=== PATIENT | female | born 1970 | race Caucasian/White ===

== ENCOUNTER 2017-03-19 15:22 | Emergency (ER) | payer MEDICARE, MEDICAID ==
[~2017-03-19] VITALS: Ht 167.6 cm; Wt 229.1 kg
[~2017-03-19 15:22] MED LIST: AMOXICILLIN AND1 TA2 PO; BACTRIM DS TAB1 EACH PO; COZAAR50 MG PO; CYMBALTA30 MG PO; ELAVIL GENERIC25 MG PO; ELIQUIS5 MG PO; INSULIN AS100 UNITS/ SC; KEFLEX 500MG.500 MG PO; LASIX 80MG. TAB80 MG PO; LEVOTHYROXINE0.3 M1 PO; LORTAB 10/5001 TAB PO; LYRICA50 MG PO; METOPROLOL100 MG PO; MIRAPEX1 MG PO; NAPROXEN SODIU500 MG PO; NEURONTIN800 MG PO; NORCO 325 MG-101 TAB PO; PAXIL40 MG PO; PROVENTIL0.09 MG/A1 IH; PROZAC 20MG CAP20 MG PO; REQUIP 1 MG TABL1 MG FT; SYNTHROID0.125 M1 PO; TOUJEO300 U/ML SC; TRICOR48 MG PO; TUDORZA PR400 MCG/Ac IH; VOLTAREN50 MG PO; ZOCOR40 MG PO
--- NOTE | 2017-03-19 15:56 | Emergency Room Report ---
History of Present Illness Time Seen by [id number] Presenting Problem in Triage Pt arrived:Walked Presenting Problem:PT STATES SHE BECAME SOB TODAY. BACK PAIN IN HER UPPER AND LOWER FOR A COUPLE DAYS. 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 N Clinical Suspician of Infection? N Mental Status: 1 - Regular (Normal Baseline) Sepsis Risk:Possible Sepsis Risk Have you (or family members/close friends) recently traveled outside the [place]? N If Yes, where/when: Have you had exposure to infectious disease within the past month? TB? Other? Specify: Patient with chronic pain in back, but reports that over the past few days she has had diffuse edema, some congestion, and today, a little bit of SOB. No cough or fever. No chest pain or palpitations. No n/v/d. Patient already on Eliquis for PE. Has been seen in the ED in January of this year for bronchitis and cellulitis of leg, and admitted. No redness today, and no cough. States is on Lortab per Dr. Chase in [place], who is trying to get her into a pain clinic. She is requesting pain medicaiton today. ALLERGIES Coded Allergies: ceftriaxone (From ROCEPHIN) (12/18/16) droperidol (From INAPSINE) (12/18/16) ibuprofen (12/18/16) moxifloxacin (From AVELOX) (12/18/16) Home Medications Reported Medications Pregabalin (Lyrica 50MG) 150 MG PO QID ROPINIROLE HCL (Requip 1 Mg) 1 MG FT QHS DULOXETINE HCL (Cymbalta 30MG) 30 MG PO DAILY Apixaban (Eliquis) 5 MG PO BID Gabapentin (Neurontin) 1 TAB PO TID Simvastatin (Zocor) 40 MG PO DAILY HYDROCODONE/ACETAMINOPHEN ([place] 10-325 Tablet) 1 TAB PO QID INSULIN GLARGINE,HUM.REC.ANLOG (Juan David Foster) 200 UNITS SC DAILY Levothyroxine Sodium (Levothyroxine 0.3MG TAB) 225 MCG PO DAILY #30 Metoprolol Tartrate (Metoprolol) 50 MG PO BID ALBUTEROL (Proventil Hfa Inhaler) 1-2 PUFF IH Q6H PRN FENOFIBRATE NANOCRYSTALLIZED (Tricor) 54 MG PO QPM Furosemide (Lasix 80MG) 80 MG PO BIDL Losartan Potassium (Cozaar) 100 MG PO DAILY History Medical History General CAD? No Angina: No [place]: No Hypertension? Yes Hyperlipidemia? Yes CHF? No DVT? Yes PE? Yes COPD? Yes Asthma? No Anemia? Yes GERD? Yes Gastric ulcers? No GI Bleed? No Hernia? No Thyroid Problems? Yes Hypothyroidism? Yes CVA? No Seizures? No Diabetes? Yes Insulin Dependent: Yes Insulin Pump: No Home FSBS? Yes Renal Insuffiency? No End Stage Renal Disease? No UTI? Yes Stones? No BPH? No GB Disease: No Nephritic Syndrome? No Asplenia? No Hepatitis? No Sickle Cell Disease? No Arthritis? Yes Migraines? Yes Cataracts? No Glaucoma? No MRSA? Yes HIV? No TB? No Anxiety? Yes Depression? Yes Cancer? No More? 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 Respiratory see HPI Musculoskeletal see HPI Physical Exam Vital Signs Vital Signs Date Time Temp Pulse Resp B/P Pulse O2 O2 Flow FiO2 Ox Delivery Rate 03/19 1633 81 22 134/87 97 03/19 1525 98.5 90 22 154/93 97 General Appearance normal appearance, WD/WN, no apparent distress, obese Eye Exam - bilateral eye normal exam, bilateral eye PERRL, bilateral eye EOMI Neck normal inspection, non-tender, supple, full range of motion Respiratory Status Yes: trachea midline, chest symmetrical, non tender chest. No: respiratory distress, tender on palpation, use of accessory muscles, pain on inspiration, pain on expiration, productive cough, non productive cough. Lung Sounds bilateral: normal breath sounds, lungs clear. Cardiovascular normal exam, regular rate/rhythm, no gallop, no JVD, no murmur, no rub, normal peripheral pulses Gastrointestinal normal bowel sounds, normal exam, non tender, soft, no organomegaly, no pulsatile mass, no guarding Extremities non-tender, normal range of motion, normal inspection, pedal edema, large scar, left knee, old; neg Taylor's; neg ropiness; neg asymmetry or discoloration Neurologic alert, normal exam, no motor/sensory deficits, oriented x 3 Skin intact, normal color Medical Decision Making LABS/Meds/Orders Pt receiving controlled substance in ED? No Results/Orders Laboratory Tests 03/19/17 1610: B-Natriuretic Peptide 72 03/19/17 161: Creatine Kinase 113, CK-MB (CK-2) Rel Index 0.4, CK and CKMB Interp 0.5, Troponin I < 0.02, B-Natriuretic Peptide Pending, WBC 8.6, RBC 4.65, Hgb 13.8, Hct 43.1, MCV 92.6, RDW 13.5, Plt Count 229, MPV 7.2 L, Gran % 73.7, Gran # 6.4 , Lymphocytes % 17.0, Monocytes % 6.2, Eosinophils % 2.7, Basophils % 0.5, Lymphocytes # 1.5, Monocytes # 0.5, Eosinophils # 0.2, Basophils # 0.0, PUBS MCHC 32.3, MCH 30.0 Current Medication Orders Sig/Deanne Start time Last Medication Dose Route Stop Time Status Admin Ketorolac 30 MG ONCE ONE 03/19 1715 r Tromethamine IV 03/19 1716 Sodium Chloride 10 ML PRN PRN 03/19 1545 AC IV 03/20 1537 Orders Procedure Date/time Status BRAIN NATRIURETIC PEPTIDE 03/19 1551 Complete ELECTROCARDIOGRAM REQUEST 03/19 1538 Active IV SALINE LOCK 03/19 1538 Active CBC WITH AUTO DIFF 03/19 1538 Complete CARDIAC ENZYMES 03/19 1538 Active BRAIN NATRIURETIC PEPTIDE 03/19 1538 Active 12 LEAD EKG-NICCI (INITIAL) 03/19 UNK Active CM/EKG CM/EKG EKG rate, NSR, rhythm, no evid. of ischemic chgs, no ectopy, normal QRS, normal AK, normal EKG (NSR 79;) XRAY/CT/US XRAY/CT/US XRAY chest XR interpretation by reviewed by me (report reviewed) Xray Results normal/NAD, no infiltrates, normal lung inflation chastity Departure Departure Time of Disposition 1709 Disposition DC Home or Self Care(routine) Clinical Impression Primary Impression: Chronic pain syndrome Secondary Impressions: Edema Qualifiers: Edema type: generalized Qualified Code: R60.1 - Generalized edema SOB (shortness of breath) Condition STABLE Referrals SHANA CHASE (Family) Patient Instructions DI for Peripheral Edema -- Bilateral Additional Instructions See Dr. Chase in [place] for pain management and follow up on swelling and shortness of breath; continue Lortab Discharge Counseling Counseled pt/family regarding diagnosis, test results, medications/RX, home care, follow up needs ED Critical Care Critical Care No at 1716
--- NOTE | 2017-03-19 15:56 | Emergency Room Report ---
History of Present Illness Time Seen by [id number] Presenting Problem in Triage Pt arrived:Walked Presenting Problem:PT STATES SHE BECAME SOB TODAY. BACK PAIN IN HER UPPER AND LOWER FOR A COUPLE DAYS. 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 N Clinical Suspician of Infection? N Mental Status: 1 - Regular (Normal Baseline) Sepsis Risk:Possible Sepsis Risk Have you (or family members/close friends) recently traveled outside the [place]? N If Yes, where/when: Have you had exposure to infectious disease within the past month? TB? Other? Specify: Patient with chronic pain in back, but reports that over the past few days she has had diffuse edema, some congestion, and today, a little bit of SOB. No cough or fever. No chest pain or palpitations. No n/v/d. Patient already on Eliquis for PE. Has been seen in the ED in January of this year for bronchitis and cellulitis of leg, and admitted. No redness today, and no cough. States is on Lortab per Dr. Chase in [place], who is trying to get her into a pain clinic. She is requesting pain medicaiton today. ALLERGIES Coded Allergies: ceftriaxone (From ROCEPHIN) (12/18/16) droperidol (From INAPSINE) (12/18/16) ibuprofen (12/18/16) moxifloxacin (From AVELOX) (12/18/16) Home Medications Reported Medications Pregabalin (Lyrica 50MG) 150 MG PO QID ROPINIROLE HCL (Requip 1 Mg) 1 MG FT QHS DULOXETINE HCL (Cymbalta 30MG) 30 MG PO DAILY Apixaban (Eliquis) 5 MG PO BID Gabapentin (Neurontin) 1 TAB PO TID Simvastatin (Zocor) 40 MG PO DAILY HYDROCODONE/ACETAMINOPHEN ([place] 10-325 Tablet) 1 TAB PO QID INSULIN GLARGINE,HUM.REC.ANLOG (Juan David Foster) 200 UNITS SC DAILY Levothyroxine Sodium (Levothyroxine 0.3MG TAB) 225 MCG PO DAILY #30 Metoprolol Tartrate (Metoprolol) 50 MG PO BID ALBUTEROL (Proventil Hfa Inhaler) 1-2 PUFF IH Q6H PRN FENOFIBRATE NANOCRYSTALLIZED (Tricor) 54 MG PO QPM Furosemide (Lasix 80MG) 80 MG PO BIDL Losartan Potassium (Cozaar) 100 MG PO DAILY History Medical History General CAD? No Angina: No [place]: No Hypertension? Yes Hyperlipidemia? Yes CHF? No DVT? Yes PE? Yes COPD? Yes Asthma? No Anemia? Yes GERD? Yes Gastric ulcers? No GI Bleed? No Hernia? No Thyroid Problems? Yes Hypothyroidism? Yes CVA? No Seizures? No Diabetes? Yes Insulin Dependent: Yes Insulin Pump: No Home FSBS? Yes Renal Insuffiency? No End Stage Renal Disease? No UTI? Yes Stones? No BPH? No GB Disease: No Nephritic Syndrome? No Asplenia? No Hepatitis? No Sickle Cell Disease? No Arthritis? Yes Migraines? Yes Cataracts? No Glaucoma? No MRSA? Yes HIV? No TB? No Anxiety? Yes Depression? Yes Cancer? No More? Yes Additional hx: OSTEOARTHRITIS SLEEP APNEA Immunization Hx DT/Tetanus 07/2007 Flu 2015-17FSN Pneumonia Received In Past Surgical Hx Previous Surgery?Y RIGHT TKA 2006 LEFT TKA LEFT KNEE REPAIR [employer] Hx LMP 2 Months Ago Family History Family Hx Diabetes Yes CAD No Hypertension Yes Hyperlipidemia Yes Cancer Yes TB No Social History Smoking Hx Smoker: Never Smoker Tobacco: No Packs/day < 1 Pack Alcohol Alcohol: No Review of Systems All Other Systems Reviewed and Negative ENT see HPI. Respiratory see HPI Musculoskeletal see HPI Physical Exam Vital Signs Vital Signs Date Time Temp Pulse Resp B/P Pulse O2 O2 Flow FiO2 Ox Delivery Rate 03/19 1633 81 22 134/87 97 03/19 1525 98.5 90 22 154/93 97 General Appearance normal appearance, WD/WN, no apparent distress, obese Eye Exam - bilateral eye normal exam, bilateral eye PERRL, bilateral eye EOMI Neck normal inspection, non-tender, supple, full range of motion Respiratory Status Yes: trachea midline, chest symmetrical, non tender chest. No: respiratory distress, tender on palpation, use of accessory muscles, pain on inspiration, pain on expiration, productive cough, non productive cough. Lung Sounds bilateral: normal breath sounds, lungs clear. Cardiovascular normal exam, regular rate/rhythm, no gallop, no JVD, no murmur, no rub, normal peripheral pulses Gastrointestinal normal bowel sounds, normal exam, non tender, soft, no organomegaly, no pulsatile mass, no guarding Extremities non-tender, normal range of motion, normal inspection, pedal edema, large scar, left knee, old; neg Taylor's; neg ropiness; neg asymmetry or discoloration Neurologic alert, normal exam, no motor/sensory deficits, oriented x 3 Skin intact, normal color Medical Decision Making LABS/Meds/Orders Pt receiving controlled substance in ED? No Results/Orders Laboratory Tests 03/19/17 1610: B-Natriuretic Peptide 72 03/19/17 161: Creatine Kinase 113, CK-MB (CK-2) Rel Index 0.4, CK and CKMB Interp 0.5, Troponin I < 0.02, B-Natriuretic Peptide Pending, WBC 8.6, RBC 4.65, Hgb 13.8, Hct 43.1, MCV 92.6, RDW 13.5, Plt Count 229, MPV 7.2 L, Gran % 73.7, Gran # 6.4 , Lymphocytes % 17.0, Monocytes % 6.2, Eosinophils % 2.7, Basophils % 0.5, Lymphocytes # 1.5, Monocytes # 0.5, Eosinophils # 0.2, Basophils # 0.0, PUBS MCHC 32.3, MCH 30.0 Current Medication Orders Sig/Deanne Start time Last Medication Dose Route Stop Time Status Admin Ketorolac 30 MG ONCE ONE 03/19 1715 r Tromethamine IV 03/19 1716 Sodium Chloride 10 ML PRN PRN 03/19 1545 AC IV 03/20 1537 Orders Procedure Date/time Status BRAIN NATRIURETIC PEPTIDE 03/19 1551 Complete ELECTROCARDIOGRAM REQUEST 03/19 1538 Active IV SALINE LOCK 03/19 1538 Active CBC WITH AUTO DIFF 03/19 1538 Complete CARDIAC ENZYMES 03/19 1538 Active BRAIN NATRIURETIC PEPTIDE 03/19 1538 Active 12 LEAD EKG-NICCI (INITIAL) 03/19 UNK Active CM/EKG CM/EKG EKG rate, NSR, rhythm, no evid. of ischemic chgs, no ectopy, normal QRS, normal OR, normal EKG (NSR 79;) XRAY/CT/US XRAY/CT/US XRAY chest XR interpretation by reviewed by me (report reviewed) Xray Results normal/NAD, no infiltrates, normal lung inflation chastity Departure Departure Time of Disposition 1709 Disposition DC Home or Self Care(routine) Clinical Impression Primary Impression: Chronic pain syndrome Secondary Impressions: Edema Qualifiers: Edema type: generalized Qualified Code: R60.1 - Generalized edema SOB (shortness of breath) Condition STABLE Referrals SHANA CHASE (Family) Patient Instructions DI for Peripheral Edema -- Bilateral Additional Instructions See Dr. Chase in [place] for pain management and follow up on swelling and shortness of breath; continue Lortab Discharge Counseling Counseled pt/family regarding diagnosis, test results, medications/RX, home care, follow up needs ED Critical Care Critical Care No at 1715
--- NOTE | 2017-03-19 16:22 | RADIOLOGY REPORT PS360 ---
CHEST(2 VIEWS-NOT PORTABLE) HISTORY: Shortness of air SOA ORDERING PHYSICIAN: Jacqueline Fowler MD PATIENT AGE: 46 years COMPARISON: 02/01/2017 FINDINGS: The cardiomediastinal silhouette and pulmonary vascularity are within normal limits. The lungs are clear without infiltrates, suspicious nodules, or pleural effusions. Mild degenerative changes thoracic spine. IMPRESSION: No acute finding
[2017-03-19 16:24] LABS: LYMPH # 1.5 K/mm3 (0.7-4.5)
[2017-03-19 16:36] LABS: HEMOGLOBIN 13.8 g/dL (12.2-16.2)
[2017-03-19 17:14] VITALS: BP 134/87
--- OUTSIDE RECORDS SUMMARY | 2017-03-26 03:09 | External Medical Summary Rpt ---
Author Author , Organization [employer] Address Unknown Phone Unavailable Care Team Providers Care Dinking Machine Operator Name Role Phone [facility] Unavailable Unavailable [facility], [facility] AHMED ADN, AHMED ADN Unavailable Unavailable AHMED ADN, AHMED ADN Unavailable Unavailable [facility] Unavailable Unavailable RESPONSE, [facility] Unavailable Unavailable [facility] MARIAA ESCOBEDO MD, PSC, Unavailable Unavailable MARIAA ESCOBEDO MD, PSC DENIA DORANTES, DENIA Unavailable Unavailable JAYNA Mckeon MD, Unavailable Unavailable Khoa Mckeon MD [facility] Unavailable Unavailable MEDICAL GROUP, [facility] Unavailable Unavailable [place], [facility] LUCIE FRA, LUCIE Unavailable Unavailable FRA JOEL JAYNA, JOEL JAYNA Unavailable Unavailable ANNA JOHN, ANNA Unavailable Unavailable JOHN BERNNELLY DOMONIQUE, BERNERT Unavailable Unavailable DOMONIQUE BESSON, BESSON Unavailable Unavailable GUTIERREZ RENÉ, Unavailable Unavailable GUTIERREZ RENÉ BLOYD LUX, BLOYD LUX Unavailable Unavailable [facility] Unavailable Unavailable ASSOCIAT, [facility] FRYE, FRYE Unavailable Unavailable BOONSTRA TOD, Unavailable Unavailable BOONSTRA TOD [facility] Unavailable Unavailable HOSPITAL, [facility] PHYSICIAN [facility]available Unavailable PRACTICE L, [facility] RENATA IVELISSE, RENATA Unavailable Unavailable IVELISSE JONEL MOR, JONEL MOR Unavailable Unavailable MOCTEZUMA JAM, MOCTEZUMA Unavailable Unavailable JAM MOCTEZUMA JAM, MOCTEZUMA Unavailable Unavailable JAM AGUILA REBECCA, AGUILA Unavailable Unavailable REBECCA AGUILA REBECCA IGN, Unavailable Unavailable AGUILA REBECCA IGN [facility] Unavailable Unavailable REHABILITATION, [facility] [place] Unavailable Unavailable [facility] Unavailable Unavailable [facility], [facility] Unavailable Unavailable [facility] [place], [facility] Unavailable Unavailable PHYSICIAN PRA, [facility] PRA JORJE NOEL Unavailable Unavailable JOHN LOPEZ, RECINOS Unavailable Unavailable JOHN [facility], Unavailable Unavailable [facility] AMIN QIANA, AMIN QIANA Unavailable Unavailable AMIN, COCO A, Unavailable Unavailable AMIN, COCO A [facility] Unavailable Unavailable ANESTHESIA PSC, [facility] ANEST[facility]IA [facility]SC SALVATORE, SALVATORE Unavailable Unavailable TONIA CHASE, Unavailable Unavailable TONIA CHASE HARSHAD, HARSHAD Unavailable Unavailable PANG ZEINA, PANG ZEINA Unavailable Unavailable DUFF, DUFF Unavailable Unavailable [facility] [place] [facility] Unavailable Unavailable MANAGE, [facility] [place] [facility] RALPH KIMANI, RALPH Unavailable Unavailable KIMANI RALPH KIMANI, RALPH Unavailable Unavailable KIMANI [facility] Unavailable Unavailable GROUP P, [facility] [place] ANNIA, OAKLEY Unavailable Unavailable ANNIA VEE COLETTE, VEE Unavailable Unavailable COLETTE JIMBO THO, JIMBO THO Unavailable Unavailable GREGONIS BEVERLY, Unavailable Unavailable GREGONIS BEVERLY TRINIDAD MARIETTA, TRINIDAD Unavailable Unavailable MARIETTA INDIRA, INDIRA Unavailable Unavailable INDIRA RHO, INDIRA Unavailable Unavailable RHO INDIRA, LUIS F G, Unavailable Unavailable INDIRA, LUIS F G HAGENSCHNEIDER BILL, Unavailable Unavailable HAGENSCHNEIDER BILL HAGENSCHNEIDER BILL, Unavailable Unavailable HAGENSCHNEIDER BILL [facility] Unavailable Unavailable INC, [facility] Unavailable Unavailable HOSPITAL P, [facility] MOSER URBANO, MOSER Unavailable Unavailable URBANO MOSER URBANO, MOSER Unavailable Unavailable URBANO MOSER, NEHEMIAS S, Unavailable Unavailable MOSER, NEHEMIAS S ANA TWA, ANA Unavailable Unavailable TWA HEILIG, HEILIG Unavailable Unavailable HEILIG IVELISSE, HEILIG Unavailable Unavailable IVELISSE HERANJITG, CELIA R, Unavailable Unavailable HEILIG, CELIA R [facility] Un[facility] MACK SCHUMACHER, Unavailable Unavailable MACK SCHUMACHER HOOS R Unavailable Unavailable BRANDEE CELESTE, BRANDEE ALONSO Unavailable [facility]available [facility]available Unavailable SERVICES O, [facility] KATIE WILSON Unavailable Unavailable SIMPSON BEAU, SIMPSON Unavailable Unavailable BE[facility] Unavailable Unavailable [place] Unavailable Unavailable [place], [facility] Unavailable Unavailable [place], [facility] [place] II, CARMENZA C, Unavailable Unavailable II, CARMENZA C [facility], [facility] Unavailable Unavailable INC [facility], [facility] Unavailable Unavailable INC BHUMI ANTONELLA, BHUMI Unavailable Unavailable ANTONELLA EARNEST III ANTONELLA, Unavailable Unavailable EARNEST III ANTONELLA [facility] Unavailable Unavailable [facility], [facility] Unavailable Unavailable ASSOCIAT, [facility] KERSCHNER MAG, Unavailable Unavailable KERSCHNER MAG KERSCH[facility] MAG, Unavailable Unavailable [facility] MAG KOSTELIC AFSHAN, Unavailable Unavailable KOSTELIC AFSHAN KOSTELNIK BRU, Unavailable Unavailable KOSTELNIK BRU KOUNS AJ, KOUNS AJ Unavailable Unavailable KUVLIEV MARYELLEN, KUVLIEV Unavailable Unavailable MARYELLEN KUVLIEV, AASHISH E, Unavailable Unavailable KUVLIEV, AASHISH E [facility] Un[facility] DIAL FREDDY, DIAL Unavailable Unavailable FREDDY DIAL FREDDY, DIAL Unavailable Unavailable FREDDY NICCI JR, NICCI JR Unavailable Unavailable [facility] Unavailable Unavailable DISEASE, [facility] Unavailable Unavailable INTERNAL MED, [facility] Unavailable [facility] [place] [place] STAN KONG Unavailable Unavailable ADRIANA GOMEZ, Unavailable Unavailable ADRIANA PIERCE ROBYN GRE, Unavailable Unavailable ROBYN GRE ROBYN GRE, Unavailable Unavailable ROBYN GRE [facility] Unavailable Unavailable SERVICES, [facility] Unavailable Unavailable [facility] WILSON JAM, Unavailable Unavailable WILSON JAM WILSON JAM, Unavailable Unavailable WILSON JAM MADRIGAL ELOISE, Unavailable Unavailable MADRIGAL ELOISE BLOOM, BLOOM Unavailable Unavailable MCQUAIDE JERRY, Unavailable Unavailable MCQUAIDE JERRY [facility] Unavailable Unavailable [facility] Unavailable Unavailable MEDICAL, [facility] Unavailable Unavailable SERV ULTRA SOUND TECHNICIAN R, [facility] ULTRA SOUND TECHNICIAN R [facility] Unavailable Unavailable SERV ULTRA SOUND TECHNICIAN R, [facility] ULTRA SOUND TECHNICIAN R [facility], [facility]CHNIC[facility] Unavailable Unavailable [facility], [facility] ULTRA SOUND TECHNICIAN [facility] CELIA SCOTT MD Unavailable Unavailable PLLCCELIA MD [facility] CELIA SCOTT MD Unavailable Unavailable [facility], CELIA SCOTT MD [facility] LUGO KYL, LUGO Unavailable Unavailable KYL [facility] PRIMARY Unavailable Unavailable CARE, [facility] GILLILAND, GILLILAND Unavailable Unavailable GILLILAND DYLAN, GILLILAND Unavailable Unavailable DYLAN ABDI BEN, ABDI Unavailable Unavailable BEN [facility], Unavailable Unavailable [facility] Unavailable Unavailable [facility], [facility] Unavailable Unavailable HEALTH, [facility] LINARES JOHN, Unavailable Unavailable LINARES JOHN LINARES JOHN, Unavailable Unavailable LINARES JOHN [facility], Unavailable Unavailable [facility] QIANA AMIN MD Unavailable Unavailable CONSULTING SRV, QIANA AMIN MD CONSULTING [facility], Unavailable Unavailable PLL, [facility], [facility] PAUL HARRIS Unavailable Unavailable YAMINI, PAUL HARRIS YAMINI RADMANESH SHA, Unavailable Unavailable RADMANESH SHA [facility] Unavailable Unavailable [facility], [facility] Unavailable Unavailable [facility], [facility] RENUSCH, RENUSC Unavailable Unavailable RICE SHA, RICE SHA Unavailable Unavailable SHERIN CHR, SHERIN CHR Unavailable Unavailable ROGOZINSKI ZBI, Unavailable Unavailable ROGOZINSKI ZBI SYMONE KIMBER, SYMONE Unavailable Unavailable KIMBER SCALF URBANO, SCALF URBANO Unavailable Unavailable SCHLENTHER, Unavailable Unavailable SCHLENTHER SHASHY MICHAEL, SHASHY Unavailable Unavailable MICHAEL CHAVEZ SEGUN, CHAVEZ Unavailable Unavailable SEGUN SHORT, BRITTANY, SHORT, Unavailable Unavailable BRITTANY CARRANZA SARAH, CARRANZA SARAH Unavailable Unavailable SOKAN BAB, SOKAN BAB Unavailable Unavailable [facility], Unavailable Unavailable [facility] Unavailable [facility], [facility] Unavailable Un[facility], [facility] Unavailable Unavailable [facility], [facility] Unavailable Unavailable [facility], [facility] SOTINGEANU, Unavailable Unavailable [facility] Un[facility], [facility] Unavailable Unavailable EMERGENCY SERV, [facility] MARIANGEL SILVINA, MARIANGEL Unavailable Unavailable SILVINA [facility] Unavailable Unavailable [facility], [facility] Unavailable Unavailable [facility], [facility] МАРИЯ ALICIA, HSIEH Unavailable Unavailable RAY STILES NAN, STILES Unavailable Unavailable NAN SWINEY PAT, SWINEY Unavailable Unavailable PAT JR ZACHARY EDW, Unavailable Unavailable JR ZACHARY EDW [facility], [facility] OSI, Unavailable Unavailable [facility] OSI, Unavailable Unavailable VILL[facility]FLOR OSI VILLAFLOR, GRETEL M, Unavailable Unavailable VILLAFLOR, GRETEL M [facility], Unavailable Unavailable [facility] HUBER CHR, HUBER Unavailable Unavailable CHR BELGICA IV, Unavailable Unavailable BELGICA IV BELGICA IV ALL, Unavailable Unavailable BELGICA IV ALL ANGELICA CELESTE, ANGELICA Unavailable Unavailable [facility] Un[facility], Un[facility] ZAGUROVSKAYA MAR, Unavailable Unavailable ZAGUROVSKAYA MAR RINA, RINA Unavailable Unavailable RINA MAT, RINA MAT Unavailable Unavailable Purpose Continuity of Care Document - 11-19-2007 through 2016 Problems Code Diagnosis DOS Provider Status E78.00 PURE 03-19-2017 HYPERCHOLES TEROLEMIA, UNSPECIFIED I50.9 HEART 03-19-2017 FAILURE, UNSPECIFIED M54.12 RADICULOPAT 03-19-2017 HY, CERVICAL REGION M62.838 OTHER 03-19-2017 MUSCLE SPASM R51 HEADACHE 03-19-2017 Z79.01 ANODIC TREATER 03-19-2017 (CURRENT) USE OF ANTICOAGULA NTS Z79.899 OTHER LONG 03-19-2017 TERM (CURRENT) DRUG THERAPY Z87.01 PERSONAL 03-19-2017 HISTORY OF PNEUMONIA (RECURRENT) M54.2 CERVICALGIA 02-28-2017 S16.1XXA STRAIN OF 02-28-2017 MUSCLE, FASCIA AND TENDON AT NECK LEVEL, INITIAL ENCOUNTER S46.811A STRAIN OF 02-28-2017 OTHER MUSCLES, FASCIA AND TENDONS AT SHOULDER AND UPPER ARM LEVEL, RIGHT ARM, INITIAL ENCOUNTER Z79.891 PENITENTIARY 02-28-2017 (CURRENT) USE OF OPIATE ANALGESIC Z88.1 ALLERGY 02-28-2017 STATUS TO OTHER ANTIBIOTIC AGENTS STATUS Z88.8 ALLERGY 02-28-2017 STATUS TO OTHER DRUGS, MEDICAMENTS AND BIOLOGICAL SUBSTANCES STATUS [id number] CELLULITIS 02-01-2017 ABEL OF RIGHT PHYSICIANS, LOWER LIMB PLLC Y89946 CELLULITIS 02-01-2017 ABEL OF LEFT PHYSICIANS, LOWER LIMB [facility] R05 COUGH 02-01-2017 ABEL PHYSICIANS, [facility] R0602 SHORTNESS 02-01-2017 ABEL OF BREATH PHYSICIANS, [facility] M79.604 PAIN IN 01-31-2017 RIGHT LEG Z79.4 ANODIC TREATER 01-31-2017 (CURRENT) USE OF INSULIN Z87.891 PERSONAL 01-31-2017 HISTORY OF NICOTINE DEPENDENCE M79.605 PAIN IN 01-31-2017 LEFT LEG R07.9 CHEST PAIN, 01-31-2017 UNSPECIFIED E7800 PURE 01-29-2017 [place] HYPERCHOLES [facility] UNSPECIFIED I509 HEART 01-29-2017 [facility] FAILURE [facility] UNSPECIFIED HOSPITAL Q65663 PAIN IN 01-29-2017 [facility] RIGHT LEG N EMERGENCY PHYS F78729 PAIN IN 01-29-2017 [facility] LEFT LEG N EMERGENCY PHYS R0789 OTHER CHEST 01-29-2017 [facility] PAIN N EMERGENCY PHYS Z794 PENITENTIARY 01-29-2017 [place] CURRENT USE [facility] INSULIN HOSPITAL I98935 ANODIC TREATER 01-29-2017 [place] CURRENT USE [facility] OPIATE HOSPITAL ANALGESIC F10898 OTHER LONG 01-29-2017 [facility] CURRENT HOSPITAL DRUG THERAPY Z8701 PERSONAL 01-29-2017 [facility] HISTORY OF COMMUNITY PNEUMONIA HOSPITAL RECURRENT E6601 MORBID 12-24-2016 [facility] SEVERE PHYSICIAN OBESITY DUE PRACTICE L TO EXCESS CALORIES G894 CHRONIC 12-24-2016 [facility] PAIN PHYSICIAN SYNDROME PRACTICE L I2699 OTH 12-24-2016 [facility] PULMONARY PHYSICIAN EMBOLISM PRACTICE L W/O ACUTE COR PULMONALE J00 ACUTE 12-24-2016 [facility] NAS[facility]ARYNG PHYSICIAN ITIS COMMON PRACTICE L COLD E1165 TYPE 2 12-20-2016 [facility] MELLITUS INC WITH HYPERGLYCEM IA I10 ESSENTIAL 12-20-[address] [facility] P N J449 CHRONIC 12-20-2016 [facility] PULMONARY [facility] P DISEASE UNS K219 GASTRO-ESOP 12-20-2016 [facility] REFLUX [facility] WITHOUT ESOPHAGITIS Z7901 ANODIC TREATER 12-20-2016 [facility] CURRENT USE MEM [facility]OS[facility] OF INC ANTICOAGULA NTS E109 TYPE 1 12-18-2016 [facility] MELLITUS MEDICAL WITHOUT EQUIPME COMPLICATIO NS E119 TYPE 2 12-18-2016 [facility] MELLITUS INC WITHOUT COMPLICATIO NS G4733 OBSTRUCTIVE 12-18-2016 [facility] SLEEP HOME APNEA ADULT MEDICAL PEDIATRIC EQUIPME J9610 CHRONIC 12-18-2016 [facility] RESPIRATORY HOME FAIL UNS MEDICAL HYPOXIA/HYP EQUIPME ERCAPNIA R079 CHEST PAIN 12-18-2016 [facility] UNSPECIFIED [facility]ICAL IMAGING ASS R1011 RIGHT UPPER 12-18-2016 [facility] PAIN IMAGING ASS R7989 OTHER SPEC 12-18-2016 [facility] ABNORMAL MEDICAL FINDINGS IMAGING ASS BLOOD CHEMISTRY Z6845 BODY MASS 12-18-2016 [facility] INDEX BMI [facility] 70 OR HOSPITAL P GREATER ADULT P08357 ACQUIRED 12-18-2016 [facility] ABSENCE OF [facility] RIGHT LEG HOSPITAL P ABOVE KNEE A73951 ACQUIRED 12-18-2016 [place] ABSENCE OF [facility] LEFT LEG HOSPITAL P ABOVE KNEE G4731 PRIMARY 12-16-2016 [facility] CENTRAL HOME SLEEP APNEA MEDICAL EQUIPME J9621 ACUTE & 11-30-2016 [facility] CHRONIC N EMERGENCY RESPIRATORY PHYS FAILURE WITH HYPOXIA R030 ELEVATED 11-30-2016 [facility] BLOOD-PRESS N EMERGENCY URE READING PHYS WITHOUT DX HTN R0600 DYSPNEA 11-30-2016 [facility] UNSPECIFIED N EMERGENCY PHYS R0989 OTH SPEC SX 11-30-2016 [facility] & SIGNS N EMERGENCY INVLV THE PHYS CIRC & RESP SYS E039 HYPOTHYROID 11-27-2016 [facility] E669 OBESITY 11-27-2016 [facility] UNSPECIFIED N EMERGENCY PHYS G4730 SLEEP APNEA 11-27-2016 [facility] J441 CHRONIC 11-27-2016 [facility] OBSTRUCTIVE N EMERGENCY PULMONARY PHYS DZ W/EXACERBAT ION R609 EDEMA 11-27-2016 [facility] UNSPECIFIED N EMERGENCY PHYS R635 ABNORMAL 11-27-2016 [facility] WEIGHT GAIN N EMERGENCY PHYS Y76581 CHRONIC 11-21-2016 [facility] MIGRAINE PHYSICIAN W/O AURA PRACTICE L NOT INTRACT W/O SM J0190 ACUTE 11-21-2016 [facility] SINUSITIS PHYSICIAN UNSPECIFIED PRACTICE L M5416 RADICULOPAT 11-19-2016 [facility] HY LUMBAR [facility] REGION INC M545 LOW BACK 11-19-2016 CARMEN PEOPLES MD, PSC J042 ACUTE 11-05-2016 [facility] LARYNGOTRAC N EMERGENCY HEITIS PHYS J189 PNEUMONIA 11-05-2016 [facility] UNSPECIFIED N EMERGENCY ORGANISM PHYS R918 OTHER 11-05-2016 [facility] [place] [facility] ABNORMAL FINDING OF LUNG FIELD G8929 OTHER 10-30-2016 [place] CHRONIC PHYSICIAN PAIN PRACTICE L C56264L STRAIN OT 10-30-2016 [facility] SHLDR PHYSICIAN UP ARM LVL PRACTICE L UNS ARM INIT ENC E1140 TYPE 2 DM 10-15-2016 [facility] WITH PHYSICIAN DIABETIC PRACTICE L NEUROPATHY UNSPECIFIED J810 ACUTE 09-25-2016 HOSPITAL PULMONARY MEDICINE EDEMA SERVICES O E6609 OTHER 09-24-2016 [facility] OBESITY DUE N EMERGENCY TO EXCESS PHYS CALORIES J811 CHRONIC 09-24-2016 [facility]ITY [facility]OSPITAL M7989 OTHER 09-24-2016 [facility] SPECIFIED [facility] DISORDERS Z49411 PERSONAL 09-10-2016 [facility] HISTORY OTH [facility] VENOUS ROBERTO THROMBOSIS& EMBOLISM I77968 PERSONAL 09-10-2016 [facility] HISTORY OF [facility] NICOTINE [facility] DEPENDENCE Z886 ALLERGY 09-10-2016 [facility] STATUS TO [facility] ANALGESIC [facility]O AGENT STATUS J84046 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 E1142 TYPE 2 08-21-2016 [facility] DIABETES [facility]Y MELLITUS INTERNAL W/DIAB MED POLYNEUROPA THY M170 BILATERAL 08-21-2016 [facility] PRIMARY GRADY OSTEOARTHRI INTERNAL TIS OF KNEE MED Z23 ENCOUNTER 08-21-2016 [facility] FOR GRADY IMMUNIZATIO INTERNAL N MED A30555 PAIN IN 08-11-2016 [facility] RIGHT KNEE N EMERGENCY PHYSI P83153 PAIN IN 08-11-2016 [facility] [place] RIGHT LOWER RADIOLOGY LEG Z881 ALLERGY 08-11-2016 [place] STATUS TO COMMUNITY OTHER HOSPITAL ANTIBIOTIC AGENTS STATUS Z888 ALLERGY 08-11-2016 [place] STATUS OTH [facility]ITY [facility] HOSPITAL BIOLOG SUBSTANC STS R0609 OTHER FORMS 07-04-2016 [facility] MEDICINE SERVICES O E785 HYPERLIPIDE 07-03-2016 [facility] U[facility]PEC[facility]PITAL J40 BRONCHITIS 07-03-2016 [facility] NOT N EMERGENCY SPECIFIED PHYSI ACUTE OR CHRONIC J180 BRONCHOPNEU 06-30-2016 [facility] MONIA N EMERGENCY UNSPECIFIED SERV ORGANISM R600 LOCALIZED 06-30-2016 [facility] EDEMA N EMERGENCY SERV R739 HYPERGLYCEM 06-30-2016 [facility] IA N EMERGENCY UNSPECIFIED SERV P85750 PAIN IN 06-28-2016 [place] LEFT REGIONAL SHOULDER MEDICAL C72560 PAIN IN 06-21-2016 [facility] FOOT [facility] IM[facility] ASS E8770 FLUID 06-10-2016 [facility] OVERLOAD N EMERGENCY UNSPECIFIED PHYS I5020 UNSPECIFIED 06-05-2016 [facility] SYSTOLIC N EMERGENCY CONGESTIVE PHYS HEART FAILURE I5033 ACUTE ON 06-02-2016 [facility] DIASTOLIC SERVICES O CONGESTIV HEART FAILURE I5030 UNSPECIFIED 06-01-2016 [place] DIASTOLIC [facility] CONGESTIVE HOSPITAL HEART FAILURE I5031 ACUTE 06-01-2016 [facility] DIASTOLIC N EMERGENCY CONGESTIVE PHYS HEART FAILURE G4710 HYPERSOMNIA 05-31-2016 [facility] UNSPECIFIED ROBERTO R0683 SNORING 05-31-2016 [facility] ROBERTO R51 HEADACHE 05-31-2016 [facility] ROBERTO R5383 OTHER 05-31-2016 [facility] ROBERTO J56350 PAIN IN 05-30-2016 [place] LEFT KNEE ORTHOPEDIC ASSOCIAT D58730T MECH 05-30-2016 [facility] LOOSENING ORTHOPEDIC INTRL LT ASSOCIAT KNEE PROSTH JNT SUB ENC E8342 HYPOMAGNESE 05-26-2016 [facility] ROBERTO E038 OTHER 05-08-2016 [place] SPECIFIED [facility] HYPOTHYROID HOSPITAL ISM M549 DORSALGIA 05-08-2016 [facility] E871 HYPO-OSMOLA 03-21-2016 [facility] LITY AND REGIONAL HYPONATREMI PHYSICIAN A PRA E01999 UNSPECIFIED 03-21-2016 [facility] REGIONAL UNCOMPLICAT PHYSICIAN ED PRA E662 MORBID 03-20-2016 [facility] SEVERE REGIONAL OBESITY MEDICAL W/ALVEOLAR CENTE HYPOVENTILA TION E876 HYPOKALEMIA 03-20-2016 [facility] MEDICAL CENT[facility] I959 HYPOTENSION 03-20-2016 [facility] UNSPECIFIED MEDICAL CENTE J168 PNEUMONIA 03-20-2016 [facility] DUE TO N EMERGENCY OTHER SPEC PHYSI INFECTIOUS ORGANISMS J9601 ACUTE 03-20-2016 [facility] RESPIRATORY REGIONAL FAILURE MEDICAL WITH CENTE HYPOXIA M791 MYALGIA 03-20-2016 [facility] K09989 PRESENCE OF 03-17-2016 [place] [facility] LEFT SERV ARTIFICIAL FOUNDATION KNEE JOINT Z9889 OTHER 03-17-2016 [place] [facility] SPECIFIED SERV POSTPROCEDU FOUNDATION [facility] STATES I5043 ACUTE ON 01-31-2016 [facility] AMIN CHRONIC COMB CONSULTING SYSTOLIC & SRV DIASTOLIC CHF R2242 LOCALIZED 01-31-2016 [facility] AMIN SWELLING MASS AND CONSULTING LUMP LEFT SRV LOWER LIMB D649 ANEMIA 01-29-2016 [place] UNSPECIFIED [facility] HOSPITAL E873 ALKALOSIS 01-29-2016 [facility] I501 LEFT 01-29-2016 [facility] VENTRICULAR N EMERGENCY FAILURE PHYS I872 VENOUS 01-29-2016 [facility] PERIPHERAL R0902 HYPOXEMIA 01-29-2016 [facility] D509 IRON 01-25-2016 [facility] DEFICIENCY PRIMARY ANEMIA CARE UNSPECIFIED R52 PAIN 01-25-2016 [facility] UNSPECIFIED PRIMARY CARE B9689 OTH SPEC 01-16-2016 [facility] BACTERIAL PRIMARY AGNT CAUSE CARE DZ CLASSIFIED ELSW D500 IRON 01-16-2016 [facility] DEFICIENCY PRIMARY ANEMIA SEC CARE TO BLOOD LOSS CHRONIC G8918 OTHER ACUTE 01-16-2016 [facility] PRIMARY POSTPROCEDU CARE RAL PAIN M6281 MUSCLE 01-14-2016 [facility] GENERALIZED [facility] R262 DIFFICULTY 01-14-2016 [facility] NOT [facility] ELSEWHERE CLASSIFIED [id number] INF & 01-14-2016 [facility] REACT UNS [facility] INTRL JNT PROSTH INIT ENC D62 ACUTE 01-11-2016 [facility] POSTHEMORRH REGIONAL AGIC ANEMIA PHYSICIAN PRA Z4733 AFTERCARE 01-11-2016 [facility] FOLLOW REGIONAL EXPLANTATIO PHYSICIAN N KNEE PRA JOINT PROSTH I9581 POSTPROCEDU 01-10-2016 [facility]AL [facility] HYPOTENSION MEDICAL CENTE R000 TACHYCARDIA 01-10-2016 [facility]AL UNSPECIFIED MEDICAL CENTE R279 UNSPECIFIED 01-10-2016 [facility] LACK OF AMBULANCE COORDINATIO SERV ULTRA SOUND TECHNICIAN R N [id number] [facility] 01-10-2016 [facility] LOOSENING ORTHOPEDIC INTRL LT ASSOCIAT KNEE PROSTH JNT INIT ENC [id number] INF INFLAM 01-10-2016 [facility] RXN OTH H INTRL PROS ANESTHESIA DEVC GFT PSC SBSQT ENC G8928 OTHER 01-08-2016 [place] [facility] POSTPROCEDU FOUND[facility] RAL PAIN R5381 OTHER 01-08-2016 [facility] SERV [facility] [id number] INF & 01-08-2016 [place] [facility] INFLAM SERV REACT INTRL FOUNDATION LT KNEE PROSTH SEQUELA N70834 ENCOUNTER 01-06-2016 [facility] FOR OTHER REGIONAL PREPROCEDUR MEDICAL AL CENTE EXAMINATION I5021 ACUTE 12-28-2015 [facility] SYSTOLIC CONGESTIVE HEART FAILURE Z792 PENITENTIARY 12-25-2015 [facility] CURRENT USE SERV OF FOUNDATION ANTIBIOTICS R093 ABNORMAL 12-21-2015 [facility] SPUTUM SERV [facility] [id number] ELEVATED 12-15-2015 [facility] WHITE BLOOD INFECTIOUS CELL COUNT DISEASE UNSPECIFIED L539 ERYTHEMATOU 12-15-2015 [facility] S CONDITION INFECTIOUS DISEASE UNSPECIFIED [id number] INF & 12-15-2015 [facility] INFLAM INFECTIOUS REACT INTRL DISEASE LT KNEE PROSTH INIT ENC [id number] ACQUIRED 12-15-2015 [facility] ABSENCE OF INFECTIOUS LEFT KNEE DISEASE Z9981 DEPENDENCE 12-13-2015 [facility] SERV SUPPLEMENTA FOUNDATION L OXYGEN B379 CANDIDIASIS 12-09-2015 [facility] SERV UNSPECIFIED FOUNDATION R1310 DYSPHAGIA 12-07-2015 [facility] UNSPECIFIED SERV FOUNDATION Z452 ENCOUNTER 12-02-2015 [facility] ADJUSTMENT& RADIOLOGY MGMT VASCULAR ACCESS DEVICE A419 SEPSIS 12-01-2015 [facility] UNSPECIFIED [facility] ORGANISM REHABILITAT ION [id number] OTHER SPEC 12-01-2015 [facility] ACQUIRED [facility] DEFORMITIES REHABILITAT LT LOWER ION LEG R2689 OTHER 12-01-2015 [facility] ABNORMALITI [facility]ILL ES OF GAIT REHABILITAT AND ION MOBILITY [id number] INF & 12-01-2015 [facility] INFLAM [facility] REACT INTRL REHABILITAT LT KNEE ION PROSTH SUB ENC A4902 METHICILLIN 11-18-2015 [facility] RSIST SERV STAPH FOUNDATION INFECTION UNS SITE W78218 PAIN IN 11-18-2015 [facility] UNSPECIFIED SERV KNEE FOUNDATION J9600 ACUTE 11-08-2015 [facility] FAIL UNS MEDICAL HYPOXIA/HYP GROUP ERCAPNIA J9690 RESP FAIL 11-03-2015 [facility] UNS MEDICAL WHETHER RESPONSE W/HYPOXIA/H YPERCAPNIA R140 ABDOMINAL 11-03-2015 [facility] DISTENSION SERV GASEOUS FOUNDATION Z4682 ENCOUNTER 11-03-2015 [facility] FITTING & SERV ADJUST FOUNDATION NON-VASCULA R CATHETER M01X9 DIRECT INF 11-02-2015 [facility] MULTI JNT REGIONAL INF & PHYSICIAN PARASIT DZ PRA CLASS ELSW N179 ACUTE 10-28-2015 [facility] REGIONAL FAILURE PHYSICIAN UNSPECIFIED PRA L089 LOCAL INF 10-27-2015 [facility] THE SKIN & PATHOLOGY SUBCUTANEOU ASSOCIAT S TISSUE UNS [id number] BREAKDOWN 10-27-2015 [facility] INTRL FIX PATHOLOGY DEVC UNS ASSOCIAT BONE LIMB INIT ENC [id number] PAIN INTRL 10-27-2015 [facility] PROSTH DEVC ANESTHESIA IMPL GFT PSC INIT ENC Y02331 MIGRAINE 09-21-2015 [facility] W/AURA [facility]ALTH INTRACT W/O SOLUTIONS STATUS IN MIGRAINOSUS E36420 PAIN IN 09-21-2015 [facility] RIGHT HEALTH SHOULDER SOLUTIONS IN Z75341 PAIN IN 08-20-2015 [facility] UNSPECIFIED HEALTH SHOULDER SOLUTIONS IN 7840 HEADACHE 07-21-2015 [facility] [place] RAD[place] 51136 SHORTNESS 07-19-2015 [facility] [place] OF BREATH RADIOLOGY 09592 OTHER 07-18-2015 [facility] [place] DISEASES OF RADIOLOGY NASAL CAVITY AND SINUSES 15083 DIAB W/O 07-09-2015 [facility] [place] COMP TYPE MOUNT II/UNS NOT [facility] STATED UNCNTRL 58981 DIAB W/O 07-09-2015 [facility] MENTION HEALTH COMP TYPE SOLUTIONS II/UNS TYPE IN UNCNTRL 47708 MORBID 07-09-2015 [place] [address] PAIN IN 07-09-2015 [facility] JOINT, HEALTH LOWER LEG SOLUTIONS IN V4364 HIP JOINT 07-09-2015 [facility] REPLACEMENT MOUNT BY OTHER [facility] MEANS 3670 HYPERMETROP 06-30-2015 [facility] [place] GRE 496 CHRONIC 05-10-2015 [facility] AIRWAY M[place] OBSTRUCTION [facility] NEC 25956 DIAB W/O 04-30-2015 [facility] COMP TYPE I HOME [JUV] NOT MEDICAL STATED EQUIPME UNCNTRL 47491 OBSTRUCTIVE 04-30-2015 [facility] SLEEP HOME APNEA MEDICAL EQUIPME 8798 OPEN WOUND 11-25-2014 [facility] INC UNSPEC SITE WITHOUT MENTION COMP 8911 OPEN WOUND 11-25-2014 [facility] INC OF KNEE LEG AND ANKLE COMPLICATED 7295 PAIN IN 11-17-2014 [facility] SOFT RADIOLOGY TISSUES OF ASSOCIAT LIMB 6826 CELLULITIS 10-14-2014 [facility] [place] [place] EXCEPT FOOT 7202 SACROILIITI 09-21-2014 [facility] S NOT PAIN & ELSEWHERE SPINE CLASSIFIED INSTIT 7244 THORACIC/JASMYN 09-21-2014 [facility] MBOSACRAL PAIN & NEURITIS/RA SPINE DICULITIS INSTIT UNSPEC 7197 DIFFICULTY 08-20-2014 HOME IN WALKING CONVALESCEN T AIDS INC V5481 AFTERCARE 08-17-2014 [facility] FOLLOWING REGIONAL JOINT MEDICAL REPLACEMENT CENTE V5789 OTHER 08-17-2014 [facility] SPECIFIED REGIONAL REHABILITAT MEDICAL ION CENTE PROCEDURE OTHER V8545 BODY MASS 08-17-2014 [facility] INDEX 70 REGIONAL AND OVER MEDICAL ADULT CENTE 37953 AC BRANDI 08-10-2014 [facility] EMBO & REGIONAL THROMB MEDICAL UNSPEC DEEP CENTE VES LOWER EXT 77593 OTHER 08-06-2014 [facility] CHRONIC REGIONAL PAIN MEDICAL CENTE V1251 PERSONAL 08-06-2014 [facility] HISTORY, REGIONAL VENOUS MEDICAL THROMBOSIS CENTE AND EMBOLISM V4365 KNEE JOINT 08-06-2014 [facility] REPLACEMENT REGIONAL BY OTHER MEDICAL MEANS CENTE 25954 OTHER ACUTE 08-03-2014 [facility] H POSTOPERATI ANESTHESIA VE PAIN PSC 71701 OSTEOARTHRO 08-03-2014 [facility] SIS UNSPEC H WHETHER ANESTHESIA GEN/LOC PSC LOWER LEG 2449 UNSPECIFIED 07-29-2014 [facility] REGIONAL HYPOTHYROID MEDICAL ISM CENTE 2724 OTHER AND 07-29-2014 [facility] UNSPECIFIED REGIONAL MEDICAL HYPERLIPIDE CENTE FARZANA 4011 ESSENTIAL 07-29-2014 [facility] HYPERTENSIO REGIONAL N, BENIGN MEDICAL CENTE 02788 UNSPECIFIED 07-29-2014 [facility] SLEEP REGIONAL APNEA MEDICAL CENTE V7281 PRE-OPERATI 07-29-2014 [facility] VE REGIONAL CARDIOVASCU MEDICAL LAR CENTE EXAMINATION V7283 OTHER 07-29-2014 FOUND[facility] SPECIFIED RADIOLOGY PRE-OPERATI GROUP P VE EXAMINATION 7213 LUMBOSACRAL 07-14-2014 [facility] PAIN & SPONDYLOSIS SPINE WITHOUT INSTIT MYELOPATHY 9597 INJURY 06-17-2014 [facility] OTHER&UNSPE REGIONAL CIFIED KNEE MEDICAL LEG ANKLE&FOOT 78880 SOLITARY 06-07-2014 [facility] PULMONARY REGIONAL NODULE MEDICAL V1582 PERS HX 06-07-2014 [facility] TOBACCO USE RADIOLOGY PRESENTING ASSOCIAT [facility] 3489 UNSPECIFIED 03-01-2014 [facility] OF BRAIN INC 20567 HEAD 02-08-2014 [facility], INJURY, ULTRA SOUND TECHNICIAN UNSPECIFIED [facility] 462 ACUTE 01-27-2014 [facility], PHARYNGITIS ULTRA SOUND TECHNICIAN [facility] 96090 OTHER 01-27-2014 [facility], DYSPNEA AND ULTRA SOUND TECHNICIAN [facility] RESPIRATORY HOS ABNORMALITI ES 7862 COUGH 01-27-2014 [facility], ULTRA SOUND TECHNICIAN [facility] 490 BRONCHITIS 01-20-2014 [facility] INC, NOT ULTRA SOUND TECHNICIAN SPECIFIED [facility] ACUTE OR HOS CHRONIC 42104 FEVER 01-20-2014 [facility], UNSPECIFIED ULTRA SOUND TECHNICIAN [facility] 7822 LOCALIZED 12-29-2013 [facility] INC, SUPERFICIAL ULTRA SOUND TECHNICIAN SWELLING [facility] [facility] MASS OR HOS LUMP 4019 UNSPECIFIED 11-16-2013 [facility] 7242 LUMBAGO 11-02-2013 JOSE ELIAS JAM 7823 EDEMA 09-15-2013 [facility], ULTRA SOUND TECHNICIAN [facility] 03434 SWELLING OF 05-11-2013 JORJE LOPEZ LIMB E8889 UNSPECIFIED 05-11-2013 JORJE LOPEZ FALL 56442 NAUSEA WITH 04-13-2013 [facility], VOMITING ULTRA SOUND TECHNICIAN [facility] 16259 ABDOMINAL 04-13-2013 [facility] PAIN, SARAH BILL UNSPECIFIED SITE 99151 ABDOMINAL 04-13-2013 [facility], PAIN RIGHT ULTRA SOUND TECHNICIAN UPPER [facility] [facility] 31274 ABDOMINAL 04-13-2013 [facility], PAIN, ULTRA SOUND TECHNICIAN EPIGASTRIC [facility] 07236 UNSPECIFIED 02-13-2013 [facility] ADN RESPIRATORY ABNORMALITY 918.1 918.1 01-23-2013 [facility] 515 POSTINFLAMM 01-20-2013 SHANTI CLEMENT SRINIVASAKristan PULMONARY FIBROSIS 59061 PAIN IN 01-05-2013 [facility], JOINT, ULTRA SOUND TECHNICIAN ANKLE AND [facility] FOOT [facility] E9179 OTHER 01-05-2013 JORJE LOPEZ STRIKING AGAINST W/WO SUBSEQUENT FALL 4778 ALLERGIC 12-10-2012 [facility] DUE TO INC OTHER ALLERGEN 4779 ALLERGIC 12-10-2012 [facility] RHINITIS JAM CAUSE UNSPECIFIED 86720 ESOPHAGEAL 12-10-2012 [facility]UX [facility] 05237 STREPTOCOCC 12-02-2012 [facility], US ULTRA SOUND TECHNICIAN INFECTION [facility] CCE & UNS HOS SITE GROUP B 41474 CHEST PAIN 11-26-2012 JORJE LOPEZ UNSPECIFIED 77181 OBST 11-09-2012 ANGELICA ALONSO CHRONIC BRONCHITIS W/ACUTE BRONCHITIS 4280 CONGESTIVE 09-15-2012 [facility] FAILURE MEDICAL UNSPECIFIED EQUIPME 43352 OBSTRUCTIVE 09-15-2012 [facility] ADN CHRONIC BRONCHITIS WITH EXACERBATIO N 7245 UNSPECIFIED 09-15-2012 [facility] BACKACHE 90322 HYPERSOMNIA 09-15-2012 [facility] WITH SLEEP HOME APNEA MEDICAL UNSPECIFIED EQUIPME 09326 PAINFUL 09-11-2012 [facility]N RESPIRATION 4760 CHRONIC 07-22-2012 D[facility] LARYNGITIS 76521 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 [facility] [place] CORONARY ARTERY 58022 OTHER 06-05-2012 [facility] IS OF HAND AND WRIST V5867 LONG-TERM 06-05-[address] [facility] INSULIN V7285 OTHER 06-05-2012 [facility] SPECIFIED SERV EXAMINATION FOUNDATION 98162 OSTEOARTHRO 05-16-2012 [facility] UNSPEC [facility] GEN/LOC UNSPEC SITE E8490 PLACE OF 05-16-2012 [facility] BERMAN, [facility]PITAL E9270 OVEREXERTIO 05-16-2012 [facility] Escalante FROM [facility] STRENUOUS MOVEMENT 5180 PULMONARY 02-21-2012 [facility] 58434 OTHER 02-21-2012 [facility] DISEASES OF MEDICAL LUNG NOT IMAGING ASS ELSEWHERE CLASSIFIED 09288 GEN 11-01-2011 [facility] OSTEOARTHRO HOME SIS MEDICAL INVOLVING EQUIPME MULTIPLE SITES 2720 PURE 10-06-2011 [facility] HYPERCHOLES EMERGENCY TEROLEMIA SERVICES 94031 METHICILLIN 10-06-2011 [facility] RESISTANT EMERGENCY PNEUMONIA SERVICES D/T STAPH AUREUS 4829 UNSPECIFIED 10-05-2011 [facility] BACTERIAL EMERGENCY PNEUMONIA SERVICES 5199 UNSPECIFIED 10-02-2011 [facility] DISEASE OF RADIOLOGY ASSOCIAT RESPIRATORY SYSTEM 42319 PRECORDIAL 09-17-2011 [facility] [place] 18152 METHICILLIN 09-10-2011 [facility] [place] STAP[facility] 4660 ACUTE 08-24-2011 [facility] BRONCHITIS OSI V1581 PERS HX 08-24-2011 [facility] NONCOMPLIAN OSI CE W/MED TX PRS [facility] 09659 OBESITY, 08-07-2011 [facility] UNSPECIFIED HOSPITAL 463 ACUTE 08-07-2011 [facility] 2865 HEMORRHAGIC 06-27-2011 [facility] D/[facility] INTRINSIC CIRC ANTICOAG AB/INHIB 5589 OTH&UNSPEC 06-27-2011 [facility] NONINFECTIO OSI US GASTROENTER ITIS&COLITI S 7336 TIETZES 06-27-2011 [facility] 32505 OTHER CHEST 06-27-2011 [facility] PAIN OSI V5861 LONG-TERM 06-27-2011 [facility] (CURRENT) [facility]PITAL USE OF ANTICOAGULA NTS V5869 LONG-TERM 06-27-2011 [facility] (CURRENT[facility] USE OF OTHER MEDICATIONS 06382 PRIMARY 06-22-2011 [facility] LOCALIZED SERV OSTEOARTHRO FOUNDATIO SIS LOWER LEG 47045 UNSPECIFIED 06-16-2011 [facility] ARTHROPATHY , LOWER LEG 3569 UNSPEC 05-22-2011 [facility] HEREDIT&IDI JOHN OPATHIC PERIPHERAL NEUROPATHY 2819 UNSPECIFIED 03-04-2011 [facility] ANEMIA 4010 ESSENTIAL 03-04-2011 [facility] HYPERTENSIO OSI N, MALIGNANT 18063 OTHER 03-04-2011 [facility] FATIGUE 51107 NAUSEA 03-04-2011 [facility] 7820 DISTURBANCE 02-14-2011 [facility] OF SKIN JOHN SENSATION 3384 CHRONIC 02-09-2011 [facility] PAIN OSI SYNDROME 77510 SPINAL STEN 02-09-2011 [facility] LUMB REG OSI W/O NEUROGENIC CLAUDICATIO N 3560 HEREDITARY 12-08-2010 [facility] PERIPHERAL OSI NEUROPATHY 4919 UNSPECIFIED 11-29-2010 [facility] OF BRONCHITIS [place] 39364 DISPLCMT 11-23-2010 [facility] [place] INTERVERT PAIN MANAGE DISC W/O MYELOPATHY 7931 NONSPEC 11-15-2010 [facility] FIND RAD RADIOLOGY OTH EXAM ASSOCIAT BODY STRUCT LUNG FIELD 7291 UNSPECIFIED 09-28-2010 [facility] AND PAIN MANAGE MYOSITIS 64325 MIGRAINE 08-09-2010 [facility] UNSP W/O RADIOLOGY INTRACT W/O ASSOCIAT STATUS MIGRAINOSUS 7273 OTHER 06-30-2010 [facility] [place] DISORDERS PAIN MANAGE 8470 NECK SPRAIN 06-30-2010 [facility] AND STRAIN [facility] PAIN [facility]NA[facility] 4659 ACUTE URIS 05-11-2010 [facility], OF GRETEL M UNSPECIFIED SITE 6822 CELLULITIS 05-02-2010 [facility], AND ABSCESS GRETEL M OF TRUNK 89390 SECONDARY 04-19-2010 CELIA SCOTT MD OSTEOARTHRO PLLC SIS LOWER LEG 40443 REFLUX 04-06-2010 [facility], ESOPHAGITIS GRETEL M 4910 SIMPLE 02-10-2010 [facility] BRONCHITIS 2777 DYSMETABOLI 01-19-2010 REGIONAL C SYNDROME PHYSICIAN X CORPORATION II V854 BODY MASS 01-19-2010 REG[facility] INDEX 40 PHYSIC[place] [address] GENERALIZED 01-18-2010 [facility] 78730 REFLEX 06-22-2009 II, 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 37961 MIGRAINE 06-09-2009 [facility], W/AURA W/O GRETEL M INTRACT W/O STATUS MIGRNOSUS 46988 OTHER WRIST 06-09-2009 [facility], SPRAIN AND GRETEL M STRAIN 15754 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, 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 514 PULMONARY 02-09-2009 [facility] HYPOSTASIS PSC 91592 UNS 01-18-2009 [facility], GASTRITIS&G GRETEL M ASTRODUODIT IS W/O MENTION HEMORR 43383 PAIN IN 12-20-2008 [facility], JOINT GRETEL M PELVIC REGION AND THIGH 486 PNEUMONIA, 11-22-2008 [facility], ORGANISM GRETEL M UNSPECIFIED 40644 CONTUSION 09-21-2008 TIAFKATHRYN, OF BUTTOCK GRETEL M 21063 MIGRAINE 07-11-2008 [facility] W/O [facility] W/O INTRACT W/O STAT MIGRNOSUS 683 ACUTE 06-25-2008 [facility] INC V4589 OTHER 06-11-2008 JT, POSTSURGICA GRETEL M L STATUS OTHER 7812 ABNORMALITY 06-09-2008 [facility] 12450 UNSPECIFIED 04-08-2008 [facility] HOSPITAL CONJUNCTIVI TIS 7806 FEVER & OTH 12-22-2007 [facility] PSC DISTURBANCE S TEMP REG 0340 STREPTOCOCC 12-21-2007 [facility] 64529 UNSPECIFIED 12-21-2007 JT, VIRAL GRETEL M INFECTION IN CCE & UNS SITE 92931 OTH 11-19-2007 CELIA Vázquez EXTRAPBEVERLEY SCOTT [facility]&ABNORM MOVMNT DISORDER G89.4 CHRONIC PAIN SYNDROME I26.99 OTHER PULMONARY EMBOLISM WITHOUT ACUTE COR PULMONALE J20.9 ACUTE BRONCHITIS, UNSPECIFIED J44.1 CHRONIC OBSTRUCTIVE PULMONARY DISEASE W (ACUTE) EXACERBATIO N L03.90 CELLULITIS, UNSPECIFIED R06.00 DYSPNEA, UNSPECIFIED R06.02 SHORTNESS OF BREATH R07.89 OTHER CHEST PAIN R60.9 EDEMA, UNSPECIFIED Allergies, Adverse Reactions, Alerts Type Allergy to substance Drug Allergy Adverse Reaction to Substance Substance Reaction Severity INAPSINE Unknown Unknown Ibuprofen Unknown Unknown Ceftriaxone Unknown Unknown Moxifloxacin Unknown Unknown Clinical Alert Notifications Alert Diabetes: no A1C in the last 6 months Diabetes: no eye exam in the last 365 days Diabetes: no lipid panel in the last 365 days Member has >/= 10 ED visits within the past 365 days Member has >/= 3 hosp admit & >/= 1 ED visit in 365 days Medications Na ND Rx Da Fi Fi Am Da Di Ph RX Ph St me C No te ll ll ou ys ag ar # ys at rm s nt no ma ic us Or Da si cy ia de te s n re d IR 57 02 03 12 30 00 SO Ac ON 89 -0 -1 0. 00 PE ti 60 9- 7- 00 00 RS ve 65 70 20 20 0 55 31 17 17 57 FA MG 0 26 AR LY TA BL DR ET UG 00 12 01 11 24 00 SO Ac AI 12 -0 -1 8. 00 PE ti FE 10 8- 3- 00 00 RS ve N- 77 20 20 0 55 CO 50 16 17 06 FA DE 4 08 AR IN LY E 10 DR 0- UG 10 MG /5 ML Er 00 03 0 No yt 16 -2 hr 80 9- Lo om 07 20 ng yc 01 13 er in 1 Ac Op ti ht ve h Oi nt 1G M Ud Te 58 03 0 No tr 76 -2 ac 80 9- Lo ai 78 20 ng ne 71 13 er 2 0. Ac 5% ti ve Op ht h So ln 2M L DE 50 05 05 0 24 12 SO 37 Ac OM 38 -0 -0 0. PE 24 LL ti ET 30 2- 2- 00 RS 17 AF ve YIP 80 20 20 0 LO ZI 41 11 11 FA R NE 6 AR OS -C LY IA OD S EI DR Ananda ESCALERA SY RU P DE 50 02 02 0 24 12 SO 36 Ac OM 38 -2 -2 0. PE 60 LL ti ET 30 2- 2- 00 RS 52 AF ve YIP 80 20 20 0 LO ZI 41 11 11 FA R NE 6 AR OS -C LY IA OD S EI DR Malave NE UG SY RU P DE 50 01 01 0 24 12 SO 36 Ac OM 38 -0 -0 0. PE 17 LL ti ET 30 4- 4- 00 RS 24 AF ve YIP 80 20 20 0 LO ZI 41 11 11 FA R NE 6 AR OS -C LY IA OD S EI DR Malave NE UG SY RU P DE 50 12 12 0 24 12 SO 35 Ac OM 38 -0 -0 0. PE 98 LL ti ET 30 9- 9- 00 RS 69 AF ve YIP 80 20 20 0 LO ZI 41 10 10 FA R NE 6 AR OS -C LY IA OD S EI [facility] SY RU P 53 06 06 0 24 24 SO 34 Ac 01 -1 -1 0. PE 50 LL ti 40 4- 5- 00 RS 62 AF ve 54 20 20 0 LO 86 10 10 FA R 7 AR OS LY IA S [facility] 53 05 05 0 24 24 SO 34 Ac 01 -1 -1 0. PE 27 LL ti 40 3- 9- 00 RS 71 AF ve 54 20 20 0 LO 86 10 10 FA R 7 AR OS LY IA S [facility] 53 04 04 0 24 24 SO 34 Ac 01 -2 -2 0. PE 12 LL ti 40 6- 6- 00 RS 14 AF ve 54 20 20 0 LO 86 10 10 FA R 7 AR OS LY IA S [facility] 53 02 02 00 24 24 SO 33 Ac 01 -0 -2 0. PE 50 LL ti 40 8- 6- 00 RS 49 AF ve 54 20 20 0 LO 86 10 10 FA R 7 AR OS LY IA S [facility] DE 00 11 11 00 24 13 SO 32 Ac OM 60 -0 -1 0. PE 73 LL ti ET 31 5- 9- 00 RS 89 AF ve YIP 58 20 20 0 LO ZI 55 09 09 FA R NE 8 AR OS -C LY IA OD S EI [facility] SY RU P 53 10 10 00 24 12 SO 32 Ac 01 -0 -0 0. PE 43 LL ti 40 2- 8- 00 RS 01 AF ve 54 20 20 0 LO 86 09 09 FA R 7 AR OS LY IA S [facility] DE 50 07 07 00 24 12 SO 31 Ac OM 38 -0 -1 0. PE 73 LL ti ET 30 7- 6- 00 RS 64 AF ve YIP 80 20 20 0 LO ZI 41 09 09 FA R NE 6 AR OS -C LY IA OD S EI [facility] SY RU P 53 05 05 00 24 24 SO 31 Ac 01 -1 -2 0. PE 37 LL ti 40 5- 1- 00 RS 05 AF ve 54 20 20 0 LO 86 09 09 FA R 7 AR OS LY IA S [facility] DE 50 04 05 00 24 1 SO 31 Ac OM 38 -2 -0 0. PE 19 LL ti ET 30 3- 7- 00 RS 01 AF ve YIP 80 20 20 0 LO ZI 41 09 09 FA R NE 6 AR OS -C LY IA OD S EI [facility] SY RU P 60 03 03 00 24 6 SO 30 Ac 25 -1 -2 0. PE 79 LL ti 80 0- 6- 00 RS 82 AF ve 23 20 20 0 LO 91 09 09 FA R 6 AR OS LY IA S DR Malave 60 01 02 00 24 12 SO 30 Ac 25 -2 -1 0. PE 42 LL ti 80 6- 2- 00 RS 33 AF ve 23 20 20 0 LO 91 09 09 FA R 6 AR OS LY IA S [facility] 53 01 01 00 24 24 SO 30 Ac 01 -0 -1 0. PE 27 LL ti 40 6- 5- 00 RS 12 AF ve 54 20 20 0 LO 86 09 09 FA R 7 AR OS LY IA S [facility] 59 11 11 00 24 24 SO 29 Ac 70 -1 -2 0. PE 78 LL ti 20 0- 0- 00 RS 96 AF ve 80 20 20 0 LO 01 08 08 FA R 6 AR OS LY IA S [facility] 53 10 11 00 24 24 SO 29 Ac 01 -2 -2 0. PE 63 LL ti 40 3- 0- 00 RS 94 AF ve 54 20 20 0 LO 86 08 08 FA R 7 AR OS LY IA S [facility] 53 10 10 00 24 24 SO 29 Ac 01 -0 -2 0. PE 53 LL ti 40 9- 3- 00 RS 39 AF ve 54 20 20 0 LO 86 08 08 FA R 7 AR OS LY IA S [facility] DE 37 08 10 01 56 28 SO 28 Ac IL 00 -0 -0 .0 PE 99 LL ti OS 00 4- 9- 00 RS 63 AF ve EC 45 20 20 LO 50 08 08 FA R OT 4 AR OS C LY IA 20 S .6 [facility] MG TA BL ET 53 09 09 00 24 24 SO 29 No Ac 01 -1 -2 0. PE 32 t ti 40 2- 6- 00 RS 06 Av ve 54 20 20 0 ai 86 08 08 FA la 7 AR bl LY e DR DE 37 08 08 00 56 28 SO 28 No Ac IL 00 -0 -1 .0 PE 99 t ti OS 00 4- 4- 00 RS 63 Av ve EC 45 20 20 ai 50 08 08 FA la OT 4 AR bl C LY e 20 .6 MG TA BL ET DE 37 07 07 01 56 28 SO 25 No Ac IL 00 -3 -0 .0 PE 76 t ti OS 00 0- 3- 00 RS 94 Av ve EC 45 20 20 ai 50 07 08 FA la OT 4 AR bl C LY e [address] UG MG TA BL ET 53 04 05 00 24 24 SO 28 No Ac 01 -2 -0 0. PE 22 t ti 40 2- 8- 00 RS 91 Av ve 54 20 20 0 ai 86 08 08 FA la 7 AR bl LY e DR UG 53 03 04 00 12 12 SO 27 No Ac 01 -1 -1 0. PE 87 t ti 40 2- 7- 00 RS 51 Av ve 54 20 20 0 ai 86 08 08 FA la 7 AR bl LY e DR UG DE 37 07 04 00 56 30 SO 25 No Ac IL 00 -3 -1 .0 PE 76 t ti OS 00 0- 7- 00 RS 94 Av ve EC 45 20 20 ai 50 07 08 FA la OT 3 AR bl C LY e [address] UG MG TA BL ET AL 59 03 04 00 90 30 SO 27 No Ac DE 76 -1 -1 .0 PE 87 t ti AZ 23 2- 7- 00 RS 49 Av ve OL 71 20 20 ai AM 90 08 08 FA la 4 AR bl 0. LY e 25 DR MG UG TA BL ET LO 24 03 04 00 30 30 SO 27 No Ac RA 38 -1 -1 .0 PE 87 t ti TA 50 2- 7- 00 RS 47 Av ve DI 47 20 20 ai NE 17 08 08 FA la 8 AR bl [address] UG TA BL ET 53 02 04 00 18 18 WA 45 No Ac 01 -2 -0 0. L- 04 t ti 40 6- 7- 00 MA 04 Av ve 54 20 20 0 RT 1 ai 86 08 08 la 7 PH bl M e 10 -0 70 2 53 02 04 00 60 6 WA 45 No Ac 01 -2 -0 .0 L- 03 t ti 40 2- 7- 00 MA 91 Av ve 54 20 20 RT 6 ai 86 08 08 la 7 PH bl M e 10 -0 70 2 Immunization Name Date Route CVX Reacti Commen Provid Is Given on t er Refuse d PPSV23 [place] No 2015 N VACCIN COMMUN E 2 ITY YRS OR HOSPIT OLDER AL FOR SUBQ/I M USE Vital Signs 01-23-2013 11:25 Name Value Interpretat Reference Comment ion Range BP 75 mm[Hg] Diastolic BP Systolic 152 mm[Hg] Heart 87 /min Rate/Pulse O2% 93 % Respiratory 20 /min Rate 01-23-2013 11:24 Name Value Interpretat Reference Comment ion Range BP 75 mm[Hg] Diastolic BP Systolic 152 mm[Hg] Heart 87 /min Rate/Pulse O2% 93 % Respiratory 20 /min Rate Results Labs Lab Lab Date Result Refere Interp Status Commen Order Detail nces retati t Range on Glucose BldC Glucomtr-mCnc (01-23-2013 11:23) Glucose 102 70-110 complet BldC 013 mg/dl ed Glucomt 11:23 r-mCnc Procedures Procedure DOS Code Location Performer Comment NONCOVERE [id number] [facility] 7 [facility] COMPREHEN [id number] [facility] SIVE [address] [place] [address] PANEL THER 44687 YANET HOLT PROPH/DX 7 [facility] NJX IV HOSPITAL HOSPITAL PUSH SINGLE/1S T SBST/DRUG PRESSURIZ 45429 YANET HOLT ED/NONPRE [address] [place] [address] SSURIZED [facility] INHALATIO N TREATMENT THERAPEUT 59670 [facility] IC [address] [place] [address] INJECTION [facility] HOSP[facility] IV PUSH EACH NEW DRUG RADIOLOGI 49453 [facility] C [address] [place] [address] ON CHEST SINGLE VIEW FRONTAL INJECTION J2550 COLL[address] INE HCL UP TO 50 MG INJECTION J1170 [facility] [address] [place] [address] ROSI UP TO 4 MG ECG 25592 YANET HOLT ROUTINE [address] [place] [address] HOSPITAL W/LEAST 12 LDS TRCG ONLY W/O I&R DUP-SCAN 12304 YANET HOLT XTR VEINS [address] [place] [address] [place] [address] YANET HOLT TROPONIN [address] [place] [address] RANDY BLOOD 74954 COOKIESUNNY HOLT COUNT [address] [place] [address] AUTO&AUTO DIFRNTL WBC BLOOD 37533 DENNYS NOYOLA COUNT 7 [facility] COMPLETE INC INC AUTO&[place] [address] DENNYS NOYOLA TROPONIN 7 [facility] QUANTITAT INC INC RANDY ECG 19407 DENNYS NOYOLA ROUTINE 7 [facility] ECG INC INC W/LEAST 12 LDS TRCG ONLY W/O I&R ECG 38049 DENNYS CACERES ROUTINE 7 [facility] W/LEAST P 12 LDS I&R ONLY COMPREHEN 72760 DENNYS NOYOLA SIVE 7 [facility] METABOLIC INC INC PANEL RADIOLOGI 40982 [facility] C EXAM 7 MEDICAL CHEST 2 IMAGING VIEWS ASS FRONTAL&L ATERAL RADIOLOGI 81577 [facility] C EXAM 7 MEDICAL CHEST 2 IMAGING VIEWS ASS FRONTAL&L ATERAL ECG 07688 DENNYS NICCI KEITH ROUTINE 7 [facility] W/LEAST P 12 LDS I&[place] [address] [facility] ABDOMEN & 7 MEDICAL PELVIS IMAGING W/CONTRAS ASS T MATERIAL CT THORAX 43952 [facility] 7 MEDICAL W/CONTRAS IMAGING T ASS MATERIAL O2 CONC 1 E1390 [facility] [place] 7 HOME HOME 85%/>02 MEDICAL MEDICAL CONC AT EQUIPME EQUIPME PRSC FLW RATE PRTBLE E0431 [facility] GASEOUS 7 HOME HOME O2 SYS MEDICAL MEDICAL RENT; EQUIPME EQUIPME FLWMTR HUMIDFR&M ASK CRITICAL 37221 [facility] EXPRESS 7 PHYSICIAN ILL/INJUR S, PLLC ED PATIENT INIT 30-74 MIN RESP ASST E0471 [facility] DEVC 7 HOME HOME BI-LEVL MEDICAL MEDICAL PRSS EQUIPME EQUIPME CAPABILIT Y W/BACK-UP BASIC 18496 [facility] METABOLIC [address] [place] [address] CALCIUM TOTAL RADIOLOGI [address] ON CHEST SINGLE VIEW FRONTAL INJECTION J2060 [address] 2 MG NONCOVERE A9270 YANET HOLT D ITEM OR 7 [facility] HOSPITAL THERAPEUT 91311 YANET HOLT IC 7 [facility]DX INJECTION SUBQ/IM PRESSURIZ 75952 YANET HOLT ED/NONPRE 7 [facility] INHALATIO N TREATMENT NATRIURET 77684 YANET HOLT IC 7 [facility] BLOOD 39134 YANET HOLT COUNT 7 [facility] AUTO&AUTO DIFRNTL WBC THERAPEUT 09312 YANET HOLT IC 7 [facility] PROPHYLAC PRACTICE PRACTICE TIC/DX L L INJECTION SUBQ/IM HEADGEAR A7035 [facility] USED 7 HOME HOME W/POSITIV MEDICAL MEDICAL E AIRWAY EQUIPME EQUIPME PRESSURE DEVICE FULL FACE A7030 [facility] MASK 7 HOME HOME USED MEDICAL MEDICAL W/POS EQUIPME EQUIPME ARWAY PRESS DEVICE [facility] G0463 DENNYS NOYOLA OUTPATIEN 7 [facility] T CLIN INC INC VISIT ASSESS & MGMT PT PRTBLE E0431 NEETA SANTACRUZ GASEOUS 7 HOME HOME O2 SYS MEDICAL MEDICAL RENT; EQUIPME EQUIPME FLWMTR HUMIDFR&M ASK O2 CONC 1 E1390 NEETA [place] PORT 7 HOME HOME 85%/>02 MEDICAL MEDICAL CONC AT EQUIPME EQUIPME PRSC FLW RATE RESP ASST E0471 NEETA SANTACRUZ DEVC 7 HOME HOME BI-LEVL MEDICAL MEDICAL PRSS EQUIPME EQUIPME CAPABILIT Y W/BACK-UP BASIC 13993 YANET HOLT METABOLIC 7 [facility] CALCIUM TOTAL RADIOLOGI 88380 YANET HOLT C EXAM [address] VIEWS FRONTAL&L ATERAL BLOOD 12278 YANET HOLT COUNT 7 [facility] AUTO&AUTO DIFRNTL WBC O2 CONC 1 E1390 NEETA SANTACRUZ DEL PORT 6 HOME HOME 85%/>02 MEDICAL MEDICAL CONC AT EQUIPME EQUIPME PRSC FLW RATE PRTBLE E0431 NEETA S[place]Z GASEOUS 6 HOME HOME O2 SYS MEDICAL MEDICAL RENT; EQUIPME EQUIPME FLWMTR HUMIDFR&M ASK RESP ASST E0471 NEETA SANTACRUZ DEVC 6 HOME HOME BI-LEVL MEDICAL MEDICAL PRSS EQUIPME EQUIPME CAPABILIT Y W/BACK-UP HOSPITAL [address] DAY SERVICES MANAGEMEN O T > 30 MIN SBSQ [address] CARE/DAY SERVICES 25 O MINUTES SBSQ [address] CARE/DAY SERVICES 35 O MINUTES INITIAL [address] CARE/DAY SERVICES 70 O MINUTES RADIOLOGI 76471 [facility] [place] INDIR[place] C EXAM 6 RADIOLOGY CHEST 2 VIEWS FRONTAL&L ATERAL DRAINAGE [id number] [facility] 6 [facility] DEVICE IRENA/ART OPENING FILTER A7038 NEETA SANTACRUZ DISPBL 6 HOME HOME USED MEDICAL MEDICAL W/POS EQUIPME EQUIPME ARWAY PRESSURE DEVICE FACE MASK A7031 NEETA SANTACRUZ 6 HOME HOME INTERFACE MEDICAL MEDICAL REPLCMT EQUIPME EQUIPME FULL FACE MASK EA ECG 29672 [facility] ROUTINE 6 [place] ECG ROBERTO ROBERTO W/LEAST 12 LDS TRCG ONLY W/O I&R DUP-SCAN 14420 [facility] [place] WESTER[place] XTR VEINS 6 RADIOLOGY LD IV UNILATERA L/LIMITED STUDY RADIOLOGI 19876 [facility] C 6 [place] EXAMINATI ROBERTO ROBERTO ON CHEST SINGLE VIEW FRONTAL INJECTION J2405 [facility] 6 [place] ONDANSETR ROBERTO ROBERTO ON HCL PER 1 MG FIBRIN 73475 [facility] DGRADJ 6 [place] PRODUCTS ROBERTO ROBERTO D-DIMER QUANTITAT RANDY INJECTION J2270 [facility] MORPHINE 6 [facility] SULFATE ROEBRTO ROBERTO UP TO 10 MG NONCOVERE A9270 [facility] D ITEM OR 6 [facility] SERVICE ROBERTO ROBERTO COLLECTIO 76484 [facility] N VENOUS 6 [facility] [place] [address] [facility] [place] ANGIOGRAP 6 RADIOLOGY HY CHEST W/CONTRAS T/NONCONT RAST THERAPEUT 27857 [facility] IC 6 [facility] INJECTION ROBERTO ROBERTO IV PUSH EACH NEW DRUG GLUC BLD 35832 [facility] GLUC MNTR 6 [facility] DEV ROBERTO ROBERTO CLEARED FDA SPEC HOME USE COMPREHEN 80208 [facility] SIVE 6 [facility] METABOLIC ROBERTO ROBERTO PANEL THER 17396 [facility] PROPH/DX 6 [facility] NJX IV ROBERTO ROBERTO PUSH SINGLE/1S T SBST/DRUG NATRIURET 40678 [facility] IC 6 [facility] PEPTIDE ROBERTO ROBERTO BLOOD 90962 [facility] COUNT 6 [facility] COMPLETE ROBERTO ROBERTO AUTO&AUTO DIFRNTL WBC INJECTION J[address] KETOROLAC ROBERTO ROBERTO TROMETHAM INE PER 15 MG INJECTION J1940 [address] FUROSEMID ROBERTO ROBERTO E UP TO 20 MG LOCM Q9967 [facility] [phone] [facility] MG/ML ROBERTO ROBERTO IODINE [place] [address] [facility] TROPONIN [address] [place] [address] QUANTITAT ROBERTO ROBERTO RANDY INFLUENZA Q2038 [facility] VACC 6 [facility] SPLIT INTERNAL VIRUS 3 MED YRS & > IM FLUZONE IM ADM 59368 [facility] PRQ ID 6 [facility] SUBQ/IM INTERNAL NJXS 1 MED VACCINE O2 CONC 1 E1390 NEETA SANTACRUZ DEL PORT 6 HOME HOME 85%/>02 MEDICAL MEDICAL CONC AT EQUIPME EQUIPME PRSC FLW RATE PRTBLE E0431 NEETA SANTACRUZ GASEOUS 6 HOME HOME O2 SYS MEDICAL MEDICAL RENT; EQUIPME EQUIPME FLWMTR HUMIDFR&M ASK RADIOLOGI 05350 [facility] [place] C 6 RADIOLOGY EXAMINATI ON KNEE 1/2 VIEWS RADIOLOGI 43149 YANET H[facility] C 6 [facility] ON KNEE 3 VIEWS NONCOVERE A9270 YANET HOLT D ITEM OR 6 [facility] HOSPITAL RADIOLOGI 24941 [facility] [place] C 6 RADIOLOGY EXAMINATI ON TIBIA & FIBULA 2 VIEWS PRTBLE E0431 NEETA SANTACRUZ GASEOUS 6 HOME HOME O2 SYS MEDICAL MEDICAL RENT; EQUIPME EQUIPME FLWMTR HUMIDFR&M ASK O2 CONC 1 E1390 NEETA SANTACRUZ DEL PORT 6 HOME HOME 85%/>02 MEDICAL MEDICAL CONC AT EQUIPME EQUIPME PRSC FLW RATE FEDERALLY G0467 ROBERTO ROBERTO 6 [employer] [facility]IFIED [facility] VISIT ESTAB PT INJECTION J1650 [facility] [address] [facility] N SODIUM 10 MG INJECTION J2270 [facility] MORPHINE [address] [place] [address] HOSPITAL UP TO 10 MG PPSV23 72240 [facility] VACCINE 2 6 [facility] OR HOSPITAL HOSPITAL OLDER FOR SUBQ/IM USE INJECTION J1815 [facility] POLANCOWESTERN [facility] INSULIN 6 [facility] PER 5 HOSPITAL HOSPITAL UNITS NONCOVERE A9270 YANET HOLT D ITEM OR 6 [facility] GLUC BLD 72365 [facility] GLUC MNTR 6 [facility] CLEARED FDA SPEC HOME USE HEMOGLOBI 03165 [facility] N 6 [facility] KAMILAH A1C COLLECTIO 21784 [facility] N VENOUS 6 [facility] VENIPUNCT URE COMPREHEN 17257 [facility] SIVE 6 [facility] [place] [address] [facility] COLLINROSALIO MAGNESIUM 6 [facility] HOSPITAL INITIAL 42600 HOSPITAL AGUILA OBSERVATI 6 MEDICINE REBECCA IGN ON SERVICES CARE/DAY O 70 MINUTES PRESSURIZ 04520 YANET HOLT ED/NONPRE 6 [facility] HOSPITAL INHALATIO N TREATMENT INJECTION J1940 YANET HOLT [address] [place] [address] HOSPITAL E UP TO 20 MG BLOOD 74649 YANET HOLT COUNT [address] [place] [address] HOSPITAL AUTO&AUTO DIFRNTL WBC BLOOD 38789 YANET HOLT COUNT [address] [place] [address] HOSPITAL AUTO&AUTO DIFRNTL WBC IAADIADOO 94926 YANET HOLT [address] [place] [address] [facility] A CULTURE 73825 [facility] COOKIESUNNY BACTERIAL [address] [place] [address] AEROBIC W/ID ISOLATES INJECTION J1940 YANET HOLT [address] [place] [address] HOSPITAL E UP TO 20 MG PRESSURIZ 39522 YANET COOKIESUNNY ED/NONPRE [address] [place] [address] HOSPITAL INHALATIO N TREATMENT HOSPITAL G0378 YANET POLANCOWENDYSUNNY OBSERVATI [address] [place] [address] HOSPITAL HOSPITAL SERVICE PER HOUR THERAPEUT 68779 COLLINROSALIO COOKIESUNNY [address] HOSPITAL IV PUSH EACH NEW DRUG COMPREHEN 54230 YANET HOLT SIVE [address] [place] [address] HOSPITAL PANEL GLUC BLD 03334 COLLINROSALIO POLANCOWENDYSUNNY GLUC MNTR 6 [facility] CLEARED FDA SPEC HOME USE NATRIURET 35923 COLLINROSALIO COOKIESUNNY IC [address] [place] [address] HOSPITAL NONCOVERE A9270 COLLINROSALIO COOKIESUNNY D ITEM OR 6 [facility] HOSPITAL ARTERIAL 48404 COOKIESUNNY COOKIESUNNY PUNCTURE 6 [facility] HOSPITAL L BLOOD DX BLOOD 76175 COOKIESUNNY YANET GASES ANY 6 [facility] COMBINATI ON PH PCO2 PO2 CO2 HCO3 RADIOLOGI 17053 YANET HOLT C EXAM 6 [facility] CHEST 2 [facility] HOSPITAL VIEWS FRONTAL&L ATERAL INJECTION J1815 [place] YANET INSULIN [address] [place] [address] PER 5 HOSPITAL HOSPITAL UNITS INJ J2930 [facility] METHYLPRD 6 [facility] SODIUM SUCCNAT TO 125 MG INJECTION J2270 [facility] MORPHINE [address] [facility] UP TO 10 MG ADMINISTR G0009 [facility] ATION OF 6 [facility] VACCINE INJ J2930 CHRISTOPHER WHITE METHYLPRD 6 [facility] SODIUM CENTE CENTE SUCCNAT TO 125 MG INJECTION J1815 CHRISTOPHER WHITE INSULIN 6 [facility] PER 5 MEDICAL MEDICAL UNITS [facility]ENT[facility] ECG 06516 CHRISTOPHER WHITE ROUTINE 6 [facility] ECG MEDICAL MEDICAL W/LEAST CENTE CENTE 12 LDS TRCG ONLY W/O I&R THER 71692 CHRISTOPHER WHITE PROPH/DX 6 [facility] NJX EA MEDICAL MEDICAL SEQL IV [facility] PUSH SBST/DRUG FAC RADIOLOGI 12325 CHRISTOPHER WHITE C EXAM 6 [facility] CHEST 2 MEDICAL MEDICAL VIEWS [facility] FRONTAL&L ATERAL GLUC BLD 26144 CHRISTOPHER WHITE GLUC MNTR 6 [facility] DEV MEDICAL MEDICAL CLEARED [facility] FDA SPEC HOME USE NONCOVERE A9270 CHRISTOPHER WHITE D ITEM OR 6 [facility] SERVICE MEDICAL MEDICAL CENTE CENTE THER 10801 CHRISTOPHER WHITE PROPH/DX 6 [facility] NJX IV MEDICAL MEDICAL PUSH [facility] SINGLE/1S T SBST/DRUG COMPREHEN 32579 CHRISTOPHER WHITE SIVE 6 [facility] METABOLIC MEDICAL MEDICAL PANEL [facility] COLLECTIO 62727 CHRISTOPHER WHITE N VENOUS 6 [facility] BLOOD MEDICAL MEDICAL VENIPUNCT [facility] URE THERAPEUT 24110 CHRISTOPHER WHITE IC 6 [facility] INJECTION MEDICAL MEDICAL IV PUSH CENTE CENTE EACH NEW DRUG NATRIURET 56969 CHRISTOPHER WHITE IC 6 [facility] PEPTIDE MEDICAL MEDICAL [facility] PRESSURIZ 40599 CHRISTOPHER WHITE ED/NONPRE 6 [facility] SSURIZED MEDICAL MEDICAL INHALATIO [facility] [place] [address] CHRISTOPHER WHITE INFUSION 6 [facility] HYDRATION MEDICAL MEDICAL EACH [facility] ADDITIONA L HOUR INJECTION J1940 CHRISTOPHER WHITE 6 [facility] FUROSEMID MEDICAL MEDICAL E UP TO MANUEL JACKSON [address] [place] [address] CHRISTOPHER WHITE TROPONIN 6 [facility] QUANTITAT MEDICAL MEDICAL RANDY MANUEL JACKSON BLOOD 97593 CHRISTOPHER WHITE COUNT 6 [facility] COMPLETE MEDICAL MEDICAL AUTO&AUTO MANUEL JACKSON DIFRNTL WBC RADEX 90050 [facility] SH[facility] 6 URBANO COMPLETE RADIOLOGY MINIMUM 2 ASSOCIAT VIEWS RADEX 34889 DENNYS NOYLOA FOOT 6 MEM HOSP MEM HOSP COMPLETE INC INC MINIMUM 3 VIEWS O2 CONC 1 E1390 NEETA SANTACRUZ DEL PORT 6 HOME HOME 85%/>02 MEDICAL MEDICAL CONC AT EQUIPME EQUIPME PRSC FLW RATE PRTBLE E0431 NEETA SANTACRUZ GASEOUS 6 HOME HOME O2 SYS MEDICAL MEDICAL RENT; EQUIPME EQUIPME FLWMTR HUMIDFR&M ASK INJECTION J1940 YANET HOLT [address] [place] [address] HOSPITAL E UP TO 20 MG INJ J2920 COOKIESUNNY YANET METHYLPRD [address] [place] [address] SODIUM SUCCNAT TO 40 MG UNCLASSIF J3490 YANET HOLT IED DRUGS [address] [place] [address] BLOOD 62179 COOKIESUNNY YANET COUNT [address] [place] [address] HOSPITAL AUTO&AUTO DIFRNTL WBC THROMBOPL 96231 YANET HOLT ASTIN [address] [place] [address] PARTIAL PLASMA/WH OLE BLOOD NONCOVERE A9270 COOKIESUNNY YANET D ITEM OR 6 [facility] GLUC BLD 16317 COOKIESUNNY YANET GLUC MNTR 6 [facility] CLEARED FDA SPEC HOME USE COLLECTIO 93075 COOKIESUNNY YANET N VENOUS [address] [place] [address] VENIPUNCT URE COMPREHEN 24779 COOKIESUNNY COOKIESUNNY SIVE [address] [place] [address] PANEL ONDANSETR Q0162 YANET HOLT ON [address] [place] [address] [facility]OSPITAL EXCEED 48 HR DOSE REG INJECTION J1815 [facility] INSULIN [address] [place] [address] PER 5 HOSPITAL HOSPITAL UNITS INJECTION J2550 [address] HOSPITAL INE HCL UP TO 50 MG PROTHROMB 28183 [facility] IN TIME 6 [facility] HOSPITAL G0378 [facility] 6 [facility] ON HOSPITAL HOSPITAL SERVICE PER HOUR RADIOLOGI 25078 [facility] [place] SCALF URBANO C 6 RADIOLOGY EXAMINATI ON CHEST SINGLE VIEW FRONTAL ECG 04765 [facility] ROUTINE 6 [facility] W/LEAST 12 LDS TRCG ONLY W/O I&R COMPREHEN 40058 [facility] SIVE [address] [place] [address] HOSPITAL PANEL CREATINE 80466 [facility] KINASE MB 6 [facility] H[facility]PITAL HOSPITAL ONLY THER 80507 [facility] PROPH[facility]DX 6 [facility] HOSPITAL PUSH SINGLE/1S T SBST/DRUG NATRIURET 60890 [facility] IC [address] [place] [address] HOSPITAL MYOGLOBIN [address] HOSPITAL COLLECTIO 61204 [facility] N VENOUS [address] [place] [address] HOSPITAL VENIPUNCT URE CREATINE 56976 [facility] KINASE [address] [place] [address] [facility] HOSPITAL NONINVASI 33574 [facility] VE [address] [place] [address] EAR/PULSE HOSPITAL HOSPITAL OXIMETRY SINGLE DETER GLUC BLD 13563 [facility] GLUC MNTR [address] [place] [address] HOSPITAL CLEARED FDA SPEC HOME USE NONCOVERE A9270 [facility] D ITEM OR 6 [facility] HOSPITAL BLOOD 80232 [facility] COUNT [address] [place] [address] HOSPITAL AUTO&AUTO DIFRNTL WBC INJECTION J1940 [address] [facility] H[facility]PITAL E UP TO 20 [place] [address] [facility] THYROID [address] [place] [address] [facility] [place] [address] [facility] TROPONIN 6 [facility] RANDY INJECTION J1940 [address] [facility] E UP TO 20 MG BLOOD 91709 [facility] COUNT 6 [facility] HOSPITAL AUTO&AUTO DIFRNTL WBC NONCOVERE A9270 [facility] D ITEM OR 6 [facility] GLUC BLD 01797 [facility] GLUC MNTR 6 [facility] CLEARED FDA SPEC HOME USE PRESSURIZ 85381 [facility] ED/NONPRE [address] [place] [address] HOS[place] [address] [facility] MAGNESIUM [address] [place] [address] HOSPITAL COLLECTIO 42680 [facility] N VENOUS [address] [place] [address] HOSPITAL VENIPUNCT URE BASIC 29343 [facility] METABOLIC [address] [place] [address] HOSPITAL CALCIUM TOTAL INJECTION J1815 [facility] INSULIN 6 [facility] PER 5 HOSPITAL HOSPITAL UNITS INJECTION J3475 [address] HOSPITAL HOSPITAL SULPHATE PER 500 MG INJECTION J1650 [address] [facility] HOSPITAL N SODIUM 10 MG INJECTION J2270 [facility] MORPHINE [address] [place] [address] [facility] UP TO 10 MG INJECTION J2270 [facility] MORPHINE [address] [place] [address] [facility] UP TO 10 MG INJECTION J[address] [facility] N SODIUM 10 MG INJECTION J3475 [address] HOSPITAL HOSPITAL SULPHATE PER 500 MG INJECTION J1815 [facility] INSULIN 6 [facility] PER 5 HOSPITAL HOSPITAL UNITS BASIC 02159 [facility] METABOLIC [address] [place] [address] HOSPITAL CALCIUM TOTAL COLLECTIO 81507 [facility] N VENOUS [address] [place] [address] [place] [address] YANET HOLT MAGNESIUM [address] [place] [address] HOSPITAL HEMOGLOBI 18851 YANET HOLT N [address] [place] [address] HOSPITAL KAMILAH A1C PRESSURIZ 65832 YANET HOLT ED/NONPRE [address] [place] [address] HOSPITAL INHALATIO N TREATMENT GLUC BLD 80072 YANET HOLT GLUC MNTR [address] [place] [address] HOSPITAL CLEARED FDA SPEC HOME USE NONCOVERE A9270 YANET HOLT D ITEM OR 6 [facility] HOSPITAL BLOOD 98127 YANET HOLT COUNT [address] [place] [address] HOSPITAL AUTO&AUTO DIFRNTL WBC INJECTION J1940 YANET HOLT [address] [place] [address] HOSPITAL E UP TO 20 MG INJECTION J1940 YANET HOLT [address] [place] [address] HOSPITAL E UP TO 20 MG BLOOD 10107 YANET HOLT COUNT [address] [place] [address] HOSPITAL AUTO&AUTO DIFRNTL WBC NONCOVERE A9270 YANET HOLT D ITEM OR 6 [facility] HOSPITAL GLUC BLD 40053 YANET HOLT GLUC MNTR [address] [place] [address] HOSPITAL CLEARED FDA SPEC HOME USE RADIOLOGI 79449 [facility] [place] INDIR[place] C EXAM 6 RADIOLOGY RHO CHEST 2 VIEWS FRONTAL&L ATERAL PRESSURIZ 24278 YANET HOLT ED/NONPRE [address] [place] [address] HOSPITAL INHALATIO N TREATMENT NONINVASI 86287 YANET HOLT VE [address] [place] [address]/[facility] HOSPITAL OXIMETRY SINGLE DETER THER 55596 YANET HOLT PROPH/DX [address] [place] [address] HOSPITAL PUSH SINGLE/1S T SBST/DRUG NATRIURET 20513 YANET HOLT IC [address] [place] [address] HOSPITAL COLLECTIO 07912 YANET HOLT N VENOUS [address] [place] [address] HOSPITAL VENIPUNCT URE BASIC 27562 [facility] METABOLIC 6 [facility] HOSPITAL CALCIUM TOTAL ECG 27285 [facility] ROUTINE [address] [place] [address] ECG HOSPITAL HOSPITAL W/LEAST 12 LDS TRCG ONLY W/O I&R INJECTION J1815 [facility] INSULIN [address] [place] [address] PER 5 HOSPITAL HOSPITAL UNITS HOSPITAL G0378 [facility] [address] [place] [address] ON HOSPITAL HOSPITAL SERVICE PER HOUR INJECTION J2270 [facility] MORPHINE 6 [facility] UP TO 10 MG INJECTION J2270 [facility] MORPHINE 6 [facility] UP TO 10 MG INJECTION J16[address] [facility] N SODIUM 10 MG HOSPITAL G0378 [facility] O[address] ON HOSPITAL HOSPITAL SERVICE PER HOUR INJECTION J1815 [facility] INSULIN [address] [place] [address] PER 5 HOSPITAL HOSPITAL UNITS INJECTION J2405 [address] HOSPITAL ON HCL PER 1 MG BASIC 88866 [facility] METABOLIC [address] [place] [address] HOSPITAL CALCIUM TOTAL PRESSURIZ 61540 [facility] ED/NONPRE [address] [place] [address] [facility] INHALATIO N TREATMENT NONINVASI 25535 [facility] VE [address] [place] [address] EAR/PULSE HOSPITAL HOSPITAL OXIMETRY SINGLE DETER INITIAL 76600 [facility] [place] [address] MEDICINE ON SERVICES CARE/DAY O 70 MINUTES GLUC BLD 25763 [facility] GLUC MNTR 6 [facility] CLEARED FDA SPEC HOME USE NONCOVERE A9270 [facility] D ITEM OR 6 [facility] HOSPITAL BLOOD 28987 [facility] COUNT [address] [place] [address] HOSPITAL AUTO&AUTO DIFRNTL WBC INJECTION J1940 [address] [facility] E UP TO 20 MG INJECTION J1940 [facility] E UP TO [address] [place] [address] Y[facility] TROPONIN 6 [facility] RANDY BLOOD 83946 YANET HOL[facility] COUNT [address] [place] [address] HOSPITAL AUTO&AUTO DIFRNTL WBC GLUC BLD 98311 YANET H[facility]T GLUC MNTR 6 [facility] CLEARED FDA SPEC HOME USE THERAPEUT 56818 YANET HOLT IC [address] [place] [address] INJECTION [facility] HOSPITAL IV PUSH EACH NEW DRUG CREATINE 00468 YANET HOLT KINASE [address] [place] [address] TOTAL [facility] HOSPITAL COLLECTIO 35238 YANET HOLT N VENOUS [address] [place] [address] HOSPITAL VENIPUNCT URE THER 40822 YANET HOLT PROPH/DX [address] [place] [address] IV [facility] HOSPITAL PUSH SINGLE/1S T SBST/DRUG CREATINE 85858 YANET HOLT KINASE MB [address] [facility] ONLY COMPREHEN 28378 YANET HOLT SIVE [address] [place] [address] METABOLIC [facility] HOSPITAL PANEL NATRIURET 87131 YANET HOLT IC [address] [place] [address] HOSPITAL HOSPITAL THER 11065 YANET HOLT PROPH/DX [address] [place] [address] HOSPITAL HOSPITAL SEQL IV PUSH SBST/DRUG FAC ECG 30621 YANET HOLT ROUTINE [address] [place] [address] HOSPITAL W/LEAST 12 LDS TRCG ONLY W/O I&R INJECTION [id number] YANET HOLT INSULIN [address] [place] [address] 5 HOSPITAL HOSPITAL UNITS RADIOLOGI 96399 YANET HOLT C [address] [place] [address] EXAMINATI [facility] HOSPITAL ON CHEST [place] FRONTAL INJECTION J2270 YANET HOLT MORPHINE [address] [place] [address] SULFATE [facility] HOSPITAL UP TO 10 MG INSJ TEMP 98588 YANET HOLT NDWELLG [address] [place] [address] BLADDER [facility] HOSPITAL CATHETER SIMPLE POLYSOM 70100 [facility] 6/>YRS 6 [facility] W/CPAP 4/> ADDL DREW ATTND RADIOLOGI 07517 TIM HEILIG C 6 ORTHOPEDI IVELISSE EXAMINATI C ON KNEE ASSOCIAT 1/2 VIEWS RADIOLOGI 88341 [facility] [place] МАРИЯ C 6 RADIOLOGY RAY EXAMINATI ON CHEST [place] FRONTAL INJECTION [id number] MAGNESIUM [facility] ROBERTO SULPHATE PER 500 MG ECG 93725 [facility] ROUTINE 6 [facility] ECG ROBERTO ROBERT[facility] W/LEAST 12 LDS TRCG ONLY W/O I&R INJECTION J2270 [facility] MORPHINE 6 [facility] SULFATE ROBERTO ROBERTO UP TO 10 MG FEDERALLY [id number] [facility] 6 [facility] VISIT ESTAB PT FIBRIN 76615 [facility] DGRADJ 6 [facility] PRODUCTS ROBERTO ROBERTO D-DIMER QUANTITAT RANDY NATRIURET 02834 [facility] IC 6 [facility] PEPTIDE ROBERTO ROBERTO URNLS DIP [address] STICK/TAB [facility]ERT[facility] ROBERT[facility] LET RGNT AUTO W/[place] [address] [facility] MAGNESIUM 6 [facility] ROBERTO ROBERTO COLLECTIO 03747 [facility] N VENOUS 6 [facility] BLOOD ROBERTO RBOERTO VENIPUNCT URE COMPREHEN 16667 [facility] SIVE 6 [facility] METABOLIC ROBERTO ROBERTO PANEL THERAPEUT 62935 [facility] IC 6 [facility] INJECTION [place] [address] [facility] INFUSION 6 [facility] THERAPY/P ROBERTO ROBERTO ROPHYLAXI S /DX 1ST TO 1 HR GASES 57327 [facility] BLOOD PH 6 [facility] DIRECT ROBERTO ROBERT[facility] JENNIFER XCPT PULSE OXIMITRY ARTERIAL 01242 [facility] PUNCTURE 6 [facility] [place] [address] [facility] ANGIOGRAP 6 RADIOLOGY RAY HY CHEST W/CONTRAS T/NONCONT RAST BLOOD 08866 [facility] COUNT 6 [facility] COMPLETE ROBERTO ROBERTO AUTO&[place] [address] [facility] TROPONIN 6 [facility] QUANTITAT ROBERTO ROBERTO RANDY LOCM Q9967 [facility] [phone] [facility] MG/ML [facility] IODINE CONCENTRA TION PER ML O2 CONC 1 E1390 NEETA SANTACRUZ DEL PORT 6 HOME HOME 85%/>02 MEDICAL MEDICAL CONC AT EQUIPME EQUIPME PRSC FLW RATE INFUSION J7050 [facility] NORMAL [address] [place] [address] HOSPITAL SOLUTION 250 CC INJECTION J1940 [facility] [address] HOSPITAL E UP TO 20 MG BLOOD 70702 [facility] COUNT [address] [place] [address] AUTO&AUTO DIFRNTL WBC NONCOVERE A9270 [facility] D ITEM OR 6 [facility] HOSPITAL PRESSURIZ 88458 [facility] ED/NONPRE [address] [place] [address] HOSPITAL INHALATIO N TREATMENT COLLECTIO 92879 [facility] N VENOUS [address] [place] [address] HOSPITAL VENIPUNCT URE COMPREHEN 80314 [facility] SIVE [address] [place] [address] HOSPITAL PANEL GLUC BLD 10262 [facility] GLUC MNTR 6 [facility] CLEARED FDA SPEC HOME USE INJECTION J1650 [facility] [address] [place] [address] ENOXAPARI [facility] HOSPITAL N SODIUM 10 MG INJECTION J2270 [facility] MORPHINE [address] [place] [address] HOSPITAL UP TO 10 MG INJECTION J1815 [facility] INSULIN [address] [place] [address] PER 5 HOSPITAL HOSPITAL UNITS INJECTION J1815 [facility] INSULIN [address] [place] [address] PER 5 HOSPITAL HOSPITAL UNITS HOSPITAL [id number] [facility] OBSERVATI [address] [place] [address] ON HOSPITAL HOSPITAL SERVICE PER HOUR INJECTION J2270 [facility] MORPHINE [address] [place] [address] HOSPITAL UP TO 10 MG INSJ TEMP 80326 [facility] NDWELLG [address] [place] [address] BLADDER [facility] HOSPITAL CATHETER SIMPLE SEDIMENTA 34488 [facility] RATE [address] [place] [address] [facility] HOSPITAL NON-AUTOM ATED NATRIURET 67895 [facility] IC [address] [place] [address] PEPTIDE [facility] HOSPITAL GLUC BLD 71664 [facility] GLUC MNTR [address] [place] [address] DEV [facility] HOSPITAL CLEARED FDA SPEC HOME USE COMPREHEN 55680 [facility] SIVE [address] [place] [address] METABOLIC [facility] HOSPITAL PANEL PRESSURIZ 53047 [facility] ED/NONPRE [address] [place] [address] HOSPITAL INHALATIO N TREATMENT NONINVASI 30188 [facility] VE [address] [place] [address] EAR/PULSE [facility] HOSPITAL OXIMETRY SINGLE DETER NONCOVERE A9270 [facility] D ITEM OR [address] [place] [address] HOSPITAL RADIOLOGI 23979 [facility] C EXAM [address] [place] [address] CHEST 2 [facility] HOSPITAL VIEWS FRONTAL&L ATERAL BLOOD 67373 [facility] COUNT [address] [place] [address] HOSPITAL AUTO&AUTO DIFRNTL WBC INJECTION J1940 [address] FUROSEMID [facility] HOSPITAL E UP TO 20 MG INFUSION J7050 [facility] NORMAL [address] [place] [address] SALINE [facility] HOSPITAL SOLUTION 250 CC PRTBLE E0431 NEETA SHASHY GASEOUS 6 HOME MICHAEL O2 SYS MEDICAL RENT; [facility]ME [facility] HUMIDFR&M ASK ARTHROCEN 13015 [place] DEANDRE NICOLASA 6 ORTHOPEDI ASPIR&/IN C J MAJOR ASSOCIAT JT/BURSA W/O US RADIOLOGI 93885 [facility] 6 ORTHOPEDI ORTHOPEDI EXAMINATI C C ON KNEE ASSOCIAT ASSOCIAT 1/2 VIEWS INITIAL [address] [place]EVER[place] CARE/DAY PHYSICIAN 70 PRA MINUTES ASSISTANC [id number] CHRISTOPHER Fontenot [address] [place] [address] RESPIRATO MEDICAL MEDICAL RY VENT < CENTE CENTE 24 CONSEC HR CPAP CRITICAL 37308 [facility] 6 S[place] ILL/INJUR EMERGENCY ED PHYSI PATIENT INIT 30-74 MIN RADIOLOGI 55569 SAM FARIASIRA C 6 MEDICAL STEVEN EXAMINATI SERV YAMINI ON TIBIA FOUNDATIO & FIBULA N 2 VIEWS RADIOLOGI 65405 SAM FARIASIRA C 6 MEDICAL STEVEN EXAMINATI SERV YAMINI ON KNEE 3 FOUNDATIO VIEWS N BLD GLU A4253 NEETA SANTACRUZ TEST/REAG 6 HOME HOME T STRIPS MEDICAL MEDICAL HOME BLD EQUIPME EQUIPME GLU MON-50 PRTBLE E0431 NEETA NEETA GASEOUS 6 HOME HOME O2 SYS MEDICAL MEDICAL RENT; EQUIPME EQUIPME FLWMTR HUMIDFR&M ASK O2 CONC 1 E1390 NEETA SANTACRUZ DEL PORT 6 HOME HOME 85%/>02 MEDICAL MEDICAL CONC AT EQUIPME EQUIPME PRSC FLW RATE RADIOLOGI 08329 TIM EITNA C 6 ORTHOPEDI R EXAMINATI C ON KNEE ASSOCIAT 1/2 VIEWS DUP-SCAN 18840 Q[facility]NA AMIN AMIN QIANA XTR VEINS 6 MD CONSULTIN UNILATERA G SRV L/LIMITED STUDY ECHO 29043 Q[place]NA AMIN AMIN Q[place] TTHRC R-T 6 2D CONSULTIN W/WOM-MOD G SRV E COMPL SPEC&COLR D PRTBLE E0431 NEETA BOBRELL GASEOUS 6 HOME HOME O2 SYS MEDICAL MEDICAL RENT; EQUIPME EQUIPME FLWMTR HUMIDFR&M ASK DRAINAGE [id number] [place] [facility] BLADDER 6 [facility] DEVICE IRENA/ART OPENING RADIOLOGI 37569 [facility] [place] SCALF [facility] C EXAM 6 RADIOLOGY CHEST 2 VIEWS FRONTAL&L ATERAL RADIOLOGI 67931 [facility] [place] C 6 RADIOLOGY EXAMINATI ON CHEST SINGLE VIEW FRONTAL NURSING 75505 [facility] 6 [facility] DISCHARGE CARE MANAGEMEN T 30 MINUTES INITIAL [address]2312 [place] [address] [facility] FACILITY CARE CARE/DAY 35 MINUTES SBSQ 64933 [facility] 6 REGIONAL CARE/DAY PHYSICIAN 35 PRA MINUTES SBSQ [address] CARE/DAY PHYSICIAN 35 PRA MINUTES TRANSFUSI [id number] CHRISTOPHER WHITE ON 6 [facility] NONAUTO MEDICAL MEDICAL RED BLD CENTE CENTE CELLS PERIPH VN PERQ ASSISTANC [id number] CHRISTOPHER WHITE E 6 [facility] RESPIRATO MEDICAL MEDICAL RY VENT < CENTE CENTE 24 CONSEC HR CPAP SBSQ [address] CARE/DAY PHYSICIAN 35 PRA MINUTES INJECTION 69742 [facility] CARRANZA SARAH 6 LTH ANESTHETI ANESTHESI C AGENT A PSC F[facility]AL [facility] [address] [facility] 6 MEDICAL NAN DAY SERV MANAGEMEN FOUNDATIO T 30 N MIN/< AMBULANCE A0428 MERCURY MERCURY SERVICE 6 AMBULANCE AMBULANCE BLS SERV ULTRA SOUND TECHNICIAN SERV ULTRA SOUND TECHNICIAN NONEMERGE R R NCY TRANSPORT REVJ TOT 85445 I[facility]A HEILI KNEE 6 ORTHOPEDI IVELISSE ARTHRP C FEM&ENTIR ASSOCIAT E TIBIAL COMPONE INITIAL [address] [place] CARE/DAY PHYSICIAN 50 PRA MINUTES GROUND A0425 MERCURY MERCURY MILEAGE 6 AMBULANCE AMBULANCE PER SERV ULTRA SOUND TECHNICIAN SERV ULTRA SOUND TECHNICIAN STATUTE R R MILE REMOVAL [id number] CHRISTOPHER WHITE SPACER 6 REGIONAL [facility] FROM LT MEDICAL MEDICAL KNEE CENTE CENTE JOINT OPEN APPROACH REPLACE [id number] CHRISTOPHER WHITE LT KNEE 6 [facility] JOINT MEDICAL MEDICAL SYNTH [facility] SUB[facility] CEMENTED OPEN SBSQ 52046 [place] [address] MEDICAL NAN CARE/DAY SERV 25 FOUNDATIO MINUTES N SBSQ 15114 [place] [address] MEDICAL NAN CARE/DAY SERV 25 FOUNDATIO MINUTES N SBSQ 29317 [place] [address] MEDICAL NAN CARE/DAY SERV 25 FOUNDATIO MINUTES N PROTHROMB 59832 CHRISTOPHER WHITE IN TIME 6 [facility] MEDICAL MEDICAL CENTE CENTE SEDIMENTA 79679 CHRISTOPHER WHITE TION RATE 6 REGIONAL REGIONAL RBC MEDICAL MEDICAL NON-AUTOM CENTE CENTE ATED SBSQ 05216 [facility] 6 MEDICAL NAN CARE/DAY SERV 25 FOUNDATIO MINUTES N BASIC 74500 CHRISTOPHER WHITE METABOLIC 6 REGIONAL REGIONAL PANEL MEDICAL MEDICAL CALCIUM CENTE CENTE TOTAL COLLECTIO 29976 CHRISTOPHER WHITE N VENOUS 6 REGIONAL REGIONAL BLOOD MEDICAL MEDICAL VENIPUNCT CENTE CENTE URE BLOOD 14890 CHRISTOPHER WHITE TYPING 6 REGIONAL REGIONAL SEROLOGIC MEDICAL MEDICAL RH (D) CENTE CENTE THROMBOPL 23694 CHRISTOPHER WHITE ASTIN 6 REGIONAL REGIONAL TIME MEDICAL MEDICAL PARTIAL CENTE CENTE PLASMA/WH OLE BLOOD BLOOD 47251 CHRISTOPHER WHITE COUNT 6 REGIONAL REGIONAL COMPLETE MEDICAL MEDICAL AUTOMATED CENTE CENTE C-REACTIV 23448 CHRISTOPHER WHITE E PROTEIN 6 REGIONAL REGIONAL MEDICAL MEDICAL CENTE CENTE ANTIBODY 03463 CHRISTOPHER WHITE SCREEN 6 REGIONAL REGIONAL RBC EACH MEDICAL MEDICAL SERUM CENTE CENTE TECHNIQUE BLOOD 63491 CHRISTOPHER WHITE TYPING 6 REGIONAL REGIONAL SEROLOGIC MEDICAL MEDICAL ABO CENTE CENTE GONADOTRO 89744 CHRISTOPHER WHITE PIN 6 REGIONAL REGIONAL CHORIONIC MEDICAL MEDICAL CENTE CENTE QUALITATI VE SBSQ 68458 [facility] 6 MEDICAL NAN CARE/DAY SERV 25 FOUNDATIO MINUTES N SBSQ 09577 [facility] 6 MEDICAL NAN CARE/DAY SERV 25 FOUNDATIO MINUTES N SBSQ 31634 [place] [address] MEDICAL NAN CARE/DAY SERV 25 FOUNDATIO MINUTES N SBSQ 85869 [place] [address] MEDICAL NAN CARE/DAY SERV 25 FOUNDATIO MINUTES N SBSQ 78709 [place] [address] MEDICAL ELOISE CARE/DAY SERV 25 FOUNDATIO MINUTES N SBSQ 55433 [place] [address] MEDICAL ELOISE CARE/DAY SERV 25 FOUNDATIO MINUTES N SBSQ 32553 [place] [address] MEDICAL NAN CARE/DAY SERV 25 FOUNDATIO MINUTES N O2 CONC 1 E1390 NETEA SANTACRUZ DEL PORT 6 HOME HOME 85%/>02 MEDICAL MEDICAL CONC AT EQUIPME EQUIPME PRSC FLW RATE PRTBLE E0431 NEETA SANTACRUZ GASEOUS 6 HOME HOME O2 SYS MEDICAL MEDICAL RENT; EQUIPME EQUIPME FLWMTR HUMIDFR&M ASK SBSQ 14788 [place] [address] MEDICAL NAN CARE/DAY SERV 25 FOUNDATIO MINUTES N SBSQ 38390 [place] [address] MEDICAL NAN CARE/DAY SERV 25 FOUNDATIO MINUTES N ECHO 65590 RALPH RALPH TTHRC R-T 6 KIMANI KIMANI 2D W/WOM-MOD E COMPL SPEC&COLR D SBSQ 73006 [place] [address] MEDICAL NAN CARE/DAY SERV 25 FOUNDATIO MINUTES N SBSQ 09631 [place] [address] MEDICAL NAN CARE/DAY SERV 25 FOUNDATIO MINUTES N SBSQ 39919 [place] [address] MEDICAL DOMONIQUE CARE/DAY SERV 25 FOUNDATIO MINUTES N SBSQ 93314 [place] [address] MEDICAL DOMONIQUE CARE/DAY SERV 25 FOUNDATIO MINUTES N SBSQ 61806 [place] [address] MEDICAL NAN CARE/DAY SERV 25 FOUNDATIO MINUTES N SBSQ 23940 [place] [address] MEDICAL NAN CARE/DAY SERV 25 FOUNDATIO MINUTES N SBSQ 50233 [place] [address] MEDICAL NAN CARE/DAY SERV 25 FOUNDATIO MINUTES N SBSQ 73559 [place] [address] MEDICAL NAN CARE/DAY SERV 25 FOUNDATIO MINUTES N SBSQ 86820 [place] [address] ANTONELLA CARE/DAY INFECTIOU 25 S DISEASE MINUTES SBSQ 41996 [place] [address] MEDICAL ELOISE CARE/DAY SERV 25 FOUNDATIO MINUTES N SBSQ 90380 [place] [address] MEDICAL ELOISE CARE/DAY SERV 25 FOUNDATIO MINUTES N SBSQ 16546 [place] [address] MEDICAL NAN CARE/DAY SERV 25 FOUNDATIO MINUTES N SBSQ 91197 [place] [address] ANTONELLA CARE/DAY INFECTIOU 15 S DISEASE MINUTES RADIOLOGI 18195 [facility] [place] [address] RADIOLOGY AFSAHN EXAMINATI ON CHEST SINGLE VIEW FRONTAL SBSQ 12111 [place] [address] MEDICAL NAN CARE/DAY SERV 25 FOUNDATIO MINUTES N SBSQ 15876 [facility] 6 ANTONELLA CARE/DAY INFECTIOU 15 S DISEASE MINUTES SBSQ 20359 [place] [address] MEDICAL NAN CARE/DAY SERV 25 FOUNDATIO MINUTES N SBSQ 70971 [place] [address] MEDICAL NAN CARE/DAY SERV 25 FOUNDATIO MINUTES N SBSQ 57291 [place] [address] MEDICAL NAN CARE/DAY SERV 25 FOUNDATIO MINUTES N SBSQ 12661 [place] [address] MEDICAL KIMBER CARE/DAY SERV 25 FOUNDATIO MINUTES N SBSQ 28325 [place] [address] MEDICAL KIMBER CARE/DAY SERV 25 FOUNDATIO MINUTES N SBSQ 24149 [place] [address] MEDICAL NAN CARE/DAY SERV 25 FOUNDATIO MINUTES N SBSQ 94209 [place] [address] MEDICAL NAN CARE/DAY SERV 25 FOUNDATIO MINUTES N SBSQ 59012 [place] [address] MEDICAL DOMONIQUE CARE/DAY SERV 25 FOUNDATIO MINUTES N SBSQ 83549 [place] [address] MEDICAL NAN CARE/DAY SERV 25 FOUNDATIO MINUTES N SBSQ 81321 [place] [address] MEDICAL NAN CARE/DAY SERV 25 FOUNDATIO MINUTES N SBSQ 27794 [place] [address] MEDICAL DOMONIQUE CARE/DAY SERV 25 FOUNDATIO MINUTES N SBSQ 44351 [place] [address] MEDICAL DOMONIQUE CARE/DAY SERV 25 FOUNDATIO MINUTES N SBSQ 21465 [place] [address] MEDICAL NAN CARE/DAY SERV 25 FOUNDATIO MINUTES N RADIOLOGI 45269 [facility] [place] [facility] 6 RADIOLOGY AFSHAN EXAMINATI ON CHEST SINGLE VIEW FRONTAL AMBULANCE A0428 [facility] SERVICE 6 MEDICAL MEDICAL BLS RESPONSE RESPONSE NONEMERGE NCY TRANSPORT GROUND A0425 [facility] MILEA 6 MEDICAL MEDICAL PER RESPONSE RESPONSE STATUTE MILE INITIAL 92136 [place] [address] MEDICAL NAN CARE/DAY SERV [address] LOWER 11587 [place] [facility] EXTREMITY 6 MEDICAL FRA SERV W/CONTRAS FOUNDATIO T N MATERIAL SBSQ 60649 [place] [address] HEALTH DYLAN CARE/DAY MEDICAL 35 GROUP MINUTES SBSQ 47976 [place] [address] HEALTH DYLAN CARE/DAY MEDICAL 35 GROUP MINUTES SBSQ 28088 [place] [address] HEALTH DYLAN CARE/DAY MEDICAL 35 GROUP MINUTES CRITICAL 86278 [facility] 6 HEALTH ILL/INJUR MEDICAL ED GROUP PATIENT INIT 30-74 MIN SBSQ 13296 [place] [address] HEALTH RENÉ CARE/DAY MEDICAL 25 GROUP MINUTES SBSQ 07468 [place] [address] HEALTH RENÉ CARE/DAY MEDICAL 25 GROUP MINUTES SBSQ 62500 [place] [address] HEALTH RENÉ CARE/DAY MEDICAL 25 GROUP MINUTES GROUND A0425 [facility] MILEA 6 MEDICAL MEDICAL PER RESPONSE RESPONSE STATUTE MILE RADIOLOGI 43741 [place] [facility] C 6 MEDICAL AYA MAR EXAMINATI SERV ON CHEST FOUNDATIO SINGLE N VIEW FRONTAL RADEX 59846 [place] VEE ABDOMEN 1 6 MEDICAL COLETTE SERV ANTEROPOS FOUNDATIO TERIOR N VIEW CRITICAL 66806 [facility] 6 HEALTH ILL/INJUR MEDICAL ED GROUP PATIENT INIT 30-74 MIN CRITICAL 80133 CHRISTOPHER KAUR [facility] 6 REGIONAL BEVERLY ILL/INJUR PHYSICIAN ED PRA PATIENT INIT 30-74 MIN CRITICAL 60951 [facility] 6 REGIONAL BEVERLY ILL/INJUR PHYSICIAN ED PRA PATIENT INIT 30-74 MIN PRTBLE E0431 NEETA SANTACRUZ GASEOUS 6 HOME HOME O2 SYS MEDICAL MEDICAL RENT; EQUIPME EQUIPME FLWMTR HUMIDFR&M ASK O2 CONC 1 E1390 NEETA SANTACRUZ DEL PORT 6 HOME HOME 85%/>02 MEDICAL MEDICAL CONC AT EQUIPME EQUIPME PRSC FLW RATE SBSQ 56939 [facility] 6 REGIONAL CARE/DAY PHYSICIAN 35 PRA MINUTES CRITICAL 95760 CHRISTOPHER MYRICK [facility] 6 REGIONAL MARYELLEN ILL/INJUR PHYSICIAN ED PRA PATIENT INIT 30-74 MIN CRITICAL 61444 [facility] 6 REGIONAL MARYELLEN ILL/INJUR PHYSICIAN ED PRA PATIENT INIT 30-74 MIN CRITICAL 03285 [facility] 6 REGIONAL MARYELLEN ILL/INJUR PHYSICIAN ED PRA PATIENT ADDL 30 MIN SBSQ 53834 [facility] 6 REGIONAL MARYELLEN CARE/DAY PHYSICIAN 25 PRA MINUTES INITIAL 86267 [place] [address] REGIONAL MARYELLEN CARE/DAY PHYSICIAN 50 PRA MINUTES ANESTH 78433 [facility] SIMPSON OPEN/SURG 5 LTH BEAU ARTHRS ANESTHESI TOTAL A PSC KNEE ARTHROPLA STY RMVL 86422 [facility] 5 ORTHOPEDI TOT KNEE C PROSTH ASSOCIAT MMA W/[place] [address] KRISTEN SHARMA, SURG 5 JR EDW PATHOLOGY PATHOLOGY GROSS [place] [address] KRISTEN SHARMA, SURG 5 JR EDW PATHOLOGY PATHOLOGY ASSOCIAT GROSS&IVELISSE ROSCOPIC EXAM DECALCIFI 78984 KRISTEN SHARMA, CATION 5 JR EDW PROCEDURE PATHOLOGY ASSOCIAT PRTBLE E0431 NEETA SANTACRUZ GASEOUS 5 HOME HOME O2 SYS MEDICAL MEDICAL RENT; EQUIPME EQUIPME FLWMTR HUMIDFR&M ASK O2 CONC 1 E1390 NEETA BOBRELL DEL PORT 5 HOME HOME 85%/>02 MEDICAL MEDICAL CONC AT EQUIPME EQUIPME [facility] FLW RATE FEDERALLY G0467 ROBERTO ROBERTO [employer] QU[employer]IFIED [employer] SOLUTIONS [facility] VISIT ESTAB PT ECG 07841 [facility] THO ROUTINE 5 NE HEALTH ECG MEDICAL W/LEAST G 12 LDS I&R ONLY O2 CONC 1 E1390 NEETA NEETA DEL PORT 5 HOME HOME 85%/>02 MEDICAL MEDICAL CONC AT EQUIPME EQUIPME PRSC FLW RATE PRTBLE E0431 NEETA SANTACRUZ GASEOUS 5 HOME HOME O2 SYS MEDICAL MEDICAL RENT; EQUIPME EQUIPME FLWMTR HUMIDFR&M ASK RADEX 61396 [facility] [place] SHER[facility] SHOULDER 5 RADIOLOGY COMPLETE MINIMUM 2 VIEWS FEDERALLY G0467 ROBERTO ROBERTO 5 HEALTH [employer] HE[facility] CENTER V[place] BONE 86867 CHRISTOPHER CHRISTOPHER &/JOINT [address] [place] [address] [facility] [place] SHER[place] CH[facility] MAXILLOFA 5 RADIOLOGY CIAL W/[place] [address] [facility] [place] [facility] [place] HEAD/BRAI 5 RADIOLOGY RADIOLOGY N W/O CONTRAST MATERIAL RADEX 86917 [facility] [place] WESTERFIE SINUSES 5 RADIOLOGY LD IV ALL PARANASAL COMPL MINIMUM 3 VIEWS RADIOLOGI 93662 [facility] [place] HSIEH C EXAM 5 RADIOLOGY RAY CHEST 2 VIEWS FRONTAL&L ATERAL RADIOLOGI 19808 [facility] [place] RINA MAT C EXAM 5 RADIOLOGY KNEE COMPLETE 4/MORE VIEWS FEDERALLY G0467 ROBERTO ROBERTO 5 [employer] [facility] VISIT ESTAB PT OPHTH 83396 [facility] 5 GRE GRE XM&EVAL COMPRE NEW PT 1/> VST RADIOLOGI 87941 [facility] [place] SHERIN CHR C EXAM 5 RADIOLOGY CHEST 2 VIEWS FRONTAL&L ATERAL O2 CONC 1 E1390 NEETA BOBRELL DEL PORT 5 HOME HOME 85%/>02 MEDICAL MEDICAL CONC AT EQUIPME EQUIPME PRSC FLW RATE BLD GLU A4253 NEETA SANTACRUZ TEST/REAG 5 HOME HOME T STRIPS MEDICAL MEDICAL HOME BLD EQUIPME EQUIPME GLU MON-50 O2 CONC 1 E1390 NEETA SANTACRUZ DEL PORT 5 HOME HOME 85%/>02 MEDICAL MEDICAL CONC AT EQUIPME EQUIPME PRSC FLW RATE O2 CONC 1 E1390 NEETA SANTACRUZ DEL PORT 5 HOME HOME 85%/>02 MEDICAL MEDICAL CONC AT EQUIPME EQUIPME PRSC FLW RATE NEBULIZER E0570 NEETA SANTACRUZ WITH 5 HOME HOME COMPRESSO MEDICAL MEDICAL R EQUIPME EQUIPME NEBULIZER E0570 NEETA SANTACRUZ WITH 5 HOME HOME COMPRESSO MEDICAL MEDICAL R EQUIPME EQUIPME PRTBLE E0431 NEETA SANTACRUZ GASEOUS 5 HOME HOME O2 SYS MEDICAL MEDICAL RENT; EQUIPME EQUIPME FLWMTR HUMIDFR&M ASK O2 CONC 1 E1390 NEETA SANTACRUZ DEL PORT 5 HOME HOME 85%/>02 MEDICAL MEDICAL CONC AT EQUIPME EQUIPME PRSC FLW RATE O2 CONC 1 E1390 NEETA LUNA PORT 5 HOME HOME 85%/>02 MEDICAL MEDICAL CONC AT EQUIPME EQUIPME PRSC FLW RATE PRTBLE E0431 NEETA SANTACRUZ GASEOUS 5 HOME HOME O2 SYS MEDICAL MEDICAL RENT; EQUIPME EQUIPME FLWMTR HUMIDFR&M ASK NEBULIZER E0570 NEETA SANTACRUZ WITH 5 HOME HOME COMPRESSO MEDICAL MEDICAL R EQUIPME EQUIPME NEG PRESS E2402 [employer] WOUND 5 INC INC THERAPY ELEC PUMP STATION/P RTBLE DUP-SCAN 40916 [facility] XTR VEINS 5 EIDER BILL RADIOLOGY UNILATERA ASSOCIAT L/LIMITED STUDY NEBULIZER E0570 NEETA SANTACRUZ WITH 5 HOME HOME COMPRESSO MEDICAL MEDICAL R EQUIPME EQUIPME PRTBLE E0431 NEETA SANTACRUZ GASEOUS 5 HOME HOME O2 SYS MEDICAL MEDICAL RENT; EQUIPME EQUIPME FLWMTR HUMIDFR&M ASK O2 CONC 1 E1390 NEETA LUNA PORT 5 HOME HOME 85%/>02 MEDICAL MEDICAL CONC AT EQUIPME EQUIPME PRSC FLW RATE NEG PRESS E2402 [employer] WOUND 4 INC INC THERAPY ELEC PUMP STATION/P RTBLE CANISTER A7000 [employer] DISPOSABL 4 INC INC E USED WITH SUCTION PUMP EACH RADIOLOGI 33781 [facility] C EXAM [facility] CHEST 2 [facility] VIEWS FRONTAL&L ATERAL ECG 11507 [facility] ROUTINE [facility] ECG [facility] W/LEAST 12 LDS TRCG ONLY W/O I&R I&D DEEP 23893 [facility] ABSC [facility] BURSA/HEM [facility] ATOMA THIGH/KNE E REGION O2 CONC 1 E1390 NEETA SANTACRUZ DEL PORT 4 HOME HOME 85%/>02 MEDICAL MEDICAL CONC AT EQUIPME EQUIPME PRSC FLW RATE PRTBLE E0431 NEETA SANTACRUZ GASEOUS 4 HOME HOME O2 SYS MEDICAL MEDICAL RENT; EQUIPME EQUIPME FLWMTR HUMIDFR&M ASK NEBULIZER E0570 NEETA SANTACRUZ WITH 4 HOME HOME COMPRESSO MEDICAL [place]ICAL [place] [address] [facility]VANCED KERSCHNER JOINT 4 PAIN & MAG ARTHRGRPH SPINE Y&/ANES/S INSTIT TEROID W/FLOR PRTBLE E0431 NEETA SANTACRUZ GASEOUS 4 HOME HOME O2 SYS MEDICAL MEDICAL RENT; EQUIPME EQUIPME FLWMTR HUMIDFR&M ASK O2 CONC 1 E1390 NEETA [place] DEL PORT 4 HOME HOME 85%/>02 MEDICAL MEDICAL CONC AT EQUIPME EQUIPME PRSC FLW RATE NEBULIZER E0570 NEETA [place] WITH 4 HOME HOME COMPRESSO MEDICAL MEDICAL R EQUIPME EQUIPME WALK E0148 HOME HOME HEAVY 4 CONVALESC CONVALESC DUTY W/O ENT AIDS ENT AIDS LS INC INC RIGID/FOL D ANY TYPE EA NURSING 26819 CHRISTOPHER LEARY AJ FACILITY 4 [facility]IONAL DISCHARGE [facility]ICAL CENTE MANAGEMEN T 30 MINUTES DUP-SCAN 80089 FOUNDATIO MCQUAIDE XTR VEINS 4 N JERRY RADIOLOGY UNILATERA GROUP P L/LIMITED STUDY INJECTION 22162 FRED MALDONADO JAYNA 4 [facility] ANESTHETI ANESTHESI C AGENT A PSC FEMORAL NERVE SINGLE NEBULIZER E0570 NEETA [place] WITH 4 HOME HOME COMPRESSO MEDICAL MEDICAL R EQUIPME EQUIPME PRTBLE E0431 NEETA [place] GASEOUS 4 HOME HOME O2 SYS MEDICAL MEDICAL RENT; EQUIPME EQUIPME FLWMTR HUMIDFR&M ASK O2 CONC 1 E1390 NEETA [place] DEL PORT 4 HOME HOME 85%/>02 MEDICAL MEDICAL CONC AT EQUIPME EQUIPME PRSC FLW RATE ANTIBODY 18586 CHRISTOPHER WHITE SCREEN 4 REGIONAL REGIONAL RBC EACH MEDICAL MEDICAL SERUM CENTE CENTE TECHNIQUE ECG [id number] CHRISTOPHER MYRICK ROUTINE 4 REGIONAL MARYELLEN ECG MEDICAL W/LEAST CENTE 12 LDS I&R ONLY ECG 91885 CHRISTOPHER WHITE ROUTINE 4 REGIONAL REGIONAL ECG MEDICAL MEDICAL W/LEAST CENTE CENTE 12 LDS TRCG ONLY W/O I&R RADIOLOGI 15012 CHRISTOPHER WHITE C EXAM 4 REGIONAL REGIONAL CHEST 2 MEDICAL MEDICAL VIEWS CENTE CENT[place] FRONTAL&[place] [address] ADVANCED KERSCHNER JOINT 4 PAIN & MAG ARTHRGRPH SPINE Y&/ANES/S INSTIT TEROID W/FLOR PRTBLE E0431 NEETA [facility] GASEOUS 4 HOME HOME O2 SYS MEDICAL MEDICAL RENT; EQUIPME EQUIPME FLWMTR HUMIDFR&M ASK O2 CONC 1 E1390 NEETA [place] DEL PORT 4 HOME HOME 85%/>02 MEDICAL MEDICAL CONC AT EQUIPME EQUIPME PRSC FLW RATE NEBULIZER E0570 NEETA [place] WITH 4 HOME HOME COMPRESSO MEDICAL MEDICAL R EQUIPME EQUIPME RADIOLOGI 90840 MEADOWVIE MEADOWVIE C EXAM 4 W W KNEE REGIONAL REGIONAL COMPLETE MEDICAL MEDICAL 4/[place] [address] ADVANCED KERSCHNER ANES&/STR 4 PAIN & MAG D W/IMG SPINE TFRML INSTIT EDRL LMBR/SAC EA LV CT THORAX 25371 CAM[place]A RECINOS 4 JOHN W/CONTRAS RADIOLOGY T ASSOCIAT MATERIAL NEBULIZER E0570 NEETA [place] WITH 4 HOME HOME COMPRESSO MEDICAL MEDICAL R EQUIPME EQUIPME O2 CONC 1 E1390 NEETA [place] DEL PORT 4 HOME HOME 85%/>02 MEDICAL MEDICAL CONC AT EQUIPME EQUIPME PRSC FLW RATE PRTBLE E0431 NEETA [place] GASEOUS 4 HOME HOME O2 SYS MEDICAL MEDICAL RENT; EQUIPME EQUIPME FLWMTR HUMIDFR&M ASK RADIOLOGI 65457 MEADOWVIE MEADOWVIE C EXAM 4 W W CHEST 2 REGIONAL REGIONAL VIEWS MEDICAL MEDICAL [place]ONTAL&[place] [address] ADVANCED KERSCHNER ANES&/STR 4 PAIN & MAG D W/IMG SPINE TFRML INSTIT EDRL LMBR/SAC EA LV ARTHROCEN MAYITO EDMOND TESIS 4 MAG MAG ASPIR&/IN J MAJOR JT/BURSA W/O US O2 CONC 1 E1390 NEETA [place] DEL PORT 4 HOME HOME 85%/>02 MEDICAL MEDICAL CONC AT EQUIPME EQUIPME PRSC FLW RATE PRTBLE E0431 NEETA [place] GASEOUS 4 HOME HOME O2 SYS MEDICAL MEDICAL RENT; EQUIPME EQUIPME FLWMTR HUMIDFR&M ASK NEBULIZER E0570 NEETA [place] WITH 4 HOME HOME COMPRESSO MEDICAL MEDICAL R EQUIPME EQUIPME NEBULIZER E0570 NEETA [place] WITH 4 HOME HOME COMPRESSO MEDICAL MEDICAL R EQUIPME EQUIPME PRTBLE E0431 NEETA [place] GASEOUS 4 HOME HOME O2 SYS MEDICAL MEDICAL RENT; EQUIPME EQUIPME FLWMTR HUMIDFR&M ASK O2 CONC 1 E1390 NEETA [place] DEL PORT 4 HOME HOME 85%/>02 MEDICAL MEDICAL CONC AT EQUIPME EQUIPME PRSC FLW RATE BLD GLU [id number] NEETA S[facility]ACRU[facility] TEST/REAG 4 HOME HOME T STRIPS MEDICAL MEDICAL HOME BLD EQUIPME EQUIPME GLU MON-50 MRI BRAIN 35269 DENN[place] NOYOLA BRAIN 4 [facility] STEM W/O INC INC W/CONTRAS T MATERIAL NEBULIZER E0570 NEETA [place] WITH 4 HOME HOME COMPRESSO MEDICAL MEDICAL R EQUIPME EQUIPME O2 CONC 1 E1390 NEETA [place] 4 HOME HOME 85%/>02 MEDICAL MEDICAL CONC AT EQUIPME EQUIPME PRSC FLW RATE PRTBLE E0431 NEETA [place] GASEOUS 4 HOME HOME O2 SYS MEDICAL MEDICAL RENT; EQUIPME EQUIPME FLWMTR HUMIDFR&M ASK CT [address] [facility], [employer], HEAD/BRAI 4 ULTRA SOUND TECHNICIAN ULTRA SOUND TECHNICIAN N W/O [facility]RIS PISANO CONTRAST CO HOS CO HOS MATERIAL ALBUTEROL J7620 YOUR YOUR TO 2.5 4 PHARMACY PHARMACY [employer] IPRATROPI UM BROM TO 0.5 MG NEBULIZER E0570 NEETA SANTACRUZ WITH 4 HOME HOME COMPRESSO MEDICAL MEDICAL R EQUIPME EQUIPME PRTBLE E0431 NEETA SANTACRUZ GASEOUS 4 HOME HOME O2 SYS MEDICAL MEDICAL RENT; EQUIPME EQUIPME FLWMTR HUMIDFR&M ASK O2 CONC 1 E1390 NEETA SANTACRUZ DEL PORT 4 HOME HOME 85%/>02 MEDICAL MEDICAL CONC AT EQUIPME EQUIPME PRSC FLW RATE PHRM Q0513 YOUR YOUR DISPENSIN 4 PHARMACY PHARMACY G FEE [employer] INHALATIO N RX; PER 30 DAYS RADIOLOGI 45306 [employer], [employer], C EXAM 4 ULTRA SOUND TECHNICIAN ULTRA SOUND TECHNICIAN CHEST 2 NORRIS NORRIS VIEWS CO HOS CO HOS FRONTAL&L ATERAL ARTERIAL 18779 [employer], [employer], PUNCTURE 4 ULTRA SOUND TECHNICIAN ULTRA SOUND TECHNICIAN WITHDRAWA [facility]IS PIS[facility]O L BLOOD CO HOS CO HOS DX RADIOLOGI 01651 [employer], [employer], C EXAM 4 ULTRA SOUND TECHNICIAN ULTRA SOUND TECHNICIAN CHEST 2 NORRIS NORRIS VIEWS CO HOS CO HOS FRONTAL&L ATERAL RADEX 24443 [employer], [employer], FOOT 4 ULTRA SOUND TECHNICIAN ULTRA SOUND TECHNICIAN COMPLETE NORRIS NORRIS MINIMUM 3 CO HOS CO HOS VIEWS PWR WC K0825 REHAB REHAB GRP 2 4 MEDICAL MEDICAL HEVY DUT[facility] PT E E 301-450 LBS PWR WC K0825 REHAB REHAB GRP 2 3 MEDICAL MEDICAL HEVY [facility]UT[facility] E E 301-450 LBS PWR WC K0825 REHAB REHAB GRP 2 3 MEDICAL MEDICAL HEVY DUTY [facility] PT E E 301-450 LBS ECHO 83380 [employer], [employer], TTHRC R-T 3 ULTRA SOUND TECHNICIAN ULTRA SOUND TECHNICIAN 2D NORRIS PISANO W/WOM-MOD CO HOS CO HOS E COMPL SPEC&COLR D BLD GLU A4253 NEETA SANTACRUZ TEST/REAG 3 HOME HOME T STRIPS MEDICAL MEDICAL HOME BLD EQUIPME EQUIPME GLU MON-50 RADIOLOGI 44626 MOSER MOSER C EXAM 3 URBANO URBANO CHEST 2 VIEWS FRONTAL&L ATERAL PWR WC K0825 REHAB REHAB GRP 2 3 MEDICAL MEDICAL HEVY DUTY OF OF CAPT ALIYA PISANO CHAIR PT E E 301-450 LBS RADEX 40173 JORJE RECINOS WRIST 3 [facility] COMPLETE MINIMUM 3 VIEWS RADEX ABD 75980 [facility], [facility], COMPL 3 ULTRA SOUND TECHNICIAN ULTRA SOUND TECHNICIAN AQT ABD NORRIS PISANO W/S/E/D CO HOS CO HOS VIEWS 1 VIEW CH RADIOLOGI 61306 MOSER MOSER C EXAM 3 URBANO URBANO CHEST 2 VIEWS FRONTAL&L ATERAL ECG 99181 AHMED ADN AHMED ADN ROUTINE 3 ECG W/LEAST 12 LDS I&R ONLY ECG 01935 AHMED ADN AHMED ADN ROUTINE 3 ECG W/LEAST 12 LDS I&R ONLY ECG 31091 AHMED ADN AHMED ADN ROUTINE 3 ECG W/LEAST 12 LDS I&R ONLY RADIOLOGI 92677 NAZ CHILDS C 3 EIDER BILL KHAN EXAMINATI ON CHEST SINGLE VIEW FRONTAL RADIOLOGI 76946 MOSER MOSER C EXAM 3 URBANO URBANO CHEST 2 VIEWS FRONTAL&L ATERAL RADIOLOGI 00530 MOSER MOSER C EXAM 3 URBANO URBANO CHEST 2 VIEWS FRONTAL&L ATERAL RADEX 16133 [facility], [facility], FOOT 3 ULTRA SOUND TECHNICIAN ULTRA SOUND TECHNICIAN COMPLETE NORRIS PISANO MINIMUM 3 CO HOS CO HOS VIEWS CONTINUOU E0601 NEETA SANTACRUZ S 3 HOME HOME POSITIVE MEDICAL MEDICAL AIRWAY EQUIPME EQUIPME PRESSURE DEVICE SPMTRY 16934 WILSON WILSON W/VC 3 JAM JAM EXPIRATOR Y MATILDE W/WO MXML VOL VNTJ RADIOLOGI 44420 JORJE RECINOS C EXAM 3 [facility] CHEST 2 VIEWS FRONTAL&L ATERAL RADIOLOGI 16841 NAZ CHILDS C EXAM 3 EIDER BILL NGADER BILL CHEST 2 VIEWS FRONTAL&L ATERAL CONTINUOU E0601 NEETA BOBRELL S 3 HOME HOME POSITIVE MEDICAL MEDICAL AIRWAY EQUIPME EQUIPME PRESSURE DEVICE ECG 07546 BLOYD LUX BLOYD LUX ROUTINE 3 ECG W/LEAST 12 LDS I&R ONLY RADIOLOGI 67890 CHARLIE GUERRA C EXAM 3 SHA SHA CHEST 2 VIEWS FRONTAL&L ATERAL RADIOLOGI 26541 NAZ CHILDS C EXAM 3 EIDER BILL EISARAH BILL CHEST 2 VIEWS FRONTAL&L ATERAL RADIOLOGI 70036 CAMILLA RECINOS C EXAM 2 JOHN CHEST 2 RADIOLOGY VIEWS ASSOCIAT FRONTAL&L ATERAL CONTINUOU E0601 NEETA SANTACRUZ S 2 HOME HOME POSITIVE MEDICAL MEDICAL AIRWAY EQUIPME EQUIPME PRESSURE DEVICE RADIOLOGI 41228 [facility] C EXAM 2 JOHN CHEST 2 RADIOLOGY VIEWS ASSOCIAT FRONTAL&L ATERAL FULL FACE A7030 NEETA SANTACRUZ MASK 2 HOME HOME USED MEDICAL MEDICAL W/POS EQUIPME EQUIPME ARWAY PRESS DEVICE EA FILTER A7038 NEETA SANTACRUZ DISPBL 2 HOME HOME USED MEDICAL MEDICAL W/POS EQUIPME EQUIPME ARWAY PRESSURE DEVICE TUBING A7037 NEETA SANTACRUZ USED WITH 2 HOME HOME POSITIVE MEDICAL MEDICAL AIRWAY EQUIPME EQUIPME PRESSURE DEVICE ADMN SET A7003 YOUR YOUR SM VOL 2 PHARMACY PHARMACY NONFILTR PNEUMAT NEBULIZR DISPBL HEADGEAR A7035 NEETA SANTACRUZ USED 2 HOME HOME W/POSITIV MEDICAL MEDICAL E AIRWAY EQUIPME EQUIPME PRESSURE DEVICE CONTINUOU E0601 NEETA SANTACRUZ S 2 HOME HOME POSITIVE MEDICAL MEDICAL AIRWAY EQUIPME EQUIPME PRESSURE DEVICE BLD GLU A4253 NEETA SANTACRUZ TEST/REAG 2 HOME HOME T STRIPS MEDICAL MEDICAL HOME BLD EQUIPME EQUIPME GLU MON-50 LANCETS A4259 NEETA SANTACRUZ PER BOX 2 HOME HOME OF 100 MEDICAL MEDICAL EQUIPME EQUIPME ALBUTEROL J7620 YOUR YOUR TO 2.5 2 PHARMACY PHARMACY MG & IPRATROPI UM BROM TO 0.5 [facility] 24742 AHMED ADN AHMED ADN DISCHARGE 2 DAY MANAGEMEN T 30 MIN/< HUMDIFIR E0562 NEETA SANTACRUZ HEATED 2 HOME HOME USED MEDICAL MEDICAL W/POS EQUIPME EQUIPME ARWAY PRESSURE DEVICE ECG 60507 AHMED ADN AHMED ADN ROUTINE 2 ECG W/LEAST 12 LDS TRCG ONLY W/O I&R RADIOLOGI 19391 [facility] 2 EISARAH BILL CHEST 2 RADIOLOGY VIEWS ASSOCIAT FRONTAL&L ATERAL RADIOLOGI 26532 CAMILLA JORJE C EXAM 2 JOHN CHEST 2 RADIOLOGY VIEWS ASSOCIAT FRONTAL&L ATERAL LANCETS A4259 NEETA SANTACRUZ PER BOX 2 HOME HOME OF 100 MEDICAL MEDICAL EQUIPME EQUIPME BLD GLU A4253 NEETA SANTACRUZ TEST/REAG 2 HOME HOME T STRIPS MEDICAL MEDICAL HOME BLD EQUIPME EQUIPME GLU SAT- RADIOLOGI 52318 [facility], [facility], C 2 ULTRA SOUND TECHNICIAN ULTRA SOUND TECHNICIAN EXAMINATI NORRIS PISANO ON KNEE CO HOS CO HOS 1/2 VIEWS LIPID 55995 [facility], [employer], PANEL 2 ULTRA SOUND TECHNICIAN ULTRA SOUND TECHNICIAN NORRIS NORRIS CO HOS CO HOS COMPREHEN 80026 [facility], [employer], SIVE 2 ULTRA SOUND TECHNICIAN ULTRA SOUND TECHNICIAN METABOLIC [facility] PIS[facility]O PANEL CO HOS CO HOS HEMOGLOBI 93003 [facility], [employer], N 2 ULTRA SOUND TECHNICIAN ULTRA SOUND TECHNICIAN GLYCOSYLA [facility] PISANO KAMILAH [place] [address] [facility] NeuString, [facility], THYROID 2 ULTRA SOUND TECHNICIAN ULTRA SOUND TECHNICIAN STIMULATI [facility] PISANO NG [place] [address] [facility], [employer], FREE 2 ULTRA SOUND TECHNICIAN ULTRA SOUND TECHNICIAN THYROXINE NORRIS OLGUINS CO HOS CO HOS BLOOD 06758 [facility], [employer], COUNT 2 ULTRA SOUND TECHNICIAN ULTRA SOUND TECHNICIAN COMPLETE NORRIS NORRIS AUTO&AUTO CO HOS CO HOS DIFRNTL [facility] 23963 STAN STAN DISCHARGE 2 DYLAN DYLAN DAY MANAGEMEN T 30 MIN/< RADIOLOGI 60062 [facility] [place] EARNEST C EXAM 2 RADIOLOGY III ANTONELLA CHEST 2 VIEWS FRONTAL&L ATERAL ECG 90784 ROBYN CARLSON ROUTINE 2 EMERGENCY EMERGENCY ECG SERVICES SERVICES W/LEAST 12 LDS I&R ONLY BLD GLU A4253 NEETA NEETA TEST/REAG 2 HOME HOME T STRIPS MEDICAL MEDICAL HOME BLD EQUIPME EQUIPME GLU LANCETS A4259 NEETA NEETA PER BOX 2 HOME HOME OF 100 MEDICAL MEDICAL EQUIPME EQUIPME RADEX 53532 [place] MARIANGEL HAND 2 MEDICAL SILVINA MINIMUM 3 SERV VIEWS FOUNDATIO N POLYSOM 70359 THE HOOS R 6/>YRS 2 NEUROLOGY SLEEP GROUP PC W/CPAP 4/> ADDL DREW ATTND THERAPEUT 88368 [employer], [employer], IC 2 ULTRA SOUND TECHNICIAN ULTRA SOUND TECHNICIAN PROPHYLAC NORRIS NORRIS TIC/DX CO HOS CO HOS INJECTION SUBQ/IM INJECTION J1885 [employer], [employer], 2 ULTRA SOUND TECHNICIAN ULTRA SOUND TECHNICIAN KETOROLAC NORRIS NORRIS CO HOS CO HOS TROMETHAM INE PER 15 MG RADIOLOGI 47939 [facility] C EXAM 2 EIDER BILL CHEST 2 RADIOLOGY VIEWS ASSOCIAT FRONTAL&L ATERAL BLD GLU A4253 NEETA NEETA TEST/REAG 2 HOME HOME T STRIPS MEDICAL MEDICAL HOME BLD EQUIPME EQUIPME GLU POLYSOM 41062 THE THE 6/>YRS 2 NEUROLOGY NEUROLOGY SLEEP 4/> GROUP PC GROUP PC ADDL DREW ATTND RADIOLOGI 11954 [employer], [employer], C 2 ULTRA SOUND TECHNICIAN ULTRA SOUND TECHNICIAN EXAMINATI NORRIS PISANO ON KNEE 3 CO HOS CO HOS VIEWS CT THORAX 61769 DENNYS NOYOLA 2 [facility] W/CONTRAS INC INC T MATERIAL 3D 39407 DENNYS NOYOLA RENDERING 2 [facility] INC INC W/INTERP& POSTPROC DIFF WORK STATION LOCM Q9967 DENNYS NOYOLA 300-399 2 MEM HOS[facility]OS[facility] MG/ML INC INC IODINE CONCENTRA TION PER ML RADIOLOGI 73170 [facility] C EXAM 2 CHEST 2 RADIOLOGY RADIOLOGY VIEWS ASSOCIAT ASSOCIAT FRONTAL&L ATERAL BLD GLU A4253 NEETA NEETA TEST/REAG 2 HOME HOME T STRIPS MEDICAL MEDICAL HOME BLD EQUIPME EQUIPME GLU BLD GLU A4253 NEETA SANTACRUZ TEST/REAG 2 HOME HOME T STRIPS MEDICAL MEDICAL HOME BLD EQUIPME EQUIPME GLU RADIOLOGI 39101 [facility] C EXAM 2 CHEST 2 RADIOLOGY RADIOLOGY VIEWS ASSOCIAT ASSOCIAT FRONTAL&L ATERAL HOS BED E0303 NEETA NEETA HEVY DUTY 2 HOME HOME W/WT CAP MEDICAL MEDICAL >350 EQUIPME EQUIPME PDS</=TO 600 PDS OBSERVATI 54139 ROBYN PATTON ON/INPATI 1 EMERGENCY [facility] C[facility] 55 MINUTES RADIOLOGI 12577 [facility] [place] [facility] [place] C EXAM 1 RADIOLOGY RADIOLOGY CHEST 2 VIEWS FRONTAL&L ATERAL RADIOLOGI 59178 ROBYN GRAHAMBoris BAB C 1 EMERGENCY EXAMINATI SERVICES ON CHEST SINGLE VIEW FRONTAL RADIOLOGI 46569 [facility] C EXAM 1 JOHN CHEST 2 RADIOLOGY VIEWS ASSOCIAT FRONTAL&L ATERAL HOS BED E0303 NEETA NEETA HEVY DUTY 1 HOME HOME W/WT CAP MEDICAL MEDICAL >350 EQUIPME EQUIPME PDS</=TO 600 PDS ECG 32526 QIANA AMIN AMIN QIANA ROUTINE 1 MD ECG CONSULTIN W/LEAST G SRV 12 LDS I&R ONLY OBSERVATI 77652 NORRIS WATERS ON CARE 1 COUNTY OSI DISCHARGE [facility] MANAGEMEN T RADIOLOGI 92740 [facility] C 1 EIDER BILL EXAMINATI RADIOLOGY ON CHEST ASSOCIAT SINGLE VIEW FRONTAL INITIAL 58892 NORRIS WATERS OBSERVATI 1 COUNTY OSI ON RURAL CARE/DAY HEALTH 50 MINUTES HOS BED E0303 NEETA NEETA HEVY DUTY 1 HOME HOME W/WT CAP MEDICAL MEDICAL >350 EQUIPME EQUIPME PDS</=TO 600 PDS DUP-SCAN 11046 CAMILLA RECINOS XTR VEINS 1 JOHN COMPLETE RADIOLOGY ASSOCIAT BILATERAL STUDY RADIOLOGI 21152 [facility] C EXAM 1 URBANO CHEST 2 RADIOLOGY VIEWS ASSOCIAT FRONTAL&[place] [address] NORRIS PISANO STREPTOCO 1 CO CO [facility] A CUL BACT 59609 NORRIS PISANO ANAEROBIC 1 CO [facility] METHS DEFINITIV E EA ISOL CUL BACT 42584 NORRIS PISANO XCPT 1 CO [facility] BLOOD/STO OL AEROBIC ISOL RADIOLOGI 75090 CAMILLA JORJE C EXAM 1 JOHN CHEST 2 RADIOLOGY VIEWS ASSOCIAT FRONTAL&L ATERAL INITIAL 30296 [facility] 1 OSI OSI CARE/DAY 70 MINUTES HOS BED E0303 NEETA NEETA HEVY DUTY 1 HOME HOME W/WT CAP MEDICAL MEDICAL >350 EQUIPME EQUIPME PDS</=TO 600 PDS RADIOLOGI 31402 [facility] C EXAM 1 URBANO CHEST 2 RADIOLOGY VIEWS [place]OCI[place] FRONT[place] [address] [facility] 1 [facility] PLACEMENT IMG S&I ARTHROCEN 33190 [facility] 1 Y Y ASPIR&/IN HOSPITAL HOSPITAL J MAJOR JT/BURSA W/O US HOS BED E0303 [facility] NEETA HEVY DUTY 1 HOME HOME W/WT CAP MEDICAL MEDICAL >350 EQUIPME EQUIPME PDS</=TO 600 PDS ECG 01611 QIANA AMIN AMIN QIANA ROUTINE 1 ECG CONSULTIN W/LEAST G SRV 12 LDS I&R ONLY INJECTION J1030 [facility] 1 OSI OSI METHYLPRE DNISOLONE ACETATE 40 MG PROTHROMB 57625 NORRIS PISANO IN TIME 1 [facility] RADIOLOGI 69792 NORRIS PISANO C 1 [facility] ON KNEE 3 VIEWS COLLECTIO 35241 NORRIS PISANO N VENOUS 1 [facility] VENIPUNCT URE HOS BED E0303 NEETA NEETA HEVY DUTY 1 HOME HOME W/WT CAP MEDICAL MEDICAL >350 EQUIPME EQUIPME PDS</=TO 600 PDS RADIOLOGI 60297 CAMILLA KRISTYNBoris C EXAM 1 EIDER BILL CHEST 2 RADIOLOGY VIEWS ASSOCIAT FRONTAL&L ATERAL HOS BED E0303 NEETA SANTACRUZ HEVY DUTY 1 HOME HOME W/WT CAP MEDICAL MEDICAL >350 EQUIPME EQUIPME PDS</=TO 600 PDS HOS BED E0303 NEETA SANTACRUZ HEVY DUTY 1 HOME MED HOME MED W/WT CAP EQUIP. L EQUIP. L >350 PDS</=TO 600 PDS ECG 25273 QIANA AMIN AMIN QIANA ROUTINE 1 MD ECG CONSULTIN W/LEAST G SRV 12 [facility] I&R ONLY HOSPITAL 69262 [facility] DISCHARGE 1 OSI OSI DAY MANAGEMEN T > 30 MIN SBSQ 29935 [facility] 1 OSI OSI CARE/DAY 35 MINUTES PRESSURIZ 43615 NORRIS PISANO ED/NONPRE 1 CO RI SSURIZED [facility] INHALATIO N TREATMENT INITIAL 07520 [facility] 1 OSI OSI CARE/DAY 70 [place] [address] NORRIS PISANO INFUSION 1 CO CO THERAPY/P [facility] ROPHYLAXI S /DX 1ST TO 1 HR COMPREHEN 79240 NORRIS PISANO SIVE 1 CO CO METABOLIC [facility] PANEL RADIOLOGI 70561 [facility] EXAM 1 EISARAH BILL CHEST 2 RADIOLOGY VIEWS ASSOCIAT FRONTAL&L ATERAL PROTHROMB 71433 NORRIS PISANO IN TIME 1 CO CO [facility] ECG 33260 NORRIS PISANO ROUTINE 1 CO CO ECG [facility] W/LEAST 12 LDS TRCG ONLY W/O I&[place] [address] NORRIS PISANO TROPONIN 1 CO [facility] B[facility] 44864 NORRIS PISANO COUNT 1 CO RI COMPLETE [facility] AUTO&[place] [address] DENNYS NOYOLA THYROID 1 MEM HOS[facility] MEM HOSP STIMULATI [place] [address] DENNYS NOYOLA THYROXINE 1 MEM HOSP MEM HOSP TOTAL INC INC PROTEIN 65992 DENNYS NOYOLA ELECTROPH 1 MEM H[facility] ORETIC INC INC FRACTJ&[place] [address] DENNYS NOYOL[facility] THIAMINE- 1 [facility] VITAMIN INC INC B-1 COLLECTIO 69103 DENNYS NOYOLA N VENOUS 1 [facility] BLOOD INC INC VENIPUNCT URE LIPID 78767 DENNYS NOYOLA PANEL 1 [facility] INC INC CYANOCOBA 01929 DENNYS NOYOLA NATALEE 1 [facility] VITAMIN INC INC B-12 [place] [address] DEN[facility]YS NOYOLA FOLIC 1 [facility] ACID INC INC SERUM HEMOGLOBI 21406 DENNYS NOYOLA N 1 [facility] GLYCOSYLA INC INC KAMILAH A1C HOS BED E0303 NEETA BOBZing DUTY 1 HOME MED HOME MED W/WT CAP EQUIP. L EQUIP. L >350 PDS</=TO 600 PDS THERAPEUT 95768 VILLAFLOR VILLAFLOR IC 1 OSI OSI PROPHYLAC TIC/DX INJECTION SUBQ/IM INJECTION J1030 [facility] V[facility] 1 OSI OSI METHYLPRE DNISOLONE ACETATE 40 MG NDL EMG 2 60194 LINARES LINARES XTR W/WO 1 JOHN LOPEZ RELATED PARASPINA L [place] NRV D 63340 LINARES LINARES AMPLT&LAT 1 JOHN LOPEZ ENCY EA NRV MOTOR W/F-W[place] D 03430 LINARES LINARES AMPLITUDE 1 JOHN LOPEZ & LATENCY EACH NERVE SENSORY HOS BED E0303 NETEA [employer] DUTY 1 HOME MED HOME MED W/WT CAP EQUIP. L EQUIP. L >350 PDS</=TO 600 PDS DUP-SCAN 30004 JEWELL MOSER XTR VEINS 1 URBANO COMPLETE RADIOLOGY ASSOCIAT BILATERAL STUDY HOS BED E0303 NEETA BOBZing DUTY 1 HOME MED HOME MED W/WT CAP EQUIP. L EQUIP. L >350 PDS</=TO 600 PDS GEL/GEL-L E0185 NEETA SANTACRUZ MARIVEL PRSS 1 HOME MED HOME MED PAD EQUIP. L EQUIP. L MATTRSS [facility] 53117 [facility] DISCHARGE 1 OSI OSI DAY MANAGEMEN T > 30 MIN SBSQ 52839 [facility] 1 OSI OSI CARE/DAY 25 MINUTES SBSQ 14314 [facility] 1 OSI OSI CARE/DAY 35 MINUTES INITIAL 77192 [facility] 1 OSI OSI CARE/DAY 70 MINUTES RADIOLOGI 14428 [facility] C EXAM 1 URBANO CHEST 2 RADIOLOGY VIEWS ASSOCIAT FRONTAL&L ATERAL HOS BED E0303 [facility] DUTY 1 HOME MED HOME MED W/WT CAP EQUIP. L EQUIP. L >350 PDS</=TO 600 PDS ALBUTEROL J7620 INFUSION INFUSION TO 2.5 1 PARTNERS PARTNERS MG & OF OF IPRATROPI [place] UM BROM TO 0.5 MG PHRM Q0513 INFUSION INFUSION DISPENSIN 1 PARTNERS PARTNERS G FEE OF OF INHALATIO [place] N RX; PER 30 DAYS DRUG SCR G0434 [facility] NOT [address] [place] [address] CHROMATOG PAIN PAIN RAPHIC; MANAGE MANAGE ANY NUMBER PT ENC E-STIM G0283 [facility] 1/> AREAS 1 [facility] O[facility] THAN PAIN PAIN WND CARE MANAGE MANAGE PART TX PLAN ECG 15510 QIANA AMIN AMIN QIANA ROUTINE 1 MD ECG CONSULTIN W/LEAST G SRV 12 LDS I&R ONLY RADIOLOGI 63000 [facility] C EXAM 1 EIDER BILL CHEST 2 RADIOLOGY VIEWS ASSOCIAT FRONTAL&L ATERAL RADIOLOGI 41789 [facility] C EXAM 1 EIDER BILL CHEST 2 RADIOLOGY VIEWS ASSOCIAT FRONTAL&L ATERAL HOS BED E0303 [facility] DUTY 1 HOME MED HOME MED W/WT CAP EQUIP. L EQUIP. L >350 PDS</=TO 600 PDS INJECTION J1030 VILLAFLOR VILLAFLOR 0 OSI OSI METHYLPRE DNISOLONE ACETATE 40 MG PHRM Q0513 INFUSION INFUSION DISPENSIN 0 PARTNERS PARTNERS G FEE OF OF INHALATIO [place] N RX; PER 30 DAYS ALBUTEROL J7620 INFUSION INFUSION TO 2.5 0 PARTNERS PARTNERS MG & OF OF IPRATROPI [place] UM BROM TO 0.5 MG APPL 44180 [facility] MODALITY 0 [place] 1/> AREAS PAIN ELEC MANAGE STIMJ [address] [place] [address] [facility] HEAD/BRAI 0 JOHN N W/O RADIOLOGY CONTRAST ASSOCIAT MATERIAL E-STIM G0283 [facility] 1/> AREAS 0 [facility] OTH THAN PAIN PAIN WND CARE MANAGE MANAGE PART TX PLAN INJECTION J3301 CELIA SCOTT 0 HEILIG IVELISSE TRIAMCINO [facility] LONE ACETONIDE NOS 10 MG RADIOLOGI 59715 CELIA SCOTT C 0 HEILIG IVELISSE EXAMINATI [facility] ON KNEE 1/2 VIEWS ARTHROCEN 67351 CELIA SCOTT TESIS 0 HEILIG IVELISSE ASPIR&/IN [facility] J MAJOR JT/BURSA W/O US PHRM Q0513 INFUSION INFUSION DISPENSIN 0 PARTNERS PARTNERS G FEE OF OF INHALATIO [place] N RX; PER 30 DAYS ALBUTEROL J7620 INFUSION INFUSION TO 2.5 0 PARTNERS PARTNERS MG & OF OF IPRATROPI [place] UM BROM TO 0.5 MG BASIC 23655 NORRIS PISANO METABOLIC 0 CO CO PANEL [facility] CALCIUM TOTAL HEMOGLOBI 35841 [facility] N 0 [facility] KAMILAH A1C HEPATIC 15854 NORRIS PISANO FUNCTION 0 CO CO [facility] LIPID 67891 NORRIS PISANO PANEL 0 CO [facility] COLLECTIO 64534 NORRIS Escalante VENOUS 0 CO RI BLOOD [facility] VENIPUNCT URE NEBULIZER E0570 [facility] OPT[facility] WITH 0 E HOME E HOME COMPRESSO R HYALURONA J7325 CELIA SCOTT N/DERIV 0 HEILIG IVELISSE SYNVISC/S [facility] YNVISC-ON E IA INJ 1 MG ARTHROCEN CELIA SCOTT TESIS 0 HEILIG IVELISSE ASPIR&/IN [facility] J MAJOR JT/BURSA W/O HOSPITAL 98805 [facility], DISCHARGE 0 PHYSICIAN AASHISH E DAY MANAGEMEN CORPORATI T 30 ON II MIN/< INITIAL [address] [facility] 0 PHYSICIAN AASHISH E CARE/DAY 30 CORPORATI MINUTES ON II NEBULIZER E0570 [facility] WITH 0 E HOME E HOME COMPRESSO R NEBULIZER E0570 [facility] WITH 0 E HOME E HOME COMPRESSO R ECG 59845 QIANA AMIN AMIN, ROUTINE 9 MD COCO [place] ECG CONSULTIN W/LEAST G SRV PSC 12 LDS I&R ONLY NEBULIZER E0570 [facility] WITH 9 E HOME E HOME COMPRESSO R CT THORAX 71445 [facility] [place] INDIRA, 9 RADIOLOGY LUIS F G W/CONTRAS T MATERIAL NEBULIZER E0570 [facility] WITH 9 E HOME E HOME COMPRESSO R RADIOLOGI 88735 CAMILLA Sánchez MOSER EXAM 9 NEHEMIAS S CHEST 2 RADIOLOGY VIEWS FRONTAL&L ASSOCIATE ATERAL S PSC ANTIBODY 20683 NORRIS PISANO INFLUENZA 9 CO CO VIRUS [facility] NEBULIZER E0570 OPTIONCAR OPTIONCAR WITH 9 E HOME E HOME COMPRESSO R ALBUTEROL J7620 INFUSION INFUSION TO 2.5 9 PARTNERS PARTNERS MG & OF OF IPRATROPI [facility] UM BROM TO 0.5 MG PHRM Q0513 INFUSION INFUSION DISPENSIN 9 PARTNERS PARTNERS G FEE OF OF INHALATIO [place] N RX; PER 30 DAYS NEBULIZER E0570 OPTIONCAR OPTIONCAR WITH 9 E HOME E HOME COMPRESSO R NEBULIZER E0570 OPTIONCAR OPTIONCAR WITH 9 E HOME E HOME COMPRESSO R RADEX 98834 NORRIS PISANO WRIST 9 CO CO [facility] MINIMUM 3 VIEWS TUBING A7037 NEETA BOBRELL USED WITH 9 HOME MED HOME MED POSITIVE EQUIP. EQUIP. [employer] [facility] PRESSURE DEVICE FULL FACE A7030 NEETA NEETA MASK 9 HOME MED HOME MED USED EQUIP. EQUIP. W[employer] PRESS DEVICE EA FILTER A7039 NEETA NEETA NON 9 HOME MED HOME MED DISPBL EQUIP. [employer]QU[employer]. [employer] W/[employer] [facility] PRESS DEVICE FILTER A7038 NEETA NEETA DISPBL 9 HOME MED HOME MED USED EQUIP. EQUIP. [employer] PRESSURE DEVICE HEADGEAR A7035 NEETA NEETA USED 9 HOME MED HOME MED W/POSITIV EQUIP. EQUIP. E [facility] PRESSURE DEVICE FACE MASK A7031 NEETA NEETA 9 HOME MED HOME MED INTERFACE EQUIP. EQUIP. REPLCMT [facility] FULL FACE MASK EA NEBULIZER E0570 OPTIONCAR OPTIONCAR WITH 9 E HOME E HOME COMPRESSO R RADIOLOGI 32711 [facility], EXAM 9 NEHEMIAS S CHEST 2 RADIOLOGY VIEWS FRONTAL&L ASSOCIATE ATERAL S PSC ALBUTEROL J7620 INFUSION INFUSION TO 2.5 9 PARTNERS PARTNERS MG & OF OF I[place]ATROPI [place] UM BROM TO 0.5 MG PHRM Q0513 INFUSION INFUSION DISPENSIN 9 PARTNERS PARTNERS G FEE OF OF INHALATIO [place] N RX; PER 30 DAYS NEBULIZER E0570 OPTIONCAR OPTIONCAR WITH 9 E HOME E HOME COMPRESSO R ALBUTEROL J7620 INFUSION INFUSION TO 2.5 9 PARTNERS PARTNERS MG & OF OF IPRATROPI [place] UM BROM TO 0.5 MG PHRM Q0513 INFUSION INFUSION DISPENSIN 9 PARTNERS PARTNERS G FEE OF OF INHAL[place]IO [place] N RX; PER 30 DAYS RADIOLOGI 95322 CAMILLA SHANTI EXAM 9 NEHEMIAS S CHEST 2 RADIOLOGY VIEWS FRONTAL&L ASSOCIATE ATERAL S PSC NEBULIZER E0570 OPTION[employer] OPTIONCAR WITH 9 E HOME E HOME COMPRESSO R ALBUTEROL J7620 INFUSION INFUSION TO 2.5 9 PARTNERS PARTNERS MG & OF OF IPRATROPI [facility] UM BROM TO 0.5 MG PHARM G0333 INFUSION INFUSION DISPEN 9 PARTNERS PARTNERS FEE INHAL OF OF RX; [facility] INITIAL 30-DAY SUPPLY ADMN SET A7003 OPT[employer] OPTIONCAR SM VOL 9 E HOME E HOME NONFILTR PNEUMAT NEBULIZR DISPBL RADIOLOGI 88060 CAMILLA SHANTI C EXAM 9 NEHEMIAS S CHEST 2 RADIOLOGY VIEWS FRONTAL&L ASSOCIATE ATERAL S PSC RADIOLOGI 05216 CAMILLA SHANTI, C EXAM 9 NEHEMIAS S CHEST 2 RADIOLOGY VIEWS FRONTAL&L ASSOCIATE ATERAL S PSC OBSERVATI 97880 [facility], ON/INPATI 9 PHYSICIAN AASHISH E ENT [facility] CARE 50 ON II MINUTES RADIOLOGI 41440 Sánchez MAHAN 9 L. SALVATORE NAJERA MD [facility] ON CHEST [place] FRONTAL HEADGEAR A7035 NEETA SANTACRUZ USED 9 HOME MED HOME MED W/POSITIV EQUIP. EQUIP. E [employer] PRESSURE DEVICE FILTER A7038 NEETA SANTACRUZ DISPBL 9 HOME MED HOME MED USED EQUIP. EQUIP. [employer] PRESSURE DEVICE FULL FACE A7030 NEETA NEETA MASK 9 HOME MED HOME MED USED EQUIP. EQUIP. [employer] PRESS DEVICE EA TUBING A7037 NEETA SANTACRUZ USED WITH 9 HOME MED HOME MED POSITIVE EQUIP. EQUIP. [employer] PRESSURE DEVICE FACE MASK A7031 NEETA SANTACRUZ 9 HOME MED HOME MED INTERFACE EQUIP. EQUIP. [facility] 04044 [facility] DISCHARGE 9 , GRETEL M , GRETEL M DAY MANAGEMEN T 30 MIN/< SBSQ 58374 [facility] 9 , GRETEL M , GRETEL M CARE/DAY 25 MINUTES SBSQ 83614 [facility] 9 , GRETEL M , GRETEL M CARE/DAY 35 MINUTES HOSPITAL 44552 [facility] DISCHARGE 8 , GRETEL M , GRETEL M DAY MANAGEMEN T 30 MIN/< SBSQ 03721 [facility] 8 , GRETEL M , GRETEL M CARE/DAY 25 MINUTES SBSQ 01487 [facility] 8 , GRETEL M , GRETEL M CARE/DAY 35 MINUTES RADIOLOGI 73015 Sánchez SHEN EXAM 8 NEHEMIAS S CHEST 2 RADIOLOGY VIEWS FRONTAL&L ASSOCIATE ATERAL S PSC INJECTION J1030 [facility] 8 , GRETEL M , GRETEL M METHYLPRE DNISOLONE ACETATE 40 MG FILTER A7038 NEETA NEETA DISPBL 8 HOME MED HOME MED USED EQUIP. EQUIP. W/POS [facility] LLC ARWAY PRESSURE DEVICE FULL FACE A7030 NEETA NEETA MASK 8 HOME MED HOME MED USED EQUIP. EQUIP. W/POS LLC LLC ARWAY PRESS DEVICE EA TUBING A7037 NEETA NEETA USED WITH 8 HOME MED HOME MED POSITIVE EQUIP. EQUIP. AIRWAY [facility] PRESSURE DEVICE FILTER A7039 NEETA NEETA NON 8 HOME MED HOME MED DISPBL EQUIP. EQUIP. USED [facility] LLC W/POS AR[facility] PRESS DEVICE HEADGEAR A7035 NEETA NEETA USED 8 HOME MED HOME MED W/POSITIV EQUIP. EQUIP. E AIRWAY [facility] PRESSURE DEVICE FACE MASK A7031 NEETA NEETA 8 HOME MED HOME MED INTERFACE EQUIP. EQUIP. REPLCMT [facility] FULL FACE MASK EA BASIC 29772 NORRIS PISANO METABOLIC 8 CO CO [facility] CALCIUM TOTAL THER 33507 NORRIS PISANO PROPH/DX 8 CO CO [facility] SUBQ/IM COLLECTIO 70173 NORRIS PISANO N VENOUS 8 CO [facility] VENIPUNCT URE RADIOLOGI 52875 NORRIS Pozo EXAM [address] [facility] VIEWS FRONTAL&L ATERAL BLOOD 22257 NORRIS PISANO COUNT 8 CO CO [facility] AUTO&AUTO DIFRNTL WBC BLOOD 60771 NORRIS GALVEZ 8 CO CO [facility] W/MNL DIFRNTL WBC COUNT HOSPITAL 56746 [facility] DISCHARGE 8 , GRETEL M , GRETEL M DAY MANAGEMEN T 30 MIN/< RADIOLOGI 16728 Sánchez SHEN 8 NEHEMIAS S EXAMINATI RADIOLOGY ON KNEE 1/2 VIEWS ASSOCIATE S PSC SBSQ 04838 [facility] 8 , GRETEL M , GRETEL M CARE/DAY 25 MINUTES SBSQ 69574 [facility] 8 , GRETEL M , GRETEL M CARE/DAY 25 MINUTES SBSQ 01650 [facility] 8 , GRETEL M , GRETEL M CARE/DAY 35 MINUTES INITIAL 50856 [facility] 8 , GRETEL M , GRETEL M CARE/DAY 70 MINUTES COLLECTIO 81570 NORRIS PISANO N VENOUS 8 CO [facility] VENIPUNCT URE RADIOLOGI 05799 NORRIS PISANO C 8 [facility] 2 VIEWS RADIOLOGI 76177 NORRIS PISANO C 8 [facility] 3 VIEWS BLOOD 02210 NORRIS GALVEZ 8 [facility] W/MNL DIFRNTL WBC COUNT BLOOD 94179 NORRIS GALVEZ 8 [facility] COMPLETE [facility] AUTO&AUTO DIFRNTL WBC THER 67820 NORRIS PISANO PROPH/DX 8 CO RI NJX [facility] SUBQ/IM FILTER A7039 NEETA BOBRELL NON 8 HOME MED HOME MED DISPBL EQUIP. EQUIP. USED LLC [facility] W/POS ARWAY PRESS DEVICE FILTER A7038 NEETA NEETA DISPBL 8 HOME MED HOME MED USED EQUIP. EQUIP. W/POS [facility] ARWAY PRESSURE DEVICE FULL FACE A7030 NEETA SANTACRUZ MASK 8 HOME MED HOME MED USED EQUIP. EQUIP. W/POS [facility] ARWAY PRESS DEVICE EA TUBING A7037 NEETA SANTACRUZ USED WITH 8 HOME MED HOME MED POSITIVE EQUIP. EQUIP. AIRWAY [facility] PRESSURE DEVICE HEADGEAR A7035 NEETA SANTACRUZ USED 8 HOME MED HOME MED W/POSITIV EQUIP. EQUIP. E AIRWAY [facility] PRESSURE DEVICE FACE MASK A7031 NEETA SANTACRUZ 8 HOME MED HOME MED INTERFACE EQUIP. EQUIP. REPLCMT [facility] FULL FACE [facility] 36268 [facility] DISCHARGE 8 , GRETEL M , GRETEL M DAY MANAGEMEN T 30 MIN/< RADIOLOGI 39176 Sánchez SHEN EXAM 8 NEHEMIAS Hernandez CHEST 2 RADIOLOGY VIEWS FRONTAL&L ASSOCIATE ATERAL S PSC SBSQ 27949 [facility] 8 , GRETEL M , GRETEL M CARE/DAY 35 MINUTES INITIAL 65055 [facility] 8 , GRETEL M , GRETEL M CARE/DAY 70 MINUTES NATRIURET 94487 CHRISTOPHER WHITE IC 8 [facility] PEPTIDE MEDICAL MEDICAL [facility] RADIOLOGI 97132 CHRISTOPHER Pozo EXAM 8 REG[facility]AL [facility] CHEST 2 MEDICAL MEDICAL VIEWS [facility] FRONTAL&L ATERAL COLLECTIO 72009 CHRISTOPHER WHITE N VENOUS 8 [facility] BLOOD MEDICAL MEDICAL VENIPUNCT [facility] URE BASIC 96442 CHRISOTPHER WHITE METABOLIC 8 [facility] PANEL [facility] MEDICAL CALCIUM [facility] TOTAL ECG 32719 CHRISTOPHER WHITE ROUTINE 8 [facility] ECG MEDICAL MEDICAL W/LEAST CENTER CENTER 12 LDS TRCG ONLY W/O I&R BLOOD 22715 CHRISTOPHER WHITE COUNT 8 [facility] COMPLETE MEDICAL MEDICAL AUTO&AUTO [facility] [place] [address] CHRISTOPHER WHITE TROPONIN 8 [facility] MEDICAL MEDICAL R[place] [facility] RADIOLOGI 31577 CELIA NAJERA MD [facility] ON KNEE 1/2 VIEWS Encounters Encounter Start End Date Code Location Performer Type Date EMERGENCY 81447 ABEL VERMA DEPT 7 7 PHYSICIAN U VISIT S, [facility] HIGH SEVERITY& THREAT [facility] 7 [facility] 42500 [facility] 7 7 SANT[facility] VISIT EMERGENCY HIGH PHYS SEVERITY& THREAT [facility] EMERGENC[facility] 06976 [facility] 7 7 [facility] VIS[facility] HIGH/URGE NT SEVERITY OFFICE 62176 YANET CHASE [facility] 7 7 PHYSICIAN T VISIT PRACTICE 25 L MINUTES EMERGENCY 61793 DENNYS 7 7 [facility] T VISIT MODERATE SEVERITY [facility] DENNYS - 7 7 [facility] DENNYS - 7 7 [facility] INPATIENT [facility] 60058 [facility] V[facility] EMERGENCY HIGH PHYS SEVERITY& THREAT [facility] EMERGENCY 51040 [facility] 7 7 [facility] EM[facility] T VISIT PHYS HIGH/URGE NT SEVERITY EMERGENCY 97297 YANET 7 7 [facility] T VISIT MODERATE SEVERITY [facility] YANET - 7 7 [facility] OFF[facility] 05297 YANET CHASE [facility] 7 7 PHYSICIAN T VISIT PRACTICE 25 L MINUTES OFFICE 34586 MARIAA PUGH [facility] 7 7 MD GREGG, T NEW 30 PSC MINUTES HOSPITAL DENNYS - 7 7 [facility] Y[facility] - 7 7 [facility] 11973 YANET 7 7 [facility] T VISIT MODERATE SEVERITY OFFICE 03536 YANET [facility]ASE [facility] 7 7 PHYSICIAN T VISIT PRACTICE 15 L MINUTES OFFICE 49447 YANET CHASE [facility] 6 6 PHYSICIAN T VISIT PRACTICE 25 L MINUTES OFFICE 79343 YANET [facility] 6 6 PHYSICIAN T VISIT PRACTICE 15 L MINUTES EMERGENCY 10444 [facility] 6 SANTA VISIT EMERGENCY [facility]IGH PHYS SEVERITY& THREAT [facility] - 6 6 [facility] 6 6 [facility] EMERGENCY 19097 [facility] DEPT 6 6 SANTA KYL VISIT EMERGENCY HIGH PHYS SEVERITY& THREAT [facility] OFFICE 58342 [facility] 6 6 [facility] T NEW 45 INTERNAL MINUTES MED EMERGENCY 13891 [facility] 6 6 [facility] EMERGENCY T VISIT PHYSI HIGH/URGE NT [facility] BOW[facility] - 6 6 [facility] EMERGENCY 43942 [facility] 6 6 [facility] T VISIT MODERATE [facility] HOSPITAL [place] - 6 6 [facility] EMERGENCY 74200 [facility] 6 6 SANTA VISIT EMERGENCY HIGH PHYSI SEVERITY& THREAT [facility] EMERGENCY 75881 [facility] RENATA DEPT 6 6 SANTA IVELISSE VISIT EMERGENCY HIGH SERV SEVERITY& THREAT [facility] CHRI[facility] - 6 6 [facility] REED - 6 6 [facility] 31838 DENNYS 6 6 [facility] T V[facility]IT LIMITED/M [facility] DENNYS - 6 6 [facility] 00195 YANET DEPT 6 6 [facility] H[facility]PITAL HIGH SEVERITY& THREAT [facility] COOKIE[facility] - 6 6 [facility]PITAL YANET - 6 6 [facility] EMERGENCY 11913 [place] DEPT 6 6 [facility] VISIT HOSPITAL HIGH SEVERITY& THREAT [facility] EMERGENCY 70244 [facility] 6 [facility] VISIT EMERGENCY HIGH PHYS SEVERITY& THREAT [facility] [place] - 6 6 [facility] [place] [address] 6 [facility] OFFICE 25994 [facility] 6 6 ORTHOPEDI IVELISSE T VISIT C 25 [facility] [place] [address] 6 [facility] EMERGENCY 65789 [facility] DE[facility] 6 6 [place] VISIT EMERGENCY HIGH PHYS SEVERITY& THREAT [facility] EMERGENCY 11726 [facility] 6 6 [facility] [place] DEPARTMEN EMERGENCY T VISIT PHYS HIGH/URGE NT [facility] [place] - 6 6 [facility] EMERGENCY 99860 [facility] 6 6 [facility] HOSPITAL HIGH SEVERITY& THREAT [facility] OFFICE 34460 [facility] 6 6 ORTHOPEDI T VISIT C 15 [facility] CHRISTOPHER - 6 6 [facility] INPATIENT [facility]GENC[facility] 18592 [facility] 6 6 MEDICAL DEPARTMEN SERV T VISIT FOUNDATIO MODERATE N SEVERITY EMERGENCY 37135 [facility] DEPT 6 6 SANTA PAT VISIT EMERGENCY HIGH PHYS SEVERITY& THREAT [facility] 6 6 [facility] IN[facility]IENT 6 6 [facility] CHRISTOPHER - 6 6 [facility] CHRISTOPHER [facility] 6 6 [facility] CARDINAL - 6 6 [facility] CHRISTOPHER [facility] 5 5 [facility] - 5 5 [facility] - 5 5 [facility] ADVENT[facility] - 4 4 [facility] CHRISTOPHER [facility] 4 4 [facility] INPATIENT 4 4 [facility] - 4 4 [facility] MEADOWVIE - 4 4 [facility] MEAW[facility] - 4 4 [facility] - 4 4 [facility] DENNYS - 4 4 [facility] ACC[facility] [address] [facility] [address] [facility], ACCESS [address] [facility] ACC[facility] [address] [facility] OFFICE 80998 [facility] OUTPATIEN 4 4 JAM JAM T VISIT 25 MINUTES CR[facility]ICAL [facility] ACCESS [address] [facility] OFF[facility] 66647 [facility] 3 3 JOHN T VISIT 25 MINUTES CR[facility]ICAL [facility] ACC[facility] [address] [facility] OFF[facility] 16038 [facility] OUTPATIEN 3 3 MARIETTA MCMANUS T VISIT 25 MINUTES OFFICE 12731 [facility] OUTPATIEN 3 3 [place] MCMANUS T VISIT 25 MINUTES Emergency RONNIE Mckeon MD (ER) 3 10:49 3 11:26 [facility] OFFICE 68073 [facility] OUTPATIEN 3 3 JAM JAM T VISIT 25 MINUTES CR[facility]ICAL [facility] ACCESS 3 3 [facility] DENNYS - 3 3 MEM H[facility]P OUTPATIEN INC T OFFICE 94377 [facility], OUTPATIEN 3 3 ULTRA SOUND TECHNICIAN T VISIT 5 [facility] CR[facility]ICAL [facility], ACCESS 3 3 [facility] OFFICE 86690 [facility] OUTPATIEN 3 3 JAM JAM T VISIT 25 MINUTES OFFICE 67296 [facility] OUTPATIEN 2 2 JAM JAM T VISIT 25 MINUTES OFFICE 21415 [place] MONTYKOMAL OUTPATIEN 2 2 I ZBI I ZBI T NEW 30 MINUTES CRITICAL [facility] ACCESS 2 2 [facility] OFFICE 93568 DIAL DIAL OUTPATIEN 2 2 FREDDY FREDDY T NEW 30 MINUTES OFFICE 80082 NORRIS JT OUTPATIEN 2 2 [facility] OS T VISIT RURAL 15 HEALTH MINUTES HOSPITAL UNIVERSIT - 2 2 Y INPATIENT HOSPITAL CRITICAL [facility], ACCESS 2 2 [facility] HOS CRITICAL [facility] ACCESS 2 2 [facility] HOS EMERGENCY 88789 NORRIS MARCOS [address] [facility] T VISIT LOW/MODER SEVERITY EMERGENCY 63515 [facility], 2 2 ULTRA SOUND TECHNICIAN [facility] NORRIS T VISIT CO HOS MODERATE SEVERITY OFFICE 05592 NORRIS WATERS OUTPATIEN 2 2 COUNTY OSI T VISIT RURAL 15 HEALTH MINUTES CRITICAL [facility], ACCESS 2 2 [facility] ACCESS 2 2 [facility] DENNYS - 2 2 [facility] T OFFICE 10265 TIAFKATHRYN VILLAFLOR OUTPATIEN 2 2 OSI OSI T VISIT 15 MINUTES OFFICE 34088 [facility] VILL[facility]PAT[facility] 2 2 OSI OSI T VISIT 15 MINUTES EMERGENCY 15694 ROBYN HOLMAN DEPT 1 1 EMERGENCY VISIT SERVICES HIGH SEVERITY& THREAT FUNCJ OFFICE 47151 [facility] VILL[facility] OUTPATIEN 1 1 OSI OSI T VISIT 40 MINUTES HOSPITAL NORRIS - 1 1 [facility] T EMERGENCY 50033 NORRIS [place] 1 1 [facility] T VISIT LOW/MODER SEVERITY EMERGENCY 01619 NORRIS 1 1 [facility] HOSPITAL T VISIT MODERATE SEVERITY HOSPITAL UNIVERSIT - 1 1 Y [facility] T EMERGENCY 29330 NORRIS PIER[place] 1 1 [facility] T VISIT MODERATE SEVERITY EMERGENCY 21424 [facility] VILL[facility] 1 1 [facility]SI [facility] T VISIT HIGH/URGE NT SEVERITY OFFICE 41261 [facility] 1 MEDICAL T NEW 30 SERV MINUTES FOUNDATIO OFFICE 23363 TIAFLOR VILLAFLOR OUTPATIEN 1 1 OSI OSI T VISIT 10 MINUTES EMERGENCY 79408 NORRIS 1 1 [facility]OSPITAL T VISIT MODERATE SEVERITY CRITICAL [facility] ACCESS 1 1 [facility] OFFICE 27610 MILAGROS ALEJANDROELL OUTPATIEN 1 1 [facility] T VISIT 25 MINUTES EMERGENCY 48906 NORRIS PIERCE 1 1 [facility] T VISIT MODERATE SEVERITY HOSPITAL NORRIS - 1 1 [facility] INPATIENT [facility] DENNYS - 1 1 [facility] OUT[facility]IEN INC T OFFICE 28843 VILLAFLOR VILLAFLOR OUTPATIEN 1 1 OSI OSI T VISIT 15 MINUTES OFFICE 99378 [facility] VILLAFLOR OUTPATIEN 1 1 OSI OSI T VISIT 25 MINUTES OFFICE 92993 V[facility] VILLAFLOR OUTPATIEN 1 1 OSI OSI T VISIT 15 MINUTES OFFICE 50758 [facility] VILL[facility]OR OUTPATIEN 1 1 OSI OSI T VISIT 40 MINUTES HOSPITAL NORRIS - 1 1 [facility] INPATIENT [facility]OSPITAL OFFICE 67782 V[facility]OR VILLAFLOR OUTPATIEN 1 1 OSI OSI T VISIT 15 MINUTES OFFICE 17215 [facility] OUTPATIEN 1 1 [place] T VISIT PAIN 25 MANAGE MINUTES OFFICE 19404 VILLAFLOR VILLAFLOR OUTPATIEN 1 1 OSI OSI T VISIT 15 MINUTES OFFICE 65994 [facility] VILLAFLOR OUTPATIEN 0 0 OSI OSI T VISIT 10 MINUTES OFFICE 31487 [facility] OUTPATIEN 0 0 [facility] T VISIT PAIN 25 MANAGE MINUTES OFFICE 83572 V[facility]AFLOR VILLAFLOR OUTPATIEN 0 0 OSI OSI T VISIT 15 MINUTES OFFICE 24939 [facility] OUTPATI[facility] 0 0 [place] T VISIT PAIN 25 MANAGE MINUTES OFFICE 92028 [facility] OUTPATIEN 0 0 [place] T VISIT PAIN 25 MANAGE MINUTES OFFICE 52046 [facility] OUTPATIEN 0 0 [place] T NEW 45 PAIN MINUTES MANAGE OFFICE 71180 V[facility]FL[facility] VILLAFLOR OUTPATIEN 0 0 OSI OSI T VISIT 15 MINUTES OFFICE 60849 [facility] VILLAFLOR OUTPATIEN 0 0 OSI OSI T VISIT 25 MINUTES OFFICE 08540 [facility] OUTPATIEN 0 0 , GRETEL M , GRETEL M T VISIT 15 MINUTES OFFICE 08114 [facility] OUTPATIEN 0 0 , GRETEL M , GRETEL M T VISIT 15 MINUTES OFFICE 45887 [facility] OUTPATIEN 0 0 , GRETEL M , GRETEL M T VISIT 25 MINUTES OFFICE 91249 CELIA SCOTT OUTPATIEN 0 0 HEILIG IVELISSE T VISIT MD [facility] 15 MINUTES OFFICE 48672 [facility] VILLAFLOR OUTPATIEN 0 0 , GRETEL M , GRETEL M T VISIT 25 MINUTES OFFICE 68576 [facility] OUTPATIEN 0 0 , GRETEL M , GRETEL M T VISIT 25 MINUTES OFFICE 70002 [facility] OUTPATIEN 0 0 , GRETEL M , GRETEL M T VISIT 15 MINUTES CRITICAL NORRIS ACCESS 0 0 [facility] OFFICE 35672 VILLAFLOR VILLAFLOR OUTPATIEN 0 0 , GRETEL M , GRETEL M T VISIT 25 MINUTES OFFICE 92711 CELIA SCOTT OUTPATIEN 0 0 HEILIG IVELISSE T VISIT [facility] 15 MINUTES HOSPITAL CHRISTOPHER - 0 0 [facility] OFFICE 32852 FRED RAMIREZ II, OUTPATIEN 9 9 LTH SLEEP CARMENZA C T VISIT AND 10 REHAB MINUTES PLLC CRITICAL [facility] ACCESS 9 9 [facility]PITAL OFFICE 86721 FRED II, OUTPATIEN 9 9 LT SLEEP CARMENZA C T VISIT AND 15 REHAB MINUTES [facility] OFFICE 72729 II, II, OUTPATIEN 9 9 CARMENZA C CARMENZA C T VISIT 15 MINUTES CRITICAL [facility] ACCESS 9 9 [facility]ITAL OFFICE 12813 NORRIS OUTPATIEN 9 9 CO T VISIT 5 HOSPITAL MINUTES OFFICE 19430 V[facility] OUTPATIEN 9 9 , GRETEL M GRETEL M T VISIT 15 MINUTES OFFICE 29921 II, II, OUTPATIEN 9 9 CARMENZA C CARMENZA C T VISIT 15 MINUTES OFFICE 20194 II, II, OUTPATIEN 9 9 CARMENZA C CARMENZA C T VISIT 10 MINUTES OFFICE 79747 V[facility]AFLOR VILL[facility] OUTPATIEN 9 9 , GRETEL M GRETEL M T VISIT 10 MINUTES OFFICE 30380 II, II, OUTPATIEN 9 9 CARMENZA C CARMENZA C T VISIT 10 MINUTES OFFICE 31612 II, II, OUTPATIEN 9 9 CARMENZA C CARMENZA C T NEW 30 MINUTES OFFICE 67276 [facility] OUTPATIEN 9 9 , GRETEL M GRETEL M T VISIT 15 MINUTES OFFICE 93600 [facility] OUTPATIEN 9 9 , GRETEL M GRETEL M T VISIT 10 MINUTES OFFICE 33433 [facility] OUTPATIEN 9 9 , GRETEL GRAF T VISIT 10 MINUTES OFFICE 68208 [facility] OUTPATIEN 9 9 , GRETEL GRAF T VISIT 10 MINUTES OFFICE 21245 [facility]ILL[facility] OUTPATIEN 9 9 , GRETEL GRAF T VISIT 25 MINUTES EMERGENCY 76886 [facility] DEPT 9 9 [facility] VISIT EMERGENCY HIGH PHYS INC SEVERITY& THREAT FUNJ OFFICE 59575 DONNA ALMEIDAEN 9 9 SONIA Vázquez T VISIT [facility] 15 MINUTES OFFICE 70395 VILLAFLOR VILLAFLOR OUTPATIEN 9 9 , GRETEL GRAF T VISIT 10 MINUTES OFFICE 25365 [facility] OUTPATIEN 9 9 , GRETEL GRAF T VISIT 10 MINUTES OFFICE 23885 [facility] OUTPATIEN 8 8 , GRETEL GRAF T VISIT 10 MINUTES OFFICE 62988 [facility] OUTPATIEN 8 8 , GRETEL GRAF T VISIT 10 MINUTES EMERGENCY 73808 NORRIS WATERS 8 8 CO GRETEL [facility] T VISIT MODERATE SEVERITY OFFICE 18267 VILLAFLOR VILLAFLOR OUTPATIEN 8 8 , GRETEL GRAF T VISIT 10 MINUTES OFFICE 68160 [facility] VILLAFLOR OUTPATIEN 8 8 , GRETEL GRAF T VISIT 10 MINUTES EMERGENCY 14889 NORRIS WATERS 8 8 CO GRETEL [facility] T VISIT LOW/MODER SEVERITY OFFICE 68956 VILLAFLOR VILLAFLOR OUTPATIEN 8 8 , GRETEL GRAF T VISIT 10 MINUTES EMERGENCY 29716 NORRIS 8 8 [facility] T VISIT LIMITED/M INOR PROB CRITICAL [facility] 8 8 [facility]PITAL EMERGENCY 69969 NORRIS WATERS 8 8 RI GRETEL [facility] T VISIT MODERATE SEVERITY EMERGENCY 41459 NORRIS WATERS 8 8 [place] , GRETEL [facility] T VISIT MODERATE SEVERITY HOSPITAL DENNYS - 8 8 [facility] T EMERGENC[facility] 59997 DENNYS 8 8 [facility] T VISIT LOW/MODER SEVERITY HOSPITAL [facility]RIS - 8 8 [facility] CRITICAL [facility] 8 8 [facility] EMERGENCY 04326 NORRIS 8 8 [facility] T VISIT LIMITED/M INOR PROB CRITICAL [facility] 8 8 [facility] EMERGENCY 19336 NORRIS 8 8 [facility] T VISIT LIMITED/M INOR PROB OFFICE 03660 [facility] , GRETEL GRAF T VISIT 10 MINUTES EMERGENCY 58658 NORRIS 8 8 [facility] T VISIT MODERATE SEVERITY EMERGENCY 64336 NORRIS [place], 8 8 [facility] T VISIT LOW/MODER SEVERITY EMERGENCY 88207 NORRIS 8 8 [facility] T VISIT LIMITED/M INOR PROB CRITICAL [facility] 8 8 [facility] OFF[facility] [id number] [facility] 8 8 , GRETEL GRAF T VISIT 10 MINUTES OFFICE [id number] [facility] 8 8 , GRETEL M GRETEL M T VISIT 10 MINUTES EMERGENCY 51283 CHRISTOPHER 8 8 [facility] T VISIT [place] LIMITED/M INOR PROB EMERGENCY 14496 NORRIS SCHUMACHER, 8 8 [facility] T VISIT MODERATE SEVERITY HOSPITAL NORRIS - 8 8 [facility] CHRISTOPHER - 8 8 [facility] T [place] EMERGENCY 13839 CHRISTOPHER 8 8 [facility] T VISIT [place] MODERATE SEVERITY OFFICE [id number] CELIA LOPZE 8 8 SONIA TOPETE MD [facility] 15 MINUTES OFFICE 39970 JOHN ALMEIDA 8 8 SONIA Vázquez T DIANE PETERSEN [facility] 15 MINUTES
--- OUTSIDE RECORDS SUMMARY | 2017-03-26 03:09 | External Medical Summary Rpt ---
Author Author , Organization [employer] Address Unknown Phone Unavailable Care Team Providers Care Battery Hand Name Role Phone [facility]available [facility]available [facility], [facility] AHMED ADN, AHMED ADN Unavailable Unavailable AHMED ADN, AHMED ADN Unavailable Unavailable [facility] Unavailable Unavailable RESPONSE, [facility] Unavailable Unavailable [facility], [facility] MARIAA ESCOBEDO MD, PSC, Unavailable Unavailable MARIAA ESCOBEDO MD, PSC DENIA DORANTES, DENIA Unavailable Unavailable JAYNA Mckeon MD, Unavailable Unavailable Khoa Mckeon MD [facility] Unavailable Unavailable MEDICAL GROUP, [facility]ICAL [facility] Unavailable Unavailable [place], [facility] LUCIE FRA, LUCIE Unavailable Unavailable FRA JOEL JAYNA, JOEL JAYNA Unavailable Unavailable ANNA JOHN, ANNA Unavailable Unavailable JOHN BERNNELLY DOMONIQUE, BERNERT Unavailable Unavailable DOMONIQUE BESSON, BESSON Unavailable Unavailable GUTIERREZ RENÉ, Unavailable Unavailable GUTIERREZ RENÉ BLOYD LUX, BLOYD LUX Unavailable Unavailable [facility] Unavailable Unavailable ASSOCIAT, [facility] FRYE, FRYE Unavailable Unavailable BOONSTRA TOD, Unavailable Unavailable BOONSTRA TOD [facility] Unavailable Unavailable HOSPITAL, [facility] PHYSICIAN Unavailable Unavailable PRACTICE L, [facility] RENATA IVELISSE, RENATA Unavailable Unavailable IVELISSE JONEL MOR, JONEL MOR Unavailable Unavailable MOCTEZUMA JAM, MOCTEZUMA Unavailable Unavailable JAM MOCTEZUMA JAM, MOCTEZUMA Unavailable Unavailable JAM AGUILA REBECCA, AGUILA Unavailable Unavailable REBECCA AGUILA REBECCA [facility], Unavailable Unavailable AGUILA REBECCA IGN [facility] Unavailable Unavailable REHABILITATION, [facility] [place], [facility] Unavailable Unavailable [facility] Unavailable Unavailable MEDICAL [facility], [facility] MEDICAL [facility] Unavailable Unavailable MEDICAL [place], [facility] Unavailable Unavailable PHYSICIAN PRA, [facility] PHYSICIAN PRA JORJE NOEL Unavailable Unavailable JONH LOPEZ, RECINOS Unavailable Unavailable JOHN [facility], Unavailable Unavailable [facility] AMIN QIANA, AMIN QIANA Unavailable Unavailable AMIN, COCO A, Unavailable Unavailable AMIN, COCO A [facility] Unavailable Unavailable ANESTHESIA PSC, [facility] ANESTHESIA PSC SALVATORE, SALVATORE Unavailable Unavailable TONIA CHASE, Unavailable Unavailable TONIA CHASE HARSHAD, HARSHAD Unavailable Unavailable PANG ZEINA, PANG ZEINA Unavailable Unavailable DUFF, DUFF Unavailable Unavailable [facility] PAIN Unavailable Unavailable MANAGE, [facility] PAIN MANAGE RALPH KIMANI, RALPH Unavailable Unavailable [...] BILL HAGENSCHNEIDER BILL, Unavailable Unavailable HAGENSCHNEIDER BILL [facility] Unavailable Unavailable INC, [facility] Unavailable [facility]available HOSPITAL P, [facility] P MOSER URBANO, MOSER Unavailable Unavailable URBANO [...] III ANTONELLA, Unavailable Unavailable EARNEST III ANTONELLA [facility] Unavailable Unavailable [facility], [facility] Unavailable Unavailable ASSOCIAT, [facility] KERSCHNER MAG, Unavailable Unavailable KERSCHNER [...] FREDDY NICCI JR, NICCI JR Unavailable [facility] IN[facility] Unavailable Unavailable DISEASE, [place] [facility] Unavailable Unavailable INTERNAL MED, [facility] INTERNAL MED [facility] Un[facility] Un[facility] STAN [facility]ONG Unavailable Unavailable ADRIANA GOMEZ, Unavailable Unavailable ADRIANA PIERCE [facility] GRE, Unavailable Unavailable [facility] GRE [facility], Unavailable Unavailable ROB[facility] Unavailable Unavailable SERVICES, [facility] Unavailable [facility] WILSON JAM, Unavailable Unavailable WILSON JAM WILSON JAM, Unavailable Unavailable WILSON JAM MADRIGAL ELOISE, Unavailable Unavailable MADRIGAL ELOISE BLOOM, BLOOM Unavailable Unavailable MCQUAIDE JERRY, Unavailable Unavailable MCQUAIDE JERRY [facility] Unavailable Unavailable [facility] Unavailable Unavailable MEDICAL, [facility] Unavailable [facility]available SERV 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 R, [facility] SERV 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 R [facility] Unavailable Unavailable SERV 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 R, [facility] SERV 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 R [facility], 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 [facility] Unavailable Unavailable [facility], [facility], 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 [facility] CELIA SCOTT MD Unavailable Unavailable PLLCCELIA MD [facility] CELIA SCOTT MD Unavailable Unavailable [facility], CELIA SCOTT MD [facility] LUGO KYL, LUGO Unavailable Unavailable KYL [facility] Unavailable Unavailable CARE, [facility] GILLILAND, GILLILAND Unavailable Unavailable GILLILAND DYLAN, GILLILAND Unavailable Unavailable DYLAN ABDI BEN, ABDI Unavailable Unavailable [facility], Unavailable Unavailable [facility] Unavailable Unavailable [facility], [facility] Unavailable Unavailable HEALTH, [facility] LINARES JOHN, Unavailable Unavailable LINARES JOHN LINARES JOHN, Unavailable Unavailable LINARES JOHN [facility], Unavailable Unavailable [facility] QIANA AMIN MD Unavailable Unavailable CONSULTING SRV, QIANA AMIN MD CONSULTING SR[facility], Unavailable Unavailable PLL, [facility], [facility] PAUL HARRIS Unavailable Unavailable YAMINI, PAUL HARRIS YAMINI RADMANESH SHA, Unavailable Unavailable RADMANESH SHA [facility] Unavailable Unavailable [facility], [facility] Unavailable Unavailable [facility], [facility] RENUSCH, RENUSC Unavailable Unavailable RICE SHA, RICE [...] [facility] Unavailable Unavailable [facility]ERGENCY [facility], [facility] Unavailable Unavailable EMERGENCY SERV, [facility] MARIANGEL SILVINA, MARIANGEL Unavailable Unavailable SILVINA [facility] Unavailable Unavailable [facility], [facility] Unavailable Unavailable [facility], [facility] МАРИЯ ALICIA, HSIEH Unavailable Unavailable RAY STILES NAN, STILES Unavailable Unavailable NAN SWINEY PAT, SWINEY Unavailable Unavailable PAT JR ZACHARY EDW, Unavailable Unavailable JR ZACHARY EDW [facility] Un[facility] Unavailable [facility], [facility], Unavailable Unavailable [facility] VILLAFLOR OSI, Unavailable Unavailable VILLAFLOR OSI VILLAFLOR [...] 03-19-2017 MUSCLE SPASM R51 HEADACHE 03-19-2017 Z79.01 RELEASE COORDINATOR 03-19-2017 (CURRENT) USE OF ANTICOAGULA NTS Z79.899 OTHER LONG 03-19-2017 TERM (CURRENT) DRUG THERAPY Z87.01 PERSONAL 03-19-2017 HISTORY OF PNEUMONIA (RECURRENT) M54.2 CERVICALGIA 02-28-2017 S16.1XXA STRAIN OF 02-28-2017 MUSCLE, FASCIA AND TENDON AT NECK LEVEL, INITIAL ENCOUNTER S46.811A STRAIN OF 02-28-2017 OTHER MUSCLES, FASCIA AND TENDONS AT SHOULDER AND UPPER ARM LEVEL, RIGHT ARM, INITIAL ENCOUNTER Z79.891 SHELTER 02-28-2017 (CURRENT) USE OF OPIATE ANALGESIC Z88.1 ALLERGY 02-28-2017 STATUS TO OTHER ANTIBIOTIC AGENTS STATUS Z88.8 ALLERGY 02-28-2017 STATUS TO OTHER DRUGS, MEDICAMENTS AND BIOLOGICAL SUBSTANCES STATUS J88758 CELLULITIS 02-01-2017 ABEL OF RIGHT PHYSICIANS, LOWER LIMB PLLC V60863 CELLULITIS 02-01-2017 ABEL OF LEFT PHYSICIANS, LOWER LIMB [facility] R05 COUGH 02-01-2017 ABEL PHYSICIANS, [facility] R0602 SHORTNESS 02-01-2017 ABEL OF BREATH PHYSICIANS, [facility] M79.604 PAIN IN 01-31-2017 RIGHT LEG Z79.4 RELEASE COORDINATOR 01-31-2017 (CURRENT) USE OF INSULIN Z87.891 PERSONAL 01-31-2017 HISTORY OF NICOTINE DEPENDENCE M79.605 PAIN IN 01-31-2017 LEFT LEG R07.9 CHEST PAIN, 01-31-2017 UNSPECIFIED E7800 PURE 01-29-2017 [place] HYPERCHOLES [facility] UNSPECIFIED I509 HEART 01-29-2017 [facility] FAILURE [facility] UNSPECIFIED HOSPITAL T96352 PAIN IN 01-29-2017 [facility] RIGHT LEG N EMERGENCY PHYS V84446 PAIN IN 01-29-2017 [facility] LEFT LEG N EMERGENCY PHYS R0789 OTHER CHEST 01-29-2017 [facility] PAIN N EMERGENCY PHYS Z794 SHELTER 01-29-2017 [place] CURRENT USE [facility] INSULIN HOSPITAL S43406 RELEASE COORDINATOR 01-29-2017 [place] CURRENT USE [facility] OPIATE HOSPITAL ANALGESIC O70419 OTHER LONG 01-29-2017 [facility] CURRENT HOSPITAL DRUG THERAPY Z8701 PERSONAL 01-29-2017 [facility] HISTORY OF [facility] PNEUMONIA HOSPITAL RECURRENT E6601 MORBID 12-24-2016 [facility] SEVERE PHYSICIAN OBESITY DUE PRACTICE L TO EXCESS CALORIES G894 CHRONIC 12-24-2016 [facility] PAIN PHYSICIAN SYNDROME PRACTICE L I2699 OTH 12-24-2016 [facility] PULMONARY PHYSICIAN EMBOLISM PRACTICE L W/O ACUTE COR PULMONALE J00 ACUTE 12-24-2016 [facility] ITIS COMMON PRACTICE L COLD E1165 TYPE 2 12-20-2016 [facility] MELLITUS INC WITH HYPERGLYCEM IA I10 ESSENTIAL 12-20-2016 [facility] P N J449 CHRONIC 12-20-2016 [facility] PULMONARY [facility] P DISEASE UNS K219 GASTRO-ESOP 12-20-2016 [facility] WITHOUT ESOPHAGITIS Z7901 RELEASE COORDINATOR 12-20-2016 [facility] CURRENT USE MEM HOSP OF INC ANTICOAGULA NTS E109 TYPE 1 12-18-2016 [facility] MELLITUS MEDICAL WITHOUT EQUIPME COMPLICATIO NS E119 TYPE 2 12-18-2016 [facility] MELLITUS INC WITHOUT COMPLICATIO NS G4733 OBSTRUCTIVE 12-18-2016 [facility] SLEEP HOME APNEA ADULT MEDICAL PEDIATRIC EQUIPME J9610 CHRONIC 12-18-2016 [facility] RESPIRATORY HOME FAIL UNS MEDICAL HYPOXIA/HYP EQUIPME ERCAPNIA R079 CHEST PAIN 12-18-2016 [place] [facility]PEC[facility]IED [facility] ASS R1011 RIGHT UPPER 12-18-2016 [place] [facility] R7989 OTHER SPEC 12-18-2016 [place] ABNORMAL MEDICAL FINDINGS IMAGING ASS BLOOD CHEMISTRY Z6845 BODY MASS 12-18-2016 [place] INDEX BMI [facility] 70 OR HOSPITAL P GREATER ADULT L66794 ACQUIRED 12-18-2016 [place] ABSENCE OF [facility] RIGHT LEG HOSPITAL P ABOVE KNEE H38725 ACQUIRED 12-18-2016 [place] ABSENCE OF [facility] LEFT LEG HOSPITAL P ABOVE KNEE G4731 PRIMARY 12-16-2016 [facility] CENTRAL HOME SLEEP APNEA MEDICAL EQUIPME J9621 ACUTE & 11-30-2016 [facility] CHRONIC N EMERGENCY RESPIRATORY PHYS FAILURE WITH HYPOXIA R030 ELEVATED 11-30-2016 [facility] BLOOD-PRESS N EMERGENCY URE READING PHYS WITHOUT DX HTN R0600 DYSPNEA 11-30-2016 [facility] UNSPECIFIED N EMERGENCY PHYS R0989 OTH SPEC SX 11-30-2016 [facility] & SIGNS N EMERGENCY INVLV THE PHYS CIRC & RESP SYS E039 HYPOTHYROID 11-27-2016 [facility] E669 OBESITY 11-27-2016 [facility] UNSPECIFIED N EMERGENCY PHYS G4730 SLEEP APNEA 11-27-2016 [facility] J441 CHRONIC 11-27-2016 [facility] OBSTRUCTIVE N EMERGENCY PULMONARY PHYS DZ W/EXACERBAT ION R609 EDEMA 11-27-2016 [facility] UNSPECIFIED N EMERGENCY PHYS R635 ABNORMAL 11-27-2016 [facility] WEIGHT GAIN N EMERGENCY PHYS Y11416 CHRONIC 11-21-2016 [facility] MIGRAINE PHYSICIAN W/O AURA [...] FINDING OF LUNG FIELD G8929 OTHER 10-30-2016 [facility] CHRONIC PHYSICIAN PAIN PRACTICE L K53009E STRAIN OT 10-30-2016 [facility] PH[facility]ICIAN UP ARM LVL PRACTICE L UNS ARM INIT ENC E1140 TYPE 2 DM 10-15-2016 [facility] WITH PHYSICIAN DIABETIC PRACTICE L NEUROPATHY UNSPECIFIED J810 ACUTE 09-25-2016 HOSPITAL PULMONARY MEDICINE [facility] SERVICES O E6609 OTHER 09-24-2016 [facility] OBESITY DUE N EMERGENCY TO EXCESS PHYS CALORIES J811 CHRONIC 09-24-2016 [facility] M7989 OTHER 09-24-2016 [facility] SPE[facility] DISORDERS J93989 PERSONAL 09-10-2016 [facility] HISTORY OTH [facility] VENOUS [facility] THROMBOSIS& EMBOLISM N10409 PERSONAL 09-10-2016 [facility] HISTORY OF [facility] NICOTINE [facility] DEPENDENCE Z886 ALLERGY 09-10-2016 [facility] STATUS TO [facility] ANALGESIC [facility] AGENT STATUS U32127 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[facility] 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 [facility] BILATERAL E1142 TYPE 2 08-21-2016 [facility] [place] MELLITUS INTERNAL W/DIAB MED POLYNEUROPA THY M170 BILATERAL 08-21-2016 [facility]IMARY [place] OSTEOARTHRI INTERNAL TIS OF KNEE MED Z23 ENCOUNTER 08-21-2016 [facility] FOR [place] IMMUNIZATIO INTERNAL N MED X96758 PAIN IN 08-11-2016 [facility] RIGHT KNEE N EMERGENCY PHYSI Y07305 PAIN IN 08-11-2016 [facility] [place] RIGHT LOWER [facility] LEG Z881 ALLERGY 08-11-2016 [place] STATUS TO COMMUNITY OTHER HOSPITAL ANTIBIOTIC AGENTS STATUS Z888 ALLERGY 08-11-2016 [place] STATUS OTH [facility] BIOLOG SUBSTANC STS R0609 OTHER FORMS 07-04-2016 [facility] MEDICINE SERVICES O E785 HYPERLIPIDE 07-03-2016 [facility] J40 BRONCHITIS 07-03-2016 [facility] NOT N EMERGENCY SPECIFIED PHYSI ACUTE OR CHRONIC J180 BRONCHOPNEU 06-30-2016 [facility] MONIA N EMERGENCY UNSPECIFIED SERV ORGANISM R600 LOCALIZED 06-30-2016 [facility] EDEMA N EMERGENCY SERV R739 HYPERGLYCEM 06-30-2016 [facility] IA N EMERGENCY UNSPECIFIED SERV Z01527 PAIN IN 06-28-2016 [place] LEFT REGIONAL SHOULDER MEDICAL B95777 PAIN IN 06-21-2016 [facility] FOOT MED[facility] IMAGING ASS E8770 FLUID 06-10-2016 [facility] OVERLOAD N EMERGENCY UNSPECIFIED PHYS I5020 UNSPECIFIED 06-05-2016 [facility] SYSTOLIC N EMERGENCY CONGESTIVE PHYS HEART FAILURE I5033 ACUTE ON 06-02-2016 [facility] MEDICINE DIASTOLIC SERVICES O CONGESTIV HEART FAILURE I5030 UNSPECIFIED 06-01-2016 [facility] DIASTOLIC [facility] HEART FAILURE I5031 ACUTE 06-01-2016 [facility] DIASTOLIC N EMERGENCY CONGESTIVE PHYS HEART FAILURE G4710 HYPERSOMNIA 05-31-2016 [facility] UNSPECIFIED [facility] R0683 SNORING 05-31-2016 [facility] R51 HEADACHE 05-31-2016 [facility] ROB[facility]O R5383 OTHER 05-31-2016 [facility] ROBERTO A85757 PAIN IN 05-30-2016 [place] LEFT KNEE ORTHOPEDIC ASSOCIAT M38334F MECH 05-30-2016 [facility] LOOSENING ORTHOPEDIC INTRL LT ASSOCIAT KNEE PROSTH JNT SUB ENC E8342 HYPOMAGNESE 05-26-2016 [facility] E038 OTHER 05-08-2016 [facility] SPECIFIED [facility] HYPOTHYROID HOSPITAL ISM M549 DORSALGIA 05-08-2016 [facility] E871 HYPO-OSMOLA 03-21-2016 [facility] LITY AND REGIONAL HYPONATREMI PHYSICIAN A PRA P31933 UNSPECIFIED 03-21-2016 [facility]MA REGIONAL UNCOMPLICAT PHYSICIAN ED PRA E662 MORBID 03-20-2016 [facility] SEVERE REGIONAL OBESITY MEDICAL W/ALVEOLAR CENTE HYPOVENTILA TION E876 HYPOKALEMIA 03-20-2016 [facility] I959 HYPOTENSION 03-20-2016 [facility] UNSPECIFIED MEDICAL CENTE J168 PNEUMONIA 03-20-2016 [facility] DUE TO N EMERGENCY OTHER SPEC PHYSI INFECTIOUS ORGANISMS J9601 ACUTE 03-20-2016 [facility] RESPIRATORY REGIONAL FAILURE MEDICAL WITH CENTE HYPOXIA M791 MYALGIA 03-20-2016 [facility] H82205 PRESENCE OF 03-17-2016 [place] [facility] LEFT SERV ARTIFICIAL FOUNDATION KNEE JOINT Z9889 OTHER 03-17-2016 [place] [facility] SPECIFIED SERV POSTPROCEDU [facility] STATES I5043 ACUTE ON 01-31-2016 QIANA AMIN CHRONIC COMB CONSULTING SYSTOLIC & SRV DIASTOLIC CHF R2242 LOCALIZED 01-31-2016 [facility]NA AMIN SWELLING MASS AND CONSULTING LUMP LEFT SRV LOWER LIMB D649 ANEMIA 01-29-2016 [facility] UNSPECIFIED [facility] E873 ALKALOSIS 01-29-2016 [facility] I501 LEFT 01-29-2016 [facility] VENTRICULAR N EMERGENCY FAILURE PHYS I872 VENOUS 01-29-2016 [facility] PERIPHERAL R0902 HYPOXEMIA 01-29-2016 [facility] D509 IRON 01-25-2016 [facility] DEFICIENCY PRIMARY ANEMIA [...] [facility] OF NOT [facility]ONO ELSEWHERE CLASSIFIED B6939IQ INF & 01-14-2016 [facility] [...] 01-10-2016 [facility] LACK OF AMBULANCE COORDINATIO SERV 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 R N [id number] [facility] 01-10-2016 [place] LOOSENING ORTHOPEDIC INTRL LT ASSOCIAT KNEE PROSTH JNT INIT ENC F9640YA INF INFLAM 01-10-2016 [facility] RXN OTH H INTRL PROS ANESTHESIA DEVC GFT PSC SBSQT ENC G8928 OTHER 01-08-2016 [place] [facility] CHRONIC SERV POSTPROCEDU FOUNDATION RAL PAIN R5381 OTHER 01-08-2016 [place] [facility] MALAISE SERV FOUNDATION L7077AZ INF & 01-08-2016 [place] [facility] SERV REACT INTRL FOUNDATION LT KNEE PROSTH SEQUELA Z66846 ENCOUNTER 01-06-2016 [facility] FOR OTHER REGIONAL PREPROCEDUR MEDICAL AL CENTE EXAMINATION I5021 ACUTE 12-28-2015 RALPH KIMANI SYSTOLIC CONGESTIVE HEART FAILURE Z792 SHELTER 12-25-2015 [facility] CURRENT USE SERV OF FOUNDATION ANTIBIOTICS R093 ABNORMAL 12-21-2015 [facility] SPUTUM SERV FOUNDATION B91098 ELEVATED 12-15-[facility] WHITE BLOOD INFECTIOUS CELL COUNT DISEASE UNSPECIFIED L539 ERYTHEMATOU 12-15-2015 [facility] S CONDITION INFECTIOUS DISEASE UNSPECIFIED B6430EV INF & 12-15-2015 [facility] INFLAM INFECTIOUS REACT INTRL DISEASE LT KNEE PROSTH INIT ENC X30358 ACQUIRED 12-15-2015 [place] ABSENCE OF INFECTIOUS LEFT KNEE DISEASE Z9981 DEPENDENCE 12-13-2015 [facility] ON SERV SUPPLEMENTA FOUNDATION L OXYGEN B379 CANDIDIASIS 12-09-2015 [facility] SERV UNSPECIFIED FOUNDATION R1310 DYSPHAGIA 12-07-2015 [facility] UNSPECIFIED SERV FOUNDATION Z452 ENCOUNTER 12-02-2015 [facility] ADJUSTMENT& RADIOLOGY MGMT VASCULAR ACCESS DEVICE A419 SEPSIS 12-01-2015 [facility] UNSPECIFIED [facility] ORGANISM REHABILITAT ION N61425 OTHER SPEC 12-01-2015 [facility] ACQUIRED [facility]ILL DEFORMITIES REHABILITAT LT LOWER ION LEG R2689 OTHER 12-01-2015 [facility] ABNORMALITI [facility] ES OF GAIT REHABILITAT AND ION MOBILITY S0503WU INF & 12-01-2015 [facility] INFLAM HILL REACT INTRL REHABILITAT LT KNEE ION PROSTH SUB ENC A4902 METHICILLIN 11-18-2015 [facility] RSIST SERV STAPH FOUNDATION INFECTION UNS SITE X21025 PAIN IN 11-18-2015 [facility] UNSPECIFIED SERV KNEE FOUNDATION J9600 ACUTE 11-08-2015 [facility] RESPIRATORY HEALTH FAIL UNS MEDICAL HYPOXIA/HYP GROUP ERCAPNIA J9690 RESP FAIL 11-03-2015 [facility] UNS MEDICAL WHETHER RESPONSE W/HYPOXIA/H YPERCAPNIA R140 ABDOMINAL 11-03-2015 [facility] DISTENSION SERV GASEOUS FOUNDATION Z4682 ENCOUNTER 11-03-2015 [facility] FITTING & SERV ADJUST FOUNDATION NON-VASCULA R CATHETER M01X9 DIRECT INF 11-02-2015 [facility] MULTI JNT REGIONAL INF & PHYSICIAN PARASIT DZ PRA CLASS ELSW N179 ACUTE 10-28-2015 [facility] KIDNEY REGIONAL FAILURE PHYSICIAN UNSPECIFIED PRA L089 LOCAL INF 10-27-2015 [facility] THE SKIN & PATHOLOGY SUBCUTANEOU ASSOCIAT S TISSUE UNS S55129E BREAKDOWN 10-27-2015 [facility] INTRL FIX PATHOLOGY DEVC UNS ASSOCIAT BONE LIMB INIT ENC B6405SF PAIN INTRL 10-27-2015 [facility] ORTHO H PROSTH DEVC ANESTHESIA IMPL GFT PSC INIT ENC K34231 MIGRAINE 09-21-2015 [facility] W/AURA HEALTH INTRACT W/O SOLUTIONS STATUS IN MIGRAINOSUS Z95524 PAIN IN 09-21-2015 [facility] RIGHT HEALTH SHOULDER SOLUTIONS IN Y06118 PAIN IN 08-20-2015 [facility] UNSPECIFIED HEALTH SHOULDER SOLUTIONS IN 7840 HEADACHE 07-21-2015 [facility] [place] [facility] 52849 SHORTNESS 07-19-2015 [facility] [place] OF BREATH RADIOLOGY 71385 OTHER 07-18-2015 [facility] [place] DISEASES OF RADIOLOGY NASAL CAVITY AND SINUSES 94550 DIAB W/O 07-09-2015 [facility] COMP TYPE MOUNT II/UNS NOT [facility] STATED UNCNTRL 66487 DIAB W/O 07-09-2015 [facility] MENTION HEALTH COMP TYPE SOLUTIONS II/UNS TYPE IN UNCNTRL 73889 MORBID 07-09-2015 [place] [address] PAIN IN 07-09-2015 [facility] JOINT, HEALTH LOWER LEG SOLUTIONS IN V4364 HIP JOINT 07-09-2015 [facility] REPLACEMENT MOUNT BY OTHER [facility]ERT[facility] MEANS 3670 HYPERMETROP 06-30-2015 [facility] [place] GRE 496 CHRONIC 05-10-2015 [facility] AIRWAY [place] OBSTRUCTION [place]EC 40923 DIAB W/O 04-30-2015 [facility] COMP TYPE I HOME [JUV] NOT MEDICAL STATED EQUIPME UNCNTRL 07161 OBSTRUCTIVE 04-30-2015 [facility] SLEEP HOME APNEA MEDICAL EQUIPME 8798 OPEN WOUND 11-25-2014 [employer] UNSPEC SITE WITHOUT MENTION COMP 8911 OPEN WOUND 11-25-2014 [employer] OF KNEE LEG AND ANKLE COMPLICATED 7295 PAIN IN 11-17-2014 [facility] TISSUES OF ASSOCIAT LIMB 6826 CELLULITIS 10-14-2014 [facility] AND ABSCESS HEALTH OF LEG BRIGHTWATERS EXCEPT FOOT 7202 SACROILIITI 09-21-2014 [facility] S [...] 70 REGIONAL AND OVER MEDICAL ADULT CENTE 94270 AC BRANDI 08-10-2014 [facility] EMBO & REGIONAL THROMB MEDICAL UNSPEC DEEP CENTE VES LOWER EXT 88037 OTHER 08-06-2014 [facility] CHRONIC REGIONAL PAIN MEDICAL CENTE V1251 PERSONAL 08-06-2014 [facility] HISTORY, REGIONAL VENOUS MEDICAL THROMBOSIS CENTE AND EMBOLISM V4365 KNEE JOINT 08-06-2014 [facility] REPLACEMENT REGIONAL BY OTHER MEDICAL MEANS CENTE 32496 OTHER ACUTE 08-03-2014 [facility] H POSTOPERATI ANESTHESIA VE PAIN PSC 43466 OSTEOARTHRO 08-03-2014 [facility] SIS UNSPEC H WHETHER ANESTHESIA GEN/LOC PSC LOWER LEG 2449 UNSPECIFIED 07-29-2014 [facility] REGIONAL HYPOTHYROID MEDICAL ISM CENTE 2724 OTHER AND 07-29-2014 [facility] UNSPECIFIED REGIONAL MEDICAL HYPERLIPIDE CENTE FARZANA 4011 ESSENTIAL 07-29-2014 [facility] HYPERTENSIO REGIONAL N, [facility] 05060 UNSPECIFIED 07-29-2014 [facility] SLEEP [facility]IONAL [facility] V7281 PRE-OPERATI 07-29-2014 [facility] VE REGIONAL CARDIOVASCU MEDICAL LAR CENTE EXAMINATION V7283 OTHER 07-29-2014 [facility] SPECIFIED RADIOLOGY PRE-OPERATI GROUP P VE EXAMINATION 7213 LUMBOSACRAL 07-14-2014 [facility] & SPONDYLOSIS SPINE WITHOUT INSTIT MYELOPATHY 9597 INJURY 06-17-2014 [facility] OTHER&UNSPE REGIONAL CIFIED KNEE MEDICAL LEG ANKLE&FOOT 49826 SOLITARY 06-07-2014 [facility] PULMONARY REGIONAL NODULE MEDICAL V1582 PERS HX 06-07-2014 [facility] TOBACCO USE RADIOLOGY PRESENTING ASSOCIAT [facility] 3489 UNSPECIFIED 03-01-2014 [facility] 71668 HEAD 02-08-2014 [facility], INJURY, 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 UNSPECIFIED [facility] 462 ACUTE 01-27-2014 [facility], PHARYNGITIS 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 [facility] [address] OTHER 01-27-2014 [facility], DYSPNEA AND 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 [place] [facility] RESPIRATORY [facility] ABNORMALITI ES 7862 COUGH 01-27-2014 [facility], 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 [facility] 490 BRONCHITIS 01-20-2014 [facility], NOT 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 SPECIFIED [place] [facility] ACUTE OR HOS CHRONIC 08511 FEVER 01-20-2014 [facility], UNSPECIFIED 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 [place] 7822 LOCALIZED 12-29-2013 [facility], SUPERFICIAL 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 SWELLING [place] MASS OR HOS LUMP 4019 UNSPECIFIED 11-16-2013 [facility] 7242 LUMBAGO 11-02-2013 [facility] ELIAS JAM 7823 EDEMA 09-15-2013 [facility] 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 [facility] [address] SWELLING OF 05-11-2013 JORJE LOPEZ LIMB E8889 UNSPECIFIED 05-11-2013 JORJE LOPEZ FALL 97207 NAUSEA WITH 04-13-2013 [facility], VOMITING 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 [place] [facility] [address]8468 ABDOMINAL 04-13-2013 HAGENSCHNEI PAIN, SARAH BILL UNSPECIFIED SITE 20185 ABDOMINAL 04-13-2013 [facility] PAIN RIGHT 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 UPPER [place] [facility] 83094 ABDOMINAL 04-13-2013 [facility], PAIN, 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 EPIGASTRIC [place] [facility] [address]151 UNSPECIFIED 02-13-2013 AHMED ADN RESPIRATORY ABNORMALITY 918.1 918.1 01-23-2013 Dennys [facility] 515 POSTINFLAMM 01-20-2013 SHANTI CLEMENT SRINIVASAKristan PULMONARY FIBROSIS 12380 PAIN IN 01-05-2013 [facility], 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, 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 [place] [facility] E9179 OTHER 01-05-2013 JORJE LOPEZ STRIKING AGAINST W/WO SUBSEQUENT FALL 4778 ALLERGIC 12-10-2012 [facility] DUE TO INC OTHER ALLERGEN 4779 ALLERGIC 12-10-2012 [facility] RHINITIS JAM CAUSE UNSPECIFIED 10527 ESOPHAGEAL 12-10-2012 [facility] 05902 STREPTOCOCC 12-02-2012 [facility], 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 INFECTION [place] [facility] B 21111 CHEST PAIN 11-26-2012 JORJE LOPEZ UNSPECIFIED 07354 OBST 11-09-2012 ANGELICA ALONSO CHRONIC BRONCHITIS W/ACUTE BRONCHITIS 4280 CONGESTIVE 09-15-2012 [facility] FAILURE MEDICAL UNSPECIFIED EQUIPME 59609 OBSTRUCTIVE 09-15-2012 AHMED ADN CHRONIC BRONCHITIS WITH EXACERBATIO N 7245 UNSPECIFIED 09-15-2012 AHMED ADN BACKACHE 87870 HYPERSOMNIA 09-15-2012 [facility] WITH [facility]EP HOME APNEA MEDICAL UNSPECIFIED EQUIPME 52532 PAINFUL 09-11-2012 AHMED ADN RESPIRATION 4760 CHRONIC 07-22-2012 DIAL FREDDY LARYNGITIS 28333 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 [facility] OSIS TAZLINA CORONARY ARTERY 80976 OTHER 06-05-2012 [facility] IS OF HAND AND WRIST V5867 LONG-TERM 06-05-2012 [facility] INSULIN V7285 OTHER 06-05-2012 [facility] SPECIFIED SERV [facility] 91107 OSTEOARTHRO 05-16-2012 [facility] Hernandez UNSPEC [facility] GEN/LOC UNSPEC SITE E8490 PLACE OF 05-16-2012 [facility] BERMAN, [facility] E9270 OVEREXERTIO 05-16-2012 [facility] Escalante FROM [facility] STRENUOUS MOVEMENT 5180 PULMONARY 02-21-2012 [facility] 13993 OTHER 02-21-2012 [place] DISEASES OF MEDICAL LUNG NOT IMAGING ASS ELSEWHERE CLASSIFIED 23025 GEN 11-01-2011 [facility] OSTE[facility]AR[facility] HOME SIS MEDICAL INVOLVING EQUIPME MULTIPLE SITES 2720 PURE 10-06-2011 [facility] HYPERCHOLES [facility] TEROLEMIA SERVICES 39234 METHICILLIN 10-06-2011 [facility] RESISTANT [facility]ERGENCY PNEUMONIA SERVICES D/T STAPH AUREUS 4829 UNSPECIFIED 10-05-2011 [facility] BACTERIAL EMERGENCY PNEUMONIA SERVICES 5199 UNSPECIFIED 10-02-2011 [facility] DISEASE OF RADIOLOGY ASSOCIAT RESPIRATORY SYSTEM 53908 PRECORDIAL 09-17-2011 [facility] AMIN PAIN [place] CONSULTING [place]V 86465 METHICILLIN 09-10-2011 [facility] STAPHYLOCOC RURAL CUS [facility] 4660 ACUTE 08-24-2011 [facility] BRONCHITIS OSI V1581 PERS HX 08-24-2011 [facility] NONCOMPLIAN OSI CE W/MED TX PRS [facility] 71317 OBESITY, 08-07-2011 [facility] UNSPECIFIED HOSPITAL 463 ACUTE 08-07-2011 [facility] 2865 HEMORRHAGIC 06-27-2011 [place] INTRINSIC CIRC ANTICOAG AB/INHIB 5589 OTH&UNSPEC 06-27-2011 [facility] NONINFECTIO OSI US GASTROENTER ITIS&COLITI S 7336 TIETZES 06-27-2011 [facility] 61961 OTHER CHEST 06-27-2011 [facility] PAIN OSI V5861 LONG-TERM 06-27-2011 [facility] (CURRENT[facility] USE OF ANTICOAGULA NTS V5869 LONG-TERM 06-27-2011 [facility] USE OF OTHER MEDICATIONS 36903 PRIMARY 06-22-2011 [facility] MEDICAL LOCALIZED SERV OSTEOARTHRO FOUNDATIO SIS LOWER LEG 63958 UNSPECIFIED 06-16-2011 [facility] ARTHROPATHY , LOWER LEG 3569 UNSPEC 05-22-2011 [facility] HEREDIT&IDI JOHN OPATHIC PERIPHERAL NEUROPATHY 2819 UNSPECIFIED 03-04-2011 [facility] ANEMIA 4010 ESSENTIAL 03-04-2011 [facility] HYPERTENSIO OSI N, MALIGNANT 58749 OTHER 03-04-2011 [facility] FATIGUE 03597 NAUSEA 03-04-2011 [facility] 7820 DISTURBANCE 02-14-2011 [facility] OF SKIN JOHN SENSATION 3384 CHRONIC 02-09-2011 [facility] PAIN OSI SYNDROME 90300 SPINAL STEN 02-09-2011 [facility] LUMB REG OSI W/O NEUROGENIC CLAUDICATIO N 3560 HEREDITARY 12-08-2010 [facility] PERIPHERAL OSI NEUROPATHY 4919 UNSPECIFIED 11-29-2010 [facility] BRONCHITIS [place] 24598 DISPLCMT 11-23-2010 [facility] [place] INTERVERT PAIN MANAGE DISC W/O MYELOPATHY 7931 NONSPEC 11-15-2010 [facility] FIND RAD RADIOLOGY OTH EXAM ASSOCIAT BODY STRUCT LUNG FIELD 7291 UNSPECIFIED 09-28-2010 [facility] AND PAIN MANAGE MYOSITIS 18906 MIGRAINE 08-09-2010 [facility] UNSP W/O RADIOLOGY INTRACT W/O ASSOCIAT STATUS MIGRAINOSUS 7273 OTHER 06-30-2010 [facility] BURSITIS [place] DISORDERS PAIN MANAGE 8470 NECK SPRAIN 06-30-2010 [facility] PAIN [facility]NAGE 4659 ACUTE URIS 05-11-2010 [facility], OF GRETEL M UNSPECIFIED SITE 6822 CELLULITIS 05-02-2010 [facility], AND ABSCESS GRETEL M OF TRUNK 31184 SECONDARY 04-19-2010 CELIA SCOTT MD [facility]STE[facility]ARTHRO PLLC SIS LOWER LEG 02915 REFLUX 04-06-2010 [facility], ESOPHAGITIS GRETEL M 4910 SIMPLE 02-10-2010 [facility] BRONCHITIS 2777 DYSMETABOLI 01-19-2010 REGIONAL C SYNDROME PHYSICIAN X CORPORATION II V854 BODY MASS 01-19-2010 REGIONAL INDEX 40 PHYSIC[place] [address] GENERALIZED 01-18-2010 [facility] 35403 REFLEX 06-22-2009 II, 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 85333 MIGRAINE 06-09-2009 [facility], W/AURA W/O GRETEL M INTRACT W/O STATUS MIGRNOSUS 84554 OTHER WRIST 06-09-2009 [facility], SPRAIN AND GRETEL M STRAIN 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, 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 514 PULMONARY 02-09-2009 [facility] HYPOSTASIS PSC 48538 UNS 01-18-2009 [facility], GASTRITIS&G GRETEL M ASTRODUODIT IS W/O MENTION HEMORR 64965 PAIN IN 12-20-2008 [facility], JOINT GRETEL M PELVIC REGION AND THIGH 486 PNEUMONIA, 11-22-2008 [facility], ORGANISM GRETEL M UNSPECIFIED 22152 CONTUSION 09-21-2008 TIAFKATHRYN, [place] M 90524 MIGRAINE 07-11-2008 [facility] W/O [facility] W/O INTRACT W/O STAT MIGRNOSUS 683 ACUTE 06-25-2008 [facility] V4589 OTHER 06-11-2008 JT, POSTSURGICA GRETEL M L STATUS OTHER 7812 ABNORMALITY 06-09-2008 [facility] 69467 UNSPECIFIED 04-08-2008 [facility] CONJUNCTIVI TIS 7806 FEVER & OTH 12-22-2007 [facility] PSC DISTURBANCE S TEMP REG 0340 STREPTOCOCC 12-21-2007 [facility] 20417 UNSPECIFIED 12-21-2007 JT, VIRAL GRETEL M INFECTION IN CCE & UNS SITE 63126 OTH 11-19-2007 CELIA Vázquez EXTRAPBEVERLEY SCOTT MD [facility]&ABNORM MOVMNT DISORDER G89.4 CHRONIC PAIN [...] 17 17 57 FA MG 0 26 SC LY TA BL DR ET UG 00 12 01 11 24 00 SO Ac AI 12 -0 -1 8. 00 PE ti FE 10 8- 3- 00 00 RS ve N- 77 20 20 0 55 CO 50 16 17 06 FA DE 4 08 SC IN LY E 10 DR 0- UG [...] Op ht h So ln 2M L DC 50 05 05 0 24 12 SO 37 Ac OM 38 -0 -0 0. PE 24 LL ti ET 30 2- 2- 00 RS 17 AF ve YIP 80 20 20 0 LO ZI 41 11 11 FA R NE 6 SC OS -C LY IA OD S EI DR Ananda ESCALERA SY RU P DC 50 02 02 0 24 12 SO 36 Ac OM 38 -2 -2 0. PE 60 LL ti ET 30 2- 2- 00 RS 52 AF ve YIP 80 20 20 0 LO ZI 41 11 11 FA R NE 6 SC OS -C LY IA OD S EI DR Malave NE UG SY RU P DC 50 01 01 0 24 12 SO 36 Ac OM 38 -0 -0 0. PE 17 LL ti ET 30 4- 4- 00 RS 24 AF ve YIP 80 20 20 0 LO ZI 41 11 11 FA R NE 6 SC OS -C LY IA OD S EI DR Malave NE UG SY RU P DC 50 12 12 0 24 12 SO 35 Ac OM 38 -0 -0 0. PE 98 LL ti ET 30 9- 9- 00 RS 69 AF ve YIP 80 20 20 0 LO ZI 41 10 10 FA R NE 6 SC OS -C LY IA OD S EI [facility] SY RU P 53 06 06 0 24 24 SO 34 Ac 01 -1 -1 0. PE 50 LL ti 40 4- 5- 00 RS 62 AF ve 54 20 20 0 LO 86 10 10 FA R 7 SC OS LY IA S [facility] 53 05 05 0 24 24 SO 34 Ac 01 -1 -1 0. PE 27 LL ti 40 3- 9- 00 RS 71 AF ve 54 20 20 0 LO 86 10 10 FA R 7 SC OS LY IA S [facility] 53 04 04 0 24 24 SO 34 Ac 01 -2 -2 0. PE 12 LL ti 40 6- 6- 00 RS 14 AF ve 54 20 20 0 LO 86 10 10 FA R 7 SC OS LY IA S [facility] 53 02 02 00 24 24 SO 33 Ac 01 -0 -2 0. PE 50 LL ti 40 8- 6- 00 RS 49 AF ve 54 20 20 0 LO 86 10 10 FA R 7 SC OS LY IA S [facility] DC 00 11 11 00 24 13 SO 32 Ac OM 60 -0 -1 0. PE 73 LL ti ET 31 5- 9- 00 RS 89 AF ve YIP 58 20 20 0 LO ZI 55 09 09 FA R NE 8 SC OS -C LY IA OD S EI [facility] SY RU P 53 10 10 00 24 12 SO 32 Ac 01 -0 -0 0. PE 43 LL ti 40 2- 8- 00 RS 01 AF ve 54 20 20 0 LO 86 09 09 FA R 7 SC OS LY IA S [facility] DC 50 07 07 00 24 12 SO 31 Ac OM 38 -0 -1 0. PE 73 LL ti ET 30 7- 6- 00 RS 64 AF ve YIP 80 20 20 0 LO ZI 41 09 09 FA R NE 6 SC OS -C LY IA OD S EI [facility] SY RU P 53 05 05 00 24 24 SO 31 Ac 01 -1 -2 0. PE 37 LL ti 40 5- 1- 00 RS 05 AF ve 54 20 20 0 LO 86 09 09 FA R 7 SC OS LY IA S [facility] DC 50 04 05 00 24 1 SO 31 Ac OM 38 -2 -0 0. PE 19 LL ti ET 30 3- 7- 00 RS 01 AF ve YIP 80 20 20 0 LO ZI 41 09 09 FA R NE 6 SC OS -C LY IA OD S EI [facility] SY RU P 60 03 03 00 24 6 SO 30 Ac 25 -1 -2 0. PE 79 LL ti 80 0- 6- 00 RS 82 AF ve 23 20 20 0 LO 91 09 09 FA R 6 SC OS LY IA S DR Malave 60 01 02 00 24 12 SO 30 Ac 25 -2 -1 0. PE 42 LL ti 80 6- 2- 00 RS 33 AF ve 23 20 20 0 LO 91 09 09 FA R 6 SC OS LY IA S [facility] 53 01 01 00 24 24 SO 30 Ac 01 -0 -1 0. PE 27 LL ti 40 6- 5- 00 RS 12 AF ve 54 20 20 0 LO 86 09 09 FA R 7 SC OS LY IA S [facility] 59 11 11 00 24 24 SO 29 Ac 70 -1 -2 0. PE 78 LL ti 20 0- 0- 00 RS 96 AF ve 80 20 20 0 LO 01 08 08 FA R 6 SC OS LY IA S [facility] 53 10 11 00 24 24 SO 29 Ac 01 -2 -2 0. PE 63 LL ti 40 3- 0- 00 RS 94 AF ve 54 20 20 0 LO 86 08 08 FA R 7 SC OS LY IA S [facility] 53 10 10 00 24 24 SO 29 Ac 01 -0 -2 0. PE 53 LL ti 40 9- 3- 00 RS 39 AF ve 54 20 20 0 LO 86 08 08 FA R 7 SC OS LY IA S [facility] DC 37 08 10 01 56 28 SO 28 Ac IL 00 -0 -0 .0 PE 99 LL ti OS 00 4- 9- 00 RS 63 AF ve EC 45 20 20 LO 50 08 08 FA R OT 4 SC OS C LY IA 20 S .6 [facility] MG TA BL ET 53 09 09 00 24 24 SO 29 No Ac 01 -1 -2 0. PE 32 t ti 40 2- 6- 00 RS 06 Av ve 54 20 20 0 ai 86 08 08 FA la 7 SC bl LY e DR DC 37 08 08 00 56 28 SO 28 No Ac IL 00 -0 -1 .0 PE 99 t ti OS 00 4- 4- 00 RS 63 Av ve EC 45 20 20 ai 50 08 08 FA la OT 4 SC bl C LY e 20 .6 MG TA BL ET DC 37 07 07 01 56 28 SO 25 No Ac IL 00 -3 -0 .0 PE 76 t ti OS 00 0- 3- 00 RS 94 Av ve EC 45 20 20 ai 50 07 08 FA la OT 4 SC bl C LY e [address] UG MG TA BL ET 53 04 05 00 24 24 SO 28 No Ac 01 -2 -0 0. PE 22 t ti 40 2- 8- 00 RS 91 Av ve 54 20 20 0 ai 86 08 08 FA la 7 SC bl LY e DR UG 53 03 04 00 12 12 SO 27 No Ac 01 -1 -1 0. PE 87 t ti 40 2- 7- 00 RS 51 Av ve 54 20 20 0 ai 86 08 08 FA la 7 SC bl LY e DR UG DC 37 07 04 00 56 30 SO 25 No Ac IL 00 -3 -1 .0 PE 76 t ti OS 00 0- 7- 00 RS 94 Av ve EC 45 20 20 ai 50 07 08 FA la OT 3 SC bl C LY e [address] UG MG TA BL ET AL 59 03 04 00 90 30 SO 27 No Ac DC 76 -1 -1 .0 PE 87 t ti AZ 23 2- 7- 00 RS 49 Av ve OL 71 20 20 ai AM 90 08 08 FA la 4 SC bl 0. LY e 25 DR MG UG TA BL ET LO 24 03 04 00 30 30 SO 27 No Ac RA 38 -1 -1 .0 PE 87 t ti TA 50 2- 7- 00 RS 47 Av ve DI 47 20 20 ai NE 17 08 08 FA la 8 SC bl [address] UG [...] DOS Code Location Performer Comment NONCOVERE A9270 [facility] 7 [facility] COMPREHEN 46938 [facility] SIVE [address] [place] [address] PANEL THER 55219 YANET HOLT PROPH/DX 7 [facility] HOSPITAL PUSH SINGLE/1S T SBST/DRUG PRESSURIZ 22377 YANET HOLT ED/NONPRE [address] [place] [address] SSURIZED [facility] INHALATIO N TREATMENT THERAPEUT 67013 [facility] IC [address] [place] [address] INJECTION [facility] IV PUSH EACH NEW DRUG RADIOLOGI 77648 [facility] C [address] [place] [address] ON CHEST SINGLE VIEW FRONTAL INJECTION J2550 COLLINROSALIO [address] INE HCL UP TO 50 MG INJECTION J1170 [facility] [address] [place] [address] ROSI UP TO 4 MG ECG 90055 YANET HOLT ROUTINE [address] [place] [address] HOSPITAL W/LEAST 12 LDS TRCG ONLY W/O I&R DUP-SCAN 50080 YANET HOLT XTR VEINS [address] [place] [address] [place] [address] YANET HOLT TROPONIN [address] [place] [address] RANDY BLOOD 52609 COOKIESUNNY HOLT COUNT [address] [place] [address] AUTO&AUTO DIFRNTL WBC BLOOD 43997 [facility]YOL[facility] COUNT 7 [facility] HOSP COMPLETE INC INC AUTO&[place] [address] [facility] TROPONIN 7 [facility] HOSP QUANTITAT INC INC RANDY ECG 05117 [facility] ROUTINE 7 [facility] HOSP ECG INC INC W/LEAST 12 LDS TRCG ONLY W/O I&R ECG 04412 [facility] CACERES ROUTINE 7 [facility] W/LEAST P 12 LDS I&R ONLY COMPREHEN 34196 [facility] SIVE 7 [facility] HOSP METABOLIC INC INC PANEL RADIOLOGI 70550 [facility] EXAM 7 MEDICAL CHEST 2 IMAGING VIEWS ASS FRONTAL&L ATERAL RADIOLOGI 57127 [facility] C EXAM 7 MEDICAL CHEST 2 IMAGING VIEWS ASS FRONTAL&L ATERAL ECG 37395 [facility] NICCI KEITH ROUTINE 7 [facility] W/LEAST P 12 LDS I&[place] [address] [facility] ABDOMEN & 7 MEDICAL PELVIS IMAGING W/CONTRAS ASS T MATERIAL CT THORAX 38409 [facility] 7 MEDICAL W/CONTRAS IMAGING T ASS MATERIAL O2 CONC 1 E1390 [facility] DEL PORT 7 HOME HOME 85%/>02 MEDICAL MEDICAL CONC AT EQUIPME EQUIPME PRSC FLW RATE PRTBLE E0431 [facility] GASEOUS 7 HOME HOME O2 SYS MEDICAL MEDICAL RENT; EQUIPME EQUIPME FLWMTR HUMIDFR&M ASK CRITICAL 86571 [facility] 7 PHYSICIAN ILL/INJUR S, PLLC ED PATIENT INIT 30-74 MIN RESP ASST E0471 [facility] DEVC 7 HOME HOME BI-LEVL MEDICAL MEDICAL PRSS EQUIPME EQUIPME CAPABILIT Y W/BACK-UP BASIC 73235 [facility] METABOLIC [address] [place] [address] CALCIUM TOTAL RADIOLOGI [address] ON CHEST SINGLE VIEW FRONTAL INJECTION J2060 [address] 2 MG NONCOVERE A9270 YANET HOLT D ITEM OR 7 [facility] THERAPEUT 44030 YANET HOLT IC 7 [facility] T[facility]/DX INJECTION SUBQ/IM PRESSURIZ 96222 YANET HOLT ED/NONPRE 7 [facility] INHALATIO N TREATMENT NATRIURET 65735 YANET HOLT IC 7 [facility] BLOOD 12118 YANET HOLT COUNT 7 [facility] AUTO&AUTO DIFRNTL WBC THERAPEUT 00636 YANET HOLT IC 7 PHYSICIAN PHYSICIAN PROPHYLAC PRACTICE PRACTICE TIC/DX L L INJECTION SUBQ/IM HEADGEAR A7035 [facility] USED 7 HOME HOME W/POSITIV MEDICAL MEDICAL E AIRWAY EQUIPME EQUIPME PRESSURE DEVICE FULL FACE A7030 [facility] MASK 7 HOME HOME USED MEDICAL MEDICAL W/POS EQUIPME EQUIPME ARWAY PRESS DEVICE [facility] G0463 [facility] NOYOL[facility] OUTPATIEN 7 [...] PRSS EQUIPME EQUIPME CAPABILIT Y W/BACK-UP BASIC 92480 YANET HOLT METABOLIC 7 [facility] CALCIUM TOTAL RADIOLOGI 84756 YANET HOLT C EXAM [address] VIEWS FRONTAL&L ATERAL BLOOD 52391 YAN[facility]OL[facility] COUNT 7 [facility] AUTO&AUTO DIFRNTL WBC O2 CONC 1 E1390 [facility] DEL PORT 6 HOME HOME 85%/>02 MEDICAL MEDICAL CONC AT EQUIPME EQUIPME PRSC FLW RATE PRTBLE E0431 [facility] GASEOUS 6 HOME HOME O2 SYS MEDICAL MEDICAL RENT; EQUIPME EQUIPME FLWMTR HUMIDFR&M ASK RESP ASST E0471 [facility] DEVC 6 HOME HOME BI-LEVL MEDICAL MEDICAL PRSS EQUIPME EQUIPME CAPABILIT Y W/BACK-UP HOSPITAL [address] DAY SERVICES MANAGEMEN O T > 30 MIN SBSQ [address] CARE/DAY SERVICES 25 O MINUTES SBSQ [address] CARE/DAY SERVICES 35 O MINUTES INITIAL [address] CARE/DAY SERVICES 70 O MINUTES RADIOLOGI 12398 [facility] [place] [facility] C EXAM 6 RADIOLOGY CHEST 2 VIEWS FRONTAL&L ATERAL DRAINAGE [id number] [facility] 6 [facility] DEVICE IRENA/ART OPENING FILTER A7038 [facility] DISPBL 6 HOME HOME USED MEDICAL MEDICAL W/POS EQUIPME EQUIPME ARWAY PRESSURE DEVICE FACE MASK A7031 [facility] 6 HOME HOME INTERFACE MEDICAL MEDICAL REPLCMT EQUIPME EQUIPME FULL FACE MASK EA ECG 06770 [facility] ROUTINE 6 [place] ECG ROBERTO ROBERTO W/LEAST 12 LDS TRCG ONLY W/O I&R DUP-SCAN 07895 [facility] [place] WESTER[place] XTR VEINS 6 RADIOLOGY LD IV UNILATERA L/LIMITED STUDY RADIOLOGI 65273 [facility] C 6 [place] EXAMINATI ROBERTO ROBERTO ON CHEST SINGLE VIEW FRONTAL INJECTION J2405 [facility] 6 [place] ONDANSETR ROBERTO ROBERTO ON HCL PER 1 MG FIBRIN 36811 [facility] DGRADJ 6 [place] PRODUCTS ROBERTO ROBERTO D-DIMER QUANTITAT RANDY INJECTION J2270 [facility] MORPHINE 6 [facility] SULFATE ROBERTO ROBERTO UP TO 10 MG NONCOVERE A9270 [facility] D ITEM OR 6 [facility] SERVICE ROBERTO ROBERTO COLLECTIO 44337 [facility] N VENOUS 6 [facility] [place] [address] [facility] [place] ANGIOGRAP 6 RADIOLOGY HY CHEST W/CONTRAS T/NONCONT RAST THERAPEUT 91728 [facility] IC 6 [facility] INJECTION ROBERTO ROBERTO IV PUSH EACH NEW DRUG GLUC BLD 07796 [facility] GLUC MNTR 6 [facility] DEV ROBERTO ROBERTO CLEARED FDA SPEC HOME USE COMPREHEN 20761 [facility] SIVE 6 [facility] METABOLIC ROBERTO ROBERTO PANEL THER 53017 [facility] PROPH/DX 6 [facility] NJX IV ROBERTO ROBERTO PUSH SINGLE/1S T SBST/DRUG NATRIURET 59792 [facility] IC 6 [facility] PEPTIDE ROBERTO ROBERTO BLOOD 87743 [facility] COUNT 6 [facility] COMPLETE ROBERTO ROBERTO AUTO&AUTO DIFRNTL WBC INJECTION J[address] KETOROLAC ROBERTO ROBERTO TROMETHAM INE PER 15 MG INJECTION J1940 [address] FUROSEMID ROBERTO ROBERTO E UP TO 20 MG LOCM Q9967 [facility] [phone] 6 [facility] MG/ML ROBERTO ROBERTO IODINE [place] [address] [facility] TROPONIN [address] [place] [address] QUANTITAT ROBERTO ROBERTO RANDY INFLUENZA Q2038 [facility] VACC 6 [facility] SPLIT INTERNAL VIRUS 3 MED YRS & > IM FLUZONE IM ADM 27678 [facility] PRQ ID 6 [facility]LEY SUBQ/IM INTERNAL NJXS 1 MED VACCINE O2 CONC 1 E1390 [facility] DEL PORT 6 HOME HOME 85%/>02 MEDICAL MEDICAL CONC AT EQUIPME EQUIPME PRSC FLW RATE PRTBLE E0431 [facility] GASEOUS 6 HOME HOME O2 SYS MEDICAL MEDICAL RENT; EQUIPME EQUIPME FLWMTR HUMIDFR&M ASK RADIOLOGI 43127 [facility] [place] C 6 RADIOLOGY EXAMINATI ON KNEE 1/2 VIEWS RADIOLOGI 98944 YAN[facility] H[facility] C 6 [facility] ON KNEE 3 VIEWS NONCOVERE A9270 YANET HOLT D ITEM OR 6 [facility] RADIOLOGI 65023 [place] C 6 RADIOLOGY EXAMINATI ON TIBIA & FIBULA 2 VIEWS PRTBLE E0431 NEETA S[place]ACRUZ GASEOUS 6 HOME HOME O2 SYS MEDICAL MEDICAL RENT; EQUIPME EQUIPME FLWMTR HUMIDFR&M ASK O2 CONC 1 [id number] NEETA [place]CRUZ DEL PORT 6 HOME HOME 85%/>02 MEDICAL MEDICAL CONC AT EQUIPME EQUIPME PRSC FLW RATE FEDERALLY [id number] ROBERTO ROBERTO 6 [employer] QUALIFIED SOLUTIONS SOLUTIONS HEALTH IN IN CENTER VISIT ESTAB PT INJECTION J1650 [facility] [address] [facility] N SODIUM 10 MG INJECTION J2270 [facility] MORPHINE [address] [place] [address] HOSPITAL UP TO 10 MG PPSV23 [id number] [facility] VACCINE 2 6 [facility] HOSPITAL OLDER FOR SUBQ/IM USE INJECTION J1815 [facility] INSULIN 6 [facility] PER 5 HOSPITAL HOSPITAL UNITS NONCOVERE [id number] YANET HOLT D ITEM OR 6 [facility] GLUC BLD 06260 [facility] GLUC MNTR 6 [facility] CLEARED FDA SPEC HOME USE HEMOGLOBI 59110 [facility] N 6 [facility] KAMILAH A1C COLLECTIO 18932 [facility] N VENOUS 6 [facility] VENIPUNCT URE COMPREHEN 86172 [facility] SIVE 6 [facility] [place] [address] [facility] COLLINROSALIO MAGNESIUM 6 [facility] INITIAL 07430 HOSPITAL AGUILA OBSERVATI 6 MEDICINE REBECCA IGN ON SERVICES CARE/DAY O 70 MINUTES PRESSURIZ 54079 YANET HOLT ED/NONPRE 6 [facility]OSPITAL INHALATIO N TREATMENT INJECTION J1940 YANET HOLT [address] [place] [address] HOSPITAL E UP TO 20 MG BLOOD 54849 YANET HOLT COUNT [address] [place] [address] HOSPITAL AUTO&AUTO DIFRNTL WBC BLOOD 52688 YANET HOLT COUNT [address] [place] [address] HOSPITAL AUTO&AUTO DIFRNTL WBC IAADIADOO 90455 YANET HOLT [address] [place] [address] CCUS GROUP A CULTURE 05719 [facility] COOKIESUNNY BACTERIAL [address] [place] [address] AEROBIC W/ID ISOLATES INJECTION J1940 YANET HOLT [address] [place] [address] HOSPITAL E UP TO 20 MG PRESSURIZ 50281 YANET COOKIESUNNY ED/NONPRE [address] [place] [address] HOSPITAL INHALATIO N TREATMENT HOSPITAL [id number] YANET POLANCOWENDYSUNNY OBSERVATI [address] [place] [address] HOSPITAL HOSPITAL SERVICE PER HOUR THERAPEUT 59249 COLLINROSALIO C[address]IESUNNY [address] HOSPITAL IV PUSH EACH NEW DRUG COMPREHEN 45260 YANET HOLT SIVE [address] [place] [address] HOSPITAL PANEL GLUC BLD 12958 COLLINROSALIO POLANCOWENDYSUNNY GLUC MNTR 6 [facility] CLEARED FDA SPEC HOME USE NATRIURET 69737 COLLINROSALIO COOKIESUNNY IC [address] [place] [address] HOSPITAL NONCOVERE [id number] COLLINROSALIO COOKIESUNNY D ITEM OR 6 [facility] ARTERIAL 47381 COOKIESUNNY COOKIESUNNY PUNCTURE 6 [facility] L BLOOD DX BLOOD 49980 COOKIESUNNY YANET GASES ANY 6 [facility] ON PH PCO2 PO2 CO2 HCO3 RADIOLOGI 97931 YANET HOLT C EXAM 6 [facility] CHEST 2 [facility] VIEWS FRONTAL&L ATERAL INJECTION J1815 [place] YANET INSULIN [address] [place] [address] PER 5 HOSPITAL HOSPITAL UNITS INJ J2930 [facility] METHYLPRD 6 [facility] SODIUM SUCCNAT TO 125 MG INJECTION J2270 [facility] MORPHINE 6 [facility] UP TO 10 MG ADMINISTR G0009 [facility] ATION OF 6 [facility] VACCINE INJ J2930 CHRISTOPHER WHITE METHYLPRD 6 [facility] CENTE SUCCNAT TO 125 MG INJECTION J1815 CHRISTOP[facility] WHITE INSULIN 6 [facility] PER 5 [facility] UN[facility] CENTE CENTE ECG [id number] CHRISTOPHER WHITE ROUTINE 6 REGIONAL REGIONAL ECG MEDICAL MEDICAL W/LEAST CENTE CENTE 12 LDS TRCG ONLY W/O I&R THER 95805 CHRISTOPHER WHITE PROPH/DX 6 REGIONAL REGIONAL NJX EA MEDICAL MEDICAL SEQL IV CENTE [facility] PUSH SBST/DRUG FAC RADIOLOGI 28121 CHRISTOPHER WHITE C EXAM 6 REGIONAL REGIONAL CHEST 2 MEDICAL MEDICAL VIEWS [facility] FRONTAL&L ATERAL GLUC BLD 91072 CHRISTOPHER WHITE GLUC MNTR 6 REGIONAL REGIONAL DEV MEDICAL MEDICAL CLEARED [facility] FDA SPEC HOME USE NONCOVERE [id number] CHRISTOPHER WHITE D ITEM OR 6 REGIONAL REGIONAL SERVICE MEDICAL MEDICAL CENTE CENTE THER 26994 CHRISTOPHER WHITE PROPH/DX 6 REGIONAL REGIONAL NJX IV MEDICAL MEDICAL PUSH [facility] SINGLE/1S T SBST/DRUG COMPREHEN 05834 CHRISTOPHER WHITE SIVE 6 REGIONAL REGIONAL METABOLIC MEDICAL MEDICAL PANEL [facility] COLLECTIO 70031 CHRISTOPHER WHITE N VENOUS 6 REGIONAL REGIONAL BLOOD MEDICAL MEDICAL VENIPUNCT [facility] URE THERAPEUT 92103 CHRISTOPHER WHITE IC 6 REGIONAL REGIONAL INJECTION MEDICAL MEDICAL IV PUSH CENTE CENTE EACH NEW DRUG NATRIURET 28752 CHRISTOPHER WHITE IC 6 REGIONAL REGIONAL PEPTIDE MEDICAL MEDICAL CENTE [facility] PRESSURIZ 16995 CHRISTOPHER WHITE ED/NONPRE 6 REGIONAL REGIONAL SSURIZED MEDICAL MEDICAL INHALATIO [facility] [address] CHRISTOPHER WHITE INFUSION 6 REGIONAL REGIONAL HYDRATION MEDICAL MEDICAL EACH [facility]E [facility] ADDITIONA L HOUR INJECTION J1940 CHRISTOPHER WHITE 6 REGIONAL REGIONAL FUROSEMID MEDICAL MEDICAL E UP TO MANUEL JACKSON [address] [place] [address] CHRISTOPHER WHITE TROPONIN 6 REGIONAL REGIONAL QUANTITAT MEDICAL MEDICAL RANDY MANUEL JACKSON BLOOD 85696 CHRISTOPHER WHITE COUNT 6 REGIONAL REGIONAL COMPLETE MEDICAL MEDICAL AUTO&AUTO MANUEL JACKSON DIFRNTL WBC RADEX 62786 [facility] SH[facility] 6 URBANO COMPLETE RADIOLOGY MINIMUM 2 ASSOCIAT VIEWS RADEX 77888 DENNYS NOYOLA FOOT 6 MEM HOS[facility]OSP COMPLETE INC INC MINIMUM 3 VIEWS O2 CONC 1 E1390 NEETA SANTACRUZ DEL PORT 6 HOME HOME 85%/>02 MEDICAL MEDICAL CONC AT EQUIPME EQUIPME PRSC FLW RATE PRTBLE E0431 NEETA SANTACRUZ GASEOUS 6 HOME HOME O2 SYS MEDICAL MEDICAL RENT; EQUIPME EQUIPME FLWMTR HUMIDFR&M ASK INJECTION J1940 YANET HOLT [address] [place] [address] HOSPITAL E UP TO 20 MG INJ J2920 COOKIESUNNY YANET METHYLPRD [address] [place] [address] SODIUM SUCCNAT TO 40 MG UNCLASSIF J3490 YANET HOLT IED DRUGS [address] [place] [address] BLOOD 80438 COOKIESUNNY YANET COUNT [address] [place] [address] HOSPITAL AUTO&AUTO DIFRNTL WBC THROMBOPL 02086 YANET HOLT ASTIN [address] [place] [address] PARTIAL PLASMA/WH OLE BLOOD NONCOVERE [id number] COOKIESUNNY YANET D ITEM OR 6 [facility] GLUC BLD 48727 COOKIESUNNY YANET GLUC MNTR 6 [facility] CLEARED FDA SPEC HOME USE COLLECTIO 04725 COOKIESUNNY YANET N VENOUS [address] [place] [address] VENIPUNCT URE COMPREHEN 73400 COOKIESUNNY COOKIESUNNY SIVE [address] [place] [address] PANEL ONDANSETR Q0162 YANET HOLT ON [address] [place] [address] [facility] HOSPITAL EXCEED 48 HR DOSE REG INJECTION J1815 [facility] INSULIN [address] [place] [address] PER 5 HOSPITAL HOSPITAL UNITS INJECTION J2550 [address] HOSPITAL INE HCL UP TO 50 MG PROTHROMB 00373 [facility] IN TIME 6 [facility] HOSPITAL G0378 [facility] OBSERVATI 6 [facility] HOSPITAL SERVICE PER HOUR RADIOLOGI 63564 [place] [place] SCALF URBANO C 6 RADIOLOGY EXAMINATI ON CHEST [place] FRONTAL ECG 47528 [facility] ROUTINE 6 [facility] HOSPITAL W/LEAST 12 LDS TRCG ONLY W/O I&R COMPREHEN 91779 [facility] SIVE [address] [place] [address] HOSPITAL PANEL CREATINE 28805 [facility] KINASE MB 6 [facility] HOSPITAL ONLY THER 93512 [facility] PROPH/DX 6 [facility][1]X IV [facility] HOSPITAL PUSH SINGLE/1S T SBST/DRUG NATRIURET 82498 [facility] IC [address] [place] [address] HOSPITAL MYOGLOBIN [address] HOSPITAL COLLECTIO 74582 [facility] N VENOUS [address] [place] [address] HOSPITAL VENIPUNCT URE CREATINE 00062 [facility] KINASE [address] [place] [address] [facility] NONINVASI 27607 [facility] VE [address] [place] [address] EAR/PULSE HOSPITAL HOSPITAL OXIMETRY SINGLE DETER GLUC BLD 25699 [facility] GLUC MNTR [address] [place] [address] HOSPITAL CLEARED FDA SPEC HOME USE NONCOVERE [id number] [facility] D ITEM OR 6 [facility] BLOOD 34840 [facility] COUNT [address] [place] [address] HOSPITAL AUTO&AUTO DIFRNTL WBC INJECTION J1940 [address] [facility] E UP TO 20 [place] [address] [facility] THYROID [address] [place] [address] [facility] [place] [address] [facility] TROPONIN 6 [facility] RANDY INJECTION J[address] [facility] E UP TO 20 MG BLOOD 39688 [facility] COUNT 6 [facility] H[facility]PITAL AUTO&AUTO DIFRNTL WBC NONCOVERE A9270 [facility] D ITEM OR 6 [facility] GLUC BLD 76958 [facility] GLUC MNTR 6 [facility] CLEARED FDA SPEC HOME USE PRESSURIZ 84204 [facility] ED/NONPRE [address] [place] [address] HOSP[place] [address] [facility] MAGNESIUM [address] [place] [address] HOSPITAL COLLECTIO 56606 [facility] N VENOUS [address] [place] [address] HOSPITAL VENIPUNCT URE BASIC 45220 [facility] METABOLIC [address] [place] [address] HOSPITAL CALCIUM TOTAL INJECTION J1815 [facility] INSULIN 6 [facility] PER 5 HOSPITAL HOSPITAL UNITS INJECTION J[address]75 [address] HOSPITAL HOSPITAL SULPHATE PER 500 MG INJECTION J1650 [address] [facility] N SODIUM 10 MG INJECTION J2270 [facility] MORPHINE [address] [place] [address] [facility] UP TO 10 MG INJECTION J2270 [facility] MORPHINE [address] [place] [address] [facility] UP TO 10 MG INJECTION J16[address] [facility] N SODIUM 10 MG INJECTION J3475 [address] HOSPITAL HOSPITAL SULPHATE PER 500 MG INJECTION J1815 [facility] INSULIN 6 [facility] PER 5 HOSPITAL HOSPITAL UNITS BASIC 28096 [facility] METABOLIC [address] [place] [address] HOSPITAL CALCIUM TOTAL COLLECTIO 46734 [facility] N VENOUS [address] [place] [address] [place] [address] YANET HOLT MAGNESIUM [address] [place] [address] HOSPITAL HEMOGLOBI 02423 YANET HOLT N [address] [place] [address] HOSPITAL KAMILAH A1C PRESSURIZ 43191 YANET HOLT ED/NONPRE [address] [place] [address] HOSPITAL INHALATIO N TREATMENT GLUC BLD 08486 YANET HOLT GLUC MNTR [address] [place] [address] HOSPITAL CLEARED FDA SPEC HOME USE NONCOVERE [id number] YANET HOLT D ITEM OR 6 [facility]PITAL BLOOD 60785 YANET HOLT COUNT [address] [place] [address] HOSPITAL AUTO&AUTO DIFRNTL WBC INJECTION J1940 YANET HOLT [address] [place] [address] HOSPITAL E UP TO 20 MG INJECTION J1940 YANET HOLT [address] [place] [address] HOSPITAL E UP TO 20 MG BLOOD 32725 YANET HOLT COUNT [address] [place] [address] HOSPITAL AUTO&AUTO DIFRNTL WBC NONCOVERE A9270 YANET HOLT D ITEM OR 6 [facility] GLUC BLD 44628 YANET HOLT GLUC MNTR [address] [place] [address] HOSPITAL CLEARED FDA SPEC HOME USE RADIOLOGI 23921 [place] INDIRA C EXAM 6 RADIOLOGY RHO CHEST 2 VIEWS FRONTAL&L ATERAL PRESSURIZ 17841 YANET HOLT ED/NONPRE [address] [place] [address] HOSPITAL INHALATIO N TREATMENT NONINVASI 23504 YANET HOLT VE [address] [place] [address]/[facility] OXIMETRY SINGLE DETER THER 65859 YANET HOLT PROPH/DX [address] [place] [address] HOSPITAL PUSH SINGLE/1S T SBST/DRUG NATRIURET 05799 YANET HOLT IC [address] [place] [address] HOSPITAL COLLECTIO 32202 YANET HOLT N VENOUS [address] [place] [address] HOSPITAL VENIPUNCT URE BASIC 11242 [facility] METABOLIC 6 [facility] CALCIUM TOTAL ECG 52292 [facility] ROUTINE [address] [place] [address] ECG HOSPITAL HOSPITAL W/LEAST 12 LDS TRCG ONLY W/O I&R INJECTION J1815 [facility] INSULIN [address] [place] [address] PER 5 HOSPITAL HOSPITAL UNITS HOSPITAL G0378 [facility] [address] [place] [address] ON HOSPITAL HOSPITAL SERVICE PER HOUR INJECTION J2270 [facility] MORPHINE 6 [facility] UP TO 10 MG INJECTION J2270 [facility] MORPHINE 6 [facility] UP TO 10 MG INJECTION J1650 [address] [facility] N SODIUM 10 MG HOSPITAL G0378 [facility] [address] ON HOSPITAL HOSPITAL SERVICE PER HOUR INJECTION J1815 [facility] INSULIN [address] [place] [address] PER 5 HOSPITAL HOSPITAL UNITS INJECTION J[address] HOSPITAL ON HCL PER 1 MG BASIC 65806 [facility] METABOLIC [address] [place] [address] HOSPITAL CALCIUM TOTAL PRESSURIZ 59060 [facility] ED/NONPRE [address] [place] [address] [facility] INHALATIO N TREATMENT NONINVASI 89940 [facility] VE [address] [place] [address] EAR/PULSE HOSPITAL HOSPITAL OXIMETRY SINGLE DETER INITIAL 47825 H[place] [place] [address] MEDICINE ON SERVICES CARE/DAY O 70 MINUTES GLUC BLD 21443 [facility] GLUC MNTR 6 [facility] CLEARED FDA SPEC HOME USE NONCOVERE A9270 [facility] D ITEM OR 6 [facility] BLOOD 43734 [facility] COUNT [address] [place] [address] HOSPITAL AUTO&AUTO DIFRNTL WBC INJECTION J[address] [facility] E UP TO 20 MG INJECTION J1940 [facility] E UP TO 20 [place] [address] YANET HOLT TROPONIN 6 [facility] R[facility]Y BLOOD 92462 YANET HOLT COUNT [address] [place] [address] HOSPITAL AUTO&AUTO DIFRNTL WBC GLUC BLD 52959 YANET HOLT GLUC MNTR 6 [facility] CLEARED FDA SPEC HOME USE THERAPEUT 06754 YANET HOLT IC [address] [place] [address] INJECTION [facility] IV PUSH EACH NEW DRUG CREATINE 37626 YANET HOLT KINASE [address] [place] [address] TOTAL [facility] COLLECTIO 96570 YANET HOLT N VENOUS [address] [place] [address] HOSPITAL VENIPUNCT URE THER 04144 YANET HOLT PROPH/DX [address] [place] [address] IV [facility] PUSH SINGLE/1S T SBST/DRUG CREATINE 06209 YANET HOLT KINASE MB 6 [facility] HOSPITAL ONLY COMPREHEN 87757 YANET HOLT SIVE [address] [place] [address] METABOLIC [facility] PANEL NATRIURET 45045 YANET HOLT IC [address] [place] [address] HOSPITAL HOSPITAL THER 36245 YANET HOLT PROPH/DX [address] [place] [address] HOSPITAL HOSPITAL SEQL IV PUSH SBST/DRUG FAC ECG 74440 YANET HOLT ROUTINE [address] [place] [address] HOSPITAL W/LEAST 12 LDS TRCG ONLY W/O I&R INJECTION J1815 YANET HOLT INSULIN [address] [place] [address] 5 HOSPITAL HOSPITAL UNITS RADIOLOGI 16883 YANET HOLT C [address] [place] [address] EXAMINATI [facility] ON CHEST [place] FRONTAL INJECTION J2270 YANET HOLT MORPHINE [address] [place] [address] SULFATE [facility] UP TO 10 MG INSJ TEMP 62210 YANET HOLT NDWELLG [address] [place] [address] BLADDER [facility] CATHETER SIMPLE POLYSOM 56602 [facility] 6/>YRS 6 [facility] W/CPAP 4/> ADDL DREW ATTND RADIOLOGI 06706 TIM HEILIG C 6 ORTHOPEDI IVELISSE EXAMINATI C ON KNEE ASSOCIAT 1/2 VIEWS RADIOLOGI 85212 [facility] [place] МАРИЯ C 6 RADIOLOGY RAY EXAMINATI ON CHEST [place] FRONTAL INJECTION J[address] MAGNESIUM ROBERTO ROBERTO SULPHATE PER 500 MG ECG 04936 [facility] ROUTINE 6 [facility] ECG ROBERTO ROBERTO W/LEAST 12 LDS TRCG ONLY W/O I&R INJECTION J2270 [facility] MORPHINE 6 [facility] SULFATE ROBERTO ROBERTO UP TO 10 MG FEDERALLY G0467 ROBERTO ROBERTO 6 [facility] VISIT ESTAB PT FIBRIN 34614 [facility] DGRADJ 6 [facility] PRODUCTS ROBERTO ROBERTO D-DIMER QUANTITAT RANDY NATRIURET 91608 [facility] IC 6 [facility] PEPTIDE ROBERTO ROBERTO URNLS DIP [address] STICK/TAB ROBERTO ROBERTO LET RGNT AUTO W/[place] [address] [facility] MAGNESIUM 6 [facility] ROBERTO ROBERTO COLLECTIO 10654 [facility] N VENOUS 6 [facility] BLOOD ROBERTO ROBERTO VENIPUNCT URE COMPREHEN 49316 [facility] SIVE 6 [facility] METABOLIC ROBERTO ROBERTO PANEL THERAPEUT 49733 [facility] IC 6 [facility] INJECTION ROBERTO [place] [address] [facility] INFUSION 6 [facility] THERAPY/P ROBERTO ROBERTO ROPHYLAXI S /DX 1ST TO 1 HR GASES 18354 [facility] BLOOD PH 6 [facility] DIRECT ROBERTO ROBERTO JENNIFER XCPT PULSE OXIMITRY ARTERIAL 58580 [facility] PUNCTURE 6 [facility] [place] [address] CNTR[facility] SAM HSIEH ANGIOGRAP 6 RADIOLOGY RAY HY CHEST W/CONTRAS T/NONCONT RAST BLOOD 58524 [facility] COUNT 6 [facility] COMPLETE ROBERTO ROBERTO AUTO&[place] [address] [facility] TROPONIN 6 [facility] QUANTITAT ROBERTO ROBERTO RANDY LOCM Q9967 [facility] [phone] 6 [facility] MG/ML [facility] IODINE CONCENTRA TION PER ML O2 CONC 1 E1390 NEETA SANTACRUZ DEL PORT 6 HOME HOME 85%/>02 MEDICAL MEDICAL CONC AT EQUIPME EQUIPME PRSC FLW RATE INFUSION J7050 [facility] NORMAL [address] [place] [address] HOSPITAL SOLUTION 250 CC INJECTION J1940 [facility] [address] HOSPITAL E UP TO 20 MG BLOOD 63753 [facility] COUNT [address] [place] [address] AUTO&AUTO DIFRNTL WBC NONCOVERE A9270 [facility] D ITEM OR 6 [facility]PITAL PRESSURIZ 74051 [facility] ED/NONPRE [address] [place] [address] HOSPITAL INHALATIO N TREATMENT COLLECTIO 35223 [facility] N VENOUS [address] [place] [address] HOSPITAL VENIPUNCT URE COMPREHEN 51733 [facility] SIVE [address] [place] [address] HOSPITAL PANEL GLUC BLD 14182 [facility] GLUC MNTR 6 [facility] CLEARED FDA SPEC HOME USE INJECTION J1650 [facility] [address] [place] [address] ENOXAPARI [facility] N SODIUM 10 MG INJECTION J2270 [facility] MORPHINE [address] [place] [address] HOSPITAL UP TO 10 MG INJECTION J1815 [facility] INSULIN [address] [place] [address] PER 5 HOSPITAL HOSPITAL UNITS INJECTION J1815 [facility] INSULIN [address] [place] [address] PER 5 HOSPITAL HOSPITAL UNITS HOSPITAL G0378 [facility] OBSERVATI [address] [place] [address] ON HOSPITAL HOSPITAL SERVICE PER HOUR INJECTION J2270 [facility] MORPHINE [address] [place] [address] HOSPITAL UP TO 10 MG INSJ TEMP 51348 [facility] NDWELLG [address] [place] [address] BLADDER [facility] CATHETER SIMPLE SEDIMENTA 15104 [facility] TION RATE [address] [place] [address] [facility] HOSPITAL NON-AUTOM ATED NATRIURET 93669 [facility] IC [address] [place] [address] PEPTIDE [facility] GLUC BLD 07713 [facility] GLUC MNTR [address] [place] [address] DEV [facility] CLEARED FDA SPEC HOME USE COMPREHEN 08861 [facility] SIVE [address] [place] [address] METABOLIC [facility] PANEL PRESSURIZ 66963 [facility] ED/NONPRE [address] [place] [address] HOSPITAL INHALATIO N TREATMENT NONINVASI 57119 [facility] VE [address] [place] [address] EAR/PULSE [facility]PITAL OXIMETRY SINGLE DETER NONCOVERE A9270 [facility] D ITEM OR [address] [place] [address] HOSPITAL RADIOLOGI 54710 [facility] C EXAM [address] [place] [address] CHEST 2 [facility] VIEWS FRONTAL&L ATERAL BLOOD 16415 [facility] COUNT [address] [place] [address] HOSPITAL AUTO&AUTO DIFRNTL WBC INJECTION J1940 [address] [facility] E UP TO 20 MG INFUSION J7050 [facility] NORMAL [address] [place] [address] SALINE [facility] SOLUTION 250 CC PRTBLE E0431 NEETA SHASHY GASEOUS 6 HOME MICHAEL O2 SYS MEDICAL RENT; EQUIPME [facility] HUMIDFR&M ASK ARTHROCEN 53329 [place] DEANDRE NICOLASA 6 ORTHOPEDI ASPIR&/IN C J MAJOR ASSOCIAT JT/BURSA W/O US RADIOLOGI 84562 [facility] C 6 ORTHOPEDI ORTHOPEDI EXAMINATI C C ON KNEE ASSOCIAT ASSOCIAT 1/2 VIEWS INITIAL [address] BEVERLY CARE/DAY PHYSICIAN 70 PRA MINUTES ASSISTANC [id number] CHRISTOPHER Fontenot [address] [place] [address] RESPIRATO MEDICAL MEDICAL RY VENT < CENTE CENTE 24 CONSEC HR CPAP CRITICAL 32656 [facility] 6 [place]/INJUR EMERGENCY ED PHYSI PATIENT INIT 30-74 MIN RADIOLOGI 08376 SAM FARIASIRA C 6 MEDICAL STEEVN EXAMINATI SERV YAMINI ON TIBIA FOUNDATIO & FIBULA N 2 VIEWS RADIOLOGI 33800 SAM FARIASIRA C 6 MEDICAL STEVEN EXAMINATI [...] AT EQUIPME EQUIPME PRSC FLW RATE RADIOLOGI 59650 TIM EITAN C 6 ORTHOPEDI R EXAMINATI C ON KNEE ASSOCIAT 1/2 VIEWS DUP-SCAN 75363 [facility] AMIN AMIN [facility] XTR VEINS 6 MD CONSULTIN UNILATERA G SRV L/LIMITED STUDY ECHO 01551 [facility] AMIN AMIN [place] TTHRC R-T 6 2D CONSULTIN W/WOM-MOD G SRV E COMPL SPEC&COLR D PRTBLE E0431 NEETA BOBRELL GASEOUS 6 HOME HOME O2 SYS MEDICAL MEDICAL RENT; EQUIPME EQUIPME FLWMTR HUMIDFR&M ASK DRAINAGE [id number] [place] [facility] BLADDER 6 [facility] DEVICE IRENA/ART OPENING RADIOLOGI 76724 [facility] [place] SCALF URBANO C EXAM 6 RADIOLOGY CHEST 2 VIEWS FRONTAL&L ATERAL RADIOLOGI 49401 [facility] [place] [facility] 6 RADIOLOGY EXAMINATI ON CHEST SINGLE VIEW FRONTAL NURSING 19518 [facility] 6 [facility] DISCHARGE CARE MANAGEMEN T 30 MINUTES INITIAL [address] [place] [address] [facility] FACILITY CARE CARE/DAY 35 MINUTES SBSQ 05476 [facility] 6 REGIONAL CARE/DAY PHYSICIAN 35 PRA MINUTES SBSQ [phone] CARE/DAY PHYSICIAN 35 PRA MINUTES TRANSFUSI [id number] [facility]RISTOPHER WHITE ON 6 [facility] NONAUTO MEDICAL MEDICAL RED BLD CENTE CENTE CELLS PERIPH VN PERQ ASSISTANC [id number] [facility] WHITE E 6 [facility] RESPIRATO MEDICAL MEDICAL RY VENT < CENTE CENTE 24 CONSEC HR CPAP SBSQ [id number] CARE/DAY PHYSICIAN 35 PRA MINUTES INJECTION 24414 [facility] CARRANZA SARAH 6 LTH ANESTHETI ANESTHESI C AGENT A PSC FEMORAL NERVE [facility] [address] [facility] 6 MEDICAL NAN DAY SERV MANAGEMEN FOUNDATIO T 30 N MIN/< AMBULANCE [id number] [facility] SERVICE 6 AMBULANCE AMBULANCE BLS SERV 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 SERV 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 NONEMERGE R R [place]Y TRANSPORT [place]J TOT 69355 [place] [facility] 6 ORTHOPEDI IVELISSE ARTHRP C FEM&ENTIR ASSOCIAT E TIBIAL COMPONE INITIAL [id number] [place] CARE/DAY PHYSICIAN 50 PRA MINUTES GROUND A0425 [facility] MILEAGE 6 AMBULANCE AMBULANCE PER SERV 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 SERV 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 STATUTE R R MILE REMOVAL [id number] CHRISTOPHER WHITE SPACER 6 REGIONAL [facility] FROM LT MEDICAL MEDICAL KNEE CENTE CENTE JOINT OPEN APPROACH REPLACE [id number] CHRISTOPHER WHITE LT KNEE 6 [facility] JOINT MEDICAL MEDICAL SYNTH [facility] SUBST CEMENTED OPEN SBSQ 47060 [place] [address] MEDICAL NAN CARE/DAY SERV 25 FOUNDATIO MINUTES N SBSQ 59419 [place] [address] MEDICAL NAN CARE/DAY SERV 25 FOUNDATIO MINUTES N SBSQ 57555 [place] [address] MEDICAL NAN CARE/DAY SERV 25 FOUNDATIO MINUTES N PROTHROMB 57323 CHRISTOPHER WHITE IN TIME 6 [facility] MEDICAL MEDICAL CENTE CENTE SEDIMENTA 71343 CHRISTOPHER WHITE TION RATE 6 REGIONAL REGIONAL RBC MEDICAL MEDICAL NON-AUTOM CENTE CENTE ATED SBSQ 44407 [facility] 6 MEDICAL NAN CARE/DAY SERV 25 FOUNDATIO MINUTES N BASIC 24168 [facility] WHITE METABOLIC 6 REGIONAL REGIONAL PANEL MEDICAL MEDICAL CALCIUM CENTE CENTE TOTAL COLLECTIO 72724 [facility] WHITE N VENOUS 6 REGIONAL REGIONAL BLOOD MEDICAL MEDICAL VENIPUNCT CENTE CENTE URE BLOOD 24708 [facility] WHITE TYPING 6 REGIONAL REGIONAL SEROLOGIC MEDICAL MEDICAL RH (D) CENTE CENTE THROMBOPL 08621 [facility] WHITE ASTIN 6 REGIONAL REGIONAL TIME MEDICAL MEDICAL PARTIAL CENTE CENTE PLASMA/WH OLE BLOOD BLOOD 06003 CHRISTOP[facility] WHITE COUNT 6 REGIONAL REGIONAL COMPLETE MEDICAL MEDICAL AUTOMATED CENTE CENTE C-REACTIV 23285 CHRISTOPHER WHITE E PROTEIN 6 REGIONAL REGIONAL MEDICAL MEDICAL CENTE CENTE ANTIBODY 38540 CHRISTOP[facility] WHITE SCREEN 6 REGIONAL REGIONAL RBC EACH MEDICAL MEDICAL SERUM CENTE CENTE TECHNIQUE BLOOD 12674 CHRISTOPHER WHITE TYPING 6 REGIONAL REGIONAL SEROLOGIC MEDICAL MEDICAL ABO CENTE CENTE GONADOTRO 51762 CHRISTOPHER WHITE PIN 6 REGIONAL REGIONAL CHORIONIC MEDICAL MEDICAL CENTE CENTE QUALITATI VE SBSQ 95832 [facility] 6 MEDICAL NAN CARE/DAY SERV 25 FOUNDATIO MINUTES N SBSQ 63395 [facility] 6 MEDICAL NAN CARE/DAY SERV 25 FOUNDATIO MINUTES N SBSQ [address]6562 [place] [address] MEDICAL NAN CARE/DAY SERV 25 FOUNDATIO MINUTES N SBSQ 90509 [place] [address] MEDICAL NAN CARE/DAY SERV 25 FOUNDATIO MINUTES N SBSQ 37853 [place] [address] MEDICAL ELOISE CARE/DAY SERV 25 FOUNDATIO MINUTES N SBSQ 25453 [place] [address] MEDICAL ELOISE CARE/DAY SERV 25 FOUNDATIO MINUTES N SBSQ 05808 [place] [address] MEDICAL NAN CARE/DAY SERV 25 FOUNDATIO MINUTES N O2 CONC 1 E1390 NEETA SANTACRUZ DEL PORT 6 HOME HOME 85%/>02 MEDICAL MEDICAL CONC AT EQUIPME EQUIPME PRSC FLW RATE PRTBLE E0431 NEETA SANTACRUZ GASEOUS 6 HOME HOME O2 SYS MEDICAL MEDICAL RENT; EQUIPME EQUIPME FLWMTR HUMIDFR&M ASK SBSQ 15671 [place] [address] MEDICAL NAN CARE/DAY SERV 25 FOUNDATIO MINUTES N SBSQ 22405 [place] [address] MEDICAL NAN CARE/DAY SERV 25 FOUNDATIO MINUTES N ECHO 38586 RALPH RALPH TTHRC R-T 6 KIMANI KIMANI 2D W/WOM-MOD E COMPL SPEC&COLR D SBSQ 03679 [place] [address] MEDICAL NAN CARE/DAY SERV 25 FOUNDATIO MINUTES N SBSQ 04429 [place] [address] MEDICAL NAN CARE/DAY SERV 25 FOUNDATIO MINUTES N SBSQ 98135 [place] [address] MEDICAL DOMONIQUE CARE/DAY SERV 25 FOUNDATIO MINUTES N SBSQ 31796 [place] [address] MEDICAL DOMONIQUE CARE/DAY SERV 25 FOUNDATIO MINUTES N SBSQ 89532 [place] [address] MEDICAL NAN CARE/DAY SERV 25 FOUNDATIO MINUTES N SBSQ 42264 [place] [address] MEDICAL NAN CARE/DAY SERV 25 FOUNDATIO MINUTES N SBSQ 38698 [place] [address] MEDICAL NAN CARE/DAY SERV 25 FOUNDATIO MINUTES N SBSQ 92448 [place] [address] MEDICAL NAN CARE/DAY SERV 25 FOUNDATIO MINUTES N SBSQ 09695 [place] [address] ANTONELLA CARE/DAY INFECTIOU 25 S DISEASE MINUTES SBSQ 10607 [place] [address] MEDICAL ELOISE CARE/DAY SERV 25 FOUNDATIO MINUTES N SBSQ 08463 [place] [address] MEDICAL ELOISE CARE/DAY SERV 25 FOUNDATIO MINUTES N SBSQ 98134 [place] [address] MEDICAL NAN CARE/DAY SERV 25 FOUNDATIO MINUTES N SBSQ 35478 [place] [address] ANTONELLA CARE/DAY INFECTIOU 15 S DISEASE MINUTES RADIOLOGI 46564 [place] [address] RADIOLOGY AFSHAN EXAMINATI ON CHEST SINGLE VIEW FRONTAL SBSQ 08561 [place] [address] MEDICAL NAN CARE/DAY SERV 25 FOUNDATIO MINUTES N SBSQ 38192 [facility] 6 ANTONELLA CARE/DAY INFECTIOU 15 S DISEASE MINUTES SBSQ 18414 [place] [address] MEDICAL NAN CARE/DAY SERV 25 FOUNDATIO MINUTES N SBSQ 49625 [place] [address] MEDICAL NAN CARE/DAY SERV 25 FOUNDATIO MINUTES N SBSQ 39348 [place] [address] MEDICAL NAN CARE/DAY SERV 25 FOUNDATIO MINUTES N SBSQ 90840 [place] [address] MEDICAL KIMBER CARE/DAY SERV 25 FOUNDATIO MINUTES N SBSQ 92071 [place] [address] MEDICAL KIMBER CARE/DAY SERV 25 FOUNDATIO MINUTES N SBSQ 51254 [place] [address] MEDICAL NAN CARE/DAY SERV 25 FOUNDATIO MINUTES N SBSQ 18756 [place] [address] MEDICAL NAN CARE/DAY SERV 25 FOUNDATIO MINUTES N SBSQ 06938 [place] [address] MEDICAL DOMONIQUE CARE/DAY SERV 25 FOUNDATIO MINUTES N SBSQ 72760 [place] [address] MEDICAL NAN CARE/DAY SERV 25 FOUNDATIO MINUTES N SBSQ 95031 [place] [address] MEDICAL NAN CARE/DAY SERV 25 FOUNDATIO MINUTES N SBSQ 29960 [place] [address] MEDICAL DOMONIQUE CARE/DAY SERV 25 FOUNDATIO MINUTES N SBSQ 81219 [place] [address] MEDICAL DOMONIQUE CARE/DAY SERV 25 FOUNDATIO MINUTES N SBSQ 04012 [place] [address] MEDICAL NAN CARE/DAY SERV 25 FOUNDATIO MINUTES N RADIOLOGI 16480 [facility] 6 RADIOLOGY AFSHAN EXAMINATI ON CHEST SINGLE VIEW FRONTAL AMBULANCE A0428 TURKMEN TURKMEN SERVICE 6 MEDICAL MEDICAL BLS RESPONSE RESPONSE NONEMERGE NCY TRANSPORT GROUND A0425 TURKMEN TURKMEN MILEA 6 MEDICAL MEDICAL PER RESPONSE RESPONSE STATUTE MILE INITIAL 69693 [place] [address] MEDICAL NAN CARE/DAY SERV [address] [place] [address] [place] LUCIE EXTREMITY 6 MEDICAL FRA SERV W/CONTRAS FOUNDATIO T N MATERIAL SBSQ 57696 [place] [address] HEALTH DYLAN CARE/DAY MEDICAL 35 GROUP MINUTES SBSQ 02933 [place] [address] HEALTH DYLAN CARE/DAY MEDICAL 35 GROUP MINUTES SBSQ 82202 [place] [address] HEALTH DYLAN CARE/DAY MEDICAL 35 GROUP MINUTES CRITICAL 24379 [facility] 6 HEALTH ILL/INJUR MEDICAL ED GROUP PATIENT INIT 30-74 MIN SBSQ 51022 [place] [address] HEALTH RENÉ CARE/DAY MEDICAL 25 GROUP MINUTES SBSQ 29420 [place] [address] HEALTH RENÉ CARE/DAY MEDICAL 25 GROUP MINUTES SBSQ 41548 [place] [address] HEALTH RENÉ CARE/DAY MEDICAL 25 GROUP MINUTES GROUND A0425 TURKMEN TURKMEN MILEA 6 MEDICAL MEDICAL PER RESPONSE RESPONSE STATUTE MILE RADIOLOGI 33261 [place] YOVANY C 6 MEDICAL AYA MAR EXAMINATI SERV ON CHEST FOUNDATIO SINGLE N VIEW FRONTAL RADEX 24859 [place] VEE ABDOMEN 1 6 MEDICAL COLETTE SERV ANTEROPOS FOUNDATIO TERIOR N VIEW CRITICAL 81526 [facility] 6 HEALTH ILL/INJUR MEDICAL ED GROUP PATIENT INIT 30-74 MIN CRITICAL 56884 CHRISTOPHER KAUR [facility] 6 REGIONAL BEVER[place] ILL/INJUR PHYSICIAN ED PRA PATIENT INIT 30-74 MIN CRITICAL 48549 [facility] 6 REGIONAL B[place] ILL/INJUR PHYSICIAN ED PRA PATIENT INIT 30-74 MIN PRTBLE E0431 NEETA SANTACRUZ GASEOUS 6 HOME HOME O2 SYS MEDICAL MEDICAL RENT; EQUIPME EQUIPME FLWMTR HUMIDFR&M ASK O2 CONC 1 E1390 NEETA SANTACRUZ DEL PORT 6 HOME HOME 85%/>02 MEDICAL MEDICAL CONC AT EQUIPME EQUIPME PRSC FLW RATE SBSQ 13105 [facility] 6 REGIONAL CARE/DAY PHYSICIAN 35 PRA MINUTES CRITICAL 53793 CHRISTOPHER MYRICK [facility] 6 REGIONAL MARYELLEN ILL/INJUR PHYSICIAN ED PRA PATIENT INIT 30-74 MIN CRITICAL 90249 [facility] 6 REGIONAL MARYELLEN ILL/INJUR PHYSICIAN ED PRA PATIENT INIT 30-74 MIN CRITICAL 78411 [facility] 6 REGIONAL MARYELLEN ILL/INJUR PHYSICIAN ED PRA PATIENT ADDL 30 MIN SBSQ 64117 [facility] 6 REGIONAL MARYELLEN CARE/DAY PHYSICIAN 25 PRA MINUTES INITIAL 00244 [place] [address] REGIONAL MARYELLEN CARE/DAY PHYSICIAN 50 PRA MINUTES ANESTH 56818 FRED SIMPSON OPEN/SURG 5 LTH BEAU ARTHRS ANESTHESI TOTAL A PSC KNEE ARTHROPLA STY RMVL 59463 [facility] 5 ORTHOPEDI TOT KNEE C PROSTH ASSOCIAT MMA W/[place] [address] KRISTEN SHARMA, SURG 5 JR EDW PATHOLOGY PATHOLOGY GROSS [place] [address] KRISTEN SHARMA, SURG 5 JR EDW PATHOLOGY PATHOLOGY ASSOCIAT GROSS&IVELISSE ROSCOPIC EXAM DECALCIFI 33389 KRISTEN SHARMA, CATION 5 JR EDW PROCEDURE PATHOLOGY ASSOCIAT PRTBLE E0431 NEETA SANTACRUZ GASEOUS 5 HOME HOME O2 SYS MEDICAL MEDICAL RENT; EQUIPME EQUIPME FLWMTR HUMIDFR&M ASK O2 CONC 1 E1390 NEETA BOBRELL DEL [place] 5 HOME HOME 85%/>02 MEDICAL MEDICAL CONC AT EQUIPME EQUIPME [facility] FLW RATE FEDERALLY G0467 ROBERTO ROBERTO [employer] QUALIFIED [employer] [facility] IN [place] ECG [address] [facility] THO ROUTINE 5 NE HEALTH ECG MEDICAL W/LEAST G 12 LDS I&R ONLY O2 CONC 1 E1390 NEETA NEETA DEL PORT 5 HOME HOME 85%/>02 MEDICAL MEDICAL CONC AT EQUIPME EQUIPME PRSC FLW RATE PRTBLE E0431 NEETA SANTACRUZ GASEOUS 5 HOME HOME O2 SYS MEDICAL MEDICAL RENT; EQUIPME EQUIPME FLWMTR HUMIDFR&M ASK RADEX 37736 [facility] [place] SHERIN CH[facility] SHOULDER 5 RADIOLOGY COMPLETE MINIMUM 2 VIEWS FEDERALLY G0467 ROBERTO ROBERTO 5 HEALTH [facility] [facility] VISIT ESTAB PT BONE 72020 CHRISTOPHER CHRISTOPHER &/JOINT [address] [place] [address] [facility] SHER[place] CH[place] MAXILLOFA 5 RADIOLOGY CIAL W/[place] [address] [place] [facility] HEAD/BRAI 5 RADIOLOGY RADIOLOGY N W/O CONTRAST MATERIAL RADEX 28086 [facility] [place] WESTERFIE SINUSES 5 RADIOLOGY LD IV ALL PARANASAL COMPL MINIMUM 3 VIEWS RADIOLOGI 96360 [facility] HSIEH C EXAM 5 RADIOLOGY RAY CHEST 2 VIEWS FRONTAL&L ATERAL RADIOLOGI 47263 [facility] [place] RINA MAT C EXAM 5 RADIOLOGY KNEE COMPLETE 4/MORE VIEWS FEDERALLY G0467 ROBERTO ROBERTO 5 [employer] [facility] VISIT ESTAB PT OPHTH 40145 [facility] 5 GRE GRE XM&EVAL COMPRE NEW PT 1/> VST RADIOLOGI 56480 [facility] [place] SHERIN CHR C EXAM 5 [...] INC THERAPY ELEC PUMP STATION/P RTBLE DUP-SCAN 80588 [facility] XTR VEINS 5 EIDER BILL RADIOLOGY UNILATERA [...] E USED WITH SUCTION PUMP EACH RADIOLOGI 88030 ALEVISM ALEVISM C EXAM 4 [facility] CHEST 2 [facility] VIEWS FRONTAL&L ATERAL ECG 75355 ALEVISM ALEVISM ROUTINE 4 [facility] ECG [facility] W/LEAST 12 LDS TRCG ONLY W/O I&R I&D DEEP 47129 ALEVISM ALEVISM ABSC 4 [facility] BURSA/HEM [facility] ATOMA THIGH/KNE E REGION O2 CONC 1 E1390 NEETA SANTACRUZ DEL [place] 4 HOME HOME 85%/>02 MEDICAL MEDICAL CONC AT EQUIPME EQUIPME PRSC FLW RATE PRTBLE E0431 NEETA SANTACRUZ GASEOUS 4 HOME HOME O2 SYS MEDICAL MEDICAL RENT; EQUIPME EQUIPME FLWMTR HUMIDFR&M ASK NEBULIZER E0570 NEETA SANTACRUZ WITH 4 HOME HOME COMPRESSO MEDICAL MEDICAL [place] [address] ADVANCED KERSCHNER JOINT 4 PAIN & MAG [...] INC RIGID/FOL D ANY TYPE EA NURSING 32133 CHRISTOPHER LEARY AJ FACILITY 4 REGIONAL DISCHARGE MEDICAL CENTE MANAGEMEN T 30 MINUTES DUP-SCAN 30315 FOUNDATIO MCQUAIDE XTR VEINS 4 N JERRY RADIOLOGY UNILATERA GROUP P L/LIMITED STUDY INJECTION 15143 FRED MALDONADO JAYNA 4 [facility] ANESTHETI ANESTHESI C AGENT A PSC FEMORAL NERVE SINGLE NEBULIZER E0570 NEETA SANTACRUZ WITH 4 HOME HOME COMPRESSO MEDICAL MEDICAL R EQUIPME EQUIPME PRTBLE E0431 NEETA SANTACRUZ GASEOUS 4 HOME HOME O2 SYS MEDICAL MEDICAL RENT; EQUIPME EQUIPME FLWMTR HUMIDFR&M ASK O2 CONC 1 E1390 NEETA SANTACRUZ DEL PORT 4 HOME HOME 85%/>02 MEDICAL MEDICAL CONC AT EQUIPME EQUIPME PRSC FLW RATE ANTIBODY 98225 CHRISTOPHER WHITE SCREEN 4 REGIONAL REGIONAL RBC EACH MEDICAL MEDICAL SERUM CENTE CENTE TECHNIQUE ECG 95257 CHRISTOPHER MYRICK ROUTINE 4 REGIONAL MARYELLEN ECG MEDICAL W/LEAST CENTE 12 LDS I&R ONLY ECG 98266 CHRISTPOHER WHITE ROUTINE 4 REGIONAL REGIONAL ECG MEDICAL MEDICAL W/LEAST CENTE CENTE 12 LDS TRCG ONLY W/O I&R RADIOLOGI 86306 CHRISTOPHER WHITE C EXAM 4 REGIONAL REGIONAL CHEST 2 MEDICAL MEDICAL VIEWS CENTE CENTE FRONTAL&[place] [address] ADVANCED KERSCHNER JOINT 4 PAIN & MAG [...] COMPRESSO MEDICAL MEDICAL R EQUIPME EQUIPME RADIOLOGI 19837 MEADOWVIE MEADOWVIE C EXAM 4 W W KNEE REGIONAL REGIONAL COMPLETE MEDICAL MEDICAL 4/[place] VIEWS NJX 68120 ADVANCED KERSCHNER ANES&/STR 4 PAIN & MAG D W/IMG SPINE TFRML INSTIT EDRL LMBR/SAC EA LV CT THORAX 24269 HAMLIN RECINOS 4 JOHN W/CONTRAS RADIOLOGY T ASSOCIAT MATERIAL NEBULIZER E0570 NEETA SANTACRUZ WITH 4 HOME HOME COMPRESSO MEDICAL MEDICAL R EQUIPME EQUIPME O2 CONC 1 E1390 NEETA SANTACRUZ DEL PORT 4 HOME HOME 85%/>02 MEDICAL MEDICAL CONC AT EQUIPME EQUIPME PRSC FLW RATE PRTBLE E0431 NEETA SANTACRUZ GASEOUS 4 HOME HOME O2 SYS MEDICAL MEDICAL RENT; EQUIPME EQUIPME FLWMTR HUMIDFR&M ASK RADIOLOGI 40786 MEADOWVIE MEADOWVIE C EXAM 4 W W CHEST 2 REGIONAL REGIONAL VIEWS MEDICAL MEDICAL FRONTAL&L ATERAL NJX 75665 ADVANCED KERSCHNER ANES&/STR 4 PAIN & MAG [...] BLD EQUIPME EQUIPME GLU MON-50 MRI BRAIN 54380 [place] NOYOLA BRAIN 4 [facility] HOS[facility] MEM [...] RENT; EQUIPME EQUIPME FLWMTR HUMIDFR&[place] [address] [facility], [employer], HEAD/BRAI 4 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 N W/O NORRIS PISANO CONTRAST CO HOS [...] YOUR DISPENSIN 4 PHARMACY PHARMACY G FEE View and Chew INHALATIO N RX; PER 30 DAYS RADIOLOGI 24399 Scribz, Scribz, C EXAM 4 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 CHEST 2 NORRIS NORRIS VIEWS CO HOS CO HOS FRONTAL&L ATERAL ARTERIAL 93165 Scribz, [employer], PUNCTURE 4 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 WITHDRAWA NORRIS PISANO L BLOOD CO HOS CO HOS DX RADIOLOGI 31721 Scribz, Scribz, C EXAM 4 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 CHEST 2 NORRIS NORRIS VIEWS CO HOS CO HOS FRONTAL&L ATERAL RADEX 92701 Sc[employer], [employer], FOOT 4 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 COMPLETE NORRIS NORRIS MINIMUM 3 CO HOS CO HOS VIEWS PWR WC K0825 [facility] 2 4 MEDICAL MEDICAL [facility]EVY [facility] PT E E 301-450 LBS PWR WC K0825 REHAB REHAB GRP 2 3 MEDICAL MEDICAL HEVY [facility]UT[facility] E E 301-450 LBS PWR WC K0825 REHAB REHAB GRP 2 3 MEDICAL MEDICAL HEVY DUTY [facility] PT E E 301-450 LBS ECHO 70057 Scribz, Scribz, TTHRC R-T 3 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 2D NORRIS PISANO W/WOM-MOD CO HOS CO HOS E COMPL SPEC&COLR D BLD GLU A4253 NEETA SANTACRUZ TEST/REAG 3 HOME HOME T STRIPS MEDICAL MEDICAL HOME BLD EQUIPME EQUIPME GLU MON-50 RADIOLOGI 17266 MOSER MOSER C EXAM 3 URBANO URBANO CHEST 2 VIEWS FRONTAL&L ATERAL PWR WC K0825 REHAB REHAB GRP 2 3 MEDICAL MEDICAL HEVY DUTY OF OF [place]T ALIYA PISANO CHAIR PT E E 301-450 LBS RADEX 09594 JORJE RECINOS WRIST 3 [facility] COMPLETE MINIMUM 3 VIEWS RADEX ABD 84732 [facility], [facility], COMPL 3 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 AQT ABD NORRIS PISANO W/S/E/D CO HOS CO HOS VIEWS 1 VIEW CH RADIOLOGI 94188 MOSER MOSER C EXAM 3 URBANO URBANO CHEST 2 VIEWS FRONTAL&L ATERAL ECG 30863 AHMED ADN AHMED ADN ROUTINE 3 ECG W/LEAST 12 LDS I&R ONLY ECG 71765 AHMED ADN AHMED ADN ROUTINE 3 ECG W/LEAST 12 LDS I&R ONLY ECG 62458 AHMED ADN AHMED ADN ROUTINE 3 ECG W/LEAST 12 LDS I&R ONLY RADIOLOGI 89174 NAZ CHILDS C 3 EIDER BILL KHAN EXAMINATI ON CHEST SINGLE VIEW FRONTAL RADIOLOGI 76368 MOSER MOSER C EXAM 3 URBANO URBANO CHEST 2 VIEWS FRONTAL&L ATERAL RADIOLOGI 55254 MOSER MOSER C EXAM 3 URBANO URBANO CHEST 2 VIEWS FRONTAL&L ATERAL RADEX 41575 [facility], FOOT 3 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 COMPLETE NORRIS PISANO MINIMUM 3 CO HOS CO HOS VIEWS CONTINUOU E0601 NEETA SANTACRUZ S 3 HOME HOME POSITIVE MEDICAL MEDICAL AIRWAY EQUIPME EQUIPME PRESSURE DEVICE SPMTRY 26646 IWLSON WILSON W/VC 3 JAM JAM EXPIRATOR Y MATILDE W/WO MXML VOL VNTJ RADIOLOGI 78005 JORJE RECINOS C EXAM 3 [facility] CHEST 2 VIEWS FRONTAL&L ATERAL RADIOLOGI 77063 NAZ CHILDS C EXAM 3 EIDER BILL NGADER BILL CHEST 2 VIEWS FRONTAL&L ATERAL CONTINUOU E0601 NEETA BOBRELL S 3 HOME HOME POSITIVE MEDICAL MEDICAL AIRWAY EQUIPME EQUIPME PRESSURE DEVICE ECG 95393 BLOYD LUX BLOYD LUX ROUTINE 3 ECG W/LEAST 12 LDS I&R ONLY RADIOLOGI 60612 CHARLIE GUERRA C EXAM 3 SHA SHA CHEST 2 VIEWS FRONTAL&L ATERAL RADIOLOGI 65525 NAZ CHILDS C EXAM 3 EIDER BILL EISARAH BILL CHEST 2 VIEWS FRONTAL&L ATERAL RADIOLOGI 46234 HAMLIN RECINOS C EXAM 2 JOHN CHEST 2 RADIOLOGY VIEWS ASSOCIAT FRONTAL&L ATERAL CONTINUOU E0601 NEETA SANTACRUZ S 2 HOME HOME POSITIVE MEDICAL MEDICAL AIRWAY EQUIPME EQUIPME PRESSURE DEVICE RAD[facility]OLOGI 12946 [facility] JOHN CHEST 2 RADIOLOGY [...] EQUIPME EQUIPME PRESSURE DEVICE BLD GLU A4253 NETEA SANTACRUZ TEST/REAG 2 HOME HOME T STRIPS MEDICAL MEDICAL HOME BLD EQUIPME EQUIPME GLU MON-50 LANCETS A4259 NEETA SANTACRUZ PER BOX 2 HOME HOME OF 100 MEDICAL MEDICAL EQUIPME EQUIPME ALBUTEROL J7620 YOUR YOUR TO 2.5 2 PHARMACY PHARMACY MG & IPRATROPI UM BROM TO 0.5 [facility] 00018 AHMED ADN AHMED ADN DISCHARGE 2 DAY MANAGEMEN T 30 MIN/< HUMDIFIR E0562 NEETA SANTACRUZ HEATED 2 HOME HOME USED MEDICAL MEDICAL W/POS EQUIPME EQUIPME ARWAY PRESSURE DEVICE ECG 84571 AHMED ADN AHMED ADN ROUTINE 2 ECG W/LEAST 12 LDS TRCG ONLY W/O I&R RADIOLOGI 57669 [facility] EXAM 2 EISARAH BILL CHEST 2 RADIOLOGY VIEWS ASSOCIAT FRONTAL&L ATERAL RADIOLOGI 09824 HAMLIN JORJE C EXAM 2 JOHN CHEST 2 RADIOLOGY VIEWS ASSOCIAT FRONTAL&L ATERAL LANCETS A4259 NEETA SANTACRUZ PER BOX 2 HOME HOME OF 100 MEDICAL MEDICAL EQUIPME EQUIPME BLD GLU A4253 NEETA SANTACRUZ TEST/REAG 2 HOME HOME T STRIPS MEDICAL MEDICAL HOME BLD EQUIPME EQUIPME GLU SAT- RADIOLOGI 28244 [facility], [facility], C 2 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 EXAMINATI NORRIS PISANO ON KNEE CO HOS CO HOS 1/2 VIEWS LIPID 95469 [facility], [employer], PANEL 2 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 NORRIS NORRIS CO HOS CO HOS COMPREHEN 52729 [facility], [employer], SIVE 2 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 METABOLIC NORRIS PISANO PANEL CO HOS CO HOS HEMOGLOBI 24071 [facility], [employer], N 2 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 GLYCOSYLA NORRIS PISANO KAMILAH [place] [address] [facility] [employer], [facility], THYROID 2 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 STIMULATI NORRIS PISANO NG [place] [address] [facility], [employer], FREE 2 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 THYROXINE NORRIS OLGUINS CO HOS CO HOS BLOOD 60796 [facility], [employer], COUNT 2 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 COMPLETE NORRIS NORRIS AUTO&AUTO CO HOS CO HOS DIFRNTL [facility] 91349 STAN STAN DISCHARGE 2 DYLAN DYLAN DAY MANAGEMEN T 30 MIN/< RADIOLOGI 89953 [facility] [place] EARNEST C EXAM 2 RADIOLOGY III ANTONELLA CHEST 2 VIEWS FRONTAL&L ATERAL ECG 77526 ROBYN CARLSON ROUTINE 2 EMERGENCY EMERGENCY ECG SERVICES SERVICES W/LEAST 12 LDS I&R ONLY BLD GLU A4253 NEETA NEEAT TEST/REAG 2 HOME HOME T STRIPS MEDICAL MEDICAL HOME BLD EQUIPME EQUIPME GLU LANCETS A4259 NEETA NEETA PER BOX 2 HOME HOME OF 100 MEDICAL MEDICAL EQUIPME EQUIPME RADEX 26351 [place] MARIANGEL HAND 2 MEDICAL SILVINA MINIMUM 3 SERV VIEWS FOUNDATIO N POLYSOM 60478 THE HOOS R 6/>YRS 2 NEUROLOGY SLEEP GROUP PC W/CPAP 4/> ADDL DREW ATTND THERAPEUT 95125 Scribz, Scribz, IC 2 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 PROPHYLAC NORRIS NORRIS TIC/DX CO HOS CO HOS INJECTION SUBQ/IM INJECTION J1885 Scribz, [employer], 2 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 KETOROLAC NORRIS NORRIS CO HOS CO HOS TROMETHAM INE PER 15 MG RADIOLOGI 07074 [facility] C EXAM 2 EIDER BILL CHEST 2 RADIOLOGY VIEWS ASSOCIAT FRONTAL&L ATERAL BLD GLU A4253 NEETA NEETA TEST/REAG 2 HOME HOME T STRIPS MEDICAL MEDICAL HOME BLD EQUIPME EQUIPME GLU POLYSOM 90064 THE THE 6/>YRS 2 NEUROLOGY NEUROLOGY SLEEP 4/> GROUP PC GROUP PC ADDL DREW ATTND RADIOLOGI 82850 Sc[employer], [employer], C 2 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 EXAMINATI NORRIS PISANO ON KNEE 3 CO HOS CO HOS VIEWS CT THORAX 93821 [facility] NOYOLA 2 [facility] W/CONTRAS INC INC T MATERIAL 3D 33171 DENNYS NOYOLA RENDERING 2 [facility] INC INC W/INTERP& POSTPROC DIFF WORK STATION LOCM Q9967 DENNYS NOYOLA 300-399 2 MEM [facility] MG/ML INC INC IODINE CONCENTRA TION PER ML RADIOLOGI 42645 [facility] C EXAM 2 CHEST 2 RADIOLOGY RADIOLOGY VIEWS ASSOCIAT ASSOCIAT FRONTAL&L ATERAL BLD GLU A4253 NEETA NEETA TEST/REAG 2 HOME HOME T STRIPS MEDICAL MEDICAL HOME BLD EQUIPME EQUIPME GLU BLD GLU A4253 NEETA SANTACRUZ TEST/REAG 2 HOME HOME T STRIPS MEDICAL MEDICAL HOME BLD EQUIPME EQUIPME GLU RADIOLOGI 22868 [facility] C EXAM 2 CHEST 2 RADIOLOGY RADIOLOGY VIEWS ASSOCIAT ASSOCIAT FRONTAL&L ATERAL HOS BED E0303 NEETA ENETA HEVY DUTY 2 HOME HOME W/WT CAP MEDICAL MEDICAL >350 EQUIPME EQUIPME PDS</=TO 600 PDS OBSERVATI 61001 ROBYN PATTON ON/INPATI 1 EMERGENCY [facility] 55 MINUTES RADIOLOGI 33072 [place] [facility] C EXAM 1 RADIOLOGY RADIOLOGY CHEST 2 VIEWS FRONTAL&L ATERAL RADIOLOGI 01256 ROBYN GRAHAMBorsi BAB C 1 EMERGENCY EXAMINATI SERVICES ON CHEST SINGLE VIEW FRONTAL RADIOLOGI 20121 [facility] C EXAM 1 JOHN CHEST 2 RADIOLOGY VIEWS ASSOCIAT FRONTAL&L ATERAL HOS BED E0303 NEETA NEETA HEVY DUTY 1 HOME HOME W/WT CAP MEDICAL MEDICAL >350 EQUIPME EQUIPME PDS</=TO 600 PDS ECG 01338 QIANA AMIN AMIN QIANA ROUTINE 1 MD ECG CONSULTIN W/LEAST G SRV 12 LDS I&R ONLY OBSERVATI 72260 NORRIS WATERS ON CARE 1 COUNTY OSI DISCHARGE [facility] MANAGEMEN T RADIOLOGI 03232 [facility] C 1 EIDER BILL EXAMINATI RADIOLOGY ON CHEST ASSOCIAT SINGLE VIEW FRONTAL INITIAL 69423 NORRIS WATERS OBSERVATI 1 COUNTY OSI ON RURAL CARE/DAY HEALTH 50 MINUTES HOS BED E0303 NEETA NEETA HEVY DUTY 1 HOME HOME W/WT CAP MEDICAL MEDICAL >350 EQUIPME EQUIPME PDS</=TO 600 PDS DUP-SCAN 07859 [facility] RECINOS XTR VEINS 1 JOHN COMPLETE RADIOLOGY ASSOCIAT BILATERAL STUDY RADIOLOGI 29487 [facility] C EXAM 1 URBANO CHEST 2 RADIOLOGY VIEWS ASSOCIAT FRONTAL&[place] [address] [facility] STREPTOCO 1 CO CO [facility] GROUP A CUL BACT 23304 [facility] ANAEROBIC 1 CO [facility] METHS DEFINITIV E EA ISOL CUL BACT 54743 [facility] XCPT 1 CO [facility] BLOOD/STO OL AEROBIC ISOL RADIOLOGI 51046 [facility] JORJE C EXAM 1 JOHN CHEST 2 RADIOLOGY VIEWS ASSOCIAT FRONTAL&L ATERAL INITIAL 02455 [facility] 1 OSI OSI CARE/DAY 70 MINUTES HOS BED E0303 NEETA NEETA HEVY DUTY 1 HOME HOME W/WT CAP MEDICAL MEDICAL >350 EQUIPME EQUIPME PDS</=TO 600 PDS RADIOLOGI 21141 [facility] C EXAM 1 URBANO CHEST 2 RADIOLOGY VIEWS ASSOCIAT FRONTAL&[place] [address] [facility] 1 Y [facility] HOSPITAL PLACEMENT IMG S&I ARTHROCEN 13627 [facility] 1 Y Y ASPIR&/IN HOSPITAL HOSPITAL J MAJOR JT/BURSA W/O US HOS BED E0303 [facility] NEETA HEVY DUTY 1 HOME HOME W/WT CAP MEDICAL MEDICAL >350 EQUIPME EQUIPME PDS</=TO 600 PDS ECG 24155 QIANA AMIN AMIN QIANA ROUTINE 1 ECG CONSULTIN W/LEAST G SRV 12 LDS I&R ONLY INJECTION [id number] [facility] 1 OSI OSI METHYLPRE DNISOLONE ACETATE 40 MG PROTHROMB 07417 [facility] PISANO IN TIME 1 [facility] RADIOLOGI 63156 [facility] C 1 CO [facility] ON KNEE 3 VIEWS COLLECTIO 34387 [facility] PISANO N VENOUS 1 [facility] URE HOS BED E0303 NEETA NEETA HEVY DUTY 1 HOME HOME W/WT CAP MEDICAL MEDICAL >350 EQUIPME EQUIPME PDS</=TO 600 PDS RADIOLOGI 22815 [facility] KRISTYNBoris C EXAM 1 EIDER BILL CHEST 2 RADIOLOGY VIEWS ASSOCIAT FRONTAL&L ATERAL HOS BED E0303 [facility] HEVY DUTY 1 HOME HOME W/WT CAP MEDICAL MEDICAL >350 EQUIPME EQUIPME PDS</=TO 600 PDS HOS BED E0303 [facility] HEVY DUTY 1 HOME MED HOME MED W/WT CAP EQUIP. L EQUIP. L >350 PDS</=TO 600 PDS ECG 01406 QIANA AMIN AMIN QIANA ROUTINE 1 MD ECG CONSULTIN W/LEAST G SRV 12 [facility] [address] [facility] DISCHARGE 1 OSI OSI DAY MANAGEMEN T > 30 MIN SBSQ 51034 [facility] 1 OSI OSI CARE/DAY 35 MINUTES PRESSURIZ 31508 [facility]IS[facility]O ED/NONPRE 1 CO IN SSURIZED [facility] INHALATIO N TREATMENT INITIAL 44770 [facility] 1 OSI OSI CARE/DAY 70 [place] [address] [facility] P[facility] INFUSION 1 CO CO THERAPY/P [facility] ROPHYLAXI S /DX 1ST TO 1 HR COMPREHEN 72088 [facility] SIVE 1 CO CO METABOLIC [facility] PANEL RADIOLOGI 19671 [facility] EXAM 1 EISARAH BILL CHEST 2 RADIOLOGY VIEWS ASSOCIAT FRONTAL&L ATERAL PROTHROMB 50364 [facility] PISANO IN TIME 1 CO CO [facility] ECG 86020 [facility] PISANO ROUTINE 1 CO CO ECG [facility] W/LEAST 12 LDS TRCG ONLY W/O I&[place] [address] [facility] TROPONIN 1 CO [facility] RAND[facility] BLOOD 82768 [facility] COUNT 1 CO IN COMPLETE [facility] AUTO&[place] [address] [facility] TH[facility]ROID 1 [facility] STIMULATI [place] [address] [facility] THYROXINE 1 [facility] TOTAL INC INC PROTEIN 34610 [facility] ELECTROPH 1 [facility] ORETIC INC INC FRACTJ&[place] [address] [facility] THIAMINE- 1 [facility] VITAMIN INC INC B-1 COLLECTIO 79125 [facility] N [facility]ENOUS 1 [facility] HOSP BLOOD INC INC VENIPUNCT URE LIPID 22380 [place] NOYOLA PANEL 1 [facility] INC INC CYANOCOBA 59851 [place] NOY[place]A NATALEE 1 [facility] VITAMIN INC INC B-[address] [place] [address] [place] NOYOLA FOLIC 1 [facility] ACID INC INC SERUM HEMOGLOBI 66280 DENNYS NOYOLA N 1 [facility] GLYCOSYLA INC INC KAMILAH A1C HOS BED E0303 NEETA [employer] DUTY 1 HOME MED HOME MED W/WT CAP EQUIP. L EQUIP. L >350 PDS</=TO 600 PDS THERAPEUT 92361 VILLAFLOR VILLAFLOR IC 1 OSI OSI PROPHYLAC TIC/DX INJECTION SUBQ/IM INJECTION J1030 VILLAFLOR VILLAFLOR 1 OSI OSI METHYLPRE DNISOLONE ACETATE 40 MG NDL EMG 2 44413 LINARES LINARES XTR W/WO 1 JOHN LOPEZ RELATED PARASPINA L [place] NR[place] D 32464 LINARES LINARES AMPLT&LAT 1 JOHN LOPEZ ENCY EA NRV MOTOR W/F-WAVE STD NRV D 75746 LINARES LINARES AMPLITUDE 1 JOHN LOPEZ & LATENCY EACH NERVE SENSORY HOS BED E0303 NEETA [employer] Local DUTY 1 HOME MED HOME MED W/WT CAP EQUIP. L EQUIP. L >350 PDS</=TO 600 PDS DUP-SCAN 03224 JEWELL MOSER XTR VEINS 1 [facility] COMPLETE RADIOLOGY ASSOCIAT BILATERAL STUDY HOS BED E0303 NEETA [employer] DUTY 1 HOME MED HOME MED W/WT CAP EQUIP. L EQUIP. L >350 PDS</=TO 600 PDS GEL/GEL-L E0185 NEETA SANTACRUZ MARIVEL PRSS 1 HOME MED HOME MED PAD EQUIP. L EQUIP. L MATTRSS [facility] [address] [facility] DISCHARGE 1 OSI OSI DAY MANAGEMEN T > 30 MIN SBSQ 29914 [facility] 1 OSI OSI CARE/DAY 25 MINUTES SBSQ 25284 [facility] 1 OSI OSI CARE/DAY 35 MINUTES INITIAL 14779 [facility] 1 OSI OSI CARE/DAY 70 MINUTES RADIOLOGI 29022 [facility] C EXAM 1 URBANO CHEST 2 RADIOLOGY VIEWS ASSOCIAT FRONTAL&L ATERAL HOS BED E0303 [facility] DUTY 1 HOME MED HOME MED W/WT CAP EQUIP. L EQUIP. L >350 PDS</=TO 600 PDS ALBUTEROL J7620 INFUSION INFUSION TO 2.5 1 PARTNERS PARTNERS MG & OF OF IPRATROPI [place] UM BROM TO 0.5 MG PHRM Q0513 INFUSION INFUSION DISPENSIN 1 PARTNERS PARTNERS G FEE OF OF INHALATIO [place] N RX; PER 30 DAYS DRUG SCR G0434 [facility] NOT [address] [place] [address] CHROMATOG PAIN PAIN RAPHIC; MANAGE MANAGE ANY NUMBER PT ENC E-STIM G0283 [facility] 1/> AREAS 1 [facility] TH[facility] PAIN PAIN WND CARE MANAGE MANAGE PART TX PLAN ECG 77804 QIANA AMIN AMIN QIANA ROUTINE 1 MD ECG CONSULTIN W/LEAST G SRV 12 LDS I&R ONLY RADIOLOGI 59076 [facility] C EXAM 1 EIDER BILL CHEST 2 RADIOLOGY VIEWS ASSOCIAT FRONTAL&L ATERAL RADIOLOGI 52248 [facility] C EXAM 1 EIDER BILL CHEST 2 RADIOLOGY VIEWS ASSOCIAT FRONTAL&L ATERAL HOS BED E0303 [facility] DUTY 1 HOME MED HOME [...] [place]ING[place] UM BROM TO 0.5 MG APPL 44670 [facility] MODALITY 0 [place] 1/> AREAS PAIN ELEC MANAGE STIMJ [address] [place] [address] [facility] HEAD/BRAI 0 JOHN N W/O RADIOLOGY CONTRAST ASSOCIAT MATERIAL E-STIM G0283 [facility] 1/> AREAS 0 [facility] THAN PAIN PAIN WND CARE MANAGE MANAGE PART TX PLAN INJECTION J3301 CELIA SCOTT 0 HEILIG IVELISSE TRIAMCINO [facility] LONE ACETONIDE NOS 10 MG RADIOLOGI 24792 CELIA SCOTT C 0 HEILIG IVELISSE EXAMINATI [facility] ON KNEE 1/2 VIEWS ARTHROCEN 49668 CELIA SCOTT TESIS 0 HEILIG IVELISSE ASPIR&/IN [facility] J MAJOR JT/BURSA W/O US PHRM Q0513 INFUSION INFUSION DISPENSIN 0 PARTNERS PARTNERS G FEE OF OF INHALATIO [place] N RX; PER 30 DAYS ALBUTEROL J7620 INFUSION INFUSION TO 2.5 0 PARTNERS PARTNERS MG & OF OF IPRATROPI [place] UM BROM TO 0.5 MG BASIC 53236 NORRIS PISANO METABOLIC 0 CO CO PANEL [facility] CALCIUM TOTAL HEMOGLOBI 23168 NOR[facility] N 0 [facility] KAMILAH A1C HEPATIC 84417 NORRIS PISANO FUNCTION 0 CO CO [facility] LIPID 60644 NORRIS PISANO PANEL 0 CO [facility] COLLECTIO 59900 NORRIS Escalante VENOUS 0 CO IN BLOOD [facility] VENIPUNCT URE NEBULIZER E0570 OPTIONCAR OPTIONCAR WITH 0 E HOME E HOME COMPRESSO R HYALURONA J7325 CELIA SCOTT N/DERIV 0 HEILIG IVELISSE SYNVISC/S [facility] YNVISC-ON E IA INJ 1 MG ARTHROCEN CELIA SCOTT TESIS 0 HEILIG IVELISSE ASPIR&/IN [facility] J MAJOR JT/BURSA W/O HOSPITAL 90225 [facility], DISCHARGE 0 PHYSICIAN AASHISH E DAY MANAGEMEN CORPORATI T 30 ON II MIN/< INITIAL 98537 [facility] 0 PHYSICIAN AASHISH E CARE/DAY 30 CORPORATI MINUTES ON II NEBULIZER E0570 OPTION[facility] OPTIONCAR WITH 0 E HOME E HOME COMPRESSO R NEBULIZER E0570 OPTIONCAR OPTIONCAR WITH 0 E HOME E HOME COMPRESSO R ECG 53068 QIANA AMIN AMIN, ROUTINE 9 MD CCOO [place] ECG CONSULTIN W/LEAST G SRV PSC 12 LDS I&R ONLY NEBULIZER E0570 OPTIONCAR OPTIONCAR WITH 9 E HOME E HOME COMPRESSO R CT THORAX 34395 [facility] [place] INDIRA, 9 RADIOLOGY LUIS F G W/CONTRAS T MATERIAL NEBULIZER E0570 OPTIONCAR OPTIONCAR WITH 9 E HOME E HOME COMPRESSO R RADIOLOGI 01984 HAMLIN Sánchez MOSER EXAM 9 NEHEMIAS S CHEST 2 RADIOLOGY VIEWS FRONTAL&L ASSOCIATE ATERAL S PSC ANTIBODY 40767 NORRIS PISANO INFLUENZA 9 CO CO VIRUS [facility] NEBULIZER E0570 OPTIONCAR OPTIONCAR WITH 9 E HOME E HOME COMPRESSO R ALBUTEROL J7620 INFUSION INFUSION TO 2.5 9 PARTNERS PARTNERS MG & OF OF IPRATROPI [facility] UM BROM TO 0.5 MG PHRM Q0513 INFUSION INFUSION DISPENSIN 9 PARTNERS PARTNERS G FEE OF OF INHALATIO [place] N RX; PER 30 DAYS NEBULIZER E0570 OPTIONCAR OPTIONCAR WITH 9 E HOME E HOME COMPRESSO R NEBULIZER E0570 OPTIONCAR OPTIONCAR WITH 9 E HOME E HOME COMPRESSO R RADEX 92174 NORRIS PISANO WRIST 9 CO CO [facility] MINIMUM 3 VIEWS TUBING A7037 NEETA BOBRELL USED WITH 9 HOME MED HOME MED POSITIVE EQUIP. EQUIP. [facility] PRESSURE DEVICE FULL FACE A7030 NEETA NEETA [...] HOME MED W/POSITIV EQUIP. EQUIP. E [facility] PRESSURE DEVICE FACE MASK A7031 NEETA NEETA 9 HOME MED HOME MED INTERFACE EQUIP. EQUIP. REPLCMT [facility] FULL FACE MASK EA NEBULIZER E0570 OPTIONCAR OPTIONCAR WITH 9 E HOME E HOME COMPRESSO R RADIOLOGI 64548 [facility], EXAM 9 NEHEMIAS S CHEST 2 RADIOLOGY [...] [place] N RX; PER 30 DAYS RADIOLOGI 43558 HAMLIN SHANTI EXAM 9 NEHEMIAS S CHEST 2 RADIOLOGY VIEWS FRONTAL&L ASSOCIATE ATERAL S PSC NEBULIZER E0570 OPTION[facility] OPTIONCAR WITH 9 E HOME E HOME COMPRESSO R ALBUTEROL J7620 INFUSION INFUSION TO 2.5 9 PARTNERS PARTNERS MG & OF OF IPRATROPI [facility] UM BROM TO 0.5 MG PHARM G0333 INFUSION INFUSION DISPEN 9 PARTNERS PARTNERS FEE INHAL OF OF RX; [facility] INITIAL 30-DAY SUPPLY ADMN SET A7003 OPTIONCAR OPTIONCAR SM VOL 9 E HOME E HOME NONFILTR PNEUMAT NEBULIZR DISPBL RADIOLOGI 85319 HAMLIN SHANTI C EXAM 9 NEHEMIAS S CHEST 2 RADIOLOGY VIEWS FRONTAL&L ASSOCIATE ATERAL S PSC RADIOLOGI 97945 HAMLIN SHANTI, C EXAM 9 NEHEMIAS S CHEST 2 RADIOLOGY VIEWS FRONTAL&L ASSOCIATE ATERAL S PSC OBSERVATI 64103 [facility], ON/INPATI 9 PHYSICIAN AASHISH E ENT [facility] CORPORATI CARE 50 ON II MINUTES RADIOLOGI 05337 Sánchez MAHAN 9 L. SALVATORE NAJERA MD [facility] ON CHEST SINGLE VIEW FRONTAL [...] [employer] [facility] [address] [facility] DISCHARGE 9 , GRETEL M , GRETEL M DAY MANAGEMEN T 30 MIN/< SBSQ 43508 [facility] 9 , GRETEL M , GRETEL M CARE/DAY 25 MINUTES SBSQ 66352 [facility] 9 , GRETEL M , GRETEL M CARE/DAY [address] [facility] DISCHARGE 8 , GRETEL M , GRETEL M DAY MANAGEMEN T 30 MIN/< SBSQ 36389 [facility] 8 , GRETEL M , GRETEL M CARE/DAY 25 MINUTES SBSQ 51088 [facility] 8 , GRETEL M , GRETEL M CARE/DAY 35 MINUTES RADIOLOGI 24682 Sánchez SHEN EXAM 8 NEHEMIAS S CHEST 2 RADIOLOGY VIEWS FRONTAL&L ASSOCIATE ATERAL S PSC INJECTION J1030 [facility] 8 , GRETEL M , GRETEL M METHYLPRE DNISOLONE ACETATE 40 MG FILTER A7038 NEETA NEETA DISPBL 8 HOME MED HOME MED USED EQUIP. EQUIP. W/POS [facility] ARWAY PRESSURE DEVICE FULL FACE A7030 NEETA NEETA MASK 8 HOME MED HOME MED USED EQUIP. EQUIP. W/POS LLC LLC ARWAY PRESS DEVICE EA TUBING A7037 NEETA NEETA USED WITH 8 HOME MED HOME MED POSITIVE EQUIP. EQUIP. [facility] PRESSURE DEVICE FILTER A7039 NEETA NEETA NON 8 HOME MED HOME MED DISPBL EQUIP. EQUIP. [facility] LLC LLC W/POS ARW[facility] PRESS DEVICE HEADGEAR A7035 NEETA NEETA USED 8 HOME MED HOME MED W/POSITIV EQUIP. EQUIP. E [facility] PRESSURE DEVICE FACE MASK A7031 NEETA NEETA 8 HOME MED HOME MED INTERFACE EQUIP. EQUIP. RE[facility]CMT [facility] FULL FACE MASK EA BASIC 51612 NORRIS PISANO METABOLIC 8 CO CO [facility] CALCIUM TOTAL THER 99544 NORRIS PISANO PROPH/DX 8 CO CO [facility] SUBQ/IM COLLECTIO 38361 NORRIS PISANO N VENOUS 8 CO [facility] VENIPUNCT URE RADIOLOGI 89852 NORRIS Pozo EXAM [address] [facility] VIEWS FRONTAL&L ATERAL BLOOD 26947 NORRIS PISANO COUNT 8 CO CO [facility] AUTO&AUTO DIFRNTL WBC BLOOD 93574 NORRIS GALVEZ 8 CO CO [facility] W/MNL DIFRNTL WBC COUNT HOSP[facility] [address]1893 [facility] DISCHARGE 8 , GRETEL M , GRETEL M DAY MANAGEMEN T 30 MIN/< RADIOLOGI 64100 Sánchez SHEN 8 NEHEMIAS S EXAMINATI RADIOLOGY ON KNEE 1/2 VIEWS ASSOCIATE S PSC SBSQ 77743 [facility] 8 , GRETEL M , GRETEL M CARE/DAY 25 MINUTES SBSQ 03498 [facility] 8 , GRETEL M , GRETEL M CARE/DAY 25 MINUTES SBSQ 42266 [facility] 8 , GRETEL M , GRETEL M CARE/DAY 35 MINUTES INITIAL 90063 [facility] 8 , GRETEL M , GRETEL M CARE/DAY 70 MINUTES COLLECTIO 78176 NORRIS PISANO N VENOUS 8 CO [facility] VENIPUNCT URE RADIOLOGI 55828 NORRIS PISANO C 8 [facility] ON TIBIA & FIBULA 2 VIEWS RADIOLOGI 83787 NORRIS PISANO C 8 [facility] ON KNEE 3 VIEWS BLOOD 25195 NORRIS GALVEZ 8 [facility] W/MNL DIFRNTL WBC COUNT BLOOD 59528 NORRIS GALVEZ 8 [facility] COMPLETE [facility] AUTO&AUTO DIFRNTL WBC THER 91383 NORRIS PISANO PROPH/DX 8 CO IN NJX [facility] SUBQ/IM FILTER A7039 NEETA BOBRELL NON 8 HOME MED HOME MED DISPBL EQUIP. EQUIP. USED LLC [facility] W/POS ARWAY PRESS DEVICE FILTER A7038 NEETA NEETA DISPBL 8 HOME MED HOME MED USED EQUIP. EQUIP. W/POS [facility] ARWAY PRESSURE DEVICE FULL FACE A7030 NEETA SANTACRUZ MASK 8 HOME MED HOME MED USED EQUIP. EQUIP. W/POS [facility] ARWAY PRESS DEVICE EA TUBING A7037 NEETA SANTACRUZ USED WITH 8 HOME MED HOME MED POSITIVE EQUIP. EQUIP. [facility]AY [facility] PRESSURE DEVICE HEADGEAR A7035 NEETA SANTACRUZ USED 8 HOME MED HOME MED W/POSITIV EQUIP. EQUIP. E [facility]AY [facility] PRESSURE DEVICE FACE MASK A7031 NEETA SANTACRUZ 8 HOME MED HOME MED INTERFACE EQUIP. EQUIP. REPLCMT [facility] [address] [facility] DISCHARGE 8 , GRETEL M , GRETEL M DAY MANAGEMEN T 30 MIN/< RADIOLOGI 32838 Sánchez SHEN EXAM 8 NEHEMIAS Hernandez CHEST 2 RADIOLOGY VIEWS FRONTAL&L ASSOCIATE ATERAL S PSC SBSQ 69700 [facility] 8 , GRETEL M , GRETEL M CARE/DAY 35 MINUTES INITIAL 92068 [facility] 8 , GRETEL M , GRETEL M CARE/DAY 70 MINUTES NATRIURET 71363 CHRISTOPHER WHITE IC 8 [facility] RADIOLOGI 57122 CHRISTOPHER Pozo EXAM 8 [facility] CHEST 2 MEDICAL MEDICAL VIEWS [facility] FRONTAL&L ATERAL COLLECTIO 42961 CHRISTOPHER WHITE N VENOUS 8 [facility] BLOOD MEDICAL MEDICAL VENIPUNCT [facility] URE BASIC 92432 CHRISTOPHER WHITE METABOLIC 8 [facility] PANEL [facility] MEDICAL [facility] TOTAL ECG 54887 CHRISTOPHER WHITE ROUTINE 8 [facility] ECG MEDICAL MEDICAL W/LEAST CENTER CENTER 12 LDS TRCG ONLY W/O I&R BLOOD 82427 CHRISTOPHER WHITE COUNT 8 [facility] COMPLETE MEDICAL MEDICAL AUTO&AUTO [facility] [place] [address] [facility] TROPONIN [facility] RADIOLOGI 34450 CELIA NAJERA MD [facility] ON KNEE 1/2 VIEWS Encounters Encounter Start End Date Code Location Performer Type Date EMERGENCY 14274 ABEL VERMA DEPT 7 7 PHYSICIAN U VISIT S, [facility] HIGH SEVERITY& THREAT [facility] YANET - 7 7 [facility] 31268 [facility] 7 7 SANTA VISIT EMERGENCY HIGH PHYS SEVERITY& THREAT [facility] EMERGENCY 54608 [place] 7 7 [facility] T VISIT HIGH/URGE NT SEVERITY OFFICE 07897 YANET [facility] 7 7 PHYSICIAN T VISIT PRACTICE 25 L MINUTES EMERGENCY 27597 DENNYS 7 7 [facility] T VISIT MODERATE SEVERITY HOSPITAL DENNYS - 7 7 [facility] DENNYS - 7 7 [facility] INPATIENT [facility] EM[facility] 65233 [facility] 7 7 SANTA VISIT EMERGENCY HIGH PHYS SEVERITY& THREAT [facility] EMERGENCY 82070 [facility] 7 7 [facility] EMER[facility]ENC[facility] T VISIT PHYS HIGH/URGE NT SEVERITY EMERGENCY 79611 YANET 7 7 [facility] T VISIT MODERATE SEVERITY [facility]OSPITAL YANET - 7 7 [facility] OFF[facility] 22318 YANET [facility] 7 7 PHYSICIAN T VISIT PRACTICE 25 L MINUTES OFFICE 19727 MARIAA PUGH [facility] 7 7 MD GREGG, T NEW 30 PSC MINUTES HOSPITAL DENNYS - 7 7 [facility] YANET - 7 7 [facility] EMERGENC[facility] 80000 YANET 7 7 [facility] T VISIT MODERATE SEVERITY OFFICE 90467 YANET [facility] 7 7 PHYSICIAN T VISIT PRACTICE 15 L MINUTES OFFICE 01656 YANET [facility]ASE [facility] 6 6 PHYSICIAN T VISIT PRACTICE 25 L MINUTES OFFICE 29608 YANET [facility] 6 6 PHYSICIAN T VISIT PRACTICE 15 L MINUTES EMERGENCY 73635 [facility] 6 6 SANTA VISIT EMERGENCY HIGH PHYS SEVERITY& THREAT [facility] - 6 6 [facility] - 6 6 [facility] EMERGENCY 03066 [facility] DEPT 6 6 SANTA KYL VISIT EMERGENCY HIGH PHYS SEVERITY& THREAT [facility] OFFICE 02910 [facility] 6 6 [facility] T NEW 45 INTERNAL MINUTES MED EMERGENCY 41802 [facility] 6 6 [facility] EMERGENC[facility] T VISIT PHYSI HIGH/URGE NT [facility] B[facility] - 6 6 [facility] EMERGENCY 83441 [place] 6 6 [facility] T VISIT MOD[facility]ATE [facility] - 6 6 [facility] EMERGENCY 39079 [facility] DE[facility] 6 6 SANTA VISIT EMERGENCY HIGH PHYSI SEVERITY& THREAT [facility] EMERGENCY 46969 [facility] RENATA DEPT 6 6 SANTA IVELISSE VISIT EMERGENCY HIGH SERV SEVERITY& THREAT [facility] CHRISTOPHER - 6 6 [facility] REED - 6 6 [facility] MEDICAL EMERGENCY 66722 DENNYS 6 6 [facility] T VISIT LIMITED/M INOR [facility] DENNYS - 6 6 [facility] 01938 YANET DEPT 6 6 [facility] HIGH SEVERITY& THREAT [facility] COOKIEON - 6 6 [facility] YANET - 6 6 [facility] EMERGENCY 84383 [facility] DE[facility] 6 6 [facility] HIGH SEVERITY& THREAT [facility] EMERGENCY 04562 [facility] VISIT EMERGENCY HIGH PHYS SEVERITY& THREAT [facility] SCRANTON - 6 6 [facility] [place] [address] 6 [facility] OFFICE 12263 [facility] 6 6 ORTHOPEDI IVELISSE T VISIT C 25 [facility] [place] [address] 6 [facility] EMERGENCY 05473 [facility] DE[facility] 6 6 [place] VISIT EMERGENCY HIGH PHYS SEVERITY& THREAT [facility] EMERGENCY 75618 [facility] 6 6 [facility] SEGUN DEPARTMEN EMERGENCY T VISIT PHYS HIGH/URGE NT [facility] SCRANTON - 6 6 [facility] EMERGENC[facility] 08165 [facility] 6 6 [facility]ITAL HIGH SEVERITY& THREAT [facility] OFFICE 08251 [facility] 6 6 ORTHOPEDI T VISIT C 15 [facility] CHRISTOPHER - 6 6 [facility] INPATIENT [facility] EMERGENCY 07114 [facility] 6 6 MEDICAL DEPARTMEN SERV T VISIT FOUNDATIO MODERATE N SEVERITY EMERGENCY 07157 [facility] DEPT 6 6 SANTA PAT VISIT EMERGENCY HIGH PHYS SEVERITY& THREAT [facility] 6 6 [facility] IN[facility]IENT 6 6 [facility] CHRISTOPHER - 6 6 [facility] CHRISTOPHER - 6 6 [facility] - 6 6 [place] [facility]PAT[facility] CHRISTOPHER - 5 5 [facility] - 5 5 [facility] - 5 5 [facility] ALEVISM - 4 4 [facility] CHRISTOPHER - 4 4 [facility] INPATIENT 4 4 [facility] CHRISTOPHER - 4 4 [facility] MEADOWVIE - 4 4 [facility] MEAWGERARDO - 4 4 [facility] - 4 4 [facility] DENNYS - 4 4 [facility] ACC[facility] 4 4 [facility] 4 4 [facility] CR[facility] ACCESS 4 4 [facility], ACCESS 4 4 [facility] OFFICE 68358 [facility] OUTPATIEN 4 4 JAM JAM T VISIT 25 MINUTES [facility]ICAL [facility] ACCESS 3 3 [facility] OFFICE 40724 [facility] 3 3 JOHN T VISIT 25 MINUTES CR[facility]ICAL [facility] ACCESS 3 3 [facility] OFFICE 15110 [facility] OUT[facility]IEN 3 3 MARIETTA MCMANUS T VISIT 25 MINUTES OFFICE 47601 [facility] OUT[facility] 3 3 [place] MCMANUS T VISIT 25 MINUTES Emergency RONNIE Mckeon MD (ER) 3 10:49 3 11:26 [facility] OFFICE 52407 [facility] OUTPATIEN 3 3 JAM JAM T VISIT 25 MINUTES CRITICAL [facility] ACCESS 3 3 [facility] DENNYS - 3 3 [facility]PATI[facility] INC T OFFICE [id number] [facility] OUTPATIEN 3 3 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 T VISIT 5 [facility] CRITICAL [facility] ACCESS 3 3 [facility] OFFICE 92484 [facility] OUTPATIEN 3 3 JAM JAM T VISIT 25 MINUTES OFFICE 11041 [facility] OUTPATIEN 2 2 JAM JAM T VISIT 25 MINUTES OFFICE 03235 [place] [facility] 2 2 I ZBI I ZBI T NEW 30 MINUTES CRITICAL [facility] ACCESS 2 2 [facility] OFFICE 05904 DIAL DIAL OUTPATIEN 2 2 FREDDY FREDDY T NEW 30 MINUTES OFFICE 60008 [facility] JT OUTPATIEN 2 2 [facility] OS T VISIT RURAL 15 HEALTH MINUTES HOSPITAL UNIVERSIT - 2 2 Y INPATIENT HOSPITAL CRITICAL [facility] ACCESS 2 2 [facility] CRITICAL [facility] ACCESS 2 2 [facility] EMERGENCY 08492 NORRIS MARCOS 2 2 [facility] T VISIT LOW/MODER SEVERITY EMERGENCY 56454 [facility], 2 2 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 [facility] NORRIS T VISIT CO HOS MODERATE SEVERITY OFFICE 12950 NORRIS WATERS OUTPATIEN 2 2 COUNTY OSI T VISIT RURAL 15 HEALTH MINUTES CRITICAL [facility] ACCESS 2 2 [facility] CRITICAL [facility] ACCESS 2 2 [facility] DENNYS - 2 2 [facility] OFF[facility] 15828 [facility] OUTPATI[facility] 2 2 OSI OSI T VISIT 15 MINUTES OFFICE 37266 [facility] 2 2 OSI OSI T VISIT 15 MINUTES EMERGENCY 06816 ROBYN HOLMAN DEPT 1 1 EMERGENCY VISIT SERVICES HIGH SEVERITY& THREAT FUNCJ OFFICE 99876 [facility] 1 1 OSI OSI T VISIT 40 MINUTES HOSPITAL NORRIS - 1 1 [facility] T EMERGENCY 40819 NORRIS PIERCE 1 1 [facility] T VISIT LOW/MODER SEVERITY EMERGENCY 02975 [facility] 1 1 [facility] T VISIT MODERATE SEVERITY HOSPITAL UNIVERSIT - 1 1 Y [facility] T EMERGENCY 86905 NORRIS PIERCE 1 1 [facility] T VISIT MODERATE SEVERITY EMERGENCY 17149 [facility] 1 1 [facility]SI [facility]SI [facility] T VISIT HIGH/URGE NT SEVERITY OFFICE 07658 [facility]ANDEE [facility] 1 MEDICAL T NEW 30 SERV MINUTES FOUNDATIO OFFICE 40520 [facility] VILLAFLOR OUTPATIEN 1 1 OSI OSI T VISIT 10 MINUTES EMERGENCY 53448 [facility] 1 1 [facility] T VISIT MODERATE SEVERITY CRITICAL [facility] ACCESS 1 1 IN HOSPITAL HOSPITAL OFFICE 99388 [facility] ALEJANDROELL OUTPATIEN 1 1 [facility] T VISIT 25 MINUTES EMERGENCY 77904 NORRIS PIERCE 1 1 [facility] T VISIT MODERATE SEVERITY HOSPITAL NORRIS - 1 1 IN INPATIENT [facility] DENNYS - 1 1 [facility] T OFFICE 79688 [facility] OUTPATIEN 1 1 OSI OSI T VISIT 15 MINUTES OFFICE 36505 [facility] OUTPATIEN 1 1 OSI OSI T VISIT 25 MINUTES OFFICE 52176 [facility] OUTPATIEN 1 1 OSI OSI T VISIT 15 MINUTES OFFICE 13571 [facility] OUTPATIEN 1 1 OSI OSI T VISIT 40 MINUTES HOSPITAL NORRIS - 1 [facility] OFF[facility] 35092 [facility] VILLAFLOR OUTPATIEN 1 1 [facility] T VISIT 15 MINUTES OFFICE 13872 [facility] OUTPATIEN 1 1 [place] T VISIT PAIN 25 MANAGE MINUTES OFFICE 95830 [facility] VILLAFLOR OUTPATIEN 1 1 [facility] T VISIT 15 MINUTES OFFICE 48120 [facility] VILLAFL[facility] OUTPATIEN 0 0 [facility] T VISIT 10 MINUTES OFFICE 50334 [facility] OUTPATIEN 0 0 [facility] T VISIT PAIN 25 MANAGE MINUTES OFFICE 14508 [facility] VILLAFLOR OUTPATIEN 0 0 [facility] T VISIT 15 MINUTES OFFICE 26169 [facility] [place] [facility] [place]PAT[place] 0 0 [place] T VISIT PAIN 25 MANAGE MINUTES OFFICE 14848 [facility] [place] [facility] OUTPAT[place] 0 0 [place] T VISIT PAIN 25 MANAGE MINUTES OFFICE 58110 [facility] [place] [facility] OUTPATI[place] 0 0 [place] T NEW 45 PAIN MINUTES MANAGE OFFICE 75863 [facility] VILLAFLOR OUTPATIEN 0 0 [facility] T VISIT 15 MINUTES OFFICE 71444 [facility] VILLAFLOR OUTPATIEN 0 0 [facility]SI T VISIT 25 MINUTES OFFICE 16123 [facility] VILLAFLOR OUTPATIEN 0 0 , GRETEL M , GRETEL M T VISIT 15 MINUTES OFFICE 85757 [facility] VILLAFLOR OUTPATIEN 0 0 , GRETEL M , GRETEL M T VISIT 15 MINUTES OFFICE 78161 [facility] VILLAFLOR OUTPATIEN 0 0 , GRETEL M , GRETEL M T VISIT 25 MINUTES OFFICE 58431 CELIA SCOTT OUTPATIEN 0 0 HEILIG IVELISSE T VISIT MD [facility] 15 MINUTES OFFICE 12129 [facility] VILLAFLOR OUTPATIEN 0 0 , GRETEL M , GRETEL M T VISIT 25 MINUTES OFFICE 11297 [facility] VILLAFLOR OUTPATIEN 0 0 , GRETEL M , GRETEL M T VISIT 25 MINUTES OFFICE 30506 [facility] VILLAFLOR OUTPATIEN 0 0 , GRETEL M , GRETEL M T VISIT 15 MINUTES CRITICAL [facility] ACCESS 0 0 [facility] OFFICE 81466 VILLAFLOR VILLAFLOR OUTPATIEN 0 0 , GRETEL M , GRETEL M T VISIT 25 MINUTES OFFICE 01644 CELIA SCOTT OUTPATIEN 0 0 HEILIG IVELISSE T VISIT [facility] 15 MINUTES HOSPITAL CHRISTOPHER - 0 0 [facility] OFFICE 94514 FRED RAMIREZ II, OUTPATIEN 9 9 LTH SLEEP CARMENZA C T VISIT AND 10 REHAB MINUTES [facility] CRITICAL [facility] ACCESS 9 9 IN HOSPITAL HOSPITAL OFFICE 77358 FRED II, OUTPATIEN 9 9 LT SLEEP CARMENZA C T VISIT AND 15 REHAB MINUTES [facility] OFFICE 22583 II, II, OUTPATIEN 9 9 CARMENZA C CARMENZA C T VISIT 15 MINUTES CRITICAL [facility] ACCESS 9 9 IN HOSPITAL HOSPITAL OFFICE 27585 [facility] OUTPATIEN 9 9 CO T VISIT 5 HOSPITAL MINUTES OFFICE 10528 VILLAFLOR VILLAFLOR OUTPATIEN 9 9 , GRETEL M GRETEL M T VISIT 15 MINUTES OFFICE 18362 II, II, OUTPATIEN 9 9 CARMENZA C CARMENZA C T VISIT 15 MINUTES OFFICE 08129 II, II, OUTPATIEN 9 9 CARMENZA C CAMRENZA C T VISIT 10 MINUTES OFFICE 94270 VILLAFLOR VILLAFLOR OUTPATIEN 9 9 , GRETEL M GRETEL M T VISIT 10 MINUTES OFFICE 86520 II, II, OUTPATIEN 9 9 CARMENZA C CARMENZA C T VISIT 10 MINUTES OFFICE 23012 II, II, OUTPATIEN 9 9 CARMENZA C CARMENZA C T NEW 30 MINUTES OFFICE 73886 V[facility]AFLOR VILLAFLOR OUTPATIEN 9 9 , GRETEL M GRETEL M T VISIT 15 MINUTES OFFICE 33909 [facility] VILLAFLOR OUTPATIEN 9 9 , GRETEL M GRETEL M T VISIT 10 MINUTES OFFICE 61914 VILLAFLOR VILLAFLOR OUTPATIEN 9 9 , GRETEL GRAF T VISIT 10 MINUTES OFFICE 03726 [facility] VILLAFLOR OUTPATIEN 9 9 , GRETEL GRAF T VISIT 10 MINUTES OFFICE 15209 VILLAFLOR VILLAFLOR OUTPATIEN 9 9 , GRETEL GRAF T VISIT [address] [facility] DEPT 9 9 [facility] SEVERITY& THREAT FUNJ OFFICE 65529 DONNA ALMEIDAEN 9 9 SONIA Vázquez T VISIT [facility] 15 MINUTES OFFICE 43133 VILLAFLOR VILLAFLOR OUTPATIEN 9 9 , GRETEL GRAF T VISIT 10 MINUTES OFFICE 44271 VILLAFLOR VILLAFLOR OUTPATIEN 9 9 , GRETEL GRAF T VISIT 10 MINUTES OFFICE 86524 VILLAFLOR VILLAFLOR OUTPATIEN 8 8 , GRETEL GRAF T VISIT 10 MINUTES OFFICE 04164 VILLAFLOR VILLAFLOR OUTPATIEN 8 8 , GRETEL GRAF T VISIT 10 MINUTES EMERGENCY 86349 NORRIS WATERS 8 8 CO GRETEL [facility] T VISIT MODERATE SEVERITY OFFICE 58614 VILLAFLOR VILLAFLOR OUTPATIEN 8 8 , GRETEL GRAF T VISIT 10 MINUTES OFFICE 27958 [place] VILLAFLOR OUTPATIEN 8 8 , GRETEL GRAF T VISIT 10 MINUTES EMERGENCY 84949 NORRIS WATERS 8 8 CO GRETEL [facility] T VISIT LOW/MODER SEVERITY OFFICE 80068 VILLAFLOR VILLAFLOR OUTPATIEN 8 8 , GRETEL GRAF T VISIT 10 MINUTES EMERGENCY 61411 [facility]IS 8 8 [facility] T VISIT LIMITED/M INOR PROB CRITICAL [facility] AMADO 8 8 IN HOSPITAL HOSPITAL EMERGENCY 10604 NORRIS WATERS 8 8 IN [facility]RETEL [facility] T VISIT MODERATE SEVERITY EMERGENCY 91182 NORRIS WATERS 8 8 IN , GRETEL [facility] T VISIT MODERATE SEVERITY HOSPITAL DENNYS - 8 8 [facility] 84282 DENNYS 8 8 [facility] T VISIT LOW/MODER SEVERITY HOSPITAL NORRIS - 8 8 IN INPATIENT HOSPITAL CRITICAL [facility]IS AMADO 8 8 IN HOSPITAL HOSPITAL EMERGENCY 62941 NORR[facility] 8 8 [facility] T VISIT LIMITED/M INOR PROB CRITICAL [facility] AMADO 8 8 IN HOSPITAL HOSPITAL EMERGENCY 25166 NORRIS 8 8 [facility] T VISIT LIMITED/M INOR PROB OFFICE 06242 [facility] , GRETEL GRAF T VISIT 10 MINUTES EMERGENCY 97665 NORRIS 8 8 [facility] T VISIT MODERATE SEVERITY EMERGENCY 24463 [facility] [place], 8 8 [facility] T VISIT LOW/MODER SEVERITY EMERGENCY 31567 NORRIS 8 8 [facility] T VISIT LIMITED/M INOR PROB CRITICAL [facility]IS AM[place]O 8 8 IN HOSPITAL HOSPITAL OFFICE 98441 [facility] OUTPATIEN 8 8 , GRETEL GRAF T VISIT 10 MINUTES OFFICE 19390 [facility] 8 8 , GRETEL M GRETEL M T VISIT 10 MINUTES EMERGENCY 21413 CHRISTOPHER 8 8 [facility] T VISIT [place] LIMITED/M INOR PROB EMERGENCY 75211 NORRIS SCHUMACHER, 8 8 [facility] T VISIT MODERATE SEVERITY HOSPITAL NORRIS - [address] [facility] CHRISTOPHER - 8 8 [facility] [place] EMERGENCY 79223 CHRISTOPHER 8 8 [facility] T VISIT [place] MODERATE SEVERITY OFFICE 39844 CELIA LOPEZ 8 8 SONIA TOPETE MD [facility] 15 MINUTES OFFICE 21505 JOHN ALMEIDA 8 8 SONIA Vázquez T DIANE PETERSEN [facility] 15 MINUTES
--- OUTSIDE RECORDS SUMMARY | 2017-03-26 03:22 | External Medical Summary Rpt ---
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 LARYNGITIS 00787 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 [facility] [place] CORONARY ARTERY 23946 OTHER 06-05-2012 [facility] IS OF HAND AND WRIST V5867 LONG-TERM 06-05-2012 [facility] USE OF HOSPITAL INSULIN V7285 OTHER 06-05-2012 [place] [facility] SPECIFIED SERV EXAMINATION [facility] 47564 OSTEOARTHRO 05-16-2012 [facility] Hernandez UNSPEC [facility] HOSPITAL GEN/LOC UNSPEC SITE E8490 PLACE OF 05-16-2012 [facility] BERMAN, [facility] E9270 OVEREXERTIO 05-16-2012 [facility] Escalante FROM [facility] STRENUOUS MOVEMENT 5180 PULMONARY 02-21-2012 [place] [facility] 36041 OTHER 02-21-2012 [place] DISEASES OF MEDICAL LUNG NOT IMAGING ASS ELSEWHERE CLASSIFIED 95141 GEN 11-01-2011 [facility] OSTEOARTHRO HOME SIS MEDICAL INVOLVING EQUIPME MULTIPLE SITES 2720 PURE 10-06-2011 [facility] HYPERCHOLES EMERGENCY TEROLEMIA SERVICES 39901 METHICILLIN 10-06-2011 [facility] RESISTANT EMERGENCY PNEUMONIA SERVICES D/T STAPH AUREUS 4829 UNSPECIFIED 10-05-2011 [facility] BACTERIAL EMERGENCY PNEUMONIA SERVICES 5199 UNSPECIFIED 10-02-2011 [facility] DISEASE OF RADIOLOGY ASSOCIAT RESPIRATORY SYSTEM 69995 PRECORDIAL 09-17-2011 QIANA MORALES MD CONSULTING SRV 50089 METHICILLIN 09-10-2011 [facility] STAPHYLOCOC RURAL CUS AUREUS HEALTH 4660 ACUTE 08-24-2011 [facility] BRONCHITIS OSI V1581 PERS HX 08-24-2011 [facility] NONCOMPLIAN OSI CE W/MED TX PRS [facility] 65521 OBESITY, 08-07-2011 [facility] UNSPECIFIED HOSPITAL 463 ACUTE 08-07-2011 [facility]IS [facility]PITAL 2865 HEMORRHAGIC 06-27-2011 [facility] D/O HOSPITAL INTRINSIC CIRC ANTICOAG AB/INHIB 5589 OTH&UNSPEC 06-27-2011 [facility] NONINFECTIO OSI US GASTROENTER ITIS&COLITI S 7336 TIETZES 06-27-2011 [facility] DISEASE HOSPITAL 21467 OTHER CHEST 06-27-2011 [facility] PAIN OSI V5861 LONG-TERM 06-27-2011 [facility] (CURRENT) HOSPITAL USE OF ANTICOAGULA NTS V5869 LONG-TERM 06-27-2011 [facility] (CURRENT) HOSPITAL USE OF OTHER MEDICATIONS 36623 PRIMARY 06-22-2011 [place] [facility] LOCALIZED SERV OSTEOARTHRO FOUNDATIO SIS LOWER LEG 20345 UNSPECIFIED 06-16-2011 [facility] HOSPITAL ARTHROPATHY , LOWER LEG 3569 UNSPEC 05-22-2011 [facility] HEREDIT&IDI JOHN OPATHIC PERIPHERAL NEUROPATHY 2819 UNSPECIFIED 03-04-2011 [facility]IC[facility]ENCY [facility]OSPITAL ANEMIA 4010 ESSENTIAL 03-04-2011 [facility] HYPERTENSIO OSI N, MALIGNANT 86419 OTHER 03-04-2011 [facility]AISE AND HOSPITAL FATIGUE 15620 NAUSEA 03-04-2011 [facility]ONE [facility] 7820 DISTURBANCE 02-14-2011 [facility] OF SKIN JOHN SENSATION 3384 CHRONIC 02-09-2011 [facility] PAIN OSI SYNDROME 32116 SPINAL STEN 02-09-2011 [facility] LUMB REG OSI W/O NEUROGENIC CLAUDICATIO N 3560 HEREDITARY 12-08-2010 [facility] PERIPHERAL OSI NEUROPATHY 4919 UNSPECIFIED 11-29-2010 [facility] BRONCHITIS [place] 46599 DISPLCMT 11-23-2010 [facility] PAIN MANAGE DISC W/O MYELOPATHY 7931 NONSPEC 11-15-2010 [facility] FIND RAD RADIOLOGY OTH EXAM ASSOCIAT BODY STRUCT LUNG FIELD 7291 UNSPECIFIED 09-28-2010 [facility] MYALGIA [place] AND PAIN MANAGE MYOSITIS 24698 MIGRAINE 08-09-2010 [facility] UNSP W/O RADIOLOGY INTRACT W/O ASSOCIAT STATUS MIGRAINOSUS 7273 OTHER 06-30-2010 [facility] BURSITIS [place] DISORDERS PAIN MANAGE 8470 NECK SPRAIN 06-30-2010 [facility] 4659 ACUTE URIS 05-11-2010 [facility], OF GRETEL M UNSPECIFIED SITE 6822 CELLULITIS 05-02-2010 [facility], AND ABSCESS GRETEL M OF TRUNK 33349 SECONDARY 04-19-2010 CELIA SCOTT MD OSTEOARTHRO PLLC SIS LOWER LEG 97432 REFLUX 04-06-2010 [facility], ESOPHAGITIS GRETEL M 4910 SIMPLE 02-10-2010 [facility] BRONCHITIS 2777 DYSMETABOLI 01-19-2010 REGIONAL C SYNDROME PHYSICIAN X CORPORATION II V854 BODY MASS 01-19-2010 REGIONAL INDEX 40 [place] [address] GENERALIZED 01-18-2010 [facility] 27273 REFLEX 06-22-2009 II, 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 27141 MIGRAINE 06-09-2009 JT, W/AURA W/O GRETEL M INTRACT W/O STATUS MIGRNOSUS 78007 OTHER WRIST 06-09-2009 JT, SPRAIN AND GRETEL M STRAIN 21962 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, 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 514 PULMONARY 02-09-2009 [facility] HYPOSTASIS PSC 20752 UNS 01-18-2009 JT GASTRITIS&G GRETEL M ASTRODUODIT IS W/O MENTION HEMORR 01381 PAIN IN 12-20-2008 JT JOINT GRETEL M PELVIC REGION AND THIGH 486 PNEUMONIA, 11-22-2008 JT ORGANISM GRETEL M UNSPECIFIED 02420 CONTUSION 09-21-2008 JT, [place] M 12650 MIGRAINE 07-11-2008 [facility] W/O [facility] W/O INTRACT W/O STAT MIGRNOSUS 683 ACUTE 06-25-2008 [facility] LYMPHADENIT [facility]OS[facility] IS INC V4589 OTHER 06-11-2008 JT POSTSURGICA GRETEL M L STATUS OTHER 7812 ABNORMALITY 06-09-2008 [facility] 34705 UNSPECIFIED 04-08-2008 [facility] ACUTE HOSPITAL CONJUNCTIVI TIS 7806 FEVER & OTH 12-22-2007 [facility] PSC DISTURBANCE S TEMP REG 0340 STREPTOCOCC 12-21-2007 [place] [facility] THROAT [facility] 83006 UNSPECIFIED 12-21-2007 JT VIRAL GRETEL M INFECTION IN CCE & UNS SITE 16315 OTH 11-19-2007 CELIA SCOTT MD [facility] DZ&ABNORM MOVMNT DISORDER Medications Na ND Rx Da Fi Fi [...] 17 17 57 FA MG 0 26 [place] LY TA BL DR ET UG 00 12 01 11 24 00 SO Ac AI 12 -0 -1 8. 00 PE ti FE 10 8- 3- 00 00 RS ve N- 77 20 20 0 55 CO 50 16 17 06 FA DE 4 08 [place] IN LY E 10 DR 0- UG 10 MG /5 ML KS 50 05 05 0 24 12 SO 37 Ac OM 38 -0 -0 0. PE 24 LL ti ET 30 2- 2- 00 RS 17 AF ve YIP 80 20 20 0 LO ZI 41 11 11 FA R NE 6 AZ OS -C LY IA OD S EI M NE UG SY RU P KS 50 02 02 0 24 12 SO 36 Ac OM 38 -2 -2 0. PE 60 LL ti ET 30 2- 2- 00 RS 52 AF ve YIP 80 20 20 0 LO ZI 41 11 11 FA R NE 6 AZ OS -C LY IA OD S EI M NE UG SY RU P KS 50 01 01 0 24 12 SO 36 Ac OM 38 -0 -0 0. PE 17 LL ti ET 30 4- 4- 00 RS 24 AF ve YIP 80 20 20 0 LO ZI 41 11 11 FA R NE 6 AZ OS -C LY IA OD S EI NE UG SY RU P KS 50 12 12 0 24 12 SO 35 Ac OM 38 -0 -0 0. PE 98 LL ti ET 30 9- 9- 00 RS 69 AF ve YIP 80 20 20 0 LO ZI 41 10 10 FA R NE 6 AZ OS -C LY IA OD S EI M NE UG SY RU P 53 06 06 0 24 24 SO 34 Ac 01 -1 -1 0. PE 50 LL ti 40 4- 5- 00 RS 62 AF ve 54 20 20 0 LO 86 10 10 FA R 7 [place] OS LY IA S DR [facility] 53 05 05 0 24 24 SO 34 Ac 01 -1 -1 0. PE 27 LL ti 40 3- 9- 00 RS 71 AF ve 54 20 20 0 LO 86 10 10 FA R 7 [place] OS LY IA S DR [facility] 53 04 04 0 24 24 SO 34 Ac 01 -2 -2 0. PE 12 LL ti 40 6- 6- 00 RS 14 AF ve 54 20 20 0 LO 86 10 10 FA R 7 AZ OS LY IA S [facility] 53 02 02 00 24 24 SO 33 Ac 01 -0 -2 0. PE 50 LL ti 40 8- 6- 00 RS 49 AF ve 54 20 20 0 LO 86 10 10 FA R 7 AZ OS LY IA S [facility] [place] 00 11 11 00 24 13 SO 32 Ac OM 60 -0 -1 0. PE 73 LL ti ET 31 5- 9- 00 RS 89 AF ve YIP 58 20 20 0 LO ZI 55 09 09 FA R NE 8 [place] OS -C LY IA OD S EI [facility] SY RU P 53 10 10 00 24 12 SO 32 Ac 01 -0 -0 0. PE 43 LL ti 40 2- 8- 00 RS 01 AF ve 54 20 20 0 LO 86 09 09 FA R 7 [place] OS LY IA S [facility] [place] 50 07 07 00 24 12 SO 31 Ac OM 38 -0 -1 0. PE 73 LL ti ET 30 7- 6- 00 RS 64 AF ve YIP 80 20 20 0 LO ZI 41 09 09 FA R NE 6 [place] OS -C LY IA OD S EI [facility] SY RU P 53 05 05 00 24 24 SO 31 Ac 01 -1 -2 0. PE 37 LL ti 40 5- 1- 00 RS 05 AF ve 54 20 20 0 LO 86 09 09 FA R 7 [place] OS LY IA S [facility] [place] 50 04 05 00 24 1 SO 31 Ac OM 38 -2 -0 0. PE 19 LL ti ET 30 3- 7- 00 RS 01 AF ve YIP 80 20 20 0 LO ZI 41 09 09 FA R NE 6 [place] OS -C LY IA OD S EI [facility] SY RU P 60 03 03 00 24 6 SO 30 Ac 25 -1 -2 0. PE 79 LL ti 80 0- 6- 00 RS 82 AF ve 23 20 20 0 LO 91 09 09 FA R 6 [place] OS LY IA S [facility] 60 01 02 00 24 12 SO 30 Ac 25 -2 -1 0. PE 42 LL ti 80 6- 2- 00 RS 33 AF ve 23 20 20 0 LO 91 09 09 FA R 6 [place] OS LY IA S [facility] 53 01 01 00 24 24 SO 30 Ac 01 -0 -1 0. PE 27 LL ti 40 6- 5- 00 RS 12 AF ve 54 20 20 0 LO 86 09 09 FA R 7 [place] OS LY IA S [facility] 53 10 11 00 24 24 SO 29 Ac 01 -2 -2 0. PE 63 LL ti 40 3- 0- 00 RS 94 AF ve 54 20 20 0 LO 86 08 08 FA R 7 [place] OS LY IA S DR Malave 59 11 11 00 24 24 SO 29 Ac 70 -1 -2 0. PE 78 LL ti 20 0- 0- 00 RS 96 AF ve 80 20 20 0 LO 01 08 08 FA R 6 [place] OS LY IA S DR Malave 53 10 10 00 24 24 SO 29 Ac 01 -0 -2 0. PE 53 LL ti 40 9- 3- 00 RS 39 AF ve 54 20 20 0 LO 86 08 08 FA R 7 AZ OS LY IA S DR Mal[place] 37 08 10 01 56 28 SO 28 Ac IL 00 -0 -0 .0 PE 99 LL ti OS 00 4- 9- 00 RS 63 AF ve EC 45 20 20 LO 50 08 08 FA R OT 4 AZ OS C LY IA [address] Malave MG TA BL ET 53 09 09 00 24 24 SO 29 No Ac 01 -1 -2 0. PE 32 t ti 40 2- 6- 00 RS 06 Av ve 54 20 20 0 ai 86 08 08 FA la 7 [place] bl LY e [facility] [place] 37 08 08 00 56 28 SO 28 No Ac IL 00 -0 -1 .0 PE 99 t ti OS 00 4- 4- 00 RS 63 Av ve EC 45 20 20 ai 50 08 08 FA la OT 4 AZ bl C LY e [address] MG TA BL ET KS 37 07 07 01 56 28 SO 25 No Ac IL 00 -3 -0 .0 PE 76 t ti OS 00 0- 3- 00 RS 94 Av ve EC 45 20 20 ai 50 07 08 FA la OT 4 AZ bl C LY e [address] MG TA BL ET 53 04 05 00 24 24 SO 28 No Ac 01 -2 -0 0. PE 22 t ti 40 2- 8- 00 RS 91 Av ve 54 20 20 0 ai 86 08 08 FA la 7 [place] bl LY e [facility] 53 03 04 00 12 12 SO 27 No Ac 01 -1 -1 0. PE 87 t ti 40 2- 7- 00 RS 51 Av ve 54 20 20 0 ai 86 08 08 FA la 7 AZ bl LY e [facility] [place] 37 07 04 00 56 30 SO 25 No Ac IL 00 -3 -1 .0 PE 76 t ti OS 00 0- 7- 00 RS 94 Av ve EC 45 20 20 ai 50 07 08 FA la OT 3 AZ bl C LY e [address] UG MG TA BL ET AL 59 03 04 00 90 30 SO 27 No Ac KS 76 -1 -1 .0 PE 87 t ti AZ 23 2- 7- 00 RS 49 Av ve OL 71 20 20 ai AM 90 08 08 FA la 4 AZ bl 0. LY e 25 DR MG UG TA BL ET LO 24 03 04 00 30 30 SO 27 No Ac RA 38 -1 -1 .0 PE 87 t ti TA 50 2- 7- 00 RS 47 Av ve DI 47 20 20 ai NE 17 08 08 FA la 8 AZ bl [address] UG [...] t er Refuse d PPSV23 [place] No 2016 N VACCIN COMMUN E 2 ITY YRS OR HOSPIT OLDER AL FOR SUBQ/I M USE Procedures Procedure DOS Code Location Performer Comment THER 28020 COOKIESUNNY HOLT PROPH/DX 7 [facility] NJX IV HOSPITAL HOSPITAL PUSH SINGLE/1S T SBST/DRUG PRESSURIZ 94720 [facility] ED/NONPRE [address] [place] [address] SSURIZED [facility] HOSPITAL INHALATIO N TREATMENT THERAPEUT 08237 [facility] COOKIE IC [address] [place] [address] INJECTION [facility] HOSPITAL IV PUSH EACH NEW DRUG RADIOLOGI 08021 [facility] C [address] [place] [address] EXAMINATI [facility] ON CHEST [place] FRONTAL COMPREHEN 38253 [facility]LLNIHARR[facility]ALSUNNY POLANCOWEISMAN CH[facility]EN[facility] SIVE [address] [place] [address] PANEL ECG 86907 [facility]ARR[facility]NY [facility]INWEIS[facility] ROUTINE [address] [place] [address] ECG [facility] W/LEAST 12 LDS TRCG ONLY W/O I&R NONCOVERE A9270 YANET HOLT D ITEM OR 7 [facility] INJECTION J1170 YANET HOLT 7 [facility] ROSI UP TO 4 MG DUP-SCAN 25619 YANET HOLT XTR VEINS 7 [facility] [place] [address] YANET HOLT TROPONIN 7 [facility] RANDY INJECTION J2550 YANET HOLT 7 [facility] INE HCL UP TO 50 MG BLOOD 37325 YANET HOLT COUNT 7 [facility] AUTO&AUTO DIFRNTL WBC BLOOD 54863 [facility] NOYOLA COUNT 7 [facility] COMPLETE INC INC AUTO&AUTO DIFRNTL WBC RADIOLOGI 61709 [facility] PATRICIA C EXAM 7 MEDICAL CHEST 2 IMAGING VIEWS ASS FRONTAL&L ATERAL ECG 69761 [facility] CACERES ROUTINE 7 [facility] W/LEAST P 12 LDS I&[place] [address] [facility] [place] TROPONIN 7 MEM HOSP [facility] QUANTITAT INC INC RANDY ECG 45656 [facility]YS ROUTINE 7 [facility] ECG INC INC W/LEAST 12 LDS TRCG ONLY W/O I&R COMPREHEN 67729 [facility] NOYOLA SIVE 7 [facility] METABOLIC INC INC PANEL CT THORAX 84203 TIM FRYE 7 MEDICAL W/CONTRAS IMAGING T ASS MATERIAL O2 CONC 1 E1390 NEET[facility] ESTEVEZ 7 HOME HOME 85%/>02 MEDICAL MEDICAL CONC AT EQUIPME EQUIPME [facility] [address] TIM FRYE ABDOMEN & 7 MEDICAL PELVIS IMAGING W/CONTRAS ASS T MATERIAL CRITICAL 13245 [facility] 7 PHYSICIAN ILL/INJUR S, [facility] INIT 30-74 MIN ECG 94790 [facility] GRAJEDA JR ROUTINE 7 [facility] W/LEAST P 12 LDS I&R ONLY RADIOLOGI 67616 [facility] M[facility] C EXAM 7 MEDICAL CHEST 2 IMAGING VIEWS ASS FRONTAL&L ATERAL PRTBLE E0431 NE[facility] SANTACRUZ GASEOUS 7 HOME HOME O2 SYS MEDICAL MEDICAL RENT; EQUIPME EQUIPME FLWMTR HUMIDFR&M ASK RESP ASST E0471 [facility] SANTACRUZ DEVC 7 HOME HOME BI-LEVL MEDICAL MEDICAL PRSS EQUIPME EQUIPME CAPABILIT Y W/BACK-UP BASIC 43694 [facility] METABOLIC 7 [facility] CALCIUM TOTAL PRESSURIZ 29415 [facility] ED/NONPRE 7 [facility] INHAL[facility] N TREATMENT THERAPEUT 78010 [facility] IC 7 [facility] TIC/DX INJECTION SUBQ/IM NONCOVERE A9270 [facility] D ITEM OR 7 [facility] RADIOLOGI [address] ON [place] FRONTAL BLOOD 53670 [facility] COUNT [address] [place] [address] AUTO&AUTO DIFRNTL WBC NATRIURET 19089 [facility] IC [address] [place] [address] HOSPITAL INJECTION J2060 [address] [facility] 2 MG THERAPEUT 12037 [facility] IC 7 PHYSICIAN PHYSICIAN PROPHYLAC PRACTICE PRACTICE TIC/DX L L INJECTION SUBQ/IM HOSPITAL G0463 DENNYSSUNNY NOYOLA OUTPATIEN 7 MEM HOSP MEM HOSP T CLIN INC INC VISIT ASSESS & MGMT PT HEADGEAR A7035 NEETA SANTACRUZ USED 7 HOME HOME W/POSITIV MEDICAL MEDICAL E AIRWAY EQUIPME EQUIPME PRESSURE DEVICE FULL FACE A7030 [facility] SANTACRUZ MASK 7 HOME HOME USED MEDICAL MEDICAL W/POS EQUIPME EQUIPME ARWAY PRESS DEVICE EA O2 CONC 1 E1390 NEETA SANTACRUZ DEL PORT 7 HOME HOME 85%/>02 MEDICAL MEDICAL CONC AT EQUIPME EQUIPME PRSC FLW RATE PRTBLE E0431 NEET[facility] SANTACRUZ GASEOUS 7 HOME HOME O2 SYS MEDICAL MEDICAL RENT; EQUIPME EQUIPME FLWMTR HUMIDFR&M ASK RESP ASST E0471 NEET[facility] OLIVAREZC 7 HOME HOME BI-LEVL MEDICAL MEDICAL PRSS EQUIPME EQUIPME CAPABILIT Y W/BACK-UP BASIC 33379 YANET HOLT METABOLIC 7 [facility] CALCIUM TOTAL RADIOLOGI 66460 [facility]ALSUNNY POLANCOHARRY S. TRUMAN MEM[facility]IAL [facility]ETERANS' HOSPITALSUNNY C EXAM [address] HOSPITAL VIEWS FRONTAL&L ATERAL BLOOD 02805 [facility] 7 [facility] AUTO&AUTO DIFRNTL WBC PRTBLE E0431 NEET[facility] NEETA GASEOUS 6 HOME HOME O2 SYS MEDICAL MEDICAL RENT; EQUIPME EQUIPME FLWMTR HUMIDFR&M ASK O2 CONC 1 E1390 NEETA NEETA LUNA PORT 6 HOME HOME 85%/>02 MEDICAL MEDICAL CONC AT EQUIPME EQUIPME PRSC FLW RATE RESP ASST E0471 NEETA NEETA DEV 6 HOME HOME BI-LEVL MEDICAL MEDICAL PRSS EQUIPME EQUIPME CAPABILIT Y W/BACK-UP [facility] [address] [place] [address] [facility] DAY SERVICES MANAGEMEN O T > 30 MIN SBSQ 57729 [place] [address] [facility] CARE/DAY SERVICES 25 O MINUTES SBSQ [address] CARE/DAY SERVICES 35 O MINUTES INITIAL [address] [place] [address] [facility] CARE/DAY SERVICES 70 O MINUTES RADIOLOGI 47028 [facility] [place] INDIRA C EXAM 6 RADIOLOGY CHEST 2 VIEWS FRONTAL&L ATERAL DRAINAGE [id number] [facility] BLADDER [facility] DEVICE IRENA/ART OPENING FACE MASK A7031 NEET[facility] NEETA 6 HOME HOME INTERFACE MEDICAL MEDICAL REPLCMT EQUIPME EQUIPME FULL FACE MASK EA FILTER A7038 NEETA SANTACRUZ DISPBL 6 HOME HOME USED MEDICAL MEDICAL W/POS EQUIPME EQUIPME ARWAY PRESSURE DEVICE NONCOVERE A9270 [facility] D ITEM OR 6 [facility] ECG 21389 [facility] ROUTINE 6 [facility] ECG ROBERTO ROBERTO W/LEAST 12 LDS TRCG ONLY W/O I&R RADIOLOGI 25434 [facility] C 6 [facility] EXAMINATI ROBERTO ROBERTO ON CHEST SINGLE VIEW FRONTAL COMPREHEN 18030 [facility] SIVE 6 [facility] METABOLIC ROBERTO ROBERTO PANEL DUP-SCAN 00843 [facility] [place] XTR VEINS 6 RADIOLOGY LD IV UNILATERA L/LIMITED STUDY INJECTION [id number] KETOROLAC ROBERTO ROBERTO TROMETHAM INE PER 15 MG LOCM Q9967 [facility] [phone] [facility] MG/ML ROBERTO ROBERTO IODINE [place] [address] [facility] TROPONIN [address] [place] [address] [place] [address] [facility] [place] ANGIOGRAP 6 RADIOLOGY HY CHEST W/CONTRAS T/NONCONT RAST INJECTION J[address] ONDANSETR ROBERTO ROBERTO ON HCL PER 1 MG INJECTION J1940 [address] FUROSEMID ROBERTO ROBERTO E UP TO 20 MG COLLECTIO 77532 [facility] N VENOUS 6 [facility] BLOOD ROBERTO ROBERTO VENIPUNCT URE THERAPEUT 73153 [facility] IC 6 [facility] INJECTION ROBERTO ROBERTO IV PUSH EACH NEW DRUG FIBRIN 31694 [facility] DGRADJ 6 [facility] PRODUCTS ROBERTO ROBERTO D-DIMER QUANTITAT RANDY THER 03195 [facility] PROPH/DX 6 [facility] NJX IV ROBERTO ROBERTO PUSH SINGLE/1S T SBST/DRUG INJECTION J2270 [facility] MORPHINE [address] [place] [address] SULFATE ROBERTO ROBERTO UP TO 10 MG BLOOD 51671 [facility] COUNT 6 [facility] COMPLETE ROBERTO ROBERTO AUTO&AUTO DIFRNTL WBC NATRIURET 59667 [facility] IC 6 [facility] GLUC BLD 72709 [facility] GLUC MNTR 6 [facility] CLEARED FDA SPEC HOME USE INFLUENZA Q2038 [facility] VACC 6 [facility] SPLIT INTERNAL VIRUS 3 MED YRS & > IM FLUZONE IM ADM [id number] [facility] PRQ ID 6 [facility]LEY SUBQ/IM INTERNAL NJXS 1 MED VACCINE O2 CONC 1 E1390 NEETA NEETA DEL PORT 6 HOME HOME 85%/>02 MEDICAL MEDICAL CONC AT EQUIPME EQUIPME PRSC FLW RATE PRTBLE E0431 NEET[facility] NEETA GASEOUS 6 HOME HOME O2 SYS MEDICAL MEDICAL RENT; EQUIPME EQUIPME FLWMTR HUMIDFR&M ASK RADIOLOGI 61560 [facility] [place] C 6 RADIOLOGY EXAMINATI ON TIBIA & FIBULA 2 VIEWS RADIOLOGI 07926 YANET HOLT C [address] [place] [address] ON KNEE 3 VIEWS NONCOVERE [id number] [facility] YANET D ITEM OR 6 [facility] RADIOLOGI 56540 [facility] [place] C 6 RADIOLOGY EXAMINATI ON KNEE 1/2 VIEWS O2 CONC 1 E1390 NEETA NEETA DEL PORT 6 HOME HOME 85%/>02 MEDICAL MEDICAL CONC AT EQUIPME EQUIPME PRSC FLW RATE PRTBLE E0431 NEETA NEETA GASEOUS 6 HOME HOME O2 SYS MEDICAL MEDICAL RENT; EQUIPME EQUIPME FLWMTR HUMIDFR&M ASK FEDERALLY G0467 [place] [address] [employer] QUALIFIED [employer] [facility] VISIT ESTAB PT BLOOD 90696 [facility] COOKIE[facility] COUNT 6 [facility] AUTO&AUTO DIFRNTL WBC GLUC BLD 78129 [facility] GLUC MNTR 6 [facility] CLEARED FDA SPEC HOME USE HEMOGLOBI 51254 YANET GARYON N 6 [facility] KAMILAH A1C PPSV23 87279 YANET GARYON VACCINE 2 6 [facility] OLDER FOR SUBQ/IM USE INJECTION J2270 [facility] MORPHINE 6 [facility] UP TO 10 MG INJECTION J1650 [facility] POLANCO[address] [facility] [facility] N SODIUM 10 MG COLLECTIO 37525 [facility]COHARR[facility] N VENOUS 6 [facility] VENIPUNCT URE INITIAL [id number] ON SERVICES CARE/DAY O [address] [place] [address] [facility] [address] [place] [address] HOSPITAL PRESSURIZ 20732 [facility] [facility] ED/NONPRE [address] [place] [address] HOSPITAL INHALATIO N TREATMENT NONCOVERE [id number] [facility] D ITEM OR 6 [facility] COMPREHEN 01513 [facility] POLANCOGAEBLER CHILDREN'S CENTERE [address] [place] [address] HOSPITAL PANEL INJECTION J1940 [address] HOSPITAL E UP TO 20 MG INJECTION [id number] [facility] INSULIN [address] [place] [address] PER 5 HOSPITAL HOSPITAL UNITS INJECTION [id number] [facility] INSULIN [address] [place] [address] PER 5 HOSPITAL HOSPITAL UNITS INJECTION J1940 [facility]COH[facility] [address] [place] [address] HOSPITAL E UP TO 20 MG COMPREHEN 95219 [facility] [place] [address] [facility] PANEL HOSPITAL [id number] [facility] HOSPITAL SERVICE PER HOUR NONCOVERE A9270 [facility] D ITEM OR 6 [facility] PRESSURIZ 27020 [facility] C[facility] ED/NONPRE [address] [place] [address] HOSPITAL INHALATIO N TREATMENT ARTERIAL 61233 [facility] COOKIESUNNY PUNCTURE [address] [place] [address] L BLOOD DX THERAPEUT 96728 [facility] COOKIESUNNY IC [address] [place] [address] HOSPITAL IV PUSH EACH NEW DRUG INJECTION J2270 [facility] MORPHINE [address] [place] [address] HOSPITAL UP TO 10 MG INJ J2930 [facility] METHYLPRD 6 [facility] SODIUM SUCCNAT TO 125 MG NATRIURET 85868 [facility] IC 6 [facility] GLUC BLD 64123 [facility] GLUC MNTR 6 [facility] CLEARED FDA SPEC HOME USE BLOOD 27911 [facility] GASES ANY [address] [place] [address] COMBINATI ON PH PCO2 PO2 CO2 HCO3 BLOOD 20022 [place] YANET COUNT 6 [facility] AUTO&AUTO DIFRNTL WBC CULTURE 30503 [facility] BACTERIAL [address] [place] [address] AEROBIC W/ID ISOLATES IAADIADOO [address] [facility] CCUS GROUP A ADMINISTR G0009 [facility] ATION OF [address] [place] [address] [facility] VIVIEN VACCINE RADIOLOGI 78386 [facility] [place] INDIRA C EXAM 6 RADIOLOGY CHEST 2 VIEWS FRONTAL&L ATERAL RADIOLOGI 83285 CHRISTOPHER WHITE C EXAM 6 [facility] CHEST 2 MEDICAL MEDICAL VIEWS [facility]ENT[facility]ENT[facility] FRONTAL&L ATERAL BLOOD 54395 CHRISTOPHER CHRISTOPHER COUNT 6 [facility] COMPLETE MEDICAL MEDICAL AUTO&AUTO [facility]ENT[facility]ENTE DIFRNTL WBC GLUC BLD 46112 CHRISTOPHER WHITE GLUC MNTR 6 [facility] DEV MEDICAL MEDICAL CLEARED [facility]ENT[facility] FDA SPEC HOME USE NATRIURET 26964 CHRISTOPHER WHITE IC 6 [facility] PEPTIDE MEDICAL MEDICAL CENTE CENTE INJ J2930 CHRISTOPHER WHITE METHYLPRD 6 [facility] NISOLONE MEDICAL MEDICAL SODIUM CENTE CENTE SUCCNAT TO 125 MG COLLECTIO 48296 CHRISTOPHER WHITE N VENOUS 6 [facility] BLOOD MEDICAL MEDICAL VENIPUNCT CENTE CENTE URE THERAPEUT 07028 CHRISTOP[facility] WHITE IC 6 [facility] INJECTION MEDICAL MEDICAL IV [place] [address] CHRISTOPHER WHITE INFUSION 6 [facility] HYDRATION MEDICAL MEDICAL EACH CENTE CENTE ADDITIONA L HOUR PRESSURIZ 24919 CHRISTOPHER WHITE ED/NONPRE 6 [facility] SSURIZED MEDICAL MEDICAL INHALATIO CENTE CENTE N TREATMENT THER 71943 CHRISTOPHER WHITE PROPH/DX 6 [facility] NJX IV MEDICAL MEDICAL PUSH CENTE CENTE SINGLE/1S T SBST/DRUG THER 28488 CHRISTOPHER WHITE PROPH/DX 6 [facility] NJX EA MEDICAL MEDICAL SEQL IV CENTE CENTE PUSH SBST/DRUG FAC NONCOVERE A9270 CHRISTOPHER WHITE D ITEM OR 6 [facility] SERVICE MEDICAL MEDICAL CENTE CENTE COMPREHEN 36099 CHRISTOPHER WHITE SIVE 6 [facility] METABOLIC MEDICAL MEDICAL PANEL CENTE CENTE INJECTION J1940 CHRISTOPHER WHITE 6 [facility] FUROSEMID MEDICAL MEDICAL E UP TO CENTE CENTE 20 MG INJECTION J1815 CHRISTOP[facility] WHITE INSULIN 6 [facility] PER 5 [facility] [place] [address] CHRISTOPHER WHITE TROPONIN 6 [facility] QUANTITAT MEDICAL MEDICAL RANDY CENTE CENTE ECG 64731 CHRISTOPHER WHITE ROUTINE 6 [facility] ECG MEDICAL MEDICAL W/LEAST CENTE CENTE 12 LDS TRCG ONLY W/O I&R RADEX 03803 [facility] SHOULDER 6 URBANO COMPLETE RADIOLOGY MINIMUM 2 ASSOCIAT VIEWS RADEX 28056 [place] [facility] ALL FOOT 6 MEDICAL COMPLETE IMAGING MINIMUM 3 ASS VIEWS O2 CONC 1 E1390 NEETA SANTACRUZ DEL PORT 6 HOME HOME 85%/>02 MEDICAL MEDICAL CONC AT EQUIPME EQUIPME PRSC FLW RATE PRTBLE E0431 NEETA SANTACRUZ GASEOUS 6 HOME HOME O2 SYS MEDICAL MEDICAL RENT; EQUIPME EQUIPME FLWMTR HUMIDFR&M ASK GLUC BLD 42826 YANET H[facility]T GLUC MNTR 6 [facility] CLEARED FDA SPEC HOME USE BLOOD 59927 YANET H[facility] COUNT 6 [facility] AUTO&AUTO DIFRNTL WBC COLLECTIO 79145 Y[facility] N VENOUS 6 [facility] VENIPUNCT URE PROTHROMB 41482 YANET H[facility]T IN TIME [address] [place] [address] THROMBOPL 71428 YANET BOWENDYSUNNY ASTIN 6 [facility] PARTIAL PLASMA/WH OLE BLOOD ONDANSETR Q0162 [facility] HOLT ON 1 MG 6 [facility] HOSPITAL EXCEED 48 HR DOSE REG INJECTION J2550 [facility] POLANCO[address] H[facility] INE HCL UP TO 50 MG INJECTION J1815 [facility]ANCOHARR[facility] INSULIN 6 [place] [address] HOSPITAL HOSPITAL UNITS INJECTION J1940 [facility] HOLT [address] [place] [address] HOSPITAL E UP TO 20 MG INJ J2920 [facility] METHYLPRD 6 [facility] SODIUM SUCCNAT TO 40 MG UNCLASSIF J3490 [facility]COHARR[facility] IED DRUGS 6 [facility] NONCOVERE A9270 [facility] D ITEM OR 6 [facility] COMPREHEN 31189 [facility] SIVE [address] [place] [address] HOSPITAL PANEL COMPREHEN [address] HOSPITAL PANEL CREATINE 30544 [facility] CO[facility]IN[facility] KINASE MB 6 [facility] ONLY HOSPITAL G0378 [facility] OBSERVATI [address] [place] [address] HOSPITAL [place] [address] [facility] COOKIESUNNY THYROID [address] [place] [address] HOSPITAL NG HORMONE TSH ECG 10884 [place] [facility] ROUTINE [address] [place] [address] HOSPITAL HOSPITAL W/LEAST 12 LDS TRCG ONLY W/O I&R RADIOLOGI 74080 [facility] [place] SCALF URBANO C 6 RADIOLOGY EXAMINATI ON CHEST SINGLE VIEW FRONTAL NONCOVERE [id number] [facility] COOKIESUNNY D ITEM OR 6 [facility] INJECTION J1940 [facility] POLANCO[address] HOSPITAL E UP [place] [address] [place] [address] [facility]IN[facility] TROPONIN 6 [facility] HOSPITAL RANDY THER 82562 [facility] YANET PROPH/DX 6 [facility] HOSPITAL PUSH SINGLE/1S T SBST/DRUG CREATINE 14050 [facility] POLANCOHARRY [facility] KINASE 6 [facility] COLLECTIO 08838 [facility] POLANCOWEISMAN [facility] N VENOUS [address] [place] [address] HOSPITAL VENIPUNCT URE NONINVASI 02477 [facility] VE [address] [place] [address] EAR/PULSE HOSPITAL HOSPITAL OXIMETRY SINGLE DETER BLOOD [address] HOSPITAL AUTO&AUTO DIFRNTL WBC GLUC BLD 53242 [facility] GLUC MNTR [address] [place] [address] HOSPITAL CLEARED FDA SPEC HOME USE MYOGLOBIN [address] HOSPITAL NATRIURET 23170 [facility] IC [address] [place] [address] HOSPITAL GLUC BLD 60765 [facility] GLUC MNTR [address] [place] [address] HOSPITAL CLEARED FDA SPEC HOME USE BLOOD 64489 [facility] POLANCO[address] HOSPITAL AUTO&AUTO DIFRNTL WBC INJECTION J2270 [facility] MORPHINE [address] [place] [address] HOSPITAL UP TO 10 MG INJECTION J1650 [address] [facility] N SODIUM 10 MG COLLECTIO 88715 [facility] N VENOUS [address] [place] [address] [place] [address] [facility] MAGNESIUM [address] [place] [address] HOSPITAL PRESSURIZ 78512 [facility] ED/NONPRE [address] [place] [address] [facility] INHALATIO N TREATMENT BASIC 20485 [facility] METABOLIC [address] [place] [address] HOSPITAL CALCIUM TOTAL INJECTION J1815 [facility] INSULIN [address] [place] [address] PER 5 HOSPITAL HOSPITAL UNITS INJECTION J3475 [address] HOSPITAL SULPHATE PER 500 MG INJECTION J1940 [address] FUROSEMID [facility] HOSPITAL E UP TO 20 MG NONCOVERE [id number] [id number] [facility] H[facility] D ITEM OR 6 [facility] NONCOVERE A9270 YANET HOLT D ITEM OR 6 [facility] INJECTION J1940 YANET HOLT [address] [place] [address] [facility] H[facility] E UP TO 20 MG INJECTION J3475 [facility] POLANCO[address] MAGNESIUM [facility] HOSPITAL SULPHATE PER 500 MG INJECTION J1815 [facility] INSULIN [address] [place] [address] HOSPITAL HOSPITAL UNITS BASIC 54382 [facility] POLANCOWEISMAN [facility] METABOLIC [address] [place] [address] HOSPITAL CALCIUM TOTAL PRESSURIZ 72660 [facility] POLANCOHARRY S[facility] ED/NONPRE [address] [place] [address] H[place] [address] [facility] HOLT MAGNESIUM [address] [place] [address] HOSPITAL COLLECTIO 60498 [facility]ANCOHARR[facility] N VENOUS [address] [place] [address] HOSPITAL VENIPUNCT URE INJECTION J2270 [facility]IS[facility] MORPHINE [address] [place] [address] HOSPITAL UP TO 10 MG INJECTION J1650 [facility] POLANCO[address] ENOXAPARI [facility] HOSPITAL N SODIUM 10 MG BLOOD 76941 [facility] COUNT [address] [place] [address] HOSPITAL AUTO&AUTO DIFRNTL WBC GLUC BLD 00381 YANET HOLT GLUC MNTR [address] [place] [address] HOSPITAL CLEARED FDA SPEC HOME USE HEMOGLOBI 51286 [facility] H[facility] N [address] [place] [address] HOSPITAL KAMILAH A1C NATRIURET 09142 [facility] IC [address] [place] [address] HOSPITAL GLUC BLD 27631 YANET HOLT GLUC MNTR [address] [place] [address] HOSPITAL CLEARED FDA SPEC HOME USE BLOOD 89432 [facility] COUNT [address] [place] [address] HOSPITAL AUTO&AUTO DIFRNTL WBC RADIOLOGI 22763 [facility] C EXAM 6 [facility] CHEST 2 [facility] HOSPITAL VIEWS FRONTAL&L ATERAL INJECTION J2270 [facility] MORPHINE 6 [facility] HOSPITAL UP TO 10 MG COLLECTIO 12010 [facility] N VENOUS 6 [facility] BLOOD [facility] HOSPITAL VENIPUNCT URE PRESSURIZ 53956 [facility] ED/NONPRE 6 [facility] SSURIZED HOSPITAL HOSPITAL INHALATIO N TREATMENT NONINVASI 80546 [facility] VE 6 [facility] EAR/PULSE HOSPITAL HOSPITAL OXIMETRY SINGLE DETER BASIC 08620 [facility] METABOLIC 6 [facility] PANEL [facility] HOSPITAL CALCIUM TOTAL THER 96303 [facility] PROPH/DX 6 [facility] NJX IV HOSPITAL HOSPITAL PUSH SINGLE/1S T SBST/DRUG INJECTION J1815 [facility] INSULIN 6 [facility] PER 5 HOSPITAL HOSPITAL UNITS INJECTION J1940 [address] [facility] E UP TO 20 MG NONCOVERE A9270 [facility] D ITEM OR 6 [facility] ECG 04324 [facility] ROUTINE 6 [facility]PITAL HOSPITAL W/LEAST 12 LDS TRCG ONLY W/O I&R HOSPITAL [id number] [address] ON HOSPITAL HOSPITAL SERVICE PER HOUR HOSPITAL G0378 [address] ON HOSPITAL HOSPITAL SERVICE PER HOUR NONCOVERE A9270 [facility] D ITEM OR [address] [facility] HOSPITAL INJECTION J1815 [facility] INSULIN 6 [facility] PER 5 HOSPITAL HOSPITAL UNITS INJECTION J[address] [facility]OSP[facility] ON HCL PER 1 MG INJECTION J1940 [address] [facility] E UP TO 20 MG PRESSURIZ 92375 [facility] ED/NONPRE 6 [facility] HOSPITAL INHALATIO N TREATMENT INITIAL [address] [place] [address] MEDICINE ON SERVICES CARE/DAY O 70 MINUTES NONINVASI 56070 [facility] VE [address] [place] [address] EAR/PULSE HOSP[facility] HOSPITAL OXIMETRY SINGLE DETER BASIC 58300 Y[facility]ET H[facility] METABOLIC [address] [place] [address] PANEL [facility] HOSPITAL CALCIUM TOTAL INJECTION J1650 YANET H[facility]T [address] [place] [address] [facility] HOSPITAL N SODIUM 10 MG INJECTION J2270 Y[facility]ET H[facility] MORPHINE [address] [place] [address] HOSPITAL UP TO 10 MG BLOOD 77633 YANET H[facility]T COUNT [address] [place] [address] HOSPITAL AUTO&AUTO DIFRNTL WBC GLUC BLD 24631 Y[facility]ET H[facility] GLUC MNTR [address] [place] [address] HOSPITAL CLEARED FDA SPEC HOME USE GLUC BLD 41775 Y[facility] H[facility] GLUC MNTR [address] [place] [address] HOSPITAL CLEARED FDA SPEC HOME USE NATRIURET 35886 YANET HOLT IC [address] [place] [address] HOSPITAL BLOOD 81624 [facility] COUNT [address] [place] [address] HOSPITAL AUTO&AUTO DIFRNTL WBC INSJ TEMP 72948 [facility] NDWELLG [address] [place] [address] HOSPITAL CATHETER SIMPLE INJECTION J2270 [facility] MORPHINE [address] [place] [address] HOSPITAL UP TO 10 MG THERAPEUT 74026 [facility] IC [address] [place] [address] INJECTION [facility] HOSPITAL IV PUSH EACH NEW DRUG COLLECTIO 24982 [facility] POLANCOHARRY S[facility] N VENOUS [address] [place] [address] VENIPUNCT URE CREATINE 73352 [facility] KINASE [address] [place] [address] HOSPITAL HOSPITAL THER 71609 YANET H[facility]T PROPH/DX 6 [facility] HOSPITAL HOSPITAL PUSH SINGLE/1S T SBST/DRUG THER 22132 YANET HOLT PROPH/DX 6 [facility] HOSPITAL SEQL IV PUSH SBST/DRUG FAC INJECTION J1940 YANET HOLT [address] [place] [address] HOSPITAL HOSPITAL E UP TO 20 MG INJECTION J1815 [facility] INSULIN [address] [place] [address] PER 5 [place] [address] YANET HOLT TROPONIN 6 [facility] HOSPITAL RANDY ECG 83507 YANET H[facility]T ROUTINE 6 [facility] HOSPITAL W/LEAST 12 LDS TRCG ONLY W/O I&R CREATINE 75154 YANET H[facility] KINASE MB 6 [facility] ONLY COMPREHEN 69470 YAN[facility] H[facility] SIVE 6 [facility] PANEL RADIOLOGI 25700 YANET HOLT C 6 [facility] [place] [facility] ON CHEST SINGLE VIEW FRONTAL POLYSOM 28511 [facility] 6/>YRS 6 [facility] [place] SLEEP ROBERTO ROBERTO W/CPAP 4/> ADDL DREW ATTND RADIOLOGI 13167 [facility]NAMCBR[facility]OP[facility] OKLAHOMA CITYKristan CARRERA C 6 ORTHOPEDI IVELISSE EXAMINATI C ON KNEE ASSOCIAT 1/2 VIEWS RADIOLOGI 58312 [facility] [place] HSIEH C 6 RADIOLOGY RAY EXAMINATI ON CHEST SINGLE VIEW FRONTAL ECG 44855 [facility] ROUTINE 6 [facility] ECG ROBERTO ROBERTO W/LEAST 12 LDS TRCG ONLY W/O I&R GASES 87567 [facility] BLOOD PH 6 [facility] DIRECT ROBERTO ROBERTO JENNIFER XCPT PULSE OXIMITRY URNLS DIP [address] STICK/TAB ROBERTO ROBERTO LET RGNT AUTO W/O MICROSCOP Y COMPREHEN 88919 [facility] SIVE 6 [facility] METABOL[place] [address] [facility] TROPONIN 6 [facility] [place] [address] [facility] [place] [facility] ANGIOGRAP 6 RADIOLOGY RAY HY CHEST W/CONTRAS T/NONCONT RAST LOCM Q9967 [facility] [phone] 6 [facility] [place] MG/ML ROBERTO ROBERTO IODINE CONCENTRA TION PER ML INJECTION J3475 [address] MAGNESIUM ROBERTO ROBERTO SULPHATE PER 500 MG ARTERIAL 45948 [facility] PUNCTURE 6 [facility] WITHDRAWA ROBERTO ROBERTO L BLOOD DX FIBRIN 88794 [facility] DGRADJ 6 [facility] PRODUCTS ROBERTO ROBERTO [place] [address] [facility] MAGNESIUM 6 [place] ROBERTO ROBERTO COLLECTIO 99371 [facility] N VENOUS 6 [facility] [place] [address] [facility] INFUSION 6 [facility] THERAPY/P ROBERTO ROBERTO ROPHYLAXI S /DX 1ST TO 1 HR THERAPEUT 01496 [facility] IC 6 [facility] INJECTION ROBERTO ROBERTO IV PUSH EACH NEW DRUG INJECTION J2270 [facility] MORPHINE 6 [facility] SULFATE ROBERTO ROBERTO UP TO 10 MG FEDERALLY G0467 ROBERTO ROBERTO 6 [facility] VISIT ESTAB PT BLOOD 32865 [facility] COUNT 6 [facility] COMPLETE ROBERTO ROBERTO AUTO&AUTO DIFRNTL WBC NATRIURET 04411 [facility] IC 6 [facility] PEPTIDE ROBERTO ROBERTO O2 CONC 1 E1390 NEETA SANTACRUZ DEL PORT 6 HOME HOME 85%/>02 MEDICAL MEDICAL CONC AT EQUIPME EQUIPME PRSC FLW RATE COLLECTIO 43719 [facility] POLANCOHARRY S. [facility]ALS[facility] N VENOUS [address] [place] [address] VENIPUNCT URE PRESSURIZ 48114 [facility] ED/NONPRE [address] [place] [address] INHALATIO N TREATMENT INJECTION [id number] [facility] INSULIN [address] [place] [address] PER 5 HOSPITAL HOSPITAL UNITS INJECTION J1940 [facility]ALSUNNY COOKIE[address] [facility]ID [facility] E UP TO 20 MG INFUSION J7050 [facility]ALSUNNY COOKIESUNNY NORMAL [address] [place] [address] HOSPITAL SOLUTION 250 CC COMPREHEN 73060 [place] [facility] SIVE [address] [place] [address] HOSPITAL PANEL NONCOVERE [id number] [facility]ARR[facility]ALSUNNY COOKIESUNNY D ITEM OR 6 [facility] GLUC BLD 92985 [facility] POLANCOWEISMAN [facility] GLUC MNTR [address] [place] [address] CLEARED FDA SPEC HOME USE BLOOD 41195 YANET HOLT COUNT 6 [facility] HOSPITAL AUTO&AUTO DIFRNTL WBC INJECTION J1650 YANET HOLT [address] [place] [address] [facility] N SODIUM 10 MG INJECTION J2270 YANET HOLT MORPHINE [address] [place] [address] [facility] UP TO 10 MG INJECTION J2270 [facility] MORPHINE 6 [facility] UP TO 10 MG BLOOD 80828 [facility]ARR[facility]OLT COUNT [address] [place] [address] HOSPITAL AUTO&AUTO DIFRNTL WBC INSJ TEMP 15296 [facility] POLANCOHARRY S. TRUM[facility]ER[facility]' HOSPITALSUNNY NDWELLG [address] [place] [address] [facility] H[facility]PITAL CATHETER SIMPLE GLUC BLD 05212 [facility] GLUC MNTR [address] [place] [address] HOSPITAL CLEARED FDA SPEC HOME USE NATRIURET 96115 [facility] IC [address] [place] [address] HOSPITAL RADIOLOGI 18400 [place] C EXAM 6 RADIOLOGY MEI CHEST 2 VIEWS FRONTAL&L ATERAL NONCOVERE A9270 [facility] D ITEM OR 6 [facility] COMPREHEN 38771 [facility] SIVE [address] [place] [address] [facility] [id number] [facility] OBSERVATI [address] [place] [address] ON HOSPITAL HOSPITAL SERVICE PER HOUR INFUSION J7050 [facility] NORMAL [address] [place] [address] [facility] SOLUTION 250 CC INJECTION J1940 [address] [facility] E UP TO 20 MG INJECTION J1815 [facility] INSULIN [address] [place] [address] PER 5 HOSPITAL HOSPITAL UNITS PRESSURIZ 03560 [facility] ED/NONPRE [address] [place] [address] [facility]PITAL INHALATIO N TREATMENT NONINVASI 86982 [facility] VE [address] [place] [address] [facility] HOSPITAL OXIMETRY SINGLE DETER SEDIMENTA 50296 [facility] TION RATE 6 [facility] HOSPITAL NON-AUTOM ATED PRTBLE [id number] NEETA OROURKE GASEOUS 6 HOME MICHAEL O2 SYS MEDICAL RENT; EQUIPME FLWMTR HUMIDFR&M ASK ARTHROCEN 58607 [facility] CITYKristan JAIMEIS 6 ORTHOPEDI ASPIR&/IN C J MAJOR ASSOCIAT JT/BURSA W/O RADIOLOGI 22905 [facility] [place]an DUMONT C 6 ORTHOPEDI ORTHOPEDI EXAMINATI C C ON KNEE ASSOCIAT ASSOCIAT 1/2 VIEWS INITIAL [id number] BEVERLY CARE/DAY PHYSICIAN 70 PRA MINUTES ASSISTANC [id number] [address] RESP[facility]ATO [facility]ICAL [facility]ICAL RY VENT < CENTE CENTE 24 CONSEC HR CPAP CRITICAL [address] [place] [address] [facility] ILL/INJUR EMERGENCY ED PHYSI PATIENT INIT 30-74 MIN RADIOLOGI 18956 SAM MILLER 6 MEDICAL STEVEN EXAMINATI SERV YAMINI ON KNEE 3 FOUNDATIO VIEWS N RADIOLOGI 46276 [facility] 6 MEDICAL STEVEN EXAMINATI SERV YAMINI ON TIBIA FOUNDATIO & FIBULA N 2 VIEWS BLD GLU A4253 NEETA SANTACRUZ TEST/REAG 6 HOME HOME T STRIPS MEDICAL MEDICAL HOME BLD EQUIPME EQUIPME GLU MON-50 O2 CONC 1 E1390 NEETA SANTACRUZ DEL PORT 6 HOME HOME 85%/>02 MEDICAL MEDICAL CONC AT EQUIPME EQUIPME PRSC FLW RATE PRTBLE E0431 NEETA SANTACRUZ GASEOUS 6 HOME HOME O2 SYS MEDICAL MEDICAL RENT; EQUIPME EQUIPME FLWMTR HUMIDFR&M ASK RADIOLOGI 07595 [facility] LAIRD C 6 ORTHOPEDI R EXAMINATI C ON KNEE ASSOCIAT 1/2 VIEWS DUP-SCAN 15015 Q[place]NA AMIN AMIN QIANA XTR VEINS 6 MD CONSULTIN UNILATERA G SRV L/LIMITED STUDY ECHO 44038 QIANA AMIN AMIN Q[place] TTHRC R-T 6 MD 2D CONSULTIN W/WOM-MOD G SRV E COMPL SPEC&COLR D DRAINAGE [id number] BOURBON BOURBON BLADDER 6 [facility] DEVICE IRENA/ART OPENING PRTBLE E0431 NEETA NEETA GASEOUS 6 HOME HOME O2 SYS MEDICAL MEDICAL RENT; EQUIPME EQUIPME FLWMTR HUMIDFR&M ASK RADIOLOGI 61207 [facility] [place] SCALF URBANO C EXAM 6 RADIOLOGY CHEST 2 VIEWS FRONTAL&L ATERAL RADIOLOGI 00106 [facility] [place] SCALF URBANO C 6 RADIOLOGY EXAMINATI ON CHEST SINGLE VIEW FRONTAL NURSING 21317 [facility] 6 PRIMARY CHR DISCHARGE CARE MANAGEMEN T 30 MINUTES INITIAL [address] FACILITY CARE CARE/DAY 35 MINUTES SBSQ [address] CARE/DAY PHYSICIAN 35 PRA MINUTES SBSQ [address] CARE/DAY PHYSICIAN 35 PRA MINUTES TRANSFUSI [id number] CHRISTOPHER CORREA [address] [place] [address] NONAUTO MEDICAL MEDICAL RED BLD CENTE CENTE CELLS PERIPH VN PERQ ASSISTANC [id number] CHRISTOPHER Fontenot [address] [place] [address] RESPIRATO [facility] MEDICAL RY VENT < CENTE CENTE 24 CONSEC HR CPAP SBSQ [address] CARE/DAY PHYSICIAN 35 PRA MINUTES AMBULANCE A0428 MERCURY MERCURY SERVICE 6 AMBULANCE AMBULANCE BLS SERV OBIEE REPORT DEVELOPER SERV OBIEE REPORT DEVELOPER NONEMERGE R R NCY TRANSPORT REVJ TOT 53597 [facility] 6 ORTHOPEDI IVELISSE ARTHRP C FEM&ENTIR ASSOCIAT E TIBIAL [facility] [address] [place] STILES DISCHARGE 6 MEDICAL NAN DAY SERV MANAGEMEN FOUNDATIO T 30 N MIN/< INITIAL [address] [place] CARE/DAY PHYSICIAN 50 PRA MINUTES GROUND A0425 MERCURY MERCURY MILEAGE 6 AMBULANCE AMBULANCE PER SERV OBIEE REPORT DEVELOPER SERV OBIEE REPORT DEVELOPER STATUTE R R MILE INJECTION 41930 FRED CARRANZA SARAH 6 [facility] ANESTHETI ANESTHESI C AGENT A PSC FEMORAL NERVE SINGLE REPLACE [id number] CHRISTOPHER WHITE LT KNEE 6 [facility] JOINT MEDICAL MEDICAL SYNTH CENTE CENTE SUBST CEMENTED OPEN REMOVAL [id number] CHRISTOPHER WHITE SPACER 6 REGIONAL REGIONAL FROM LT MEDICAL MEDICAL KNEE CENTE CENTE JOINT OPEN APPROACH SBSQ 03364 [facility] 6 MEDICAL NAN CARE/DAY SERV 25 FOUNDATIO MINUTES N SBSQ 46565 [facility] 6 MEDICAL NAN CARE/DAY SERV 25 FOUNDATIO MINUTES N SBSQ 21546 [facility] 6 MEDICAL NAN CARE/DAY SERV 25 FOUNDATIO MINUTES N SBSQ 04276 [facility] 6 MEDICAL NAN CARE/DAY SERV 25 FOUNDATIO MINUTES N BASIC 65111 CHRISTOPHER WHITE METABOLIC 6 REGIONAL REGIONAL PANEL MEDICAL MEDICAL CALCIUM CENTE CENTE TOTAL BLOOD 05376 CHRISTOPHER WHITE TYPING 6 REGIONAL REGIONAL SEROLOGIC MEDICAL MEDICAL RH (D) CENTE CENTE THROMBOPL 11464 CHRISTOPHER WHITE ASTIN 6 REGIONAL REGIONAL TIME MEDICAL MEDICAL PARTIAL CENTE CENTE PLASMA/WH OLE BLOOD SEDIMENTA 25425 CHRISTOPHER WHITE TION RATE 6 REGIONAL REGIONAL RBC MEDICAL MEDICAL NON-AUTOM CENTE CENTE ATED PROTHROMB 64594 CHRISTOPHER WHITE IN TIME 6 REGIONAL REGIONAL MEDICAL MEDICAL CENTE CENTE COLLECTIO 20095 CHRISTOPHER WHITE N VENOUS 6 REGIONAL REGIONAL BLOOD MEDICAL MEDICAL VENIPUNCT CENTE CENTE URE GONADOTRO 47405 CHRISTOPHER WHITE PIN 6 REGIONAL REGIONAL CHORIONIC MEDICAL MEDICAL CENTE CENTE QUALITATI VE C-REACTIV 45417 CHRISTOPHER WHITE E PROTEIN 6 REGIONAL REGIONAL MEDICAL MEDICAL CENTE CENTE ANTIBODY 86990 CHRISTOPHER WHITE SCREEN 6 REGIONAL REGIONAL RBC EACH MEDICAL MEDICAL SERUM CENTE CENTE TECHNIQUE BLOOD 56085 CHRISTOPHER WHITE TYPING 6 REGIONAL REGIONAL SEROLOGIC MEDICAL MEDICAL ABO CENTE CENTE BLOOD 71369 CHRISTOPHER WHITE COUNT 6 REGIONAL REGIONAL COMPLETE MEDICAL MEDICAL AUTOMATED CENTE CENTE SBSQ 82313 [facility] 6 MEDICAL NAN CARE/DAY SERV 25 FOUNDATIO MINUTES N SBSQ 85812 [place] [address] MEDICAL NAN CARE/DAY SERV 25 FOUNDATIO MINUTES N SBSQ 87826 [facility] 6 MEDICAL NAN CARE/DAY SERV 25 FOUNDATIO MINUTES N SBSQ 31381 [place] [address] MEDICAL NAN CARE/DAY SERV 25 FOUNDATIO MINUTES N SBSQ 11980 [place] [address] MEDICAL ELOISE CARE/DAY SERV 25 FOUNDATIO MINUTES N SBSQ 25167 [place] [address] MEDICAL ELOISE CARE/DAY SERV 25 FOUNDATIO MINUTES N SBSQ 21392 [place] [address] MEDICAL NAN CARE/DAY SERV 25 FOUNDATIO MINUTES N O2 CONC 1 E1390 NEETA NEETA DEL PORT 6 HOME HOME 85%/>02 MEDICAL MEDICAL CONC AT EQUIPME EQUIPME PRSC FLW RATE PRTBLE E0431 NEETA NEETA GASEOUS 6 HOME HOME O2 SYS MEDICAL MEDICAL RENT; EQUIPME EQUIPME FLWMTR HUMIDFR&M ASK SBSQ 15413 [place] [address] MEDICAL NAN CARE/DAY SERV 25 FOUNDATIO MINUTES N SBSQ 66702 [place] [address] MEDICAL NAN CARE/DAY SERV 25 FOUNDATIO MINUTES N ECHO 59251 [facility] R[facility]PH [facility] R-T 6 KIMANI KIMANI 2D W/WOM-MOD E COMPL SPEC&COLR D SBSQ 03843 [place] [address] MEDICAL NAN CARE/DAY SERV 25 FOUNDATIO MINUTES N SBSQ 81902 [place] [address] MEDICAL NAN CARE/DAY SERV 25 FOUNDATIO MINUTES N SBSQ 99944 [place] [address] MEDICAL DOMONIQUE CARE/DAY SERV 25 FOUNDATIO MINUTES N SBSQ 22819 [place] [address] MEDICAL DOMONIQUE CARE/DAY SERV 25 FOUNDATIO MINUTES N SBSQ 83673 [place] [address] MEDICAL NAN CARE/DAY SERV 25 FOUNDATIO MINUTES N SBSQ 33151 [place] [address] MEDICAL NAN CARE/DAY SERV 25 FOUNDATIO MINUTES N SBSQ 76082 [place] [address] MEDICAL NAN CARE/DAY SERV 25 FOUNDATIO MINUTES N SBSQ 85944 [place] [address] MEDICAL NAN CARE/DAY SERV 25 FOUNDATIO MINUTES N SBSQ 34399 [facility] 6 ANTONELLA CARE/DAY INFECTIOU 25 S DISEASE MINUTES SBSQ 34919 [place] [address] MEDICAL ELOISE CARE/DAY SERV 25 FOUNDATIO MINUTES N SBSQ 65509 [facility] 6 MEDICAL ELOISE CARE/DAY SERV 25 FOUNDATIO MINUTES N SBSQ 12671 [place] [address] MEDICAL NAN CARE/DAY SERV 25 FOUNDATIO MINUTES N SBSQ 70441 [place] [address] ANTONELLA CARE/DAY INFECTIOU 15 S DISEASE MINUTES RADIOLOGI 68829 [facility] [place] [address] RADIOLOGY AFSHAN EXAMINATI ON CHEST SINGLE VIEW FRONTAL SBSQ 93872 [place] [address] ANTONELLA CARE/DAY INFECTIOU 15 S DISEASE MINUTES SBSQ 50251 [place] [address] MEDICAL NAN CARE/DAY SERV 25 FOUNDATIO MINUTES N SBSQ 12929 [place] [address] MEDICAL NAN CARE/DAY SERV 25 FOUNDATIO MINUTES N SBSQ 59406 [place] [address] MEDICAL NAN CARE/DAY SERV 25 FOUNDATIO MINUTES N SBSQ 10420 [place] [address] MEDICAL NAN CARE/DAY SERV 25 FOUNDATIO MINUTES N SBSQ 28866 [place] [address] MEDICAL KIMBER CARE/DAY SERV 25 FOUNDATIO MINUTES N SBSQ 22287 [place] [address] MEDICAL KIMBER CARE/DAY SERV 25 FOUNDATIO MINUTES N SBSQ 70139 [place] [address] MEDICAL NAN CARE/DAY SERV 25 FOUNDATIO MINUTES N SBSQ 50376 [place] [address] MEDICAL NAN CARE/DAY SERV 25 FOUNDATIO MINUTES N SBSQ 90639 [place] [address] MEDICAL DOMONIQUE CARE/DAY SERV 25 FOUNDATIO MINUTES N SBSQ 48296 [place] [address] MEDICAL NAN CARE/DAY SERV 25 FOUNDATIO MINUTES N SBSQ 02456 [place] [address] MEDICAL NAN CARE/DAY SERV 25 FOUNDATIO MINUTES N SBSQ 39498 [place] [address] MEDICAL DOMONIQUE CARE/DAY SERV 25 FOUNDATIO MINUTES N SBSQ 29599 [facility] 6 MEDICAL DOMONIQUE CARE/DAY SERV 25 FOUNDATIO MINUTES N SBSQ 56220 [facility] 6 MEDICAL NAN CARE/DAY SERV 25 FOUNDATIO MINUTES N RADIOLOGI 67749 [facility] [place] KOSTELIC C 6 RADIOLOGY AFSHAN EXAMINATI ON CHEST SINGLE VIEW FRONTAL GROUND A0425 EMIRATI EMIRATI MILEAGE 6 MEDICAL MEDICAL PER RESPONSE RESPONSE STATUTE MILE INITIAL 62497 [facility] 6 MEDICAL NAN CARE/DAY SERV 70 FOUNDATIO MINUTES N AMBULANCE A0428 [facility] 6 MEDICAL MEDICAL BLS RESPONSE RESPONSE NONEMERGE NCY TRANSPORT CT LOWER 14955 [facility] 6 MEDICAL FRA SERV W/CONTRAS FOUNDATIO T N MATERIAL SBSQ 62061 [place] [address] HEALTH DYLAN CARE/DAY MEDICAL 35 GROUP MINUTES SBSQ 42780 [place] [address] HEALTH DYLAN CARE/DAY MEDICAL 35 GROUP MINUTES SBSQ 76272 [place] [address] HEALTH DYLAN CARE/DAY MEDICAL 35 GROUP MINUTES CRITICAL 94491 [place] [address] HEALTH ILL/INJUR MEDICAL ED GROUP PATIENT INIT 30-74 MIN SBSQ 80424 [place] [address] HEALTH RENÉ CARE/DAY MEDICAL 25 GROUP MINUTES SBSQ 64787 [place] [address] HEALTH REÉN CARE/DAY MEDICAL 25 GROUP MINUTES SBSQ 04876 [place] [address] HEALTH RENÉ CARE/DAY MEDICAL 25 GROUP MINUTES CRITICAL 49533 [facility] 6 HEALTH ILL/INJUR MEDICAL ED GROUP PATIENT INIT 30-74 MIN GROUND A0425 EMIRATI EMIRATI MILEAGE 6 MEDICAL MEDICAL PER RESPONSE RESPONSE STATUTE MILE RADEX 64633 [place] VEE ABDOMEN 1 6 MEDICAL COLETTE SERV ANTEROPOS FOUNDATIO TERIOR N VIEW RADIOLOGI 89799 [place] ZAGUROVSK C 6 MEDICAL AYA MAR EXAMINATI SERV ON CHEST FOUNDATIO SINGLE N VIEW FRONTAL CRITICAL 46077 [facility] 6 REGIONAL BEVERLY ILL/INJUR PHYSICIAN ED PRA PATIENT INIT 30-74 MIN CRITICAL 98410 [facility] 6 REGIONAL BEVERLY ILL/INJUR PHYSICIAN ED PRA PATIENT INIT 30-74 MIN SBSQ 82408 [facility] 6 REGIONAL CARE/DAY PHYSICIAN 35 PRA MINUTES O2 CONC 1 E1390 NEETADEONDRE SANTACRUZ DEL PORT 6 HOME HOME 85%/>02 MEDICAL MEDICAL CONC AT EQUIPME EQUIPME PRSC FLW RATE PRTBLE E0431 NEETA NEETA GASEOUS 6 HOME HOME O2 SYS MEDICAL MEDICAL RENT; EQUIPME EQUIPME FLWMTR HUMIDFR&M ASK CRITICAL 36814 [facility] 6 REGIONAL MARYELLEN ILL/INJUR PHYSICIAN ED PRA PATIENT INIT 30-74 MIN CRITICAL 98615 [place] [address] REGIONAL MARYELLEN ILL/INJUR PHYSICIAN ED PRA PATIENT INIT 30-74 MIN SBSQ [address] MARYELLEN CARE/DAY PHYSICIAN 25 PRA MINUTES CRITICAL 18026 [place] [address] REGIONAL MARYELLEN ILL/INJUR PHYSICIAN ED PRA PATIENT ADDL 30 MIN INITIAL 41171 [place] [address] REGIONAL MARYELLEN CARE/DAY PHYSICIAN 50 [place] [address] KRISTEN HYATTOUS, SURG 5 JR EDW PATHOLOGY PATHOLOGY GROSS [place]OC[place] [address] KRISTEN HYATTOUS, SURG 5 JR EDW PATHOLOGY PATHOLOGY ASSOCIAT GROSS&IVELISSE ROSCOPIC EXAM DECALCIFI 90392 KRISTEN SHARAM, CATION 5 JR EDW PROCEDURE PATHOLOGY ASSOCIAT ANESTH 05847 FRED SIMPSON OPEN/SURG 5 LT BEAU ARTHRS ANESTHESI TOTAL A PSC KNEE ARTHROPLA ST RMVL 93972 [facility] PROSTH 5 ORTHOPEDI TOT KNEE C PROSTH ASSOCIAT MMA W/WO INSJ SPACER PRTBLE E0431 NEETA BOBRELL GASEOUS 5 HOME HOME O2 SYS MEDICAL MEDICAL RENT; EQUIPME EQUIPME FLWMTR HUMIDFR&M ASK O2 CONC 1 E1390 NEETA BOBRELL DEL PORT 5 HOME HOME 85%/>02 MEDICAL MEDICAL CONC AT EQUIPME EQUIPME [facility] FLW RATE FEDERALLY G0467 [address] [facility] IN IN CENTER VISIT ESTAB [place] ECG 11600 JOB CHOI THO ROUTINE 5 NE HEALTH ECG MEDICAL W/LEAST G 12 LDS I&R ONLY PRTBLE E0431 NEETA SANTACRUZ GASEOUS 5 HOME HOME O2 SYS MEDICAL MEDICAL RENT; EQUIPME EQUIPME FLWMTR HUMIDFR&M ASK O2 CONC 1 E1390 NEETA SANTACRUZ DEL PORT 5 HOME HOME 85%/>02 MEDICAL MEDICAL CONC AT EQUIPME EQUIPME [facility] FLW RATE RADEX 33525 [place] [place] SHERIN CHR SHOULDER 5 RADIOLOGY COMPLETE MINIMUM 2 VIEWS FEDERALLY G[address] [facility] IN [place] CENTER V[place] BONE 07231 CHRISTOPHER CHRISTOPHER &/JOINT 5 [facility] IMAGING [facility] [place] [address] [place] HEAD/BRAI 5 RADIOLOGY RADIOLOGY N W/[place] [address] [facility] [place] SHERIN CHR MAXILLOFA 5 RADIOLOGY CIAL W/O CONTRAST MATERIAL RADEX 97367 [facility] [place] WESTERFIE SINUSES 5 RADIOLOGY LD IV ALL PARANASAL COMPL MINIMUM 3 VIEWS RADIOLOGI 53857 [facility] [place] HSIEH C EXAM 5 RADIOLOGY RAY CHEST 2 VIEWS FRONTAL&L ATERAL FEDERALLY G0467 [address] [facility] [employer] [facility] IN IN CENTER VISIT ESTAB PT RADIOLOGI 69160 [facility] [place] RINA MAT C EXAM 5 RADIOLOGY KNEE COMPLETE 4/MORE VIEWS OPHTH 75749 [facility] 5 GRE GRE XM&EVAL COMPRE NEW PT 1/> VST RADIOLOGI 09322 [facility] [place] SHERIN CHR C EXAM 5 RADIOLOGY CHEST 2 VIEWS FRONTAL&L ATERAL O2 CONC 1 E1390 NEETA SANTACRUZ DEL PORT 5 HOME HOME 85%/>02 MEDICAL MEDICAL CONC AT EQUIPME EQUIPME [facility] FLW RATE BLD GLU A4253 NEETA SANTACRUZ TEST/REAG 5 HOME HOME T STRIPS MEDICAL MEDICAL HOME BLD EQUIPME EQUIPME GLU MON-50 O2 CONC 1 E1390 NEETA LUNA PORT [...] EQUIPME EQUIPME O2 CONC 1 E1390 NEETA LUNA PORT 5 HOME HOME 85%/>02 MEDICAL MEDICAL CONC AT EQUIPME EQUIPME PRSC FLW RATE PRTBLE E0431 NEETA SANTACRUZ GASEOUS 5 HOME HOME O2 SYS MEDICAL MEDICAL RENT; EQUIPME EQUIPME FLWMTR HUMIDFR&M ASK PRTBLE E0431 NEETA SANTACRUZ GASEOUS 5 HOME [...] INC THERAPY ELEC PUMP STATION/P RTBLE DUP-SCAN 73787 [facility] XTR VEINS 5 EIDER BILL RADIOLOGY UNILATERA ASSOCIAT L/LIMITED STUDY NEBULIZER E0570 NEETA SANTACRUZ WITH 5 HOME HOME COMPRESSO MEDICAL MEDICAL R EQUIPME EQUIPME O2 CONC 1 E1390 NEETA LUNA PORT 5 HOME HOME 85%/>02 MEDICAL MEDICAL CONC AT EQUIPME EQUIPME PRSC FLW RATE PRTBLE E0431 NEETA SANTACRUZ GASEOUS 5 HOME HOME O2 SYS MEDICAL MEDICAL RENT; EQUIPME EQUIPME FLWMTR HUMIDFR&M ASK CANISTER 12-29-201 A7000 [facility] DISPOSABL 4 INC INC E USED WITH SUCTION PUMP EACH NEG PRESS E2402 [facility] WOUND 4 INC INC THERAPY ELEC PUMP STATION/P RTBLE I&D DEEP 37355 JUDAISM JUDAISM ABSC 4 [facility] 2001 ATOMA THIGH/KNE E REGION ECG 39204 JUDAISM JUDAISM ROUTINE 4 [facility] 2001 W/LEAST 12 LDS TRCG ONLY W/O I&R RADIOLOGI 88109 JUDAISM JUDAISM C EXAM 4 [facility] 2001 VIEWS FRONTAL&L ATERAL PRTBLE E0431 NEETA NEETA GASEOUS 4 HOME HOME O2 SYS MEDICAL MEDICAL RENT; EQUIPME EQUIPME FLWMTR HUMIDFR&M ASK NEBULIZER E0570 NEETA SANTACRUZ WITH 4 HOME HOME COMPRESSO MEDICAL MEDICAL R EQUIPME EQUIPME O2 CONC 1 E1390 NEETA NEETA DEL PORT 4 HOME HOME 85%/>02 MEDICAL MEDICAL CONC AT EQUIPME [place] [address] ADVANCED KERSCHNER JOINT 4 PAIN & MAG ARTHRGRPH SPINE Y&/ANES/S INSTIT TEROID W/FLOR O2 CONC 1 E1390 NEETA NEETA DEL PORT 4 HOME HOME 85%/>02 MEDICAL MEDICAL CONC AT EQUIPME EQUIPME PRSC FLW RATE NEBULIZER E0570 NEETA SANTACRUZ WITH 4 HOME HOME COMPRESSO MEDICAL MEDICAL R EQUIPME EQUIPME PRTBLE E0431 NEETA NEETA GASEOUS 4 HOME HOME O2 SYS MEDICAL MEDICAL RENT; EQUIPME EQUIPME FLWMTR HUMIDFR&M ASK WALK E0148 HOME HOME HEAVY 4 CONVALESC CONVALESC DUTY W/O ENT AIDS ENT AIDS WHLS INC INC RIGID/FOL D ANY TYPE EA NURSING 30880 CHRISTOPHER LEARY AJ FACILITY 4 REGIONAL DISCHARGE MEDICAL CENTE MANAGEMEN T 30 MINUTES DUP-SCAN 09923 FOUNDATIO MCQUAIDE XTR VEINS 4 N JERRY RADIOLOGY UNILATERA GROUP P L/LIMITED STUDY INJECTION 00885 FRED MALDONADO JAYNA 4 [facility] ANESTHETI ANESTHESI C AGENT A PSC FEMORAL NERVE SINGLE NEBULIZER E0570 NEETA SANTACRUZ WITH 4 HOME HOME COMPRESSO MEDICAL MEDICAL R EQUIPME EQUIPME O2 CONC 1 E1390 NEETA SANTACRUZ DEL PORT 4 HOME HOME 85%/>02 MEDICAL MEDICAL CONC AT EQUIPME EQUIPME [facility] FLW RATE PRTBLE E0431 NEETA SANTACRUZ GASEOUS 4 HOME HOME O2 SYS MEDICAL MEDICAL RENT; EQUIPME EQUIPME FLWMTR HUMIDFR&M ASK RADIOLOGI 84359 CHRISTOPHER WHITE C EXAM 4 REGIONAL REGIONAL CHEST 2 MEDICAL MEDICAL VIEWS CENTE CENTE FRONTAL&L ATERAL ECG 57257 CHRISTOPHER JONESVARNULFO ROUTINE 4 REGIONAL MARYELLEN ECG MEDICAL W/LEAST CENTE 12 LDS I&R ONLY ANTIBODY 25977 CHRISTOPHER WHITE SCREEN 4 REGIONAL REGIONAL RBC EACH MEDICAL MEDICAL SERUM CENTE CENTE TECHNIQUE ECG 46508 CHRISTOPHER WHITE ROUTINE 4 REGIONAL REGIONAL ECG MEDICAL MEDICAL W/LEAST CENTE CENTE 12 LDS TRCG ONLY W/[place] [address] ADVANCED KERSCHNER JOINT 4 PAIN & MAG ARTHRGRPH SPINE Y&/ANES/S INSTIT TEROID W/FLOR O2 CONC 1 E1390 NEETA SANTACRUZ DEL PORT 4 HOME HOME 85%/>02 MEDICAL MEDICAL CONC AT EQUIPME EQUIPME [facility] FLW RATE NEBULIZER E0570 NEETA SANTACRUZ WITH 4 HOME HOME COMPRESSO MEDICAL MEDICAL R EQUIPME EQUIPME PRTBLE E0431 NEETA SANTACRUZ GASEOUS 4 HOME HOME O2 SYS MEDICAL MEDICAL RENT; EQUIPME EQUIPME FLWMTR HUMIDFR&M ASK RADIOLOGI 63291 REED MCBRIDE C EXAM 4 W W KNEE REGIONAL REGIONAL COMPLETE MEDICAL MEDICAL 4/[place]X [address] ADVANCED KERSCHNER ANES&/STR 4 PAIN & MAG D W/IMG SPINE TFRML INSTIT EDRL LMBR/SAC EA LV CT THORAX 49348 BROWNELL RECINOS 4 JOHN W/CONTRAS RADIOLOGY T ASSOCIAT MATERIAL NEBULIZER E0570 NEETA SANTACRUZ WITH 4 HOME HOME COMPRESSO MEDICAL MEDICAL R EQUIPME EQUIPME O2 CONC 1 E1390 NEETA SANTACRUZ DEL PORT 4 HOME HOME 85%/>02 MEDICAL MEDICAL CONC AT EQUIPME EQUIPME PRSC FLW RATE PRTBLE E0431 NEETA SANTACRUZ GASEOUS 4 HOME HOME O2 SYS MEDICAL MEDICAL RENT; EQUIPME EQUIPME FLWMTR HUMIDFR&M ASK RADIOLOGI 34180 REED MCBRIDE C EXAM 4 W W CHEST 2 REGIONAL REGIONAL VIEWS MEDICAL MEDICAL FRONTAL&[place] NJX [address]5826 ADVANCED KERSCHNER ANES&/STR 4 PAIN & MAG D W/IMG SPINE TFRML INSTIT EDRL LMBR/SAC EA LV ARTHROCEN MAYITO EDMOND TESIS 4 MAG MAG ASPIR&/IN J MAJOR JT/BURSA W/O US NEBULIZER E0570 NEETA SANTACRUZ WITH 4 HOME HOME COMPRESSO MEDICAL MEDICAL R EQUIPME EQUIPME O2 CONC 1 E1390 NEETA SANTACRUZ DEL PORT 4 HOME HOME 85%/>02 MEDICAL MEDICAL CONC AT EQUIPME EQUIPME PRSC FLW RATE PRTBLE E0431 NEETA SANTACRUZ GASEOUS 4 HOME HOME O2 SYS MEDICAL MEDICAL RENT; EQUIPME EQUIPME FLWMTR HUMIDFR&M ASK PRTBLE E0431 NEETA SANTACRUZ GASEOUS 4 HOME HOME O2 SYS MEDICAL MEDICAL RENT; EQUIPME EQUIPME FLWMTR HUMIDFR&M ASK O2 CONC 1 E1390 NEETA SANTACRUZ DEL PORT 4 HOME HOME 85%/>02 MEDICAL MEDICAL CONC AT EQUIPME EQUIPME PRSC FLW RATE NEBULIZER E0570 NEETA SANTACRUZ WITH 4 HOME HOME COMPRESSO MEDICAL MEDICAL R EQUIPME EQUIPME BLD GLU A4253 NEETA SANTACRUZ TEST/REAG 4 HOME HOME T STRIPS MEDICAL MEDICAL HOME BLD EQUIPME EQUIPME GLU MON-50 MRI BRAIN 87205 [place] NOYOLA BRAIN 4 [facility] STEM W/O INC INC W/CONTRAS T MATERIAL O2 CONC 1 E1390 NEETA SANTACRUZ DEL PORT 4 HOME HOME 85%/>02 MEDICAL MEDICAL CONC AT EQUIPME EQUIPME PRSC FLW RATE NEBULIZER E0570 NEETA SANTACRUZ WITH 4 HOME HOME COMPRESSO MEDICAL MEDICAL R EQUIPME EQUIPME PRTBLE E0431 NEETA SANTACRUZ GASEOUS 4 HOME HOME O2 SYS MEDICAL MEDICAL RENT; EQUIPME EQUIPME FLWMTR HUMIDFR&[place] [address] [facility] [employer], [facility], HEAD/BRAI 4 OBIEE REPORT DEVELOPER OBIEE REPORT DEVELOPER N W/O NORRIS PISANO CONTRAST CO HOS CO HOS MATERIAL O2 CONC 1 E1390 NEETA SANTACRUZ DEL PORT 4 HOME HOME 85%/>02 MEDICAL MEDICAL CONC AT EQUIPME EQUIPME PRSC FLW RATE NEBULIZER E0570 NEETA SANTACRUZ WITH 4 HOME HOME COMPRESSO MEDICAL MEDICAL R EQUIPME EQUIPME ALBUTEROL J7620 YOUR YOUR TO 2.5 4 PHARMACY PHARMACY [employer] IPRATROPI UM BROM TO 0.5 MG PRTBLE E0431 NEETA SANTACRUZ GASEOUS 4 HOME HOME O2 SYS MEDICAL MEDICAL RENT; EQUIPME EQUIPME FLWMTR HUMIDFR&M ASK PHRM Q0513 YOUR YOUR DISPENSIN 4 PHARMACY PHARMACY [facility] INHALATIO N RX; PER 30 DAYS RADIOLOGI 23476 [facility] [employer], [facility], C EXAM 4 OBIEE REPORT DEVELOPER OBIEE REPORT DEVELOPER CHEST 2 NORRIS NORRIS VIEWS CO HOS CO HOS FRONTAL&L ATERAL ARTERIAL 74986 [facility], PUNCTURE 4 OBIEE REPORT DEVELOPER OBIEE REPORT DEVELOPER WITHDRAWA NORRIS PISANO L BLOOD CO HOS CO HOS DX RADIOLOGI 64585 [facility], C EXAM 4 OBIEE REPORT DEVELOPER OBIEE REPORT DEVELOPER CHEST 2 NORRIS NORRIS VIEWS CO HOS CO HOS FRONTAL&L ATERAL RADEX 13478 [facility] [employer], [facility], FOOT 4 OBIEE REPORT DEVELOPER OBIEE REPORT DEVELOPER COMPLETE NORRIS OLGUINS MINIMUM 3 CO HOS CO HOS VIEWS PWR WC K0825 [facility] GRP 2 4 MEDICAL MEDICAL HEVY DUTY OF OF [place] PISANO CHAIR PT E E 301-450 LBS PWR WC K0825 REHAB REHAB GRP 2 3 MEDICAL MEDICAL HEVY DUTY OF OF [place] HAY PT E E 301-450 LBS PWR WC K0825 REHAB REHAB GRP 2 3 MEDICAL MEDICAL HEVY DUTY OF OF [place] PISANO CHAIR PT E E 301-450 LBS ECHO 34361 [facility] INC, [facility] INC, TTHRC R-T 3 OBIEE REPORT DEVELOPER OBIEE REPORT DEVELOPER 2D NORRIS PISANO W/WOM-MOD CO HOS CO HOS E COMPL SPEC&COLR D BLD GLU A4253 NEETA SANTACRUZ TEST/REAG 3 HOME HOME T [facility] MEDICAL HOME BLD EQUIPME EQUIPME GLU MON-50 RADIOLOGI 72377 MOSER MOSER C EXAM 3 URBANO URBANO CHEST 2 VIEWS FRONTAL&L ATERAL PWR WC K0825 REHAB REHAB GRP 2 3 MEDICAL MEDICAL HEVY DUTY OF OF CAPT ALIYA HAY PT E E 301-450 LBS RADEX 05854 JORJE RECINOS WRIST 3 [facility] COMPLETE MINIMUM 3 VIEWS RADEX ABD 99755 NAZ CHILDS COMPL 3 EIDER BILL EISARAH BILL AQT ABD W/S/E/D VIEWS 1 VIEW CH RADIOLOGI 97619 MOSER MOSER C EXAM 3 URBANO URBANO CHEST 2 VIEWS FRONTAL&L ATERAL ECG 74744 AHMED ADN AHMED ADN ROUTINE 3 ECG W/LEAST 12 LDS I&R ONLY ECG 55988 AHMED ADN AHMED ADN ROUTINE 3 ECG W/LEAST 12 LDS I&R ONLY ECG 28909 AHMED ADN AHMED ADN ROUTINE 3 ECG W/LEAST 12 LDS I&R ONLY RADIOLOGI 30908 NAZ CHILDS C 3 EIDER BILL KHAN EXAMINATI ON CHEST SINGLE VIEW FRONTAL RADIOLOGI 60226 MOSER MOSER C EXAM 3 URBANO URBANO CHEST 2 VIEWS FRONTAL&L ATERAL RADIOLOGI 50093 MOSER MOSER C EXAM 3 URBANO URBANO CHEST 2 VIEWS FRONTAL&L ATERAL RADEX 24150 JORJE RECINOS FOOT 3 JOHN JOHN COMPLETE MINIMUM 3 VIEWS CONTINUOU E0601 NEETA SANTACRUZ S 3 HOME HOME POSITIVE MEDICAL MEDICAL AIRWAY EQUIPME EQUIPME PRESSURE DEVICE SPMTRY 80454 KATIE GAFFNEYICK W/VC 3 JAM JAM EXPIRATOR Y MATILDE W/WO MXML VOL VNTJ RADIOLOGI 27073 JORJE RECINOS C EXAM 3 [facility] CHEST 2 VIEWS FRONTAL&L ATERAL RADIOLOGI 76470 NAZ CHILDS C EXAM 3 EIDER BILL EIDER BILL CHEST 2 VIEWS FRONTAL&L ATERAL CONTINUOU E0601 NEETADEONDRE SANTACRUZ S 3 HOME HOME POSITIVE MEDICAL MEDICAL AIRWAY EQUIPME EQUIPME PRESSURE DEVICE RADIOLOGI 17231 ANGELICA DOMINGUEZ C EXAM 3 CELESTE CELESTE CHEST 2 VIEWS FRONTAL&L ATERAL ECG 40038 BLOYD LUX BLOYD LUX ROUTINE 3 ECG W/LEAST 12 LDS I&R ONLY RADIOLOGI 95713 NAZ CHILDS C EXAM 3 EIDER BILL EIDER BILL CHEST 2 VIEWS FRONTAL&L ATERAL RADIOLOGI 18197 ELECTRAARACELIS RECINOS C EXAM 2 JOHN CHEST 2 RADIOLOGY VIEWS ASSOCIAT FRONTAL&L ATERAL CONTINUOU E0601 NEETADEONDRE SANTACRUZ S 2 HOME HOME POSITIVE MEDICAL MEDICAL AIRWAY EQUIPME EQUIPME PRESSURE DEVICE RADIOLOGI 24264 BROWNELL JORJE C EXAM 2 JOHN CHEST 2 RADIOLOGY VIEWS ASSOCIAT FRONTAL&L ATERAL TUBING A7037 NEETA BOBRELL USED WITH 2 HOME HOME POSITIVE MEDICAL MEDICAL AIRWAY EQUIPME EQUIPME PRESSURE DEVICE CONTINUOU E0601 NEETADEONDRE SANTACRUZ S 2 HOME HOME POSITIVE MEDICAL MEDICAL AIRWAY EQUIPME EQUIPME PRESSURE DEVICE LANCETS A4259 NEETA BOBRELL PER BOX 2 HOME HOME OF 100 MEDICAL MEDICAL EQUIPME EQUIPME ALBUTEROL J7620 YOUR YOUR TO 2.5 2 PHARMACY PHARMACY MG & IPRATROPI UM BROM TO 0.5 MG FULL FACE A7030 NEETA SANTACRUZ MASK 2 HOME HOME USED MEDICAL MEDICAL W/POS EQUIPME EQUIPME ARWAY PRESS DEVICE EA FILTER A7038 NEETA SANTACRUZ DISPBL 2 HOME HOME USED MEDICAL MEDICAL W/POS EQUIPME EQUIPME ARWAY PRESSURE DEVICE BLD GLU A4253 NEETA NEETA TEST/REAG 2 HOME HOME T [facility] MEDICAL HOME BLD EQUIPME EQUIPME GLU [facility] 41238 AHMED ADN AHMED ADN DISCHARGE 2 DAY MANAGEMEN T 30 MIN/< HUMDIFIR E0562 NEETA SANTACRUZ HEATED 2 HOME HOME USED MEDICAL MEDICAL W/POS EQUIPME EQUIPME ARWAY PRESSURE DEVICE HEADGEAR A7035 NEETA SANTACRUZ USED 2 HOME HOME W/POSITIV MEDICAL MEDICAL E AIRWAY EQUIPME EQUIPME PRESSURE DEVICE ADMN SET A7003 YOUR YOUR SM VOL 2 PHARMACY PHARMACY NONFILTR PNEUMAT NEBULIZR DISPBL ECG 48509 AHMED ADN AHMED ADN ROUTINE 2 ECG W/LEAST 12 LDS TRCG ONLY W/O I&R RADIOLOGI 79588 [facility] C EXAM 2 EIDER BILL CHEST 2 RADIOLOGY VIEWS ASSOCIAT FRONTAL&L ATERAL RADIOLOGI 50280 [facility] C EXAM 2 JOHN CHEST 2 RADIOLOGY VIEWS ASSOCIAT FRONTAL&L ATERAL LANCETS A4259 NEETA SANTACRUZ PER BOX 2 HOME HOME OF 100 MEDICAL MEDICAL EQUIPME EQUIPME BLD GLU A4253 NEETA BOBRELL TEST/REAG 2 HOME HOME T STRIPS MEDICAL MEDICAL HOME BLD EQUIPME EQUIPME GLU BLOOD 58863 [facility], [employer], COUNT 2 OBIEE REPORT DEVELOPER OBIEE REPORT DEVELOPER COMPLETE [facility] AUTO&AUTO CO HOS CO HOS DIFRNTL WBC RADIOLOGI 43144 [employer], [employer], C 2 OBIEE REPORT DEVELOPER OBIEE REPORT DEVELOPER EXAMINATI [facility] ON KNEE CO HOS CO HOS 1/2 [place] [address] [employer], [employer], FREE 2 OBIEE REPORT DEVELOPER OBIEE REPORT DEVELOPER THYROXINE [facility] [place] [address] [facility] [employer], [employer], THYROID 2 OBIEE REPORT DEVELOPER OBIEE REPORT DEVELOPER STIMULATI [facility] NG CO HOS CO HOS HORMONE TSH COMPREHEN 77911 [employer], [employer], SIVE 2 OBIEE REPORT DEVELOPER OBIEE REPORT DEVELOPER METABOLIC [facility] PANEL CO HOS CO HOS HEMOGLOBI 26184 [facility], [facility], N 2 OBIEE REPORT DEVELOPER OBIEE REPORT DEVELOPER GLYCOSYLA [facility] KAMILAH A1C CO HOS CO HOS LIPID 82941 [facility] [employer], [facility], PANEL 2 OBIEE REPORT DEVELOPER OBIEE REPORT DEVELOPER NORRIS [facility] [address]14 [facility] DISCHARGE 2 DYLAN DYLAN DAY MANAGEMEN T 30 MIN/< RADIOLOGI 29122 [facility] C EXAM 2 RADIOLOGY III ANTONELLA CHEST 2 VIEWS FRONTAL&L ATERAL ECG 48792 [facility] ROUTINE 2 EMERGENCY EMERGENCY ECG SERVICES SERVICES W/LEAST 12 LDS I&R ONLY LANCETS A4259 NEETA NEETA PER BOX 2 HOME HOME OF 100 MEDICAL MEDICAL EQUIPME EQUIPME BLD GLU A4253 NEETA NEETA TEST/REAG 2 HOME HOME T STRIPS MEDICAL MEDICAL HOME BLD EQUIPME EQUIPME GLU MON-50 RADEX 35674 [place] MARIANGEL HAND 2 MEDICAL SILVINA MINIMUM 3 SERV VIEWS FOUNDATIO N POLYSOM 92720 THE HOOS R 6/>YRS 2 NEUROLOGY SLEEP GROUP PC W/CPAP 4/> ADDL DREW ATTND THERAPEUT 73455 Xiaoi Robert, [employer], IC 2 OBIEE REPORT DEVELOPER OBIEE REPORT DEVELOPER PROPHYLAC [facility] TIC/DX CO HOS CO HOS INJECTION SUBQ/IM INJECTION J1885 [facility], [facility], 2 OBIEE REPORT DEVELOPER OBIEE REPORT DEVELOPER KETOROLAC [facility] CO HOS CO HOS TROMETHAM INE PER 15 MG RADIOLOGI 61468 [facility] C EXAM 2 EIDER BILL CHEST 2 RADIOLOGY VIEWS ASSOCIAT FRONTAL&L ATERAL BLD GLU A4253 NEETA NEETA TEST/REAG 2 HOME HOME T [facility] BLD EQUIPME EQUIPME GLU MON-50 POLYSOM 10429 THE THE 6/>YRS 2 NEUROLOGY NEUROLOGY SLEEP 4/> GROUP PC GROUP PC ADDL DREW ATTND RADIOLOGI 99167 [facility], [facility], C 2 OBIEE REPORT DEVELOPER OBIEE REPORT DEVELOPER EXAMINATI [facility] ON KNEE 3 CO HOS CO HOS VIEWS LOCM Q9967 [facility] NOYOLA [phone] [facility] MG/ML INC INC IODINE CONCENTRA TION PER ML CT THORAX 46108 [facility] 2 [facility] W/CONTRAS INC INC T MATERIAL 3D 29340 [facility] RENDERING 2 MEM H[facility] INC INC W/INTERP& POSTPROC DIFF WORK STATION RADIOLOGI 94544 [facility] C EXAM 2 CHEST 2 RADIOLOGY RADIOLOGY VIEWS ASSOCIAT ASSOCIAT FRONTAL&L ATERAL BLD GLU A4253 NEETA NEETA TEST/REAG 2 HOME HOME T [facility] BLD EQUIPME EQUIPME GLU BLD GLU A4253 NEETA NEETA TEST/REAG 2 HOME HOME T [facility] BLD EQUIPME EQUIPME GLU RADIOLOGI 31224 [facility] C EXAM 2 CHEST 2 RADIOLOGY RADIOLOGY VIEWS ASSOCIAT ASSOCIAT FRONTAL&L ATERAL HOS BED E0303 NEETA NEETA HEVY DUTY 2 HOME HOME W/WT CAP [facility] MEDICAL >350 EQUIPME EQUIPME PDS</=TO 600 PDS OBSERVATI 29902 ROBYN PATTON ON/INPATI 1 EMERGENCY [facility] C[facility] 55 MINUTES RADIOLOGI 82482 ROBYN NICOL BAB C 1 EMERGENCY EXAMINATI SERVICES ON CHEST [place] FRONTAL RADIOLOGI 49720 [facility] [place] [facility] [place] C EXAM 1 RADIOLOGY RADIOLOGY CHEST 2 VIEWS FRONTAL&L ATERAL RADIOLOGI 89095 [facility] C EXAM 1 JOHN CHEST 2 RADIOLOGY VIEWS ASSOCIAT FRONTAL&L ATERAL HOS BED E0303 NEETA NEETA HEVY DUTY 1 HOME HOME W/WT CAP MEDICAL MEDICAL >350 EQUIPME EQUIPME PDS</=TO 600 PDS ECG 50238 QIANA AMIN AMIN QIANA ROUTINE 1 MD ECG CONSULTIN W/LEAST G SRV 12 LDS I&R ONLY OBSERVATI 75080 [facility] WATERS ON CARE 1 COUNTY OSI DISCHARGE [facility] MANAGEMEN T INITIAL 25843 [facility] WATERS OBSERVATI 1 [facility]SI ON RURAL CARE/DAY HEALTH 50 MINUTES RADIOLOGI 89953 [facility] EISARAH BILL EXAMINATI RADIOLOGY ON CHEST ASSOCIAT [place] FRONTAL HOS BED E0303 NEETA SANTACRUZ Brazen CareeristY DUTY 1 HOME HOME W/WT CAP MEDICAL MEDICAL >350 EQUIPME EQUIPME PDS</=TO 600 PDS DUP-SCAN 89447 [facility] XTR VEINS 1 JOHN COMPLETE RADIOLOGY ASSOCIAT BILATERAL STUDY RADIOLOGI 84448 [facility] C EXAM 1 URBANO CHEST 2 RADIOLOGY VIEWS ASSOCIAT FRONTAL&L ATERAL CUL BACT 48625 [facility] ANAEROBIC 1 CO CO [facility] [place] [address] [facility] STREPTOCO 1 CO CO [facility] A CUL BACT 89748 [facility] XCPT 1 CO [facility] BLOOD/STO OL AEROBIC ISOL INITIAL 78071 [facility] 1 OSI OSI CARE/DAY 70 MINUTES RADIOLOGI 67932 [facility] JOHN CHEST 2 RADIOLOGY VIEWS ASSOCIAT FRONTAL&L ATERAL HOS BED E0303 NEETA SANTACRUZ LUMOback DUTY 1 HOME HOME W/WT CAP MEDICAL MEDICAL >350 EQUIPME EQUIPME PDS</=TO 600 PDS RADIOLOGI 32178 [facility] C EXAM 1 URBANO CHEST 2 RADIOLOGY VIEWS ASSOCIAT FRONTAL&L ATERAL ARTHROCEN 76803 [facility] TES 1 Y Y ASPIR&/IN HOSPITAL HOSPITAL J MAJOR JT/BUR[place] [address] [facility] PLACEMENT IMG S&I HOS BED E0303 NEETA SANTACRUZ LUMOback DUTY 1 HOME HOME W/WT CAP MEDICAL MEDICAL >350 EQUIPME EQUIPME PDS</=TO 600 PDS ECG 89956 QIANA AMIN AMIN QIANA ROUTINE 1 MD ECG CONSULTIN W/LEAST G SRV 12 LDS I&R ONLY INJECTION J1030 [facility] 1 OSI OSI METHYLPRE DNISOLONE ACETATE 40 MG RADIOLOGI 73170 [facility] C 1 [facility] ON KNEE 3 VIEWS PROTHROMB 71092 [facility] IN TIME 1 [facility] COLLECTIO 03339 [facility] N VENOUS 1 CO MS BLOOD [facility] VENIPUNCT URE HOS BED E0303 NEETA NEETA HEVY DUTY 1 HOME HOME W/WT CAP MEDICAL MEDICAL >350 EQUIPME EQUIPME PDS</=TO 600 PDS RADIOLOGI 09721 [facility] EIDER BILL CHEST 2 RADIOLOGY VIEWS ASSOCIAT FRONTAL&L ATERAL HOS BED E0303 NEETA NEETA HEVY DUTY 1 HOME HOME W/WT CAP MEDICAL MEDICAL >350 EQUIPME EQUIPME PDS</=TO 600 PDS HOS BED E0303 NEETA NEETA HEVY DUTY 1 HOME MED HOME MED W/WT CAP EQUIP. L EQUIP. L >350 PDS</=TO 600 PDS ECG 86652 QIANA AMIN AMIN QIANA ROUTINE 1 ECG CONSULTIN W/LEAST G SRV 12 LDS I&R ONLY HOSPITAL 60648 [facility] DISCHARGE 1 OSI OSI DAY MANAGEMEN T > 30 MIN SBSQ 16075 [facility] 1 OSI OSI CARE/DAY 35 MINUTES PROTHROMB 66001 [facility] IN TIME 1 [place] [address] [facility] INFUSION 1 [facility] THERAPY/P [facility] ROPHYLAXI S /DX 1ST TO 1 HR INITIAL 30464 [facility] 1 OSI OSI CARE/DAY 70 MINUTES PRESSURIZ 42139 [facility] ED/NONPRE 1 [facility] [place] [address] [facility] TROPONIN 1 CO MS QUANTITAT [facility] RANDY BLOOD 85465 [facility] COUNT 1 [facility] AUTO&AUTO DIFRNTL WBC COMPREHEN 90766 NORRIS MCMANUSE 1 CO CO METABOLIC [facility] PANEL ECG 44715 [facility] ROUTINE 1 CO CO ECG [facility] W/LEAST 12 LDS TRCG ONLY W/O I&R RADIOLOGI 60194 [facility] C EXAM 1 CO CO CHEST 2 [facility] VIEWS FRONTAL&L ATERAL LIPID 31006 DENN[facility] NOYOLA PANEL 1 MEM HOS[facility] MEM HOSP INC INC HEMOGLOBI 67422 DEN[facility] N 1 MEM HOSP MEM HOSP GLYCOSYLA [place] [address] DENNYS [facility] FOLIC 1 MEM HOSP [place] [address] DENN[facility] [place] THYROID 1 [facility] STIMULATI [place] [address] DENNYS [facility]YOLA THYROXINE 1 MEM HOSP MEM HOSP TOTAL INC INC COLLECTIO 65057 DENN[facility] N VENOUS 1 [facility] BLOOD INC INC VENIPUNCT URE PROTEIN 91290 DEN[facility] ELECTROPH 1 [facility] ORETIC INC INC FRACTJ&[place] [address] [facility] THIAMINE- 1 [facility] VITAMIN INC INC B-1 CYANOCOBA 04997 [facility] NATALEE 1 [facility] VITAMIN INC INC B-12 HOS BED E0303 NEETA SANTACRUZ HEVY DUTY 1 HOME MED HOME MED W/WT CAP EQUIP. L EQUIP. L >350 PDS</=TO 600 PDS INJECTION J1030 [facility] 1 OSI OSI METHYLPRE DNISOLONE ACETATE 40 MG THERAPEUT 10339 [facility] IC 1 OSI OSI PROPHYLAC TIC/DX INJECTION SUBQ/IM NRV CNDJ 79160 LINARES LINARES AMPLITUDE 1 JOHN JOHN & LATENCY EACH NERVE SENSORY NRV CNDJ 78533 LINARES LINARES AMPLT&LAT 1 JOHN JOHN ENCY EA NRV MOTOR W/F-WAVE STD NDL EMG 2 51397 LINARES LINARES XTR W/WO 1 [facility] HOS BED E0303 NEETA SANTACRUZ HEVKristan DUTY 1 HOME MED HOME MED W/WT CAP EQUIP. L EQUIP. L >350 PDS</=TO 600 PDS DUP-SCAN 20532 JEWELL MOSER XTR VEINS 1 URBANO COMPLETE RADIOLOGY ASSOCIAT BILATERAL STUDY HOS BED E0303 NEETA SANTACRUZ HEVY DUTY 1 HOME MED HOME MED W/WT CAP EQUIP. L EQUIP. L >350 PDS</=TO 600 PDS GEL/GEL-L E0185 NETEA SANTACRUZ MARIVEL PRSS 1 HOME MED HOME MED PAD EQUIP. L EQUIP. L [facility] 84034 [facility] DISCHARGE 1 OSI OSI DAY MANAGEMEN T > 30 MIN SBSQ 98761 [facility] 1 OSI OSI CARE/DAY 25 MINUTES SBSQ 82224 [facility] 1 OSI OSI CARE/DAY 35 MINUTES INITIAL 86133 [facility] 1 OSI OSI CARE/DAY 70 MINUTES RADIOLOGI 28117 [facility] C EXAM 1 URBANO CHEST 2 RADIOLOGY VIEWS ASSOCIAT FRONTAL&L ATERAL HOS BED E0303 NEETA SANTACRUZ HEV DUTY 1 HOME MED HOME MED W/WT CAP EQUIP. L EQUIP. L >350 PDS</=TO 600 PDS ALBUTEROL J7620 INFUSION INFUSION TO 2.5 1 PARTNERS PARTNERS MG & OF OF IPRATROPI [place] UM BROM TO 0.5 MG PHRM Q0513 INFUSION INFUSION DISPENSIN 1 PARTNERS PARTNERS G FEE OF OF INHALATIO [place] N RX; PER 30 DAYS E-STIM G0283 [facility] 1/> [address] OTH THAN PAIN PAIN WND CARE MANAGE MANAGE PART TX PLAN DRUG SCR G0434 [facility] NOT [address] [place] [address] CHROMATOG PAIN PAIN RAPHIC; MANAGE MANAGE ANY NUMBER PT ENC ECG 70057 QIANA AMIN AMIN QIANA ROUTINE 1 MD ECG CONSULTIN W/LEAST G SRV 12 LDS I&R ONLY RADIOLOGI 95885 [facility] C EXAM 1 EIDER BILL CHEST 2 RADIOLOGY VIEWS ASSOCIAT FRONTAL&L ATERAL RADIOLOGI 06372 [facility] C EXAM 1 RADHA KHAN CHEST 2 RADIOLOGY VIEWS ASSOCIAT FRONTAL&L ATERAL HOS BED E0303 NEETA SANTACRUZ HEVKristan DUTY 1 HOME MED HOME MED W/WT CAP EQUIP. L EQUIP. L >350 PDS</=TO 600 PDS INJECTION J1030 [facility] VILLAFLOR 0 OSI OSI METHYLPRE DNISOLONE ACETATE 40 MG ALBUTEROL J7620 INFUSION INFUSION TO 2.5 0 PARTNERS PARTNERS MG & OF OF IPRATROPI [place] UM BROM TO 0.5 MG PHRM Q0513 INFUSION INFUSION DISPENSIN 0 PARTNERS PARTNERS G FEE OF OF INHALATIO [place] N RX; PER 30 DAYS APPL 25224 [facility] MODALITY 0 [place] 1/> AREAS PAIN ELEC MANAGE STIMJ [address] [place] [address] [facility] HEAD/BRAI 0 JOHN N W/O RADIOLOGY CONTRAST ASSOCIAT MATERIAL E-STIM G0283 [facility] 1/> AREAS 0 [facility] OTH THAN PAIN PAIN WND CARE MANAGE MANAGE PART TX PLAN ARTHROCEN 30147 CELIA SCOTT TESIS 0 HEILIG IVELISSE ASPIR&/IN [facility] J MAJOR JT/BURSA W/O US INJECTION J3301 CELIA SCOTT 0 HEILIG IVELISSE TRIAMCINO [facility] LONE ACETONIDE NOS 10 MG RADIOLOGI 39957 CELIA Pozo 0 HEILIG IVELISSE EXAMINATI [facility] ON KNEE 1/2 VIEWS ALBUTEROL J7620 INFUSION INFUSION TO 2.5 0 PARTNERS PARTNERS MG & OF OF IPRATROPI [place] UM BROM TO 0.5 MG PHRM Q0513 INFUSION INFUSION DISPENSIN 0 PARTNERS PARTNERS G FEE OF OF INHALATIO [place] N RX; PER 30 DAYS LIPID 53132 [facility] P[facility] PANEL 0 CO CO [facility] HEPATIC 33289 [facility] FUNCTION 0 CO CO PANEL [facility] HEMOGLOBI 21953 [facility] N 0 CO CO GLYCOSYLA [facility] KAMILAH A1C COLLECTIO 66417 [facility] N VENOUS 0 [facility] BLOOD [facility] VENIPUNCT URE BASIC 05383 [facility] METABOLIC 0 CO CO PANEL [facility] CALCIUM TOTAL NEBULIZER E0570 [facility] OPTIONCAR WITH 0 E HOME E HOME COMPRESSO R ARTHROCEN 53587 CELIA SCOTT TESIS 0 HEILIG IVELISSE ASPIR&/IN [facility] J MAJOR JT/BURSA W/O US HYALURONA J7325 CELIA SCOTT N/DERIV 0 HEILIG IVELISSE SYNVISC/S [facility] YNVISC-ON E IA INJ 1 MG HOSPITAL 0[address]47 [facility] 0 PHYSICIAN AASHISH E DAY MANAGEMEN CORPORATI T 30 ON II MIN/< INITIAL [address]3210 [facility] 0 PHYSICIAN AASHISH E CARE/DAY 30 CORPORATI MINUTES ON II NEBULIZER E0570 [facility] OPTIONCAR WITH 0 E HOME E HOME COMPRESSO R NEBULIZER E0570 [facility] OPTIONCAR WITH 0 E HOME E HOME COMPRESSO R ECG 81630 QIANA AMIN AMIN, ROUTINE 9 MD COCO [place] ECG CONSULTIN W/LEAST G SRV PSC 12 LDS I&R ONLY NEBULIZER E0570 [facility] OPTIONCAR WITH 9 E HOME E HOME COMPRESSO R CT THORAX 34977 [facility] [place] INDIRA, 9 RADIOLOGY LUIS F G W/CONTRAS T MATERIAL NEBULIZER E0570 [facility] OPTIONCAR WITH 9 E HOME E HOME COMPRESSO R RADIOLOGI 28906 Sánchez SHEN EXAM 9 NEHEMIAS S CHEST 2 RADIOLOGY VIEWS FRONTAL&L ASSOCIATE ATERAL S PSC ANTIBODY 38766 [facility] INFLUENZA 9 CO [facility] NEBULIZER E0570 [facility] OPTIONCAR WITH 9 [...] E HOME E HOME COMPRESSO R RADEX 07804 [facility] PIS[facility] WRIST 9 CO CO [facility] MINIMUM 3 VIEWS FULL FACE A7030 NEETA NEETA MASK 9 HOME MED HOME MED USED EQUIP. EQUIP. W/[employer] PRESS DEVICE EA FILTER A7038 NEETA NEETA DISPBL 9 HOME MED HOME MED USED EQUIP. EQUIP. [employer] PRESSURE DEVICE FILTER A7039 NEETA NEETA NON 9 HOME MED HOME MED DISPBL EQUIP. EQUIP. [employer] W/POS [employer] PRESS DEVICE HEADGEAR A7035 NEETA BOBRELL USED 9 HOME MED HOME MED W/POSITIV EQUIP. EQUIP. E [employer] [facility] PRESSURE DEVICE FACE MASK A7031 NEETA NEETA 9 HOME MED HOME MED INTERFACE EQUIP. EQUIP. REPLCMT [facility] FULL FACE MASK EA TUBING A7037 NEETA SANTACRUZ USED WITH 9 HOME MED HOME MED POSITIVE EQUIP. EQUIP. [employer] [facility] PRESSURE DEVICE NEBULIZER E0570 [facility] OPTIONCAR WITH 9 E HOME E HOME COMPRESSO R RADIOLOGI 01646 Sánchez SHEN EXAM 9 NEHEMIAS S CHEST 2 RADIOLOGY VIEWS FRONTAL&L ASSOCIATE ATERAL S PSC PHRM Q0513 INFUSION INFUSION DISPENSIN 9 PARTNERS PARTNERS G FEE OF OF INHALATIO [place] N RX; PER 30 DAYS ALBUTEROL J7620 INFUSION INFUSION TO 2.5 9 PARTNERS PARTNERS MG & OF OF IPRATROPI [place] UM BROM TO 0.5 MG NEBULIZER E0570 [facility] OPT[facility]CAR WITH 9 E HOME E HOME COMPRESSO R ALBUTEROL J7620 INFUSION INFUSION TO 2.5 9 PARTNERS PARTNERS MG & OF OF IPRATROPI [facility] UM BROM TO 0.5 MG PHRM Q0513 INFUSION INFUSION DISPENSIN 9 PARTNERS PARTNERS G FEE OF OF INHALATIO [facility] N RX; PER 30 DAYS RADIOLOGI 45410 BROWNELL Sánchez MOSER EXAM 9 NEHEMIAS S CHEST 2 RADIOLOGY VIEWS FRONTAL&L ASSOCIATE ATERAL S PSC NEBULIZER E0570 [facility] OPT[facility]CAR WITH 9 E HOME E HOME COMPRESSO R ALBUTEROL J7620 INFUSION INFUSION TO 2.5 9 PARTNERS PARTNERS MG & OF OF IPRATROPI [facility] UM BROM TO 0.5 MG ADMN SET A7003 [facility] OPTIONCAR SM VOL 9 E HOME E HOME NONFILTR PNEUMAT NEBULIZR DISPBL PHARM G0333 INFUSION INFUSION DISPEN 9 PARTNERS PARTNERS FEE INHAL OF OF RX; [facility] INITIAL 30-DAY SUPPLY RADIOLOGI 68035 BROWNELL SHANTI C EXAM 9 NEHEMIAS S CHEST 2 RADIOLOGY VIEWS FRONTAL&L ASSOCIATE ATERAL S PSC RADIOLOGI 36028 BROWNELL Sánchez MOSER EXAM 9 NEHEMIAS S CHEST 2 RADIOLOGY VIEWS FRONTAL&L ASSOCIATE ATERAL S PSC OBSERVATI 33608 [facility] KUVLIEV, ON/INPATI 9 PHYSICIAN AASHISH E ENT HOSPITAL CORPORATI CARE 50 ON II MINUTES RADIOLOGI 36603 Sánchez MAHAN 9 Barney NAJERA MD [facility] ON CHEST [place] FRONTAL HEADGEAR A7035 NEETA SANTACRUZ USED 9 HOME MED HOME MED W/POSITIV EQUIP. EQUIP. E AIRWAY [facility] PRESSURE DEVICE FACE MASK A7031 NEETA SANTACRUZ 9 HOME MED HOME MED INTERFACE EQUIP. EQUIP. REPLCMT [facility] FULL FACE MASK EA FILTER A7038 NEETA SANTACRUZ DISPBL 9 HOME MED HOME MED USED EQUIP. EQUIP. W/POS [facility] [employer] PRESSURE DEVICE FULL FACE A7030 NEETA NEETA MASK 9 HOME MED HOME MED USED EQUIP. EQUIP. W/POS [facility] ARWAY PRESS DEVICE EA TUBING A7037 NEETA NEETA USED WITH 9 HOME MED HOME MED POSITIVE EQUIP. EQUIP. AIRWAY [facility] PRESSURE DEVICE HOSPITAL 48212 [facility] DISCHARGE 9 , GRETEL M , GRETEL M DAY MANAGEMEN T 30 MIN/< SBSQ 70334 [facility] 9 , GRETEL M , GRETEL M CARE/DAY 25 MINUTES SBSQ 78560 [facility] 9 , GRETEL M , GRETEL M CARE/DAY 35 MINUTES HOSPITAL 59790 [facility] DISCHARGE 8 , GRETEL M , GRETEL M DAY MANAGEMEN T 30 MIN/< SBSQ 96518 [facility] 8 , GRETEL M , GRETEL M CARE/DAY 25 MINUTES SBSQ 31483 [facility] 8 , GRETEL M , GRETEL M CARE/DAY 35 MINUTES RADIOLOGI 42880 BROWNELL Sánchez MOSER EXAM 8 NEHEMIAS S CHEST 2 RADIOLOGY VIEWS FRONTAL&L ASSOCIATE ATERAL S PSC INJECTION J1030 [facility] 8 , GRETEL M , GRETEL M METHYLPRE DNISOLONE ACETATE 40 MG FULL FACE A7030 NEETA NEETA MASK 8 HOME MED HOME MED USED EQUIP. EQUIP. W/POS [facility] ARWAY PRESS DEVICE EA FILTER A7039 NEETA NEETA NON 8 HOME MED HOME MED DISPBL EQUIP. EQUIP. [facility] [facility] W/POS ARWAY PRESS DEVICE FILTER A7038 NEETA NEETA DISPBL 8 HOME MED HOME MED USED EQUIP. EQUIP. W/POS [facility] ARWAY PRESSURE DEVICE HEADGEAR A7035 NEETA NEETA USED 8 HOME MED HOME MED W/POSITIV EQUIP. EQUIP. E AIRWAY [facility] PRESSURE DEVICE FACE MASK A7031 NEETA NEETA 8 HOME MED HOME MED INTERFACE EQUIP. EQUIP. REPLCMT [facility] FULL FACE MASK EA TUBING A7037 NEETA BOBRELL USED WITH 8 HOME MED HOME MED POSITIVE EQUIP. EQUIP. AIRWAY [facility] PRESSURE DEVICE RADIOLOGI 30681 NORRIS Pozo EXAM 8 CO CO CHEST 2 HOSPITAL HOSPITAL VIEWS FRONTAL&L ATERAL COLLECTIO 45312 NORRIS Escalante VENOUS 8 CO CO BLOOD [facility] H[facility] VENIPUNCT URE BLOOD 88012 NORRIS GALVEZ 8 CO CO SMEAR [facility] MCRSCP W/MNL DIFRNTL WBC COUNT BASIC 20746 NORRIS PISANO METABOLIC 8 CO CO PANEL [facility]PITAL CALCIUM TOTAL THER 00598 NOR[facility]IS PISANO PROPH/DX 8 CO CO NJX [facility] SUBQ/IM BLOOD 72185 NORRIS GALVEZ 8 CO CO COMPLETE [facility] AUTO&AUTO DIFRNTL WBC HOSPITAL 22641 [facility] DISCHARGE 8 , GRETEL M , GRETEL M DAY MANAGEMEN T 30 MIN/< SBSQ 75217 [facility] 8 , GRETEL M , GRETEL M CARE/DAY 25 MINUTES RADIOLOGI 02285 Sánchez SHEN 8 NEHEMIAS S EXAMINA RADIOLOGY ON KNEE 1/2 VIEWS ASSOCIATE S PSC SBSQ 93380 [facility] 8 , GRETEL M , GRETEL M CARE/DAY 25 MINUTES SBSQ 12686 [facility] 8 , GRETEL M , GRETEL M CARE/DAY 35 MINUTES INITIAL 73713 [facility] 8 , GRETEL M , GRETEL M CARE/DAY 70 MINUTES BLOOD 11696 NORRIS GALVEZ 8 CO CO [facility] W/MNL DIFRNTL WBC COUNT COLLECTIO 62751 NORRIS Escalante VENOUS 8 CO CO BLOOD [facility] VENIPUNCT URE BLOOD 64008 NORRIS GALVEZ 8 CO CO COMPLETE [facility] AUTO&AUTO DIFRNTL WBC RADIOLOGI 11064 NORRIS Pozo 8 CO CO [facility] ON KNEE 3 VIEWS RADIOLOGI 81959 NORRIS Pozo 8 CO CO [facility] ON TIBIA & FIBULA 2 VIEWS THER 39773 NORRIS PISANO PROPH/DX 8 CO CO [facility] SUBQ/IM FILTER A7038 NEETA NEETA DISPBL 8 HOME MED HOME MED USED EQUIP. EQUIP. [employer] PRESSURE DEVICE FILTER A7039 NEETA NEETA NON 8 HOME MED HOME MED DISPBL EQUIP. [employer]QU[employer]. [employer] W/POS [employer] PRESS DEVICE FULL FACE A7030 NEETA NEETA MASK 8 HOME MED HOME MED USED EQUIP. EQUIP. [employer] PRESS DEVICE EA FACE MASK A7031 NEETA NEETA 8 HOME MED HOME MED INTERFACE EQUIP. EQUIP. REPLCMT [facility] FULL FACE MASK EA HEADGEAR A7035 NEETA SANTACRUZ USED 8 HOME MED HOME MED W/POSITIV EQUIP. EQUIP. E [employer] [facility] PRESSURE DEVICE TUBING A7037 NEETA SANTACRUZ USED WITH 8 HOME MED HOME MED POSITIVE EQUIP. EQUIP. [employer] [facility] PRESSURE DEVICE HOSPITAL 77160 [facility] DISCHARGE 8 , GRETEL M , GRETEL M DAY MANAGEMEN T 30 MIN/< SBSQ 36911 [facility] 8 , GRETEL M , GRETEL M CARE/DAY 35 MINUTES RADIOLOGI 66138 ELECTRASánchez ADAMS EXAM 8 NEHEMIAS S CHEST 2 RADIOLOGY VIEWS FRONTAL&L ASSOCIATE ATERAL S PSC INITIAL 21232 [facility] 8 , GRETEL M , GRETEL M CARE/DAY 70 MINUTES BASIC 55495 CHRISTOPHER WHITE METABOLIC 8 [facility] PANEL MEDICAL MEDICAL CALCIUM [facility] TOTAL COLLECTIO 71265 CHRISTOPHER WHITE N VENOUS 8 [facility] BLOOD [facility] VENIPUNCT [facility] URE ECG 07511 CHRISTOPEHR WHITE ROUTINE 8 [facility] ECG MEDICAL MEDICAL W/LEAST CENTER [place] 12 LDS TRCG ONLY W/O I&R BLOOD 92526 CHRISTOPHER WHITE COUNT 8 [facility] COMPLETE [facility] MEDICAL AUTO&AUTO [facility] [place] [address] CHRISTOPHER WHITE TROPONIN 8 [facility] RADIOLOGI 19664 CHRISTOPHER Pozo EXAM 8 [facility] CHEST 2 MEDICAL MEDICAL VIEWS [facility] FRONTAL&L ATERAL NATRIURET 79886 CHRISTOPHER WHITE IC 8 [facility] RADIOLOGI 06278 CELIA Pozo 8 SONIA NAJERA MD [facility] ON KNEE 1/2 VIEWS Encounters Encounter Start End Date Code Location Performer Type Date EMERGENCY 42853 ABEL VERMA DEPT 7 7 PHYSICIAN U VISIT [facility] HIGH SEVERITY& THREAT [facility] YANET - 7 7 [facility] T EMERGENCY 15823 [place] 7 7 [facility] T VISIT HIGH/URGE NT SEVERITY EMERGENCY 87744 [facility] DEPT 7 7 [facility] VISIT EMERGENCY HIGH PHYS SEVERITY& THREAT FUNCJ OFFICE 72489 YANET LOPEZ 7 7 PHYSICIAN T VISIT PRACTICE 25 L MINUTES [facility]OSP[facility] - 7 7 [facility] T EMERGENCY 91688 [facility] 7 7 [facility] VIS[facility] MODERATE [facility]VERITY [facility] - 7 7 [facility] INPATIENT INC EMERGENCY 78549 [facility] DE[facility] 7 7 [facility] VISIT EMERGENCY HIGH PHYS SEVERITY& THREAT FUNJ EMERGENCY 20342 [place] 7 7 [facility] T VISIT MODERATE SEVERITY [facility] 7 [facility] T EMERGENCY 41246 [facility] 7 7 [facility] DEPARTMEN EMERGENCY T VISIT PHYS HIGH/URGE NT SEVERITY OFFICE 77653 YANET LOPEZ 7 7 PHYSICIAN T VISIT PRACTICE 25 L MINUTES OFFICE 12138 [facility] MD GREGG, T NEW 30 PSC MINUTES [facility] - 7 7 [facility] EMER[facility] 16080 [facility] 7 [address] [facility] EMERGENCY T VISIT PHYS MODERATE SEVERITY [facility] [place] - 7 7 [facility] T OFFICE 63735 YANET [facility] 7 7 PHYSICIAN T VISIT PRACTICE 15 L MINUTES OFFICE 84023 YANET [facility] 6 6 PHYSICIAN T VISIT PRACTICE 25 L MINUTES HOSPITAL [place] [place] - 6 6 [facility] OFF[facility] 01547 [facility] 6 6 PHYSICIAN T VISIT PRACTICE 15 L MINUTES EMERGENCY 97603 [facility] 6 6 [place] [place] EMERGENCY HIGH PHYS SEVERITY& THREAT [facility] 36828 [facility] 6 6 [place] VISIT EMERGENCY HIGH PHYS SEVERITY& THREAT [facility] [address] [facility] T OFFICE 65721 [facility] 6 6 ERATH T NEW 45 INTERNAL MINUT[facility] [place] [facility] 6 6 [facility] T EMERGENCY [address] [facility] [address] [facility] EMERGENCY T VISIT PHYSI HIGH/URGE NT SEVERITY [facility] 45773 [facility] T VISIT MODERATE SEVERITY EMERGENCY 79290 [facility] 6 6 COMM[facility]ITY VISIT HOSPITAL HIGH SEVERITY& THREAT [facility] 6 [facility] T EMERGENCY 23708 [facility] DEPT 6 6 [place] VISIT EMERGENCY HIGH SERV SEVERITY& THREAT [facility] CHRISTOPHER - 6 6 [facility] - 6 6 [facility] 55897 DEN[place] 6 6 [facility] VIS[facility] LIMITED/M INOR [facility] DENNYS [facility] 6 6 [facility] 6 [facility] 61889 [facility] 6 6 [facility] VISIT EMERGENCY HIGH PHYS SEVERITY& THREAT [facility] 6 6 [facility] EMERGENC[facility] 02410 [facility] [place] [facility]PT 6 6 [facility] VISIT HOSPITAL HIGH [facility]VERITY& THREAT [facility] 63087 [facility] 6 [facility] HIGH [facility]VERITY& THREAT [facility] [place] [place] [facility] 6 6 [facility] - 6 [facility] 04793 [facility] 6 6 ORTHOPEDI IVELISSE T VISIT C 25 [facility] - 6 [facility] 92771 [facility] 6 6 [place] VISIT EMERGENCY HIGH PHYS SEVERITY& THREAT [facility] 94477 [place] [place] DEPT 6 6 COMM[facility]ITY V[facility]IT HOSPITAL HIGH SEVERITY& THREAT [facility] [place] [place] - 6 6 [facility]GENC[facility] 48680 [facility] 6 6 [place] [place] DEPARTMEN EMERGENCY T VISIT PHYS HIGH/URGE NT SEVERITY OFFICE 24207 [facility] 6 6 ORTHOPEDI T VISIT C 15 [facility] [place] - 6 6 [facility] INPATIENT MEDICAL CENTE EMERGENCY 65848 [facility] PANG ZEINA 6 6 MEDICAL DEPARTMEN SERV T VISIT FOUNDATIO MODERATE N SEVERITY EMERGENCY 25287 [facility] DE[facility] 6 6 SANT[facility] PAT VISIT EMERGENCY HIGH PHYS SEVERITY& THREAT [facility] [place] - 6 6 [facility] IN[facility] 6 6 [facility] 6 6 [facility] 6 6 [facility] - 6 6 [facility] CHRISTOPHER [facility] 5 5 [facility] - 5 5 [facility] [place] [address] 5 [facility] JUDAISM - 4 4 [facility] CHRISTOPHER - 4 4 [facility] CHRISTOPHER INPATIENT 4 4 [facility] CHRISTOPHER [facility] 4 4 [facility] REED - 4 4 [facility] - 4 4 [facility] 4 4 [facility] DENNYS - 4 4 [facility], ACCESS 4 4 [facility] ACCESS 4 4 [facility], ACCESS 4 4 [facility] ACCESS 4 4 [facility] OFFICE 69974 [facility] OUTPATIEN 4 4 JAM JAM T VISIT 25 MINUTES [facility], ACCESS 3 3 [facility] OFFICE 59995 [facility] OUT[facility] 3 3 MARIETTA MCMANUS T VISIT 25 MINUTES [facility], ACCESS 3 3 [facility] OFFICE 41980 [facility] OUT[facility] 3 3 JOHN T VISIT 25 MINUTES OFFICE 55453 [facility] OUTPATIEN 3 3 JOHN T VISIT 25 MINUTES OFFICE 79940 [facility] OUTPATIEN 3 3 AP JAM T VISIT 25 MINUTES [facility], ACCESS 3 3 [facility] DENNYS - 3 3 [facility] OUTPATIEN INC T OFFICE 54693 [facility], OUTPATIEN 3 3 OBIEE REPORT DEVELOPER T VISIT 5 [facility] ACCESS 3 3 [facility] OFFICE 72632 [facility] OUTPATIEN 3 3 JAM JAM T VISIT 25 MINUTES OFFICE 36525 [facility] OUTPATIEN 2 2 JAM JAM T VISIT 25 MINUTES OFFICE 50409 [facility] OUTPATIEN 2 2 I ZBI I ZBI T NEW 30 MINUTES [facility], ACCESS 2 2 [facility] OFFICE 55885 YOJANA DIAL OUTPATIEN 2 2 FREDDY FREDDY T NEW 30 MINUTES OFFICE 69501 NORRIS WATERS OUTPATIEN 2 2 COUNTY OSI T VISIT RURAL 15 HEALTH MINUTES HOSPITAL UNIVERSIT - 2 2 Y INPATIENT HOSPITAL [facility] ACCESS 2 2 OBIEE REPORT DEVELOPER [facility] EMERGENC[facility] 36962 [facility], 2 2 OBIEE REPORT DEVELOPER [facility] T VISIT CO HOS MODERATE SEVERITY EMERGENCY 31217 NOR[facility]IS MARCOS 2 2 [facility] T VISIT LOW/MODER SEVERITY CRITICAL [facility] ACCESS 2 2 [facility] OFF[facility] 38751 NORRIS WATERS OUTPATIEN 2 2 COUNTY OSI T VISIT RURAL 15 HEALTH MINUTES CR[facility]ICAL [facility] ACCESS 2 2 OBIEE REPORT DEVELOPER [facility] CR[facility] ACCESS 2 2 [facility] HOSPITAL DENNYS - 2 2 [facility] OFF[facility] 96423 [facility] OUTPATIEN 2 2 OSI OSI T VISIT 15 MINUTES OFFICE 34801 [facility] 2 2 OSI OSI T VISIT 15 MINUTES EMERGENCY 80303 [facility] DE[facility] 1 1 EMERGENCY VISIT SERVICES HIGH SEVERITY& THREAT FUN OFFICE 56903 [facility] VILLAFL[facility] OUTPATIEN 1 1 OSI OSI T VISIT 40 MINUTES EMERGENCY 83083 NORRIS PIERCE 1 1 [facility] T VISIT LOW/MODER SEVERITY HOSPITAL [facility]RIS - 1 1 [facility] T EMERGENC[facility] 55636 NORRIS [address] [facility] T VISIT MODERATE SEVERITY HOSPITAL UNIVERSIT - 1 1 [facility] T EMERGENCY 63226 NOR[facility]IS [place] 1 1 [facility] T VISIT MODERATE SEVERITY EMERGENCY 16467 [facility] [address] [facility] T VISIT HIGH/URGE NT SEVERITY OFFICE 71674 [place] BRANDEE CELESTE OUTPATIEN 1 1 MEDICAL T NEW 30 SERV MINUTES FOUNDATIO OFFICE 62674 [facility] OUTPATIEN 1 1 OSI OSI T VISIT 10 MINUTES EMERGENCY 38243 NOR[facility]IS PIER[place] 1 1 [facility] T VISIT MODERATE SEVERITY CRITICAL [facility] ACCESS 1 1 [facility] HOSPITAL OFFICE 11249 [facility] ALEJANDROELL OUTPATIEN 1 1 [facility] T VISIT 25 MINUTES HOSPITAL NORRIS - 1 1 MS INPATIENT [facility]OSPITAL EMERGENCY 57547 NORRIS 1 1 [facility] T VISIT MODERATE SEVERITY HOSPITAL DENNYS - 1 1 [facility] OUTPATIEN INC T OFFICE 10613 [facility] OUTPATIEN 1 1 OSI OSI T VISIT 15 MINUTES OFFICE 20004 [facility] OUTPATIEN 1 1 OSI OSI T VISIT 25 MINUTES OFFICE 20189 [facility] OUTPATIEN 1 1 OSI OSI T VISIT 15 MINUTES OFFICE 84369 [facility] OUTPATIEN 1 1 OSI OSI T VISIT 40 MINUTES HOSPITAL NORRIS - 1 1 [facility]IENT [facility] OFFICE 90621 [facility] OUTPATIEN 1 1 OSI OSI T VISIT 15 MINUTES OFFICE 45182 [facility] OUTPATIEN 1 1 [place] T VISIT PAIN 25 MANAGE MINUTES OFFICE 54980 [facility] OUTPATIEN 1 1 OSI OSI T VISIT 15 MINUTES OFFICE 04007 [facility] OUTPATIEN 0 0 OSI OSI T VISIT 10 MINUTES OFFICE 80731 [facility] [address] [facility] 25 MANAGE MINUTES OFFICE 17973 [facility] OUTPATIEN 0 0 OSI OSI T VISIT 15 MINUTES OFFICE 40135 [facility] OUTPATIEN 0 0 [place] T VISIT PAIN 25 MANAGE MINUTES OFFICE 06613 [facility] OUTPATIEN 0 0 [place] T VISIT PAIN 25 MANAGE MINUTES OFFICE 26940 [facility]ON[facility] OUTPATIEN 0 0 [place] T NEW 45 PAIN MINUTES MANAGE OFFICE 09577 [facility] OUTPATIEN 0 0 OSI OSI T VISIT 15 MINUTES OFFICE 00691 [facility] OUTPATIEN 0 0 OSI OSI T VISIT 25 MINUTES OFFICE 57723 [facility] OUTPATIEN 0 0 , GRETEL M , GRETEL M T VISIT 15 MINUTES OFFICE 00478 [facility] OUTPATIEN 0 0 , GRETEL M , GRETEL M T VISIT 15 MINUTES OFFICE 82183 [facility] OUTPATIEN 0 0 , GRETEL M , GRETEL M T VISIT 25 MINUTES OFFICE 40937 CELIA SCOTT OUTPATIEN 0 0 SONIA IVELISSE T VISIT [facility] 15 MINUTES OFFICE 98217 [facility] OUTPATIEN 0 0 , GRETEL M , GRETEL M T VISIT 25 MINUTES OFFICE 57077 [facility] OUTPATIEN 0 0 , GRETEL M , GRETEL M T VISIT 25 MINUTES OFFICE 85270 [facility] OUTPATI[facility] 0 0 , GRETEL M , GRETEL M T VISIT 15 MINUTES CRITICAL [facility] ACCESS [address] [facility] HOSPITAL OFFICE 32881 [facility] OUTPATIEN 0 0 , GRETEL M , GRETEL M T VISIT 25 MINUTES OFFICE 10820 CELIA SCOTT OUTPATIEN 0 0 SONIA OVIEDO T VISIT [facility] 15 MINUTES HOSPITAL CHRISTOPHER - 0 0 [facility] OFFICE 91590 FRED RAMIREZ II, OUTPATIEN 9 9 LTH SLEEP CARMENZA C T VISIT AND 10 REHAB MINUTES [facility] CRITICAL [facility] ACCESS [address] [facility] HOSPITAL OFFICE 31714 FRED RAMIREZ II, OUTPATIEN 9 9 LTH SLEEP CARMENZA C T VISIT AND 15 REHAB MINUTES [facility] OFFICE 81824 FRED RAMIREZ II, OUTPATIEN 9 9 LTH SLEEP CARMENZA C T VISIT AND 15 REHAB MINUTES [facility] OFFICE 93742 TIKATHRYN WATERS OUTPATIEN 9 9 , GRETEL M , GRETEL M T VISIT 15 MINUTES CRITICAL [facility] ACCESS [address] [facility] HOSPITAL OFFICE 89677 NORR[facility] OUTPATIEN 9 9 CO T VISIT 5 HOSPITAL MINUTES OFFICE 84714 JAMES RAMIREZ II II, OUTPATIEN 9 9 CARMENZA C CARMENZA C T VISIT 15 MINUTES OFFICE 31587 JAMES RAMIREZ II II, OUTPATIEN 9 9 CARMENZA C CARMENZA C T VISIT 10 MINUTES OFFICE 87574 V[facility]KATHRYN [facility] OUTPATIEN 9 9 , GRETEL M , GRETEL M T VISIT 10 MINUTES OFFICE 40194 JAMES RAMIREZ II II, OUTPATIEN 9 9 CARMENZA C CARMENZA C T VISIT 10 MINUTES OFFICE 19938 COMMONWEA II, OUTPATIEN 9 9 [facility] SLEEP CARMENZA Pozo T NEW 30 AND MINUTES REHAB [facility] OFFICE 32658 [facility] OUTPATIEN 9 9 , GRETEL GRAF M T VISIT 15 MINUTES OFFICE 35330 [facility] OUTPATIEN 9 9 , GRETEL M GRETEL M T VISIT 10 MINUTES OFFICE 31869 [facility] OUTPATIEN 9 9 , GRETEL M GRETEL M T VISIT 10 MINUTES OFFICE 16261 [facility] OUTPATIEN 9 9 , GRETEL GRAF M T VISIT 10 MINUTES OFFICE 79169 [facility] OUTPATIEN 9 9 , GRETEL GRAF M T VISIT 25 MINUTES EMERGENCY 79241 [facility] DEPT 9 9 [facility] VISIT EMERGENCY HIGH PHYS INC SEVERITY& THREAT [facility] OFFICE 21134 JOHN ALMEIDA 9 9 SONIA Vázquez T VISIT [facility] 15 MINUTES OFFICE 32189 VILLAFKATHRYN [facility] OUTPATIEN 9 9 , GRETEL Malave GRETEL M T VISIT 10 MINUTES OFFICE 30848 [facility] OUTPATIEN 9 9 , GRETEL GRAF M T VISIT 10 MINUTES OFFICE 88237 [facility] OUTPATIEN 8 8 , GRETEL Malave GRETEL M T VISIT 10 MINUTES OFFICE 09925 VILLAFKATHRYN [facility] OUTPATIEN 8 8 , GRETEL Malave GRETEL M T VISIT 10 MINUTES EMERGENCY 35829 NORRIS WATERS 8 8 CO , GRETEL Malave [facility] T VISIT MODERATE SEVERITY OFFICE 69039 [facility] VILLAFLOR OUTPATIEN 8 8 , GRETEL GRAF T VISIT 10 MINUTES OFFICE 67506 [facility] VILL[facility]FL[facility] OUTPATIEN 8 8 , GRETEL GRAF T VISIT 10 MINUTES EMERGENCY 25000 NORRIS WATERS 8 8 CO , GRETEL M [facility] HOSPITAL T VISIT LOW/MODER SEVERITY OFFICE 07049 [facility] OUTPATIEN 8 8 , GRETEL GRAF T VISIT 10 MINUTES EMERGENCY 57861 NORRIS 8 8 CO [facility] T VISIT LIMITED/M INOR PROB CRITICAL [facility]IS AMADO 8 8 [facility] HOSPITAL EMERGENCY 68154 NORRIS WATERS 8 8 CO , GRETEL M [facility] T VISIT MODERATE SEVERITY EMERGENCY 09829 NORRIS WATERS 8 8 CO , GRETEL M [facility] T VISIT MODERATE SEVERITY HOSPITAL DENNYS - 8 8 [facility] 86598 DENNYS 8 8 [facility] INC T VISIT LOW/MODER SEVERITY HOSPITAL NORRIS - 8 8 CO INPATIENT HOSPITAL CRITICAL [facility] AMADO 8 8 [facility] HOSPITAL EMERGENCY 42430 NORR[facility] 8 8 CO [facility] T VISIT LIMITED/M INOR PROB EMERGENCY 56299 [facility] 8 8 CO [facility] T VISIT LIMITED/M INOR PROB CRITICAL [facility] AMADO 8 8 [facility]PITAL OFFICE 00720 [facility] 8 , GRETEL GRAF T VISIT 10 MINUTES CRITICAL [facility] AMADO 8 8 [facility]PITAL EMERGENCY 11305 [facility] 8 8 CO [facility] T VISIT MODERATE SEVERITY EMERGENCY 41025 NORRIS [place], 8 8 CO [place] [facility] T VISIT LOW/MODER SEVERITY EMERGENCY 30314 NORRIS 8 8 [facility] T VISIT LIMITED/M INOR PROB OFFICE 67717 [facility] OUTPATIEN 8 8 , GRETEL M , GRETEL M T VISIT 10 MINUTES OFFICE 56837 [facility] OUTPATIEN 8 8 , GRETEL M , GRETEL M T VISIT 10 MINUTES EMERGENCY 77144 NORRIS SCHUMACHER, 8 8 CO ADELINEOL W [facility] T VISIT MODERATE SEVERITY EMERGENCY 48498 [facility] 8 [facility] LIMITED/M INOR PROB HOSPITAL NORRIS - 8 8 [facility]IENT [facility] EMERGENCY 26571 [facility] 8 8 [facility] T VISIT CENTER MODERATE SEVERITY HOSPITAL CHRISTOPHER - 8 8 [facility] T CENTER OFFICE 68448 CELIA LOPEZ 8 8 SONIA Mcmahon VISIT MD [facility]ES OFFICE 54167 JOHN ALMEIDA 8 8 SONIA Vázquez T [facility]IT [facility] 15 MINUTES
--- OUTSIDE RECORDS SUMMARY | 2017-03-26 03:22 | External Medical Summary Rpt ---
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 SKIN JOHN SENSATION 3384 CHRONIC 02-09-2011 [facility] PAIN OSI SYNDROME 14299 SPINAL STEN 02-09-2011 [facility] LUMB REG OSI W/O NEUROGENIC CLAUDICATIO N 3560 HEREDITARY 12-08-2010 [facility] PERIPHERAL OSI NEUROPATHY 4919 UNSPECIFIED 11-29-2010 [facility] OF BRONCHITIS [place] 23531 DISPLCMT 11-23-2010 [facility] LUMBAR [facility] INTERVERT PAIN MANAGE DISC W/O MYELOPATHY 7931 NONSPEC 11-15-2010 [facility] FIND RAD RADIOLOGY OTH EXAM ASSOCIAT BODY STRUCT LUNG FIELD 7291 UNSPECIFIED 09-28-2010 [facility] MYALGIA [place] AND PAIN MANAGE MYOSITIS 89218 MIGRAINE 08-09-2010 [facility] UNSP W/O RADIOLOGY INTRACT W/O ASSOCIAT STATUS MIGRAINOSUS 7273 OTHER 06-30-2010 [facility] BURSITIS [place] DISORDERS PAIN MANAGE 8470 NECK SPRAIN 06-30-2010 [facility] 4659 ACUTE URIS 05-11-2010 [facility], OF GRETEL M UNSPECIFIED SITE 6822 CELLULITIS 05-02-2010 [facility], AND ABSCESS GRETEL M OF TRUNK 38673 SECONDARY 04-19-2010 CELIA SCOTT MD OSTEOARTHRO PLLC SIS LOWER LEG 45135 REFLUX 04-06-2010 [facility], ESOPHAGITIS GRETEL M 4910 SIMPLE 02-10-2010 [facility] BRONCHITIS 2777 DYSMETABOLI 01-19-2010 REGIONAL C SYNDROME PHYSICIAN X CORPORATION II V854 BODY MASS 01-19-2010 REGIONAL INDEX 40 [place] [address] GENERALIZED 01-18-2010 [facility] 09113 REFLEX 06-22-2009 II, 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 95173 MIGRAINE 06-09-2009 JT, W/AURA W/O GRETEL M INTRACT W/O STATUS MIGRNOSUS 90607 OTHER WRIST 06-09-2009 JT, SPRAIN AND GRETEL M STRAIN 34002 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, 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 514 PULMONARY 02-09-2009 [facility] HYPOSTASIS PSC 19228 UNS 01-18-2009 JT GASTRITIS&G GRETEL M ASTRODUODIT IS W/O MENTION HEMORR 07138 PAIN IN 12-20-2008 JT JOINT GRETEL M PELVIC REGION AND THIGH 486 PNEUMONIA, 11-22-2008 JT ORGANISM GERTEL M UNSPECIFIED 16794 CONTUSION 09-21-2008 JT, OF BUTTOCK GRETEL M 78796 MIGRAINE 07-11-2008 [facility] W/O [facility] W/O INTRACT W/O STAT MIGRNOSUS 683 ACUTE 06-25-2008 [facility] IS INC V4589 OTHER 06-11-2008 JT POSTSURGICA GRETEL M L STATUS OTHER 7812 ABNORMALITY 06-09-2008 [facility] 86245 UNSPECIFIED 04-08-2008 [facility] ACUTE HOSPITAL CONJUNCTIVI TIS 7806 FEVER & OTH 12-22-2007 [facility] PSC DISTURBANCE S TEMP REG 0340 STREPTOCOCC 12-21-2007 [facility] THROAT [facility] 68976 UNSPECIFIED 12-21-2007 JT VIRAL GRETEL M INFECTION IN CCE & UNS SITE 35222 OTH 11-19-2007 CELIA SCOTT MD [facility] DZ&ABNORM MOVMNT DISORDER Medications Na ND Rx [...] 17 17 57 FA MG 0 26 NM LY TA BL DR ET UG 00 12 01 11 24 00 SO Ac AI 12 -0 -1 8. 00 PE ti FE 10 8- 3- 00 00 RS ve N- 77 20 20 0 55 CO 50 16 17 06 FA DE 4 08 NM IN LY E 10 DR 0- UG 10 MG /5 ML NV 50 05 05 0 24 12 SO 37 Ac OM 38 -0 -0 0. PE 24 LL ti ET 30 2- 2- 00 RS 17 AF ve YIP 80 20 20 0 LO ZI 41 11 11 FA R NE 6 NM OS -C LY IA OD S EI M NE UG SY RU P NV 50 02 02 0 24 12 SO 36 Ac OM 38 -2 -2 0. PE 60 LL ti ET 30 2- 2- 00 RS 52 AF ve YIP 80 20 20 0 LO ZI 41 11 11 FA R NE 6 NM OS -C LY IA OD S EI M NE UG SY RU P NV 50 01 01 0 24 12 SO 36 Ac OM 38 -0 -0 0. PE 17 LL ti ET 30 4- 4- 00 RS 24 AF ve YIP 80 20 20 0 LO ZI 41 11 11 FA R NE 6 NM OS -C LY IA OD S EI NE UG SY RU P NV 50 12 12 0 24 12 SO 35 Ac OM 38 -0 -0 0. PE 98 LL ti ET 30 9- 9- 00 RS 69 AF ve YIP 80 20 20 0 LO ZI 41 10 10 FA R NE 6 NM OS -C LY IA OD S EI M NE UG SY RU P 53 06 06 0 24 24 SO 34 Ac 01 -1 -1 0. PE 50 LL ti 40 4- 5- 00 RS 62 AF ve 54 20 20 0 LO 86 10 10 FA R 7 NM OS LY IA S DR [facility] 53 05 05 0 24 24 SO 34 Ac 01 -1 -1 0. PE 27 LL ti 40 3- 9- 00 RS 71 AF ve 54 20 20 0 LO 86 10 10 FA R 7 NM OS LY IA S DR [facility] 53 04 04 0 24 24 SO 34 Ac 01 -2 -2 0. PE 12 LL ti 40 6- 6- 00 RS 14 AF ve 54 20 20 0 LO 86 10 10 FA R 7 NM OS LY IA S [facility] 53 02 02 00 24 24 SO 33 Ac 01 -0 -2 0. PE 50 LL ti 40 8- 6- 00 RS 49 AF ve 54 20 20 0 LO 86 10 10 FA R 7 NM OS LY IA S [facility] [place] 00 11 11 00 24 13 SO 32 Ac OM 60 -0 -1 0. PE 73 LL ti ET 31 5- 9- 00 RS 89 AF ve YIP 58 20 20 0 LO ZI 55 09 09 FA R NE 8 NM OS -C LY IA OD S EI [facility] SY RU P 53 10 10 00 24 12 SO 32 Ac 01 -0 -0 0. PE 43 LL ti 40 2- 8- 00 RS 01 AF ve 54 20 20 0 LO 86 09 09 FA R 7 NM OS LY IA S [facility] NV 50 07 07 00 24 12 SO 31 Ac OM 38 -0 -1 0. PE 73 LL ti ET 30 7- 6- 00 RS 64 AF ve YIP 80 20 20 0 LO ZI 41 09 09 FA R NE 6 NM OS -C LY IA OD S EI [facility] SY RU P 53 05 05 00 24 24 SO 31 Ac 01 -1 -2 0. PE 37 LL ti 40 5- 1- 00 RS 05 AF ve 54 20 20 0 LO 86 09 09 FA R 7 NM OS LY IA S [facility] NV 50 04 05 00 24 1 SO 31 Ac OM 38 -2 -0 0. PE 19 LL ti ET 30 3- 7- 00 RS 01 AF ve YIP 80 20 20 0 LO ZI 41 09 09 FA R NE 6 NM OS -C LY IA OD S EI [facility] SY RU P 60 03 03 00 24 6 SO 30 Ac 25 -1 -2 0. PE 79 LL ti 80 0- 6- 00 RS 82 AF ve 23 20 20 0 LO 91 09 09 FA R 6 NM OS LY IA S [facility] 60 01 02 00 24 12 SO 30 Ac 25 -2 -1 0. PE 42 LL ti 80 6- 2- 00 RS 33 AF ve 23 20 20 0 LO 91 09 09 FA R 6 NM OS LY IA S [facility] 53 01 01 00 24 24 SO 30 Ac 01 -0 -1 0. PE 27 LL ti 40 6- 5- 00 RS 12 AF ve 54 20 20 0 LO 86 09 09 FA R 7 NM OS LY IA S [facility] 53 10 11 00 24 24 SO 29 Ac 01 -2 -2 0. PE 63 LL ti 40 3- 0- 00 RS 94 AF ve 54 20 20 0 LO 86 08 08 FA R 7 NM OS LY IA S DR Malave 59 11 11 00 24 24 SO 29 Ac 70 -1 -2 0. PE 78 LL ti 20 0- 0- 00 RS 96 AF ve 80 20 20 0 LO 01 08 08 FA R 6 NM OS LY IA S DR Malave 53 10 10 00 24 24 SO 29 Ac 01 -0 -2 0. PE 53 LL ti 40 9- 3- 00 RS 39 AF ve 54 20 20 0 LO 86 08 08 FA R 7 NM OS LY IA S DR [place] 37 08 10 01 56 28 SO 28 Ac IL 00 -0 -0 .0 PE 99 LL ti OS 00 4- 9- 00 RS 63 AF ve EC 45 20 20 LO 50 08 08 FA R OT 4 NM OS C LY IA [address] Malave MG TA BL ET 53 09 09 00 24 24 SO 29 No Ac 01 -1 -2 0. PE 32 t ti 40 2- 6- 00 RS 06 Av ve 54 20 20 0 ai 86 08 08 FA la 7 NM bl LY e [facility] NV 37 08 08 00 56 28 SO 28 No Ac IL 00 -0 -1 .0 PE 99 t ti OS 00 4- 4- 00 RS 63 Av ve EC 45 20 20 ai 50 08 08 FA la OT 4 NM bl C LY e [address] MG TA BL ET NV 37 07 07 01 56 28 SO 25 No Ac IL 00 -3 -0 .0 PE 76 t ti OS 00 0- 3- 00 RS 94 Av ve EC 45 20 20 ai 50 07 08 FA la OT 4 NM bl C LY e [address] MG TA BL ET 53 04 05 00 24 24 SO 28 No Ac 01 -2 -0 0. PE 22 t ti 40 2- 8- 00 RS 91 Av ve 54 20 20 0 ai 86 08 08 FA la 7 NM bl LY e [facility] 53 03 04 00 12 12 SO 27 No Ac 01 -1 -1 0. PE 87 t ti 40 2- 7- 00 RS 51 Av ve 54 20 20 0 ai 86 08 08 FA la 7 NM bl LY e [facility] NV 37 07 04 00 56 30 SO 25 No Ac IL 00 -3 -1 .0 PE 76 t ti OS 00 0- 7- 00 RS 94 Av ve EC 45 20 20 ai 50 07 08 FA la OT 3 NM bl C LY e [address] UG MG TA BL ET AL 59 03 04 00 90 30 SO 27 No Ac NV 76 -1 -1 .0 PE 87 t ti AZ 23 2- 7- 00 RS 49 Av ve OL 71 20 20 ai AM 90 08 08 FA la 4 NM bl 0. LY e 25 DR MG UG TA BL ET LO 24 03 04 00 30 30 SO 27 No Ac RA 38 -1 -1 .0 PE 87 t ti TA 50 2- 7- 00 RS 47 Av ve DI 47 20 20 ai NE 17 08 08 FA la 8 NM bl [address] UG [...] Procedure DOS Code Location Performer Comment THER [id number] COOKIESUNNY HOLT PROPH/DX 7 [facility] NJX IV HOSPITAL HOSPITAL PUSH SINGLE/1S T SBST/DRUG PRESSURIZ 58937 [facility] ED/NONPRE [address] [place] [address] SSURIZED [facility] HOSPITAL INHALATIO N TREATMENT THERAPEUT 02368 [facility] COOKIE IC [address] [place] [address] INJECTION [facility] HOSPITAL IV PUSH EACH NEW DRUG RADIOLOGI 20265 [facility] C [address] [place] [address] EXAMINATI [facility] ON CHEST SINGLE [place]IEW FRONTAL COMPREHEN 29008 [facility] SIVE [address] [place] [address] PANEL ECG 49119 [facility] ROUTINE [address] [place] [address] ECG [facility] HOSPITAL W/LEAST 12 LDS TRCG ONLY W/O I&R NONCOVERE A9270 YANET HOLT D ITEM OR 7 [facility] INJECTION J1170 YANET HOLT 7 [facility] ROSI UP TO 4 MG DUP-SCAN 23226 YANET HOLT XTR VEINS 7 [facility] [place] [address] YANET HOLT TROPONIN [address] [facility] [place] INJECTION J2550 YANET HOLT 7 [facility] INE HCL UP TO 50 MG BLOOD 30740 YANET HOLT COUNT 7 [facility] AUTO&AUTO DIFRNTL WBC BLOOD 03815 [facility] NOYOLA COUNT 7 [facility] COMPLETE INC INC AUTO&AUTO DIFRNTL WBC RADIOLOGI 55185 [facility] C EXAM 7 MEDICAL CHEST 2 IMAGING VIEWS ASS FRONTAL&L ATERAL ECG 20649 [facility] CACERES ROUTINE 7 [facility] W/LEAST P 12 LDS I&[place] [address] [facility] [place] TROPONIN 7 MEM [facility]OSP [facility] QUANTITAT INC INC RANDY ECG 66643 [facility] DENNYS ROUTINE 7 [facility] ECG INC INC W/LEAST 12 LDS TRCG ONLY W/O I&R COMPREHEN 73002 [facility] NOYOLA SIVE 7 [facility] HOSP METABOLIC INC INC PANEL CT THORAX 71819 TIM FRYE 7 MEDICAL W/CONTRAS IMAGING T ASS MATERIAL O2 CONC 1 E1390 [facility]ET[facility] ESTEVEZ 7 HOME HOME 85%/>02 MEDICAL MEDICAL CONC AT EQUIPME EQUIPME [facility] [place] [address] TIM FRYE ABDOMEN & 7 MEDICAL PELVIS IMAGING W/CONTRAS ASS T MATERIAL CRITICAL 60181 [facility] 7 PHYSICIAN ILL/INJUR S, [facility] PATIENT INIT 30-74 MIN ECG 03194 [facility] GRAJEDA JR ROUTINE 7 [facility] W/LEAST P 12 LDS I&R ONLY RADIOLOGI 69151 [facility] MELVA C EXAM 7 MEDICAL CHEST 2 IMAGING VIEWS ASS FRONTAL&L ATERAL PRTBLE E0431 NEET[facility] SANTACRUZ GASEOUS 7 HOME HOME O2 SYS MEDICAL MEDICAL RENT; EQUIPME EQUIPME FLWMTR HUMIDFR&M ASK RESP ASST E0471 [facility]ET[facility] SANTACRUZ DEVC 7 HOME HOME BI-LEVL MEDICAL MEDICAL PRSS EQUIPME EQUIPME CAPABILIT Y W/BACK-UP BASIC 44534 [facility] METABOLIC 7 [facility] CALCIUM TOTAL PRESSURIZ 41647 [facility] ED/NONPRE 7 [facility] INHALATIO N TREATMENT THERAPEUT 81817 [facility] IC 7 [facility] TIC/DX INJECTION SUBQ/IM NONCOVERE A9270 [facility] D ITEM OR 7 [facility] RADIOLOGI [address] ON CHEST SINGLE VIEW FRONTAL BLOOD 44176 [facility] COUNT [address] [place] [address] AUTO&AUTO DIFRNTL WBC NATRIURET 68186 [facility] IC [address] [place] [address] HOSPITAL INJECTION J20[address] [facility] 2 MG THERAPEUT 60955 [facility] IC 7 PHYSICIAN PHYSICIAN PROPHYLAC PRACTICE [...] PRSS EQUIPME EQUIPME CAPABILIT Y W/BACK-UP BASIC 25070 YANET HOLT METABOLIC 7 [facility] CALCIUM TOTAL RADIOLOGI 92580 [facility] C EXAM [address] HOSPITAL VIEWS FRONTAL&L ATERAL BLOOD 18855 [facility] COUNT 7 [facility] AUTO&AUTO DIFRNTL WBC PRTBLE E0431 NEET[facility] NEETA GASEOUS 6 HOME HOME O2 SYS MEDICAL MEDICAL RENT; EQUIPME EQUIPME FLWMTR HUMIDFR&M ASK O2 CONC 1 E1390 [facility]ET[facility] NEETA LUNA PORT 6 HOME HOME 85%/>02 MEDICAL MEDICAL CONC AT EQUIPME EQUIPME PRSC FLW RATE RESP ASST E0471 [facility] NEETA DEV 6 HOME HOME BI-LEVL MEDICAL MEDICAL PRSS EQUIPME EQUIPME CAPABILIT Y W/BACK-UP [facility] [address] [place] [address] [facility] DAY SERVICES MANAGEMEN O T > 30 MIN SBSQ 14705 [place] [address] [facility] CARE/DAY SERVICES 25 O MINUTES SBSQ [address] CARE/DAY SERVICES 35 O MINUTES INITIAL [address] [place] [address] [facility]IC[facility] CARE/DAY SERVICES 70 O MINUTES RADIOLOGI 51966 [facility] [place] INDIRA C EXAM 6 RADIOLOGY CHEST 2 VIEWS FRONTAL&L ATERAL DRAINAGE [id number] [facility] BLADDER 6 [facility] DEVICE IRENA/ART OPENING FACE MASK A7031 [facility] NEETA 6 HOME HOME INTERFACE MEDICAL MEDICAL REPLCMT EQUIPME EQUIPME FULL FACE MASK EA FILTER A7038 NEETA SANTACRUZ DISPBL 6 HOME HOME USED MEDICAL MEDICAL W/POS EQUIPME EQUIPME ARWAY PRESSURE DEVICE NONCOVERE A9270 [facility] D ITEM OR 6 [facility] ECG 82848 [facility] ROUTINE 6 [facility] ECG ROBERTO ROBERTO W/LEAST 12 LDS TRCG ONLY W/O I&R RADIOLOGI 41727 [facility] C 6 [facility] EXAMINATI ROBERTO ROBERTO ON CHEST SINGLE VIEW FRONTAL COMPREHEN 05375 [facility] SIVE 6 [facility] METABOLIC ROBERTO ROBERTO PANEL DUP-SCAN 71117 [facility] [place] WESTERFI[place] XTR VEINS 6 RADIOLOGY LD IV UNILATERA L/LIMITED STUDY INJECTION J[address] KETOROLAC ROBERTO ROBERTO TROMETHAM INE PER 15 MG LOCM Q9967 [facility] [phone] 6 [facility] MG/ML ROBERTO ROBERTO IODINE [place] [address] [facility] TROPONIN [address] [place] [address] [place] [address] [facility] [place] ANGIOGRAP 6 RADIOLOGY HY CHEST W/CONTRAS T/NONCONT RAST INJECTION J[address] ONDANSETR ROBERTO ROBERTO ON HCL PER 1 MG INJECTION J1940 [address] FUROSEMID ROBERTO ROBERTO E UP TO 20 MG COLLECTIO 88213 [facility] N VENOUS 6 [facility] BLOOD ROBERTO ROBERTO VENIPUNCT URE THERAPEUT 14607 [facility] IC 6 [facility] INJECTION ROBERTO ROBERTO IV PUSH EACH NEW DRUG FIBRIN 12566 [facility] DGRADJ 6 [facility] PRODUCTS ROBERTO ROBERTO D-DIMER QUANTITAT [place] THER 16977 [facility] PROPH/DX 6 [facility] NJX IV ROBERTO ROBERTO PUSH SINGLE/1S T SBST/DRUG INJECTION J2270 [facility] MORPHINE [address] [place] [address] SULFATE ROBERTO ROBERTO UP TO 10 MG BLOOD 54597 [facility] COUNT 6 [facility] COMPLETE ROBERTO ROBERTO AUTO&AUTO DIFRNTL WBC NATRIURET 92080 [facility] IC 6 [facility] GLUC BLD 26808 [facility] GLUC MNTR 6 [facility] CLEARED FDA SPEC HOME USE INFLUENZA Q2038 [facility] VACC 6 VALLEY SPLIT INTERNAL VIRUS 3 MED YRS & > IM FLUZONE IM ADM 39735 [facility] PRQ ID 6 [facility] SUBQ/IM INTERNAL NJXS 1 MED VACCINE O2 CONC 1 E1390 NEET[facility] NEETA DEL PORT 6 HOME HOME 85%/>02 MEDICAL MEDICAL CONC AT EQUIPME EQUIPME PRSC FLW RATE PRTBLE E0431 [facility]ET[facility] GASEOUS 6 HOME HOME O2 SYS MEDICAL MEDICAL RENT; EQUIPME EQUIPME FLWMTR HUMIDFR&M ASK RADIOLOGI 08435 [facility] [place] C 6 RADIOLOGY EXAMINATI ON TIBIA & FIBULA 2 VIEWS RADIOLOGI 41615 YANET HOLT C [address] [place] [address] ON KNEE 3 VIEWS NONCOVERE A9270 COOKIESUNNY YANET D ITEM OR 6 [facility] RADIOLOGI 96973 [facility] [place] C 6 RADIOLOGY EXAMINATI ON KNEE 1/2 VIEWS O2 CONC 1 E1390 NEETA NEETA DEL PORT 6 HOME HOME 85%/>02 MEDICAL MEDICAL CONC AT EQUIPME EQUIPME PRSC FLW RATE PRTBLE E0431 NEETA NEETA GASEOUS 6 HOME HOME O2 SYS MEDICAL MEDICAL RENT; EQUIPME EQUIPME FLWMTR HUMIDFR&M ASK FEDERALLY G0467 [place] [address] [employer] QUALIFIED [employer] [facility] VISIT ESTAB PT BLOOD 55412 COOKIESUNNY COOKIEON COUNT 6 [facility] AUTO&AUTO DIFRNTL WBC GLUC BLD 48874 COOKIESUNNY COOKIEON GLUC MNTR 6 [facility] CLEARED FDA SPEC HOME USE HEMOGLOBI 08688 YANET GARYON N 6 [facility] KAMILAH A1C PPSV23 74410 YANET GARYON VACCINE 2 6 [facility] OLDER FOR SUBQ/IM USE INJECTION J2270 [facility] MORPHINE 6 [facility] UP TO 10 MG INJECTION J1650 [facility] POLANCO[address] [facility] N SODIUM 10 MG COLLECTIO 13746 [facility] N VENOUS 6 [facility] VENIPUNCT URE INITIAL [address] ON SERVICES CARE/DAY O 70 [place] [address] [facility] MAGNESIUM [address] [place] [address] HOSPITAL PRESSURIZ 52297 [facility]/NONPRE [address] [place] [address] HOSPITAL INHALATIO N TREATMENT NONCOVERE [id number] [facility] D ITEM OR 6 [facility] COMPREHEN 51738 [facility] [address] [place] [address] HOSPITAL PANEL INJECTION [id number] [address] HOSPITAL E UP TO 20 MG INJECTION J1815 [facility] INSUL[facility] [address] [place] [address] PER 5 HOSPITAL HOSPITAL UNITS INJECTION J1815 [facility] [address] [place] [address] PER 5 HOSPITAL HOSPITAL UNITS INJECTION J1940 [facility] [address] [place] [address] HOSPITAL E UP TO 20 MG COMPREHEN [address] [facility] PANEL HOSPITAL [id number] [facility] HOSPITAL SERVICE PER HOUR NONCOVERE A9270 [facility] D ITEM OR 6 [facility] PRESSURIZ 06353 [facility] ED/NONPRE [address] [place] [address] HOSPITAL INHALATIO N TREATMENT ARTERIAL 38278 [facility] PUNCTURE [address] [place] [address] L BLOOD DX THERAPEUT 46628 [facility] C[facility]UN[facility] IC [address] [place] [address] HOSPITAL IV PUSH EACH NEW DRUG INJECTION J2270 [facility] MORPHINE [address] [place] [address] HOSPITAL UP TO 10 MG INJ J2930 [facility] METHYLPRD 6 [facility] SODIUM SUCCNAT TO 125 MG NATRIURET 56874 [facility] IC 6 [facility] GLUC BLD 32480 [facility] GLUC MNTR 6 [facility] CLEARED FDA SPEC HOME USE BLOOD 81267 [facility] G[facility] ANY [address] [place] [address] COMBINATI ON PH PCO2 PO2 CO2 HCO3 BLOOD 04257 [facility] YANET COUNT 6 [facility] AUTO&AUTO DIFRNTL WBC CULTURE 82312 [facility] BACTERIAL [address] [place] [address] AEROBIC W/ID ISOLATES IAADIADOO [id number] [facility] A ADMINISTR G0009 [facility] ATION OF [address] [place] [address] PNEUMFORMERLY [facility] VIVIEN VACCINE RADIOLOGI 39822 [facility] [place] INDIRA C EXAM 6 RADIOLOGY CHEST 2 VIEWS FRONTAL&L ATERAL RADIOLOGI 66286 CHRISTOPHER WHITE C EXAM 6 [facility]AL [facility]AL CHEST 2 MEDICAL MEDICAL VIEWS [place] FRONTAL&L ATERAL BLOOD 27248 CHRSITOPHER CHRISTOPHER COUNT 6 [facility] COMPLETE MEDICAL MEDICAL AUTO&AUTO [facility] DIFRNTL WBC GLUC BLD 33448 CHRISTOPHER WHITE GLUC MNTR 6 [facility]AL DEV MEDICAL MEDICAL CLEARED [place] FDA SPEC HOME USE NATRIURET 56151 CHRISTOPHER WHITE IC 6 [facility] PEPTIDE MEDICAL MEDICAL CENTE CENTE INJ J2930 CHRISTOPHER WHITE METHYLPRD 6 [facility] NISOLONE MEDICAL MEDICAL SODIUM CENTE CENTE SUCCNAT TO 125 MG COLLECTIO 44419 CHRISTOPHER WHITE N VENOUS 6 [facility] BLOOD MEDICAL MEDICAL VENIPUNCT [facility]ENT[facility]ENT[facility] URE THERAPEUT 18994 CHRISTOPHER WHITE IC 6 [facility] INJECTION MEDICAL MEDICAL [place] [address] CHRISTOPHER WHITE INFUSION 6 [facility] HYDRATION MEDICAL MEDICAL EACH [facility]ENT[facility]ENTE ADDITIONA L HOUR PRESSURIZ 52105 CHRISTOPHER WHITE ED/NONPRE 6 [facility]AL REGIONAL SSURIZED MEDICAL MEDICAL INHALATIO CENTE CENTE N TREATMENT THER 91089 CHRISTOPHER WHITE PROPH/DX 6 [facility]AL REGIONAL NJX IV MEDICAL MEDICAL PUSH CENTE CENTE SINGLE/1S T SBST/DRUG THER 93885 CHRISTOPHER WHITE PROPH/DX 6 [facility] NJX EA MEDICAL MEDICAL SEQL IV CENTE CENTE PUSH SBST/DRUG FAC NONCOVERE [id number] CHRISTOPHER WHITE D ITEM OR 6 [facility]AL SERVICE MEDICAL MEDICAL CENTE CENTE COMPREHEN 25863 CHRISTOPHER WHITE SIVE 6 [facility]AL METABOLIC MEDICAL MEDICAL PANEL CENTE CENTE INJECTION J1940 CHRISTOPHER WHITE 6 REGIONAL REGIONAL FUROSEMID MEDICAL MEDICAL E UP TO CENTE CENTE 20 MG INJECTION [id number] CHRISTOPHER WHITE INSULIN 6 [facility]IONAL REGIONAL PER 5 MEDICAL [place] [address] CHRISTOPHER WHITE TROPONIN 6 [facility]AL REGIONAL QUANTITAT MEDICAL MEDICAL RANDY CENTE CENTE ECG 47896 CHRISTOPHER WHITE ROUTINE 6 REGIONAL REGIONAL ECG MEDICAL MEDICAL W/LEAST CENTE CENTE 12 LDS TRCG ONLY W/O I&R RADEX 22741 [facility] SHOULDER 6 URBANO COMPLETE RADIOLOGY MINIMUM 2 ASSOCIAT VIEWS RADEX 32898 IOWA FRYE ALL FOOT 6 MEDICAL COMPLETE IMAGING MINIMUM 3 ASS VIEWS O2 CONC 1 E1390 NEETA SANTACRUZ DEL PORT 6 HOME HOME 85%/>02 MEDICAL MEDICAL CONC AT EQUIPME EQUIPME PRSC FLW RATE PRTBLE E0431 NEETA SANTACRUZ GASEOUS 6 HOME HOME O2 SYS MEDICAL MEDICAL RENT; EQUIPME EQUIPME FLWMTR HUMIDFR&M ASK GLUC BLD 78039 YANET HOLT GLUC MNTR 6 [facility] CLEARED FDA SPEC HOME USE BLOOD 48903 YANET HOLT COUNT 6 [facility] AUTO&AUTO DIFRNTL WBC COLLECTIO 72568 YANET HOLT N VENOUS 6 [facility] [place] VENIPUNCT URE PROTHROMB 77593 YANET HOLT IN TIME [address] [place] [address] THROMBOPL 44829 YANET BOWENDYSUNNY ASTIN 6 [facility] HOSPITAL PARTIAL PLASMA/WH OLE BLOOD ONDANSETR Q0162 [facility] ON 1 MG 6 [facility] H[facility] EXCEED 48 HR DOSE REG INJECTION J2550 [facility] [address] [facility] INE HCL UP TO 50 MG INJECTION J1815 [facility] INSULIN 6 [place] [address] HOSPITAL HOSPITAL UNITS INJECTION J1940 [facility] [address] [place] [address] HOSPITAL E UP TO 20 MG INJ J2920 [facility] METHYLPRD 6 [facility] SODIUM SUCCNAT TO 40 MG UNCLASSIF J3490 [facility] IED DRUGS 6 [facility] NONCOVERE A9270 [facility] D ITEM OR 6 [facility] COMPREHEN 50639 [facility] SIVE [address] [place] [address] HOSPITAL PANEL COMPREHEN [address] HOSPITAL PANEL CREATINE 59148 [facility] KINASE MB 6 [facility]OSPITAL ONLY HOSPITAL G0378 [facility] OBSERVATI [address] [place] [address] HOSPITAL [place] [address] [facility] COOKIESUNNY THYROID [address] [place] [address] HOSPITAL NG HORMONE TSH ECG 49541 [facility] ROUTINE [address] [place] [address] HOSPITAL HOSPITAL W/LEAST 12 LDS TRCG ONLY W/O I&R RADIOLOGI 15552 [facility] [place] SCALF URBANO C 6 RADIOLOGY EXAMINATI ON CHEST SINGLE VIEW FRONTAL NONCOVERE [id number] [facility] COOKIESUNNY D ITEM OR 6 [facility]PITAL INJECTION J1940 [facility] POLANCO[address] [facility] E UP [place] [address] [facility] TROPONIN 6 [facility]OSPITAL RANDY THER 82552 [facility] YANET PROPH/DX 6 [facility] HOSPITAL PUSH SINGLE/1S T SBST/DRUG CREATINE 25802 [facility] KINASE 6 [facility]PITAL COLLECTIO 57101 [facility] N VENOUS [address] [place] [address] HOSPITAL VENIPUNCT URE NONINVASI 37839 [facility] VE [address] [place] [address] EAR/PULSE HOSPITAL HOSPITAL OXIMETRY SINGLE DETER BLOOD [address] HOSPITAL AUTO&AUTO DIFRNTL WBC GLUC BLD 20198 [facility] GLUC MNTR [address] [place] [address] HOSPITAL CLEARED FDA SPEC HOME USE MYOGLOBIN [address] HOSPITAL NATRIURET 71429 [facility] IC [address] [place] [address] HOSPITAL GLUC BLD 31298 [facility] GLUC MNTR [address] [place] [address] HOSPITAL CLEARED FDA SPEC HOME USE BLOOD 19562 [facility] POLANCO[address] HOSPITAL AUTO&AUTO DIFRNTL WBC INJECTION J2270 [facility] MORPHINE [address] [place] [address] HOSPITAL UP TO 10 MG INJECTION J1650 [address] [facility] N SODIUM 10 MG COLLECTIO 54547 [facility] N VENOUS [address] [place] [address] [place] [address] [facility] MAGNESIUM [address] [place] [address] HOSPITAL PRESSURIZ 98228 [facility] ED/NONPRE [address] [place] [address] [facility] INHALATIO N TREATMENT BASIC 33562 [facility] METABOLIC [address] [place] [address] HOSPITAL CALCIUM TOTAL INJECTION J1815 [facility] INSULIN [address] [place] [address] PER 5 HOSPITAL HOSPITAL UNITS INJECTION J[address]75 [address] HOSPITAL SULPHATE PER 500 MG INJECTION J1940 [address] FUROSEMID [facility] HOSPITAL E UP TO 20 MG NONCOVERE [id number] A9270 [facility] D ITEM OR 6 [facility]OSPITAL NONCOVERE A9270 YANET HOLT D ITEM OR 6 [facility]PITAL INJECTION J1940 YANET HOLT [address] [place] [address] [facility] H[facility]PITAL E UP TO 20 MG INJECTION J3475 [facility] POLANCO[address] MAGNESIUM [facility] HOSPITAL SULPHATE PER 500 MG INJECTION J1815 [facility] INSULIN [address] [place] [address] HOSPITAL HOSPITAL UNITS BASIC 90890 [facility] METABOLIC [address] [place] [address] HOSPITAL CALCIUM TOTAL PRESSURIZ 86962 [facility] ED/NONPRE [address] [place] [address] HOSP[place] [address] [facility] H[facility] MAGNESIUM [address] [place] [address] HOSPITAL COLLECTIO 81733 [facility] N VENOUS [address] [place] [address] HOSPITAL VENIPUNCT URE INJECTION J2270 [facility] MORPHINE [address] [place] [address] HOSPITAL UP TO 10 MG INJECTION J1650 [facility] POLANCO[address] ENOXAPARI [facility] HOSPITAL N SODIUM 10 MG BLOOD 25089 [facility] COUNT [address] [place] [address] HOSPITAL AUTO&AUTO DIFRNTL WBC GLUC BLD 07318 YANET HOLT GLUC MNTR [address] [place] [address] HOSPITAL CLEARED FDA SPEC HOME USE HEMOGLOBI 43215 [facility] N [address] [place] [address] HOSPITAL KAMILAH A1C NATRIURET 54600 [facility] IC [address] [place] [address] HOSPITAL GLUC BLD 55560 YANET HOLT GLUC MNTR [address] [place] [address] HOSPITAL CLEARED FDA SPEC HOME USE BLOOD 18536 [facility] COUNT [address] [place] [address] HOSPITAL AUTO&AUTO DIFRNTL WBC RADIOLOGI 45314 [facility] C EXAM 6 [facility] CHEST 2 [facility] HOSPITAL VIEWS FRONTAL&L ATERAL INJECTION J2270 [facility] MORPHINE 6 [facility] UP TO 10 MG COLLECTIO 94350 [facility] N VENOUS 6 [facility] BLOOD [facility] HOSPITAL VENIPUNCT URE PRESSURIZ 43553 [facility] ED/NONPRE 6 [facility] HOSPITAL INHALATIO N TREATMENT NONINVASI 45288 [facility] VE 6 [facility] EAR/PULSE HOSPITAL HOSPITAL OXIMETRY SINGLE DETER BASIC 83709 [facility] METABOLIC 6 [facility] PANEL [facility] HOSPITAL CALCIUM TOTAL THER 20897 [facility] PROPH/DX 6 [facility] NJX IV HOSPITAL HOSPITAL PUSH SINGLE/1S T SBST/DRUG INJECTION J1815 [facility] INSULIN 6 [facility] PER 5 HOSPITAL HOSPITAL UNITS INJECTION J1940 [address] [facility] E UP TO 20 MG NONCOVERE [id number] [facility] D ITEM OR 6 [facility] ECG 55236 [facility] ROUTINE 6 [facility] HOSPITAL W/LEAST 12 LDS TRCG ONLY W/O I&R HOSPITAL [id number] [address] ON HOSPITAL HOSPITAL SERVICE PER HOUR HOSPITAL [id number] [address] ON HOSPITAL HOSPITAL SERVICE PER HOUR NONCOVERE A9270 [facility] D ITEM OR 6 [facility] HOSPITAL INJECTION J1815 [facility] INSULIN 6 [facility] PER 5 HOSPITAL HOSPITAL UNITS INJECTION J24[address] [facility] ON HCL PER 1 MG INJECTION J1940 [address] [facility] E UP TO 20 MG PRESSURIZ 52921 [facility] ED/NONPRE 6 [facility] INHALATIO N TREATMENT INITIAL 23443 [place] [address] MEDICINE ON SERVICES CARE/DAY O 70 MINUTES NONINVASI 89499 [facility] VE [address] [place] [address] EAR/PULSE H[facility]PITAL HOSPITAL OXIMETRY SINGLE DETER BASIC 41440 YANET HOLT METABOLIC [address] [place] [address] PANEL [facility] HOSPITAL CALCIUM TOTAL INJECTION J1650 YANET HOLT [address] [place] [address] [facility] HOSPITAL N SODIUM 10 MG INJECTION J2270 YANET HOLT MORPHINE [address] [place] [address] HOSPITAL UP TO 10 MG BLOOD 26984 YANET HOLT COUNT [address] [place] [address] HOSPITAL AUTO&AUTO DIFRNTL WBC GLUC BLD 06054 YANET HOLT GLUC MNTR [address] [place] [address] HOSPITAL CLEARED FDA SPEC HOME USE GLUC BLD 73409 YANET HOLT GLUC MNTR [address] [place] [address] HOSPITAL CLEARED FDA SPEC HOME USE NATRIURET 36340 YANET HOLT IC [address] [place] [address] HOSPITAL BLOOD 81478 [facility] COUNT [address] [place] [address] HOSPITAL AUTO&AUTO DIFRNTL WBC INSJ TEMP 48150 [facility] NDWELLG [address] [place] [address] HOSPITAL CATHETER SIMPLE INJECTION J2270 [facility] MORPHINE [address] [place] [address] HOSPITAL UP TO 10 MG THERAPEUT 35890 [facility] IC [address] [place] [address] INJECTION [facility] HOSPITAL IV PUSH EACH NEW DRUG COLLECTIO 01704 [facility] N VENOUS [address] [place] [address] VENIPUNCT URE CREATINE 17388 [facility] KINASE [address] [place] [address] HOSPITAL HOSPITAL THER 93951 YANET HOLT PROPH/DX 6 [facility] HOSPITAL HOSPITAL PUSH SINGLE/1S T SBST/DRUG THER 58431 YANET HLOT PROPH/DX 6 [facility] HOSPITAL SEQL IV PUSH SBST/DRUG FAC INJECTION J1940 YANET HOLT [address] [place] [address] HOSPITAL HOSPITAL E UP TO 20 MG INJECTION J1815 [facility] INSULIN [address] [place] [address] PER 5 [place] [address] YANET HOLT TROPONIN 6 [facility] HOSPITAL RANDY ECG 21786 YANET HOLT ROUTINE 6 [facility] H[facility] W/LEAST 12 LDS TRCG ONLY W/O I&R CREATINE 12928 YANET HOLT KINASE MB 6 [facility] HOSPITAL ONLY COMPREHEN 40644 YANET HOLT SIVE 6 [facility] PANEL RADIOLOGI 52571 YANET HOLT C 6 [facility] ON CHEST [place] FRONTAL POLYSOM 71739 [facility] 6/>YRS 6 [facility] [place] SLEEP ROBERTO ROBERTO W/CPAP 4/> ADDL DREW ATTND RADIOLOGI 61956 [facility] CARRERA C 6 ORTHOPEDI IVELISSE EXAMINATI C ON KNEE ASSOCIAT 1/2 VIEWS RADIOLOGI 91996 [facility] [place] HSIEH C 6 RADIOLOGY RAY EXAMINATI ON CHEST SING[place]IEW FRONTAL ECG 70433 [facility] ROUTINE 6 [place] ECG ROBERTO ROBERTO W/LEAST 12 LDS TRCG ONLY W/O I&R GASES 87494 [facility] BLOOD PH 6 [facility] DIRECT ROBERTO ROBERTO JENNIFER XCPT PULSE OXIMITRY URNLS DIP [address] STICK/TAB ROBERTO ROBERTO LET RGNT AUTO W/O MICROSCOP Y COMPREHEN 54348 [facility] SIVE 6 [facility] METABOLIC [place] [address] [facility] TROPONIN 6 [facility] [place] [address] [facility] [place] [facility] ANGIOGRAP 6 RADIOLOGY RAY HY CHEST W/CONTRAS T/NONCONT RAST LOCM Q9967 [facility] [phone] 6 [place] MG/ML ROBERTO ROBERTO IODINE CONCENTRA TION PER ML INJECTION J34[address] MAGNESIUM ROBERTO ROBERTO SULPHATE PER 500 MG ARTERIAL 18872 [facility] PUNCTURE 6 [facility] WITHDRAWA ROBERTO ROBERTO L BLOOD DX FIBRIN 53001 [facility] DGRADJ 6 [facility] PRODUCTS ROBERTO ROBERTO [place] [address] [facility] MAGNESIUM 6 [place] ROBERTO ROBERTO COLLECTIO 27220 [facility] N VENOUS 6 [facility] [place] [address] [facility] INFUSION 6 [facility] THERAPY/P ROBERTO ROBERTO ROPHYLAXI S /DX 1ST TO 1 HR THERAPEUT 23813 [facility] IC 6 [facility] INJECTION ROBERTO ROBERTO IV PUSH EACH NEW DRUG INJECTION J2270 [facility] MORPHINE 6 [facility] SULFATE ROBERTO ROBERTO UP TO 10 MG FEDERALLY G0467 ROBERTO ROBERTO 6 [facility] VISIT ESTAB PT BLOOD 02180 [facility] COUNT 6 [facility] COMPLETE ROBERTO ROBERTO AUTO&AUTO DIFRNTL WBC NATRIURET 38439 [facility] IC 6 [facility] PEPTIDE ROBERTO ROBERTO O2 CONC 1 E1390 NEETA SANTACRUZ DEL PORT 6 HOME HOME 85%/>02 MEDICAL MEDICAL CONC AT EQUIPME EQUIPME PRSC FLW RATE COLLECTIO 51116 [facility] N VENOUS [address] [place] [address] VENIPUNCT URE PRESSURIZ 55959 [facility] ED/NONPRE [address] [place] [address] INHALATIO N TREATMENT INJECTION J1815 [facility] INSULIN [address] [place] [address] PER 5 HOSPITAL HOSPITAL UNITS INJECTION J1940 [facility] [address]OOKIE[address] FUROSEMID [facility] HOSPITAL E UP TO 20 MG INFUSION J7050 [facility] COOKIESUNNY NORMAL [address] [place] [address] HOSPITAL SOLUTION 250 CC COMPREHEN 94732 [facility] SIVE [address] [place] [address] HOSPITAL PANEL NONCOVERE A9270 [facility] COOKIESUNNY D ITEM OR 6 [facility] GLUC BLD 31764 [facility] GLUC MNTR [address] [place] [address] CLEARED FDA SPEC HOME USE BLOOD 14319 YANET HOLT COUNT 6 [facility] HOSPITAL AUTO&AUTO DIFRNTL WBC INJECTION J1650 YANET HOLT [address] [place] [address] [facility] HOSPITAL N SODIUM 10 MG INJECTION J2270 YANET HOLT MORPHINE [address] [place] [address] SULFATE [facility] HOSPITAL UP TO 10 MG INJECTION J2270 [facility] MORPHINE 6 [facility] UP TO 10 MG BLOOD 64585 [facility] COUNT [address] [place] [address] HOSPITAL AUTO&AUTO DIFRNTL WBC INSJ TEMP 54094 [facility] NDWELLG [address] [place] [address] BLADDER [facility] HOSPITAL CATHETER SIMPLE GLUC BLD 44499 [facility] GLUC MNTR [address] [place] [address] HOSPITAL CLEARED FDA SPEC HOME USE NATRIURET 47286 [facility] IC [address] [place] [address] HOSPITAL RADIOLOGI 02679 [facility] [place] SHAY C EXAM 6 RADIOLOGY MEI CHEST 2 VIEWS FRONTAL&L ATERAL NONCOVERE A9270 [facility] D ITEM OR 6 [facility] HOSPITAL COMPREHEN 00881 [facility] SIVE [address] [place] [address] [facility] G0378 [facility] OBSERVATI [address] [place] [address] ON HOSPITAL HOSPITAL SERVICE PER HOUR INFUSION J7050 [facility] NORMAL [address] [place] [address] [facility] HOSPITAL SOLUTION 250 CC INJECTION J1940 [address] [facility] E UP TO 20 MG INJECTION J1815 [facility] INSULIN [address] [place] [address] PER 5 HOSPITAL HOSPITAL UNITS PRESSURIZ 76555 [facility] ED/NONPRE [address] [place] [address] SSURIZED HOSPITAL HOSPITAL INHALATIO N TREATMENT NONINVASI 29692 [facility] VE [address] [place] [address] EAR/PULSE HOSPITAL HOSPITAL OXIMETRY SINGLE DETER SEDIMENTA 50642 [facility] TION RATE 6 [facility] H[facility]PITAL HOSPITAL NON-AUTOM ATED PRTBLE E0431 NEETA OROURKE GASEOUS 6 HOME MICHAEL O2 SYS MEDICAL RENT; EQUIPME FLWMTR HUMIDFR&M ASK ARTHROCEN 51328 [facility] JAIMEIS 6 ORTHOPEDI ASPIR&/IN C J MAJOR ASSOCIAT JT/BURSA W/O RADIOLOGI 57895 [facility]an DUMONT C 6 ORTHOPEDI ORTHOPEDI EXAMINATI C C ON KNEE ASSOCIAT ASSOCIAT 1/2 VIEWS INITIAL [address] BEVERLY CARE/DAY PHYSICIAN 70 PRA MINUTES ASSISTANC [id number] [address] RESPIRATO MEDICAL MEDICAL RY VENT < CENTE CENTE 24 CONSEC HR CPAP CRITICAL 29306 [place] [address] [place]LL/INJUR EMERGENCY ED PHYSI PATIENT INIT 30-74 MIN RADIOLOGI 96892 SAM MILLER 6 MEDICAL STEVEN EXAMINATI SERV YAMINI ON KNEE 3 FOUNDATIO VIEWS N RADIOLOGI 38755 [facility] 6 MEDICAL STEVEN EXAMINATI SERV YAMINI ON [...] RENT; EQUIPME EQUIPME FLWMTR HUMIDFR&M ASK RADIOLOGI 86465 [facility] 6 ORTHOPEDI R EXAMINATI C ON KNEE ASSOCIAT 1/2 VIEWS DUP-SCAN 49677 [place]NA AMIN AMIN Q[place] XTR VEINS 6 MD CONSULTIN UNILATERA G SRV L/LIMITED STUDY ECHO 67778 [place] AMIN AMIN [place] TTHRC R-T 6 MD 2D CONSULTIN W/WOM-MOD G SRV E COMPL SPEC&COLR D DRAINAGE [id number] [place] [facility] BLADDER 6 [facility] DEVICE IRENA/ART OPENING PRTBLE [id number] NEETA NEETA GASEOUS 6 HOME HOME O2 SYS MEDICAL MEDICAL RENT; EQUIPME EQUIPME FLWMTR HUMIDFR&M ASK RADIOLOGI 14892 [facility] [place] [facility] [facility] C EXAM 6 RADIOLOGY CHEST 2 VIEWS FRONTAL&L ATERAL RADIOLOGI 60403 [facility] [place] [facility] C 6 RADIOLOGY EXAMINATI ON [place]ST [place] FRONTAL NURSING 38407 [facility] 6 PRIMARY CHR DISCHARGE CARE MANAGEMEN T 30 MINUTES INITIAL [address] FACILITY CARE CARE/DAY 35 MINUTES SBSQ [id number] CARE/DAY PHYSICIAN 35 PRA MINUTES SBSQ [id number] CARE/DAY PHYSICIAN 35 PRA MINUTES TRANSFUSI [id number] CHRISTOPHER CORREA [address] [place] [address] NONAUTO MEDICAL MEDICAL RED BLD CENTE CENTE CELLS PERIPH VN PERQ ASSISTANC [id number] CHRISTOPHER Fontenot [address] [place] [address] [facility] MEDICAL RY VENT < CENTE CENTE 24 CONSEC HR CPAP SBSQ [id number] CARE/DAY PHYSICIAN 35 PRA MINUTES AMBULANCE A0428 [facility] SERVICE 6 AMBULANCE AMBULANCE BLS SERV 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 NONEMERGE R [place]SP[place] 09195 [facility] HEILI KNEE 6 ORTHOPEDI IVELISSE ARTHRP C FEM&ENTIR ASSOCIAT E TIBIAL [facility] [address] [place] STILES DISCHARGE 6 MEDICAL NAN DAY SERV MANAGEMEN FOUNDATIO T 30 N MIN/< INITIAL [id number] [place] CARE/DAY PHYSICIAN 50 PRA MINUTES GROUND A0425 [facility] MERCURY MILEAGE 6 AMBULANCE AMBULANCE PER SERV 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 STATUTE R R MILE INJECTION 71331 FRED CARRANZA SARAH 6 [facility] ANESTHETI ANESTHESI C AGENT A PSC FEMORAL NERVE SINGLE REPLACE [id number] CHRISTOPHER WHITE LT KNEE 6 [facility] JOINT MEDICAL MEDICAL SYNTH CENTE CENTE SUBST CEMENTED OPEN REMOVAL [id number] CHRISTOPHER WHITE SPACER 6 REGIONAL REGIONAL FROM LT MEDICAL MEDICAL KNEE CENTE CENTE JOINT OPEN APPROACH SBSQ [id number] [facility] 6 MEDICAL NAN CARE/DAY SERV 25 FOUNDATIO MINUTES N SBSQ 02110 [facility] 6 MEDICAL NAN CARE/DAY SERV 25 FOUNDATIO MINUTES N SBSQ 33430 [facility] 6 MEDICAL NAN CARE/DAY SERV 25 FOUNDATIO MINUTES N SBSQ 95449 [facility] 6 MEDICAL NAN CARE/DAY SERV 25 FOUNDATIO MINUTES N BASIC 25435 CHRISTOPHER WHITE METABOLIC 6 REGIONAL REGIONAL PANEL MEDICAL MEDICAL CALCIUM CENTE CENTE TOTAL BLOOD 84603 CHRISTOPHER WHITE TYPING 6 REGIONAL REGIONAL SEROLOGIC MEDICAL MEDICAL RH (D) CENTE CENTE THROMBOPL 12164 CHRISTOPHER WHITE ASTIN 6 REGIONAL REGIONAL TIME MEDICAL MEDICAL PARTIAL CENTE CENTE PLASMA/WH OLE BLOOD SEDIMENTA 14810 CHRISTOPHER WHITE TION RATE 6 REGIONAL REGIONAL RBC MEDICAL MEDICAL NON-AUTOM CENTE CENTE ATED PROTHROMB 67452 CHRISTOPHER WHITE IN TIME 6 REGIONAL REGIONAL MEDICAL MEDICAL CENTE CENTE COLLECTIO 25630 CHRISTOPHER WHITE N VENOUS 6 REGIONAL REGIONAL BLOOD MEDICAL MEDICAL VENIPUNCT CENTE CENTE URE GONADOTRO 59011 CHRISTOPHER WHITE PIN 6 REGIONAL REGIONAL CHORIONIC MEDICAL MEDICAL CENTE CENTE QUALITATI VE C-REACTIV 70788 CHRISTOPHER WHITE E PROTEIN 6 REGIONAL REGIONAL MEDICAL MEDICAL CENTE CENTE ANTIBODY 47878 CHRISTOPHER WHITE SCREEN 6 REGIONAL REGIONAL RBC EACH MEDICAL MEDICAL SERUM CENTE CENTE TECHNIQUE BLOOD 23769 CHRISTOPHER WHITE TYPING 6 REGIONAL REGIONAL SEROLOGIC MEDICAL MEDICAL ABO CENTE CENTE BLOOD 36308 CHRISTOPHER WHITE COUNT 6 REGIONAL REGIONAL COMPLETE MEDICAL MEDICAL AUTOMATED CENTE CENTE SBSQ 37149 [facility] 6 MEDICAL NAN CARE/DAY SERV 25 FOUNDATIO MINUTES N SBSQ [address]7098 [place] [address] MEDICAL NAN CARE/DAY SERV 25 FOUNDATIO MINUTES N SBSQ 85981 [facility] 6 MEDICAL NAN CARE/DAY SERV 25 FOUNDATIO MINUTES N SBSQ 80247 [place] [address] MEDICAL NAN CARE/DAY SERV 25 FOUNDATIO MINUTES N SBSQ 71398 [place] [address] MEDICAL ELOISE CARE/DAY SERV 25 FOUNDATIO MINUTES N SBSQ 25501 [place] [address] MEDICAL ELOISE CARE/DAY SERV 25 FOUNDATIO MINUTES N SBSQ [address] [place] [address] MEDICAL NAN CARE/DAY SERV 25 FOUNDATIO MINUTES N O2 CONC 1 E1390 NEETA NEETA DEL PORT 6 HOME HOME 85%/>02 MEDICAL MEDICAL CONC AT EQUIPME EQUIPME PRSC FLW RATE PRTBLE E0431 NEETA NEETA GASEOUS 6 HOME HOME O2 SYS MEDICAL MEDICAL RENT; EQUIPME EQUIPME FLWMTR HUMIDFR&M ASK SBSQ 75132 [place] [address] MEDICAL NAN CARE/DAY SERV 25 FOUNDATIO MINUTES N SBSQ 23052 [place] [address] MEDICAL NAN CARE/DAY SERV 25 FOUNDATIO MINUTES N ECHO 83867 RALPH RALPH [facility] R-T 6 KIMANI KIMANI 2D W/WOM-MOD E COMPL SPEC&COLR D SBSQ 39725 [place] [address] MEDICAL NAN CARE/DAY SERV 25 FOUNDATIO MINUTES N SBSQ 72074 [place] [address] MEDICAL NAN CARE/DAY SERV 25 FOUNDATIO MINUTES N SBSQ 37622 [place] [address] MEDICAL DOMONIQUE CARE/DAY SERV 25 FOUNDATIO MINUTES N SBSQ 22715 [place] [address] MEDICAL DOMONIQUE CARE/DAY SERV 25 FOUNDATIO MINUTES N SBSQ 62229 [place] [address] MEDICAL NAN CARE/DAY SERV 25 FOUNDATIO MINUTES N SBSQ 28953 [place] [address] MEDICAL NAN CARE/DAY SERV 25 FOUNDATIO MINUTES N SBSQ 44454 [place] [address] MEDICAL NAN CARE/DAY SERV 25 FOUNDATIO MINUTES N SBSQ 41362 [place] [address] MEDICAL NAN CARE/DAY SERV 25 FOUNDATIO MINUTES N SBSQ 85589 [facility] 6 ANTONELLA CARE/DAY INFECTIOU 25 S DISEASE MINUTES SBSQ 05661 [place] [address] MEDICAL ELOISE CARE/DAY SERV 25 FOUNDATIO MINUTES N SBSQ 93009 [facility] 6 MEDICAL ELOISE CARE/DAY SERV 25 FOUNDATIO MINUTES N SBSQ 56279 [place] [address] MEDICAL NAN CARE/DAY SERV 25 FOUNDATIO MINUTES N SBSQ 57405 [place] [address] ANTONELLA CARE/DAY INFECTIOU 15 S DISEASE MINUTES RADIOLOGI 36182 [place] [address] RADIOLOGY AFSHAN EXAMINATI ON CHEST SINGLE VIEW FRONTAL SBSQ 23242 [place] [address] ANTONELLA CARE/DAY INFECTIOU 15 S DISEASE MINUTES SBSQ 85562 [place] [address] MEDICAL NAN CARE/DAY SERV 25 FOUNDATIO MINUTES N SBSQ 18995 [place] [address] MEDICAL NAN CARE/DAY SERV 25 FOUNDATIO MINUTES N SBSQ 81164 [place] [address] MEDICAL NAN CARE/DAY SERV 25 FOUNDATIO MINUTES N SBSQ 33988 [place] [address] MEDICAL NAN CARE/DAY SERV 25 FOUNDATIO MINUTES N SBSQ 96941 [place] [address] MEDICAL KIMBER CARE/DAY SERV 25 FOUNDATIO MINUTES N SBSQ 81688 [place] [address] MEDICAL KIMBER CARE/DAY SERV 25 FOUNDATIO MINUTES N SBSQ 79107 [place] [address] MEDICAL NAN CARE/DAY SERV 25 FOUNDATIO MINUTES N SBSQ 61748 [place] [address] MEDICAL NAN CARE/DAY SERV 25 FOUNDATIO MINUTES N SBSQ 70920 [place] [address] MEDICAL DOMONIQUE CARE/DAY SERV 25 FOUNDATIO MINUTES N SBSQ 31896 [place] [address] MEDICAL NAN CARE/DAY SERV 25 FOUNDATIO MINUTES N SBSQ 78045 [place] [address] MEDICAL NAN CARE/DAY SERV 25 FOUNDATIO MINUTES N SBSQ 67258 [place] [address] MEDICAL DOMONIQUE CARE/DAY SERV 25 FOUNDATIO MINUTES N SBSQ 38452 [facility] 6 MEDICAL DOMONIQUE CARE/DAY SERV 25 FOUNDATIO MINUTES N SBSQ 42488 [facility] 6 MEDICAL NAN CARE/DAY SERV 25 FOUNDATIO MINUTES N RADIOLOGI 65091 [facility] [place] [facility]OST[facility] 6 RADIOLOGY AFSHAN EXAMINATI ON CHEST SINGLE VIEW FRONTAL GROUND A0425 TRISTANIAN TRISTANIAN MILEAGE 6 MEDICAL MEDICAL PER RESPONSE RESPONSE STATUTE MILE INITIAL 90385 [facility] 6 MEDICAL NAN CARE/DAY SERV 70 FOUNDATIO MINUTES N AMBULANCE A0428 [facility] 6 MEDICAL MEDICAL BLS RESPONSE RESPONSE NONEMERGE NCY TRANSPORT CT LOWER 57777 [facility] 6 MEDICAL FRA SERV W/CONTRAS FOUNDATIO T N MATERIAL SBSQ 14244 [place] [address] HEALTH DYLAN CARE/DAY MEDICAL 35 GROUP MINUTES SBSQ 48185 [place] [address] HEALTH DYLAN CARE/DAY MEDICAL 35 GROUP MINUTES SBSQ 21218 [place] [address] HEALTH DYLAN CARE/DAY MEDICAL 35 GROUP MINUTES CRITICAL 63220 [place] [address] HEALTH ILL/INJUR MEDICAL ED GROUP PATIENT INIT 30-74 MIN SBSQ 85206 [place] [address] HEALTH RENÉ CARE/DAY MEDICAL 25 GROUP MINUTES SBSQ 24731 [place] [address] HEALTH RENÉ CARE/DAY MEDICAL 25 GROUP MINUTES SBSQ 16092 [place] [address] HEALTH RENÉ CARE/DAY MEDICAL 25 GROUP MINUTES CRITICAL 79902 [facility] 6 HEALTH ILL/INJUR MEDICAL ED GROUP PATIENT INIT 30-74 MIN GROUND A0425 TRISTANIAN TRISTANIAN MILEAGE 6 MEDICAL MEDICAL PER RESPONSE RESPONSE STATUTE MILE RADEX 48496 [place] VEE ABDOMEN 1 6 MEDICAL COLETTE SERV ANTEROPOS FOUNDATIO TERIOR N VIEW RADIOLOGI 64571 [place] ZAGUROVSK [facility] 6 MEDICAL AYA MAR EXAMINATI SERV ON CHEST FOUNDATIO SINGLE N VIEW FRONTAL CRITICAL 82469 [facility] 6 REGIONAL BEVERLY ILL/INJUR PHYSICIAN ED PRA PATIENT INIT 30-74 MIN CRITICAL 92108 [facility] 6 REGIONAL BEVERLY ILL/INJUR PHYSICIAN ED PRA PATIENT INIT 30-74 MIN SBSQ 46826 [facility] 6 REGIONAL CARE/DAY PHYSICIAN 35 PRA MINUTES O2 CONC 1 E1390 NEETADEONDRE SANTACRUZ DEL PORT 6 HOME HOME 85%/>02 MEDICAL MEDICAL CONC AT EQUIPME EQUIPME PRSC FLW RATE PRTBLE E0431 NEETA NEETA GASEOUS 6 HOME HOME O2 SYS MEDICAL MEDICAL RENT; EQUIPME EQUIPME FLWMTR HUMIDFR&M ASK CRITICAL 08222 [facility] 6 REGIONAL MARYELLEN ILL/INJUR PHYSICIAN ED PRA PATIENT INIT 30-74 MIN CRITICAL [address] [place] [address] REGIONAL MARYELLEN ILL/INJUR PHYSICIAN ED PRA PATIENT INIT 30-74 MIN SBSQ [address] MARYELLEN CARE/DAY PHYSICIAN 25 PRA MINUTES CRITICAL 97565 [place] [address] REGIONAL MARYELLEN ILL/INJUR PHYSICIAN ED PRA PATIENT ADDL 30 MIN INITIAL 09023 [place] [address] REGIONAL MARYELLEN CARE/DAY PHYSICIAN 50 [place] [address] KRISTEN HYATTOUS, SURG 5 JR EDW PATHOLOGY PATHOLOGY GROSS [place] [address] KRISTEN HYATTOUS, SURG 5 JR EDW PATHOLOGY PATHOLOGY ASSOCIAT GROSS&IVELISSE ROSCOPIC EXAM DECALCIFI 35506 KRISTEN SHARMA, CATION 5 JR EDW PROCEDURE PATHOLOGY ASSOCIAT ANESTH 33346 FRED SIMPSON OPEN/SURG 5 LT BEAU ARTHRS ANESTHESI TOTAL A PSC KNEE ARTHROPLA ST RMVL 85067 [facility] PROSTH 5 ORTHOPEDI TOT KNEE C PROSTH ASSOCIAT MMA W/WO INSJ SPACER PRTBLE E0431 NEETA BOBRELL GASEOUS 5 HOME HOME O2 SYS MEDICAL MEDICAL RENT; EQUIPME EQUIPME FLWMTR HUMIDFR&M ASK O2 CONC 1 E1390 NEETA BOBRELL DEL PORT 5 HOME HOME 85%/>02 MEDICAL MEDICAL CONC AT EQUIPME EQUIPME [facility] FLW RATE FEDERALLY [id number] [address] [email or web address] [facility] [place] 06723 JOB CHOI THO ROUTINE 5 NE HEALTH ECG MEDICAL W/LEAST G 12 LDS I&R ONLY PRTBLE E0431 NEETA SANTACRUZ GASEOUS 5 HOME HOME O2 SYS MEDICAL MEDICAL RENT; EQUIPME EQUIPME FLWMTR HUMIDFR&M ASK O2 CONC 1 E1390 NEETA SANTACRUZ DEL PORT 5 HOME HOME 85%/>02 MEDICAL MEDICAL CONC AT EQUIPME EQUIPME [facility] FLW RATE RADEX 52811 [place] SHERIN CHR SHOULDER 5 RADIOLOGY COMPLETE MINIMUM 2 VIEWS FEDERALLY [id number] [email or web address] [facility] V[place] BONE 56804 CHRISTOPHER CHRISTOPHER &/JOINT 5 [facility] IMAGING [facility] [address] [place] HEAD/BRAI 5 RADIOLOGY RADIOLOGY N W/[place] [address] [place] SHERIN CHR MAXILLOFA 5 RADIOLOGY CIAL W/O CONTRAST MATERIAL RADEX 79390 [facility] [place] WESTERFIE SINUSES 5 RADIOLOGY LD IV ALL PARANASAL COMPL MINIMUM 3 VIEWS RADIOLOGI 25009 [place] HSIEH C EXAM 5 RADIOLOGY RAY CHEST 2 VIEWS FRONTAL&L ATERAL FEDERALLY [id number] [address] [employer] [facility] [employer] [facility] VISIT ESTAB PT RADIOLOGI 88869 [place] RINA MAT C EXAM 5 RADIOLOGY KNEE COMPLETE 4/MORE VIEWS OPHTH 65498 [facility] 5 GRE GRE XM&EVAL COMPRE NEW PT 1/> VST RADIOLOGI 16240 [place] SHERIN CHR C EXAM 5 RADIOLOGY CHEST 2 VIEWS FRONTAL&L ATERAL O2 CONC 1 E1390 NEETA SANTACRUZ DEL PORT 5 HOME HOME 85%/>02 MEDICAL MEDICAL CONC AT EQUIPME EQUIPME [facility] FLW RATE BLD GLU A4253 NEETA [...] INC THERAPY ELEC PUMP STATION/P RTBLE DUP-SCAN 02954 [facility] XTR VEINS 5 EIDER BILL [...] EACH NEG PRESS E2402 [employer] [facility] WOUND 4 INC INC THERAPY ELEC PUMP STATION/P RTBLE I&D DEEP 51476 TENRIISM TENRIISM ABSC 4 [facility] BURSA/HEM [facility] THIGH/KNE E REGION ECG 83518 TENRIISM TENRIISM ROUTINE 4 [facility] ECG [facility] W/LEAST 12 LDS TRCG ONLY W/O I&R RADIOLOGI 06085 TENRIISM TENRIISM C EXAM 4 [facility] CHEST 2 [facility] VIEWS FRONTAL&L ATERAL PRTBLE E0431 NEETA NEETA GASEOUS 4 HOME HOME O2 SYS MEDICAL MEDICAL RENT; EQUIPME EQUIPME FLWMTR HUMIDFR&M ASK NEBULIZER E0570 NEETA SANTACRUZ WITH 4 HOME HOME COMPRESSO MEDICAL MEDICAL R EQUIPME EQUIPME O2 CONC 1 E1390 NEETA NEETA DEL PORT 4 HOME HOME 85%/>02 MEDICAL MEDICAL CONC AT EQUIPME [place] [address] ADVANCED KERSCHNER JOINT 4 PAIN & MAG [...] INC RIGID/FOL D ANY TYPE EA NURSING 81071 CHRISTOPHER LEARY AJ FACILITY 4 REGIONAL DISCHARGE MEDICAL CENTE MANAGEMEN T 30 MINUTES DUP-SCAN 90260 FOUNDATIO MCQUAIDE XTR VEINS 4 N JERRY RADIOLOGY UNILATERA GROUP P L/LIMITED STUDY INJECTION 35828 FRED MALDONADO JAYNA 4 [facility] ANESTHETI ANESTHESI C AGENT A PSC FEMORAL NERVE SINGLE NEBULIZER E0570 NEETA SANTACRUZ WITH 4 HOME HOME COMPRESSO MEDICAL MEDICAL R EQUIPME EQUIPME O2 CONC 1 E1390 NEETA SANTACRUZ DEL PORT 4 HOME HOME 85%/>02 MEDICAL MEDICAL CONC AT EQUIPME EQUIPME [facility] FLW RATE PRTBLE E0431 NEETA SANTACRUZ GASEOUS 4 HOME HOME O2 SYS MEDICAL MEDICAL RENT; EQUIPME EQUIPME FLWMTR HUMIDFR&M ASK RADIOLOGI 68247 CHRISTOPHER WHITE C EXAM 4 REGIONAL REGIONAL CHEST 2 MEDICAL MEDICAL VIEWS CENTE CENTE FRONTAL&L ATERAL ECG 69556 CHRISTOPHER JONESVARNULFO ROUTINE 4 REGIONAL MARYELLEN ECG MEDICAL W/LEAST CENTE 12 LDS I&R ONLY ANTIBODY 26310 CHRISTOPHER WHITE SCREEN 4 REGIONAL REGIONAL RBC EACH MEDICAL MEDICAL SERUM [facility] TECHNIQUE ECG 95501 CHRISTOPHER WHITE ROUTINE 4 REGIONAL REGIONAL ECG MEDICAL MEDICAL W/LEAST CENTE CENTE 12 LDS TRCG ONLY W/[place] [address] ADVANCED KERSCHNER JOINT 4 PAIN & MAG ARTHRGRPH SPINE Y&/ANES/S INSTIT TEROID W/FLOR O2 CONC 1 E1390 NEETA SANTACRUZ DEL PORT 4 HOME HOME 85%/>02 MEDICAL MEDICAL CONC AT EQUIPME EQUIPME [facility] FLW RATE NEBULIZER E0570 NEETA SANTACRUZ WITH 4 HOME HOME COMPRESSO MEDICAL MEDICAL R EQUIPME EQUIPME PRTBLE E0431 NEETA SANTACRUZ GASEOUS 4 HOME HOME O2 SYS MEDICAL MEDICAL RENT; EQUIPME EQUIPME FLWMTR HUMIDFR&M ASK RADIOLOGI 00598 REED MCBRIDE C EXAM 4 W W KNEE REGIONAL REGIONAL COMPLETE MEDICAL MEDICAL 4/[place] [address]92 ADVANCED KERSCHNER ANES&/STR 4 PAIN & MAG D W/IMG SPINE TFRML INSTIT EDRL LMBR/SAC EA LV CT THORAX 73241 [place] RECINOS 4 JOHN W/CONTRAS RADIOLOGY T ASSOCIAT MATERIAL NEBULIZER E0570 NEETA SANTACRUZ WITH 4 HOME HOME COMPRESSO MEDICAL MEDICAL R EQUIPME EQUIPME O2 CONC 1 E1390 NEETA SANTACRUZ DEL PORT 4 HOME HOME 85%/>02 MEDICAL MEDICAL CONC AT EQUIPME EQUIPME PRSC FLW RATE PRTBLE E0431 NEETA SANTACRUZ GASEOUS 4 HOME HOME O2 SYS MEDICAL MEDICAL RENT; EQUIPME EQUIPME FLWMTR HUMIDFR&M ASK RADIOLOGI 67727 REED MCBRIDE C EXAM 4 W W CHEST 2 REGIONAL REGIONAL VIEWS MEDICAL MEDICAL FRONTAL&[place]AL NJX 47538 ADVANCED KERSCHNER ANES&/STR 4 PAIN & MAG [...] BLD EQUIPME EQUIPME GLU MON-50 MRI BRAIN 36644 [place] BRAIN 4 MEM HOSP MEM [...] RENT; EQUIPME EQUIPME FLWMTR HUMIDFR&[place] [address] [facility] [employer], [facility] INC, HEAD/BRAI 4 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 N W/O NORRIS PISANO CONTRAST CO HOS [...] INHALATIO N RX; PER 30 DAYS RADIOLOGI 18107 [facility] [employer], [facility] INC, C EXAM 4 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 CHEST 2 NORRIS NORRIS VIEWS CO HOS CO HOS FRONTAL&L ATERAL ARTERIAL 36291 [facility] [employer] [facility] INC, PUNCTURE 4 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 WITHDRAWA NORRIS PISANO L BLOOD CO HOS CO HOS DX RADIOLOGI 27034 [facility] [employer] [facility] INC, C EXAM 4 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 CHEST 2 NORRIS NORRIS VIEWS CO HOS CO HOS FRONTAL&L ATERAL RADEX 91948 [facility] [employer], [facility] INC, FOOT 4 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 COMPLETE NORRIS OLGUINS MINIMUM 3 CO HOS [...] CHAIR PT E E 301-450 LBS ECHO 83505 [facility] INC, [facility] INC, TTHRC R-T 3 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 2D NORRIS PISANO W/WOM-MOD CO HOS CO HOS E COMPL SPEC&COLR D BLD GLU A4253 NEETA SANTACRUZ TEST/REAG 3 HOME HOME T STRIPS MEDICAL MEDICAL HOME BLD EQUIPME EQUIPME GLU MON-50 RADIOLOGI 93320 MOSER MOSER C EXAM 3 URBANO URBANO CHEST 2 VIEWS FRONTAL&L ATERAL PWR WC K0825 [facility] 2 3 MEDICAL MEDICAL HEVY DUTY OF OF CAPT ALIYA HAY PT E E 301-450 LBS RADEX 25000 JORJE RECINOS WRIST 3 JOHN [facility] COMPLETE MINIMUM 3 VIEWS RADEX ABD 99909 NAZ CHILDS COMPL 3 EIDER BILL EISARAH BILL AQT ABD W/S/E/D VIEWS 1 VIEW CH RADIOLOGI 55773 MOSER MOSER C EXAM 3 URBANO URBANO CHEST 2 VIEWS FRONTAL&L ATERAL ECG 52734 AHMED ADN AHMED ADN ROUTINE 3 ECG W/LEAST 12 LDS I&R ONLY ECG 66626 AHMED ADN AHMED ADN ROUTINE 3 ECG W/LEAST 12 LDS I&R ONLY ECG 19256 AHMED ADN AHMED ADN ROUTINE 3 ECG W/LEAST 12 LDS I&R ONLY RADIOLOGI 42405 NAZ CHILDS C 3 EIDER BILL KHAN EXAMINATI ON CHEST SINGLE VIEW FRONTAL RADIOLOGI 93820 MOSER MOSER C EXAM 3 URBANO URBANO CHEST 2 VIEWS FRONTAL&L ATERAL RADIOLOGI 13134 MOSER MOSER C EXAM 3 URBANO URBANO CHEST 2 VIEWS FRONTAL&L ATERAL RADEX 84177 JORJE RECINOS FOOT 3 JOHN JOHN COMPLETE MINIMUM 3 VIEWS CONTINUOU E0601 NEETA SANTACRUZ S 3 HOME HOME POSITIVE MEDICAL MEDICAL AIRWAY EQUIPME EQUIPME PRESSURE DEVICE SPMTRY 10872 KATIE GAFFNEYICK W/VC 3 JAM JAM EXPIRATOR Y MATILDE W/WO MXML VOL VNTJ RADIOLOGI 18338 JORJE RECINOS C EXAM 3 JOHN [facility] CHEST 2 VIEWS FRONTAL&L ATERAL RADIOLOGI 48281 NAZ CHILDS C EXAM 3 EIDER BILL EIDER BILL CHEST 2 VIEWS FRONTAL&L ATERAL CONTINUOU E0601 NEETADEONDRE SANTACRUZ S 3 HOME HOME POSITIVE MEDICAL MEDICAL AIRWAY EQUIPME EQUIPME PRESSURE DEVICE RADIOLOGI 69925 ANGELICA DOMINGUEZ C EXAM 3 CELESTE CELESTE CHEST 2 VIEWS FRONTAL&L ATERAL ECG 88644 BLOYD LUX BLOYD LUX ROUTINE 3 ECG W/LEAST 12 LDS I&R ONLY RADIOLOGI 44779 NAZ CHILDS C EXAM 3 EIDER BILL EIDER BILL CHEST 2 VIEWS FRONTAL&L ATERAL RADIOLOGI 12556 [facility] C EXAM 2 JOHN CHEST 2 RADIOLOGY VIEWS ASSOCIAT FRONTAL&L ATERAL CONTINUOU E0601 NEETADEONDRE SANTACRUZ S 2 HOME HOME POSITIVE MEDICAL MEDICAL AIRWAY EQUIPME EQUIPME PRESSURE DEVICE RADIOLOGI 91073 [place] JORJE C EXAM 2 JOHN CHEST 2 [...] MEDICAL HOME BLD EQUIPME [facility]QUIPME [facility] 82150 AHMED ADN AHMED ADN DISCHARGE 2 DAY MANAGEMEN T 30 MIN/< HUMDIFIR E0562 NEETA SANTACRUZ HEATED 2 HOME HOME USED MEDICAL MEDICAL W/POS EQUIPME EQUIPME ARWAY PRESSURE DEVICE HEADGEAR A7035 NEETA SANTACRUZ USED 2 HOME HOME W/POSITIV MEDICAL MEDICAL E AIRWAY EQUIPME EQUIPME PRESSURE DEVICE ADMN SET A7003 YOUR YOUR SM VOL 2 PHARMACY PHARMACY NONFILTR PNEUMAT NEBULIZR DISPBL ECG 74825 AHMED ADN AHMED ADN ROUTINE 2 ECG W/LEAST 12 LDS TRCG ONLY W/O I&R RADIOLOGI 09213 [facility] C EXAM 2 EIDER BILL CHEST 2 RADIOLOGY VIEWS ASSOCIAT FRONTAL&L ATERAL RADIOLOGI 28088 [facility] C EXAM 2 JOHN CHEST 2 RADIOLOGY VIEWS ASSOCIAT FRONTAL&L ATERAL LANCETS A4259 NEETA SANTACRUZ PER BOX 2 HOME HOME OF 100 MEDICAL MEDICAL EQUIPME EQUIPME BLD GLU A4253 NEETA BOBRELL TEST/REAG 2 HOME HOME T STRIPS MEDICAL MEDICAL HOME BLD EQUIPME EQUIPME GLU BLOOD 92792 [facility] INC, [employer], COUNT 2 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 COMPLETE NORRIS PISANO AUTO&AUTO CO HOS CO HOS DIFRNTL WBC RADIOLOGI 37788 [employer], [employer], C 2 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 EXAMINATI NORRIS PISANO ON KNEE CO HOS CO HOS 1/2 [place] [address] [employer], FREE 2 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 THYROXINE [facility] [place] [address] [facility] [employer], [employer], THYROID 2 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 STIMULATI NORRIS PISANO NG CO HOS CO HOS HORMONE TSH COMPREHEN 08668 [employer], [employer], SIVE 2 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 METABOLIC [facility]IS PISAN[facility] PANEL CO HOS CO HOS HEMOGLOBI 05555 [facility] INC, [facility] INC, N 2 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 GLYCOSYLA NORRIS PISANO KAMILAH A1C CO HOS CO HOS LIPID 76949 [facility] [employer], [facility] INC, PANEL 2 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 NORRIS NORRIS [facility]OS [facility] HOS HOSP[facility] 98463 STAN HEBERTO DISCHARGE 2 DYLAN DYLAN DAY MANAGEMEN T 30 MIN/< RADIOLOGI 67865 [facility] [place] EARNEST C EXAM 2 RADIOLOGY III ANTONELLA CHEST 2 VIEWS FRONTAL&L ATERAL ECG 22486 [facility] ROUTINE 2 EMERGENCY EMERGENCY ECG SERVICES SERVICES W/LEAST 12 LDS I&R ONLY LANCETS A4259 NEETA NEETA PER BOX 2 HOME HOME OF 100 MEDICAL MEDICAL EQUIPME EQUIPME BLD GLU A4253 NEETA NEETA TEST/REAG 2 HOME HOME T STRIPS MEDICAL MEDICAL HOME BLD EQUIPME EQUIPME GLU MON-50 RADEX 94287 [place] MARIANGEL HAND 2 MEDICAL SILVINA MINIMUM 3 SERV VIEWS FOUNDATIO N POLYSOM 51864 THE HOOS R 6/>YRS 2 NEUROLOGY SLEEP GROUP PC W/CPAP 4/> ADDL DREW ATTND THERAPEUT 00488 [employer], [employer], IC 2 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 PROPHYLAC NORRIS PISANO TIC/DX CO HOS CO HOS INJECTION SUBQ/IM INJECTION J1885 [facility] INC, [facility] INC, 2 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 KETOROLAC NORRIS PISANO CO HOS CO HOS TROMETHAM INE PER 15 MG RADIOLOGI 06584 [facility] C EXAM 2 EIDER BILL CHEST 2 RADIOLOGY VIEWS ASSOCIAT FRONTAL&L ATERAL BLD GLU A4253 NEETA NEETA TEST/REAG 2 HOME HOME T STRIPS MEDICAL MEDICAL HOME BLD EQUIPME EQUIPME GLU MON-50 POLYSOM 51974 THE THE 6/>YRS 2 NEUROLOGY NEUROLOGY SLEEP 4/> GROUP PC GROUP PC ADDL DREW ATTND RADIOLOGI 95024 [facility] INC, [facility] INC, C 2 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 EXAMINATI NORRIS PISANO ON KNEE 3 CO HOS CO HOS VIEWS LOCM Q9967 [facility] NO[facility] 300-399 2 [facility] MG/ML INC INC IODINE CONCENTRA TION PER ML CT THORAX 13285 [facility] 2 [facility] W/CONTRAS INC INC T MATERIAL 3D 16595 [facility] [place] RENDERING 2 [facility] INC INC W/INTERP& POSTPROC DIFF WORK STATION RADIOLOGI 35243 [facility] C EXAM 2 CHEST 2 RADIOLOGY RADIOLOGY VIEWS ASSOCIAT ASSOCIAT FRONTAL&L ATERAL BLD GLU A4253 NEETA NEETA TEST/REAG 2 HOME HOME T STRIPS MEDICAL MEDICAL HOME BLD EQUIPME EQUIPME GLU BLD GLU A4253 NEETA NEETA TEST/REAG 2 HOME HOME T STRIPS MEDICAL MEDICAL HOME BLD EQUIPME EQUIPME GLU RADIOLOGI 06201 [facility] C EXAM 2 CHEST 2 RADIOLOGY RADIOLOGY VIEWS ASSOCIAT ASSOCIAT FRONTAL&L ATERAL HOS BED E0303 NEETA NEETA HEVY DUTY 2 HOME HOME W/WT CAP MEDICAL MEDICAL >350 EQUIPME EQUIPME PDS</=TO 600 PDS OBSERVATI 34801 ROBYN PATTON ON/INPATI 1 [facility]ERG[facility]Y [facility] C[facility] 55 MINUTES RADIOLOGI 95620 ROBYN NICOL BAB C 1 EMERGENCY EXAMINATI SERVICES ON CHEST SINGLE VIEW FRONTAL RADIOLOGI 44427 [facility] [place] [facility] C EXAM 1 RADIOLOGY RADIOLOGY CHEST 2 VIEWS FRONTAL&L ATERAL RADIOLOGI 51175 [facility] C EXAM 1 JOHN CHEST 2 RADIOLOGY VIEWS ASSOCIAT FRONTAL&L ATERAL HOS BED E0303 NEETA NEETA HEVY DUTY 1 HOME HOME W/WT CAP MEDICAL MEDICAL >350 EQUIPME EQUIPME PDS</=TO 600 PDS ECG 01813 QIANA AMIN AMIN QIANA ROUTINE 1 MD ECG CONSULTIN W/LEAST G SRV 12 LDS I&R ONLY OBSERVATI 82735 [facility] WATERS ON CARE 1 COUNTY OSI DISCHARGE [facility] T INITIAL 53049 NORRIS WATESR OBSERVATI 1 [facility] OSI ON RURAL CARE/DAY HEALTH 50 MINUTES [facility] 02071 [facility] EISARAH BILL EXAMINATI RADIOLOGY ON CHEST ASSOCIAT [facility] BED E0303 NEETA SANTACRUZ fitkitY DUTY 1 HOME HOME W/WT [facility] >350 EQUIPME EQUIPME PDS</=TO 600 PDS DUP-SCAN 42970 [facility] XTR VEINS 1 JOHN COMPLETE RADIOLOGY ASSOCIAT BILATERAL STUDY RADIOLOGI 04810 [facility] C EXAM 1 URBANO CHEST 2 RADIOLOGY VIEWS ASSOCIAT FRONTAL&L ATERAL CUL BACT 83630 [facility] PISANO ANAEROBIC 1 CO [facility] [place] [address] NOR[facility] PISANO STREPTOCO 1 CO CO [facility] A CUL BACT 29706 NORRIS PISANO XCPT 1 CO [facility] BLOOD/STO OL AEROBIC ISOL INITIAL 37367 [facility] 1 OSI OSI CARE/DAY 70 MINUTES RADIOLOGI 30166 [facility] 1 JOHN CHEST 2 RADIOLOGY VIEWS ASSOCIAT FRONTAL&L ATERAL HOS BED E0303 NEETA SANTACRUZ [employer] DUTY 1 HOME HOME W/WT [facility]ICAL >350 EQUIPME EQUIPME PDS</=TO 600 PDS RADIOLOGI 32786 [facility] C EXAM 1 URBANO CHEST 2 RADIOLOGY VIEWS ASSOCIAT FRONTAL&L ATERAL ARTHROCEN 86427 [facility] TES 1 Y Y ASPIR&/IN HOSPITAL HOSPITAL J MAJOR JT/[place] [address] [facility] 1 Y [facility] HOSPITAL PLACEMENT IMG S&I HOS BED E0303 NEETA SANTACRUZ [employer] D[employer]Y 1 HOME HOME W/WT [facility] >350 EQUIPME EQUIPME PDS</=TO 600 PDS ECG [id number] QIANA AMIN AMIN QIANA ROUTINE 1 MD ECG CONSULTIN W/LEAST G SRV 12 LDS I&R ONLY INJECTION [id number] [facility] 1 OSI OSI METHYLPRE DNISOLONE ACETATE 40 MG RADIOLOGI 37723 [facility] C [facility] VIEWS PROTHROMB 30349 NORRIS PISANO IN TIME 1 [facility] COLLECTIO 87110 NORRIS PISANO N VENOUS 1 CO NH BLOOD [facility] VENIPUNCT URE HOS BED E0303 NEETA NEETA HEVY DUTY 1 HOME HOME W/WT [facility] >350 EQUIPME EQUIPME PDS</=TO 600 PDS [facility]OLOGI 80847 [facility] EIDER BILL CHEST 2 RADIOLOGY VIEWS ASSOCIAT FRONTAL&L ATERAL HOS BED E0303 NEETA NEETA HEVY DUTY 1 HOME HOME W/WT [facility] >350 EQUIPME EQUIPME PDS</=TO 600 PDS HOS BED E0303 NEETA NEETA HEVY DUTY 1 HOME MED HOME MED W/WT CAP EQUIP. L EQUIP. L >350 PDS</=TO 600 PDS ECG 45462 QIANA AMIN AMIN QIANA ROUTINE 1 ECG CONSULTIN W/LEAST G SRV 12 LDS I&R ONLY HOSPITAL 04826 [facility] DISCHARGE 1 OSI OSI DAY MANAGEMEN T > 30 MIN SBSQ 75745 [facility] 1 OSI OSI CARE/DAY 35 MINUTES PROTHROMB 24051 NORRIS PISANO IN TIME 1 [facility] [place] [address] NORRIS PISANO INFUSION 1 [facility] THERAPY/P [facility] ROPHYLAXI S /DX 1ST TO 1 HR INITIAL 35067 [facility] 1 OSI OSI CARE/DAY 70 MINUTES PRESSURIZ 43950 [facility] PISANO ED/NONPRE 1 [facility] [place] [address] NOR[facility] PISANO TROPONIN 1 CO NH QUANTITAT [facility] RANDY BLOOD 80280 NOR[facility]IS PISANO COUNT 1 [facility] AUTO&AUTO DIFRNTL WBC COMPREHEN 10191 NORRIS MCMANUSE 1 CO CO METABOLIC [facility] HOSP[facility] PANEL ECG 84457 NORRIS PISANO ROUTINE 1 CO CO ECG [facility] HOSPITAL W/LEAST 12 LDS TRCG ONLY W/O I&R RADIOLOGI 44729 NORRIS PISANO C EXAM 1 CO CO CHEST 2 [facility] VIEWS FRONTAL&L ATERAL LIPID 26959 [facility] NOYOLA PANEL 1 [facility] HEMOGLOBI 25872 DENNYS [facility] N [facility] GLYCOSYLA [place] [address] [place] [facility]OLA FOLIC 1 [facility] [place] [address] [place] [facility] THYROID 1 [facility] STIMULATI [place] [address] DENN[place] NOYOLA THYROXINE 1 [facility] TOTAL INC INC COLLECTIO 78752 DENNYS NOYOLA N VENOUS 1 [facility] BLOOD INC INC VENIPUNCT URE PROTEIN 42552 [place] NOYOLA ELECTROPH 1 [facility] ORETIC INC INC FRACTJ&[place] [address] [place] NOYOLA THIAMINE- 1 [facility] VITAMIN INC INC B-1 CYANOCOBA 18579 [place] [facility]YOLA NATALEE 1 [facility] VITAMIN INC INC B-12 HOS BED E0303 NEETA SANTACRUZ HEVY DUTY 1 HOME MED HOME MED W/WT CAP EQUIP. L EQUIP. L >350 PDS</=TO 600 PDS INJECTION J1030 VILLAFLOR VILLAFLOR 1 OSI OSI METHYLPRE DNISOLONE ACETATE 40 MG THERAPEUT 34995 VILLAFLOR VILLAFLOR IC 1 OSI OSI PROPHYLAC TIC/DX INJECTION SUBQ/IM NRV CNDJ 18971 LINARES LINARES AMPLITUDE 1 JOHN JOHN & LATENCY EACH NERVE SENSORY NRV CNDJ 15077 LINARES LINARES AMPLT&LAT 1 JOHN JOHN ENCY EA NRV MOTOR W/F-WAVE STD NDL EMG 2 65271 LINARES LINARES XTR W/WO 1 [facility] L AREAS HOS BED E0303 NEETA SANTACRUZ HEVKristan DUTY 1 HOME MED HOME MED W/WT CAP EQUIP. L EQUIP. L >350 PDS</=TO 600 PDS DUP-SCAN 22224 JEWELL MOSER XTR VEINS 1 [facility] BILATERAL STUDY HOS BED E0303 NEETA SANTACRUZ HEVY DUTY 1 HOME MED HOME MED W/WT CAP EQUIP. L EQUIP. L >350 PDS</=TO 600 PDS GEL/GEL-L E0185 NEETA SANTACRUZ MARIVEL PRSS 1 HOME MED HOME MED PAD EQUIP. L EQUIP. L [facility] 06476 [facility] DISCHARGE 1 OSI OSI DAY MANAGEMEN T > 30 MIN SBSQ 93993 [facility] 1 OSI OSI CARE/DAY 25 MINUTES SBSQ 82014 [facility] 1 OSI OSI CARE/DAY 35 MINUTES INITIAL 19814 [facility] 1 OSI OSI CARE/DAY 70 MINUTES RADIOLOGI 93738 [facility] C EXAM 1 URBANO CHEST [...] N RX; PER 30 DAYS E-STIM G0283 [facility] 1/> [address] OTH THAN PAIN PAIN WND CARE MANAGE MANAGE PART TX PLAN DRUG SCR G0434 [facility] NOT [address] [place] [address] CHROMATOG PAIN PAIN RAPHIC; MANAGE MANAGE ANY NUMBER PT ENC ECG 40417 QIANA AMIN AMIN QIANA ROUTINE 1 MD ECG CONSULTIN W/LEAST G SRV 12 LDS I&R ONLY RADIOLOGI 24623 [facility] C EXAM 1 EIDER BILL CHEST 2 RADIOLOGY VIEWS ASSOCIAT FRONTAL&L ATERAL RADIOLOGI 22908 [facility] C EXAM 1 RADHA KAHN CHEST 2 RADIOLOGY VIEWS ASSOCIAT FRONTAL&L ATERAL [...] LEXINGT N RX; PER 30 DAYS APPL 41403 [facility] JONEL MOR MODALITY 0 IOWA 1/> AREAS PAIN ELEC MANAGE STIMJ [place] [address] [place] [address] [facility] HEAD/BRAI 0 JOHN N W/O RADIOLOGY CONTRAST ASSOCIAT MATERIAL E-STIM G0283 [facility] 1/> AREAS 0 [facility] OTH THAN PAIN PAIN WND CARE MANAGE MANAGE PART TX PLAN ARTHROCEN 95228 CELIA SCOTT TESIS 0 HEILIG IVELISSE ASPIR&/IN [facility] J MAJOR JT/BURSA W/O US INJECTION J3301 CELIA SCOTT 0 HEILIG IVELISSE TRIAMCINO [facility] LONE ACETONIDE NOS 10 MG RADIOLOGI 02810 CELIA Pozo 0 HEILIG IVELISSE EXAMINATI [facility] ON KNEE 1/2 VIEWS ALBUTEROL J7620 INFUSION INFUSION TO 2.5 0 PARTNERS PARTNERS MG & OF OF IPRATROPI [place] UM BROM TO 0.5 MG PHRM Q0513 INFUSION INFUSION DISPENSIN 0 PARTNERS PARTNERS G FEE OF OF INHALATIO [place] N RX; PER 30 DAYS LIPID 91338 NORRIS PISANO PANEL 0 CO CO [facility] HOSPITAL HEPATIC 45795 NORRIS PISANO FUNCTION 0 CO CO PANEL [facility] HEMOGLOBI 08536 NORRIS PISANO N 0 CO CO GLYCOSYLA [facility] KAMILAH A1C COLLECTIO 56907 NORRIS PISANO N VENOUS 0 [facility] BLOOD [facility] VENIPUNCT URE BASIC 66519 NORRIS PISANO METABOLIC 0 CO CO PANEL [facility] CALCIUM TOTAL NEBULIZER E0570 OPTIONCAR OPTIONCAR WITH 0 E HOME E HOME COMPRESSO R ARTHROCEN 28313 CELIA SCOTT TESIS 0 HEILIG IVELISSE ASPIR&/IN [facility] J MAJOR JT/BURSA W/O US HYALURONA J7325 CELIA SCOTT N/DERIV 0 HEILIG IVELISSE SYNVISC/S [facility] YNVISC-ON E IA INJ 1 MG HOSPITAL 90027 [facility] 0 PHYSICIAN AASHISH E DAY MANAGEMEN CORPORATI T 30 ON II MIN/< INITIAL 21381 [facility] 0 PHYSICIAN AASHISH E CARE/DAY 30 CORPORATI MINUTES ON II NEBULIZER E0570 OPTION[facility] OPTIONCAR WITH 0 E HOME E HOME COMPRESSO R NEBULIZER E0570 OPTIONCAR OPTIONCAR WITH 0 E HOME E HOME COMPRESSO R ECG 17520 QIANA AMIN AMIN, ROUTINE 9 MD COCO [place] ECG CONSULTIN W/LEAST G SRV PSC 12 LDS I&R ONLY NEBULIZER E0570 OPTIONCAR OPTIONCAR WITH 9 E HOME E HOME COMPRESSO R CT THORAX 06158 [facility] [place] INDIRA, 9 RADIOLOGY LUIS F G W/CONTRAS T MATERIAL NEBULIZER E0570 OPTIONCAR OPTIONCAR WITH 9 E HOME E HOME COMPRESSO R RADIOLOGI 95908 Sánchez SHEN EXAM 9 NEHEMIAS S CHEST 2 RADIOLOGY VIEWS FRONTAL&L ASSOCIATE ATERAL S PSC ANTIBODY 05795 NORRIS PISANO INFLUENZA 9 [facility] NEBULIZER E0570 OPTIONCAR OPTIONCAR WITH 9 [...] E HOME E HOME COMPRESSO R RADEX 46568 NORRIS PISANO WRIST 9 CO CO [facility] MINIMUM 3 VIEWS FULL FACE A7030 NEETA [...] HOME MED W/POSITIV EQUIP. EQUIP. E [facility] PRESSURE DEVICE FACE MASK A7031 NEETA NEETA 9 HOME MED HOME MED INTERFACE EQUIP. EQUIP. REPLCMT [facility] FULL FACE MASK EA TUBING A7037 NEETA SANTACRUZ USED WITH 9 HOME MED HOME MED POSITIVE EQUIP. EQUIP. [facility]AY [facility] PRESSURE DEVICE NEBULIZER E0570 OPTIONCAR OPTIONCAR WITH 9 E HOME E HOME COMPRESSO R RADIOLOGI 22969 Sáncehz SHEN EXAM 9 NEHEMIAS S CHEST 2 [...] PARTNERS PARTNERS MG & OF OF IPRATROPI [facility] UM BROM TO 0.5 MG PHRM Q0513 INFUSION INFUSION DISPENSIN 9 PARTNERS PARTNERS G FEE OF OF INHALATIO [facility] N RX; PER 30 DAYS RADIOLOGI 78370 BRECKENRIDGE Sánchez MOSER EXAM 9 NEHEMIAS S CHEST 2 RADIOLOGY VIEWS FRONTAL&L ASSOCIATE ATERAL S PSC NEBULIZER E0570 OPT[facility] OPTIONCAR WITH 9 E HOME E HOME COMPRESSO R ALBUTEROL J7620 INFUSION INFUSION TO 2.5 9 PARTNERS PARTNERS MG & OF OF IPRATROPI [facility] UM BROM TO 0.5 MG ADMN SET A7003 OPTIONCAR OPTIONCAR SM VOL 9 E HOME E HOME NONFILTR PNEUMAT NEBULIZR DISPBL PHARM G0333 INFUSION INFUSION DISPEN 9 PARTNERS PARTNERS FEE INHAL OF OF RX; [facility] INITIAL 30-DAY SUPPLY RADIOLOGI 83308 BRECKENRIDGE SHANTI C EXAM 9 NEHEMIAS S CHEST 2 RADIOLOGY VIEWS FRONTAL&L ASSOCIATE ATERAL S PSC RADIOLOGI 55352 BRE[place]GE Sánchez MOSER EXAM 9 NEHEMIAS S CHEST 2 RADIOLOGY VIEWS FRONTAL&L ASSOCIATE ATERAL S PSC OBSERVATI 55186 [facility] KUVLIEV, ON/INPATI 9 PHYSICIAN AASHISH E ENT HOSPITAL CORPORATI CARE 50 ON II MINUTES RADIOLOGI 63685 Sánchez MAHAN 9 Barney NAJERA MD [facility] ON CHEST S[place] FRONTAL HEADGEAR A7035 NEETA SANTACRUZ USED 9 HOME MED HOME MED W/POSITIV EQUIP. EQUIP. E AIRWAY [facility] PRESSURE DEVICE FACE MASK A7031 NEETA SANTACRUZ 9 HOME MED HOME MED INTERFACE EQUIP. EQUIP. REPLCMT [facility] FULL FACE MASK EA FILTER A7038 NEETA SANTACRUZ DISPBL 9 HOME MED HOME MED USED EQUIP. EQUIP. W/POS [employer] ARWAY PRESSURE DEVICE FULL FACE A7030 NEETA NEETA MASK 9 HOME MED HOME MED USED EQUIP. EQUIP. W/POS [facility] ARWAY PRESS DEVICE EA TUBING A7037 NEETA NEETA USED WITH 9 HOME MED HOME MED POSITIVE EQUIP. EQUIP. AIRWAY [facility] PRESSURE DEVICE HOSPITAL 19814 [facility] DISCHARGE 9 , GRETEL M , GRETEL M DAY MANAGEMEN T 30 MIN/< SBSQ 54521 [facility] 9 , GRETEL M , GRETEL M CARE/DAY 25 MINUTES SBSQ 82783 [facility] 9 , GRETEL M , GRETEL M CARE/DAY 35 MINUTES HOSPITAL 10461 [facility] DISCHARGE 8 , GRETEL M , GRETEL M DAY MANAGEMEN T 30 MIN/< SBSQ 00773 [facility] 8 , GRETEL M , GRETEL M CARE/DAY 25 MINUTES SBSQ 90461 [facility] 8 , GRETEL M , GRETEL M CARE/DAY 35 MINUTES RADIOLOGI 58980 BRECKENRIDGE Sánchez MOSER EXAM 8 NEHEMIAS S CHEST 2 RADIOLOGY VIEWS FRONTAL&L ASSOCIATE ATERAL S PSC INJECTION J1030 [facility] 8 , GRETEL M , GRETEL M METHYLPRE DNISOLONE ACETATE 40 MG FULL FACE A7030 NEETA NEETA MASK 8 HOME MED HOME MED USED EQUIP. EQUIP. W/POS [facility] ARWAY PRESS DEVICE EA FILTER A7039 NEETA NEETA NON 8 HOME MED HOME MED DISPBL EQUIP. EQUIP. [employer] W/POS ARWAY PRESS DEVICE FILTER A7038 NEETA NEETA DISPBL 8 HOME MED HOME MED USED EQUIP. EQUIP. W/POS [facility] ARWAY PRESSURE DEVICE HEADGEAR A7035 NEETA NEETA USED 8 HOME MED HOME MED W/POSITIV EQUIP. EQUIP. E AIRWAY [facility] PRESSURE DEVICE FACE MASK A7031 NEETA NEETA 8 HOME MED HOME MED INTERFACE EQUIP. EQUIP. REPLCMT [facility] FULL FACE MASK EA TUBING A7037 NEETA BOBRELL USED WITH 8 HOME MED HOME MED POSITIVE EQUIP. EQUIP. AIRWAY [facility] PRESSURE DEVICE RADIOLOGI 93961 NORRIS Pozo EXAM 8 CO CO CHEST 2 HOSPITAL HOSPITAL VIEWS FRONTAL&L ATERAL COLLECTIO 29617 NORRIS Escalante VENOUS 8 CO CO BLOOD [facility] HOSPITAL VENIPUNCT URE BLOOD 65448 NORRIS GALVEZ 8 CO CO SMEAR [facility] MCRSCP W/MNL DIFRNTL WBC COUNT BASIC 02427 NORRIS PISANO METABOLIC 8 CO CO PANEL [facility] HOSPITAL CALCIUM TOTAL THER 89543 NORRIS PISANO PROPH/DX 8 CO CO NJX [facility] HOSPITAL SUBQ/IM BLOOD 16353 NORRIS GALVEZ 8 CO CO COMPLETE [facility] AUTO&AUTO DIFRNTL WBC HOSPITAL 59282 [facility] DISCHARGE 8 , GRETEL M , GRETEL M DAY MANAGEMEN T 30 MIN/< SBSQ 93684 [facility] 8 , GRETEL M , GRETEL M CARE/DAY 25 MINUTES RADIOLOGI 43377 Sánchez SHEN 8 NEHEMIAS S EXAMINA RADIOLOGY ON KNEE 1/2 VIEWS ASSOCIATE S PSC SBSQ 84720 [facility] 8 , GRETEL M , GRETEL M CARE/DAY 25 MINUTES SBSQ 78629 [facility] 8 , GRETEL M , RGETEL M CARE/DAY 35 MINUTES INITIAL 94400 [facility] 8 , GRETEL M , GRETEL M CARE/DAY 70 MINUTES BLOOD 11350 NORRIS GALVEZ 8 CO CO [facility] W/MNL DIFRNTL WBC COUNT COLLECTIO 58964 NORRIS Escalante VENOUS 8 CO CO BLOOD [facility] VENIPUNCT URE BLOOD 84502 NORRIS GALVEZ 8 CO CO COMPLETE [facility] AUTO&AUTO DIFRNTL WBC RADIOLOGI 47053 NORRIS Pozo 8 [facility] ON [facility]NEE 3 VIEWS RADIOLOGI 95880 NORRIS Pozo 8 CO CO [facility] ON [place] [facility] [place] 2 VIEWS THER 54801 NORRIS PISANO PROPH/DX 8 CO CO [facility] SUBQ/IM FILTER A7038 NEETA NEETA DISPBL 8 [...] MED HOME MED INTERFACE EQUIP. EQUIP. REPLCMT [facility] FULL FACE MASK EA HEADGEAR A7035 NEETA SANTACRUZ USED 8 HOME MED HOME MED W/POSITIV EQUIP. EQUIP. E AIRWAY [facility] PRESSURE DEVICE TUBING A7037 NEETA SANTACRUZ USED WITH 8 HOME MED HOME MED POSITIVE EQUIP. EQUIP. AIRWAY [facility] PRESSURE DEVICE HOSPITAL 01065 [facility] DISCHARGE 8 , GRETEL M , GRETEL M DAY MANAGEMEN T 30 MIN/< SBSQ 79883 [facility] 8 , GRETEL M , GRETEL M CARE/DAY 35 MINUTES RADIOLOGI 73936 [facility] READINGS[facility] ADAMS EXAM 8 NEHEMIAS S CHEST 2 RADIOLOGY VIEWS FRONTAL&L ASSOCIATE ATERAL S PSC INITIAL 23353 [facility] 8 , GRETEL M , GRETEL M CARE/DAY 70 MINUTES BASIC 21897 CHRISTOPHER WHITE METABOLIC 8 [facility] PANEL MEDICAL MEDICAL CALCIUM [facility] TOTAL COLLECTIO 13627 CHRISTOPHER WHITE N VENOUS 8 [facility] BLOOD [facility]NOTE 2[facility] VENIPUNCT [facility] URE ECG 37628 CHRISTOPHER WHITE ROUTINE 8 [facility] ECG MEDICAL MEDICAL W/LEAST [facility]ENTER [facility] 12 LDS TRCG ONLY W/O I&R BLOOD 75671 CHRISTOPHER WHITE COUNT 8 [facility] COMPLETE [facility] MEDICAL AUTO&AUTO [facility] [place] [address] CHRISTOPHER WHITE TROPONIN 8 [facility] RADIOLOGI 27007 CHRISTOPHER Pozo EXAM 8 [facility] CHEST 2 MEDICAL MEDICAL VIEWS [facility] FRONTAL&L ATERAL NATRIURET 22547 CHRISTOPHER WHITE IC [address] [facility] RADIOLOGI 61890 CELIA Pozo 8 SONIA NAJERA MD [facility] ON KNEE 1/2 VIEWS Encounters Encounter Start End Date Code Location Performer Type Date EMERGENCY 32338 ABEL VERMA DEPT 7 7 PHYSICIAN U VISIT [facility] HIGH SEVERITY& THREAT [facility] YANET - 7 7 [facility] EMERGENC[facility] 74598 [place] 7 7 [facility] T VISIT HIGH/URGE NT SEVERITY EMERGENCY 14779 [facility] DEPT 7 7 [facility] VISIT EMERGENCY HIGH PHYS SEVERITY& THREAT FUNCJ OFFICE 49851 YANET LOPEZ 7 7 PHYSICIAN T VISIT PRACTICE 25 L MINUTES HOSPITAL DENNYS - 7 7 [facility] OUTPATIEN INC T EMERGENCY 02154 DENNYS 7 7 [facility] MODERATE SEVERITY [facility] DENNYS - 7 7 [facility] INPATIENT INC EMERGENCY 97699 [facility] DEPT 7 7 SANTA VISIT EMERGENCY HIGH PHYS SEVERITY& THREAT FUNJ EMERGENCY 08398 [facility] 7 7 [facility] T VISIT MODERATE SEVERITY [facility]OSPITAL [facility] 94967 [facility] 7 7 [facility] DEPARTMEN EMERGENCY T VISIT PHYS HIGH/URGE NT SEVERITY OFFICE 01178 YANET LOPEZ 7 7 PHYSICIAN T VISIT PRACTICE 25 L MINUTES OFFICE 76199 [facility] MD GREGG, T NEW 30 PSC MINUTES HOSPITAL DENNYS - 7 7 [facility] T EMERGENCY 78493 [facility] 7 7 [facility] EMERGENCY T VISIT PHYS MODERATE SEVERITY [facility] [place] - 7 7 [facility] OFF[facility] 38533 [facility]ET [facility] 7 7 PHYSICIAN T VISIT PRACTICE 15 L MINUTES OFFICE 27421 YANET [facility] 6 6 PHYSICIAN T VISIT PRACTICE 25 L MINUTES HOSPITAL [facility] - 6 6 [facility] OFFICE 49661 [facility] 6 6 PHYSICIAN T VISIT PRACTICE 15 L MINUTES EMERGENCY 77201 [facility] DEPT 6 6 SANTA VISIT EMERGENCY HIGH PHYS SEVERITY& THREAT [facility] 66048 [facility] DEPT 6 6 [facility]ANT[facility] KYL VISIT EMERGENCY HIGH PHYS SEVERITY& THREAT [facility] - 6 6 [facility] T OFFICE 51384 [facility] 6 6 MASCOT T NEW 45 INTERNAL MINUTES [facility] - 6 6 [facility] EMER[facility] 12496 [facility] 6 6 [facility] EMERGENCY T VISIT PHYSI HIGH/URGE NT SEVERITY [facility] 445[facility] T VISIT MODERATE SEVERITY EMERGENCY 79899 [facility] 6 6 COMMUNITY VISIT HOSPITAL HIGH SEVERITY& THREAT [facility] 6 6 [facility] 21780 [facility] DEPT 6 6 SANTA IVELISSE VISIT EMERGENCY HIGH SERV SEVERITY& THREAT [facility] CHRISTOPHER - 6 6 [facility] P[facility] - 6 6 [facility] 65726 DENNYS 6 6 [facility] LIMITED/M [facility] DENNYS - 6 6 [facility] 6 [facility] EMERGENCY 29953 [facility] DE[facility] 6 6 [facility] SEGUN VISIT EMERGENCY HIGH PHYS SEVERITY& THREAT [facility] - 6 6 [facility] EMERGENCY 72918 [facility] DE[facility] 6 6 [facility] VISIT HOSPITAL HIGH SEVERITY& THREAT [facility] 01145 [facility] 6 [facility] HIGH SEVERITY& THREAT [facility] - 6 6 [facility] - 6 [facility] 72298 [facility] 6 6 ORTHOPEDI IVELISSE T VISIT C 25 [facility] - 6 [facility] 72136 [facility] DEPT 6 6 [facility] [place] VISIT EMERGENCY HIGH PHYS SEVERITY& THREAT [facility] 41767 [facility] DE[facility] 6 6 COMMUNITY VISIT HOSPITAL HIGH SEVERITY& THREAT [facility] - 6 6 [facility] EMERGENCY 80605 [facility] 6 6 [facility] SE[facility]UN DEPARTMEN EMERGENCY T VISIT PHYS HIGH/URGE NT SEVERITY OFFICE 73957 [facility] 6 6 ORTHOPEDI T VISIT C 15 [facility] DURBIN - 6 6 [facility] INPATIENT MEDICAL CENTE EMERGENCY 19509 SAM PANG ZEINA 6 6 MEDICAL DEPARTMEN SERV T VISIT FOUNDATIO MODERATE N SEVERITY EMERGENCY 05753 [facility] SWINE DEPT 6 6 SANTA PAT VISIT EMERGENCY HIGH PHYS SEVERITY& THREAT [facility] - 6 6 [facility] INPATIENT 6 6 [facility] CHRISTOP[facility] - 6 6 [facility] CHRISTOPHER - 6 6 [facility] - 6 6 [facility] CHRISTOPHER - 5 5 [facility] - 5 5 [facility] [place] 40629 5 [facility] TENRIISM - 4 4 [facility] CHRISTOPHER - 4 4 [facility] CHRISTOPHER INPATIENT 4 4 [facility]ICAL [facility] CHRISTOPHER - 4 4 [facility] REED - 4 4 [facility] REED - 4 4 [facility] REED - 4 4 [facility] DENNYS - [address] [facility] CRITICAL [facility], ACCESS 4 4 [facility], ACCESS 4 4 [facility], ACCESS 4 4 [facility], ACCESS 4 4 [facility] OFFICE 60182 [facility] OUTPATIEN 4 4 JAM JAM T VISIT 25 MINUTES CRITICAL [facility] ACCESS 3 3 [facility] OFFICE 24422 [facility] 3 3 MARIETTA MCMANUS T VISIT 25 MINUTES CRITICAL [facility], ACCESS 3 3 [facility] OFF[facility] 33183 [facility] OUTPATIEN 3 3 JOHN T VISIT 25 MINUTES OFFICE 56490 [facility] OUT[facility]IEN 3 3 JOHN T VISIT 25 MINUTES OFFICE 37832 [facility] OUTPATIEN 3 3 AP JAM T VISIT 25 MINUTES CRITICAL [facility] INC[facility] ACCESS 3 3 [facility] H[facility]PITAL DENNYS - 3 3 MEM [facility]P OUTPATIEN INC T OFFICE 71224 [facility], OUTPATIEN 3 3 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 [facility] CRITICAL [facility] ACCESS 3 3 [facility] OFF[facility] 58534 [facility] OUTPATIEN 3 3 JAM JAM T VISIT 25 MINUTES OFFICE 76846 [facility] OUTPATIEN 2 2 JAM JAM T VISIT 25 MINUTES OFFICE 36879 [facility] OUT[facility]IEN 2 2 I ZBI I ZBI T NEW 30 MINUTES CRITICAL [facility], ACCESS 2 2 [facility] OFFICE 83423 [facility] OUTPATIEN 2 2 FREDDY FREDDY T NEW 30 MINUTES OFFICE 88669 [facility] OUTPATIEN 2 2 COUNTY OSI T VISIT RURAL 15 HEALTH MINUTES HOSPITAL UNIVERSIT - 2 2 Y INPATIENT HOSPITAL CRITICAL [facility], ACCESS 2 2 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 [facility] HOS EMERGENCY 37189 [facility], 2 2 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 [facility] T VISIT CO HOS MODERATE SEVERITY EMERGENCY 97278 [facility] MARCOS 2 2 [facility] H[facility]PITAL T VISIT LOW/MODER SEVERITY CRITICAL [facility], ACCESS 2 2 [facility] OFFICE 18069 [facility] WATERS OUTPATIEN 2 2 COUNTY OSI T VISIT RURAL 15 HEALTH MINUTES CRITICAL [facility] ACCESS 2 2 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 2 2 OSI OSI T VISIT 15 MINUTES EMERGENCY 34433 [facility] DEPT 1 1 EMERGENCY VISIT SERVICES HIGH SEVERITY& THREAT FUN OFFICE 72783 [facility] OUTPATIEN 1 1 OSI OSI T VISIT 40 MINUTES EMERGENCY 64420 [facility] PIERCE 1 1 [facility] HOSPITAL T VISIT LOW/MODER SEVERITY HOSPITAL [facility] - 1 1 [facility] T EMERGENCY 14677 [facility] 1 1 [facility] T VISIT MODERATE SEVERITY HOSPITAL UNIVERSIT - 1 1 [facility] T EMERGENCY 29974 NOR[facility]IS PIERCE 1 1 [facility] T VISIT MODERATE SEVERITY EMERGENCY 07129 [facility] 1 1 [facility] T VISIT HIGH/URGE NT SEVERITY OFFICE 12316 [place] [facility]LE[facility] OUTPATIEN 1 1 MEDICAL T NEW 30 SERV MINUTES [facility] OFFICE 81193 [facility] OUTPATIEN 1 1 OSI OSI T VISIT 10 MINUTES EMERGENCY 27284 NOR[facility]IS PIERCE 1 1 [facility] T VISIT MODERATE SEVERITY CRITICAL [facility] ACCESS 1 1 [facility]PITAL OFFICE 62694 [facility] ALEJANDROELL OUTPATIEN 1 1 [facility] T VISIT 25 MINUTES HOSPITAL [facility] - 1 1 [facility] EMERGENCY 86538 [facility]IS 1 1 [facility] T VISIT MODERATE SEVERITY HOSPITAL DENNYS - 1 1 [facility] OUTPATIEN INC T OFFICE 31396 [facility] OUTPATIEN 1 1 OSI OSI T VISIT 15 MINUTES OFFICE 64666 [facility] OUTPATIEN 1 1 [facility] OSI T VISIT 25 MINUTES OFFICE 84475 [facility] OUTPATIEN 1 1 [facility]SI T VISIT 15 MINUTES OFFICE 27268 [facility] OUTPATIEN 1 1 [facility] T VISIT 40 MINUTES HOSPITAL [facility] - 1 1 [facility] OFFICE 11572 [facility] OUTPATIEN 1 1 [facility] OSI T VISIT 15 MINUTES OFFICE 57854 [facility] OUTPATI[facility] 1 1 [place] T VISIT PAIN 25 MANAGE MINUTES OFFICE 73479 [facility] OUTPATIEN 1 1 [facility] OSI T VISIT 15 MINUTES OFFICE 95242 [facility] OUTPATIEN 0 0 [facility] OSI T VISIT 10 MINUTES OFFICE 61988 [facility] OUTPATIEN 0 0 [facility] T VISIT PAIN 25 MANAGE MINUTES OFFICE 39276 [facility] OUTPATIEN 0 0 [facility] OSI T VISIT 15 MINUTES OFFICE 00638 [facility] OUTPATI[facility] 0 0 [facility] T VISIT PAIN 25 MANAGE MINUTES OFFICE 28201 [facility] OUT[facility] 0 0 [facility] T VISIT PAIN 25 MANAGE MINUTES OFFICE 34782 [facility] OUTPATIEN 0 0 [facility] T NEW 45 PAIN MINUTES MANAGE OFFICE 48798 [facility] OUTPATIEN 0 0 [facility] T VISIT 15 MINUTES OFFICE [id number] [facility] OUTPATIEN 0 0 [facility] T VISIT 25 MINUTES OFFICE 22083 [facility] OUTPATIEN 0 0 , GRETEL M , GRETEL M T VISIT 15 MINUTES OFFICE 72186 [facility] OUTPATIEN 0 0 , GRETEL M , GRETEL M T VISIT 15 MINUTES OFFICE 70045 [facility] OUTPATIEN 0 0 , GRETEL M , GRETEL M T VISIT 25 MINUTES OFFICE 22555 CELIA SCOTT OUTPATIEN 0 0 SONIA IVELISSE T VISIT [facility] 15 MINUTES OFFICE 43519 [facility] OUTPATIEN 0 0 , GRETEL M , GRETEL M T VISIT 25 MINUTES OFFICE 79154 [facility] OUTPATIEN 0 0 , GRETEL M , GRETEL M T VISIT 25 MINUTES OFFICE 57389 [facility] 0 , GRETEL M , GRETEL M T VISIT 15 MINUTES CRITICAL [facility] ACCESS 0 0 [facility] OFFICE 56576 [facility] VILLAFLOR OUTPATIEN 0 0 , GRETEL M , GRETEL M T VISIT 25 MINUTES OFFICE 23657 CELIA SCOTT OUTPATIEN 0 0 SONIA OVIEDO T VISIT [facility] 15 MINUTES HOSPITAL CHRISTOPHER - 0 0 [facility] OFFICE 28823 FRED RAMIREZ II, OUTPATIEN 9 9 LTH SLEEP CARMENZA C T VISIT AND 10 REHAB MINUTES [facility] CRITICAL NORRIS ACCESS 9 9 [facility] OFFICE 81337 FRED RAMIREZ II, OUTPATIEN 9 9 LTH SLEEP CARMENZA C T VISIT AND 15 REHAB MINUTES [facility] OFFICE 80687 FRED RAMIREZ II, OUTPATIEN 9 9 LTH SLEEP CARMENZA C T VISIT AND 15 REHAB MINUTES [facility] OFFICE 97498 TIKATHRYN WATERS OUTPATIEN 9 9 , GRETEL M , GRETEL M T VISIT 15 MINUTES CRITICAL [facility]RIS ACCESS 9 9 [facility] OFFICE 34763 NOR[facility] OUTPATIEN 9 9 CO T VISIT 5 HOSPITAL MINUTES OFFICE 45055 JAMES RAMIREZ II II, OUTPATIEN 9 9 CARMENZA C CARMENZA C T VISIT 15 MINUTES OFFICE 39557 JAMES RAMIREZ II II, OUTPATIEN 9 9 CARMENZA C CARMENZA C T VISIT 10 MINUTES OFFICE 09741 [facility]KATHRYN [facility] OUTPATIEN 9 9 , GRETEL M , GRETEL M T VISIT 10 MINUTES OFFICE 84005 JAMES RAMIREZ II II, OUTPATIEN 9 9 CARMENZA C CARMENZA C T VISIT 10 MINUTES OFFICE 88114 COMMONWEA II, OUTPATIEN 9 9 [facility] SLEEP CARMENZA Pozo T NEW 30 AND MINUTES REHAB [facility] OFFICE 32115 [facility]ILLAFLOR OUTPATIEN 9 9 , GRETEL GRAF M T VISIT 15 MINUTES OFFICE 14052 [facility] OUTPATIEN 9 9 , GRETEL M GRETEL M T VISIT 10 MINUTES OFFICE 04235 [facility] OUTPATIEN 9 9 , GRETEL M GRETEL M T VISIT 10 MINUTES OFFICE 15501 [facility] OUTPATIEN 9 9 , GRETEL GRAF M T VISIT 10 MINUTES OFFICE 44173 [facility] OUTPATIEN 9 9 , GRETEL GRAF M T VISIT 25 MINUTES EMERGENCY 42704 [facility] DEPT 9 9 [facility] VISIT EMERGENCY HIGH PHYS INC SEVERITY& THREAT [facility] OFFICE 79029 JOHN ALMEIDA 9 9 SONIA Vázquez T VISIT [facility] 15 MINUTES OFFICE 92463 VILLAFKATHRYN VILLAFLOR OUTPATIEN 9 9 , GRETEL Malave GRETEL M T VISIT 10 MINUTES OFFICE 66580 [facility] OUTPATIEN 9 9 , GRETEL GRAF M T VISIT 10 MINUTES OFFICE 02866 [facility] OUTPATIEN 8 8 , GRETEL aMlave GRETEL M T VISIT 10 MINUTES OFFICE 71631 VILLAFKATHRYN [facility] OUTPATIEN 8 8 , GRETEL Malave GRETEL M T VISIT 10 MINUTES EMERGENCY 92102 NORRIS WATERS 8 8 CO , GRETEL Malave [facility] T VISIT MODERATE SEVERITY OFFICE 42596 [facility] OUTPATIEN 8 8 , GRETEL GRAF T VISIT 10 MINUTES OFFICE 33014 [facility] VILLAFLOR OUTPATIEN 8 8 , GRETEL GRAF T VISIT 10 MINUTES EMERGENCY 98258 NORRIS WATERS 8 8 CO , GRETEL M [facility] T VISIT LOW/MODER SEVERITY OFFICE 93692 [facility] OUTPATIEN 8 8 , GRETEL GRAF T VISIT 10 MINUTES EMERGENCY 45799 NORRIS 8 8 CO [facility] T VISIT LIMITED/M INOR PROB CRITICAL [facility] 8 8 [facility] EMERGENCY 45127 NORRIS WATERS 8 8 CO , GRETEL M [facility] T VISIT MODERATE SEVERITY EMERGENCY 33810 NORRIS WATERS 8 8 CO , GRETEL M [facility] T VISIT MODERATE SEVERITY HOSPITAL DENNYS - 8 8 [facility] 81946 DENNYS 8 8 [facility] T VISIT LOW/MODER SEVERITY HOSPITAL NORRIS - 8 8 [facility] INPATIENT [facility]OSPITAL CRITICAL [facility]IS AMADO 8 8 [facility] EMERGENCY 81916 NORRIS 8 8 CO [facility] T VISIT LIMITED/M INOR PROB EMERGENCY 25680 NORRIS 8 8 CO [facility] T VISIT LIMITED/M INOR PROB CRITICAL [facility] 8 8 [facility] OFF[facility] 91393 [facility] 8 , GRETEL GRAF T VISIT 10 MINUTES CRITICAL [facility] 8 8 [facility] EMERGENCY 94231 NORRIS 8 8 CO [facility] T VISIT MODERATE SEVERITY EMERGENCY 63519 NORRIS [place], 8 8 CO MALDONADO [facility] T VISIT LOW/MODER SEVERITY EMERGENCY 72579 NORRIS 8 8 [facility] T VISIT LIMITED/M INOR PROB OFFICE 42623 [facility] OUTPATIEN 8 8 , GRETEL M , GRETEL M T VISIT 10 MINUTES OFFICE 63504 [facility] OUTPATIEN 8 8 , GRETEL M , GRETEL M T VISIT 10 MINUTES EMERGENCY 97184 NORRIS SCHUMACHER, 8 8 CO [facility] W [facility] T VISIT MODERATE SEVERITY EMERGENCY 89313 CHRISTOPHER 8 8 [facility] T VISIT CENTER LIMITED/M INOR PROB HOSPITAL NORRIS - 8 8 [facility] EMERGENCY 15130 CHRISTOPHER 8 8 [facility] T VISIT CENTER MODERATE SEVERITY HOSPITAL CHRISTOPHER - 8 8 [facility] T CENTER OFFICE 99551 CELIA LOPEZ 8 8 SONIA Mcmahon VISIT MD [facility]ES OFFICE 98607 JOHN ALMEIDA 8 8 SONIA Vázquez T [facility]IT [facility]ES
--- OUTSIDE RECORDS SUMMARY | 2017-03-26 03:24 | External Medical Summary Rpt ---
Author Author , Organization [employer] Address Unknown Phone Unavailable Purpose Continuity of Care Document - 04-06-1997 through 2016 Immunization Name Date Route CVX Reacti Commen Provid Is Given on t er Refuse d MMR Histor H191 No 1996 ical Inform ation - Source Unspec ified
--- OUTSIDE RECORDS SUMMARY | 2017-03-26 03:25 | External Medical Summary Rpt ---
Author Author MARITZA Hooker, MARIT[facility] [employer] Organization [employer] Address Unknown Phone Unavailable Results Natriutietic peptide B [Mass/volume] in Serum or Plasma Observa Value Referen Units Interpr Notes Date tion ce etation Range Natriutie 0 - 100 pg/mL Normal No March 24 tic informati 2016 9:50 peptide B on in AM source [Mass/vol data ume] in Serum or Plasma Cardiac enzymes Observa Value Referen Units Interpr Notes Date tion ce etation Range Creatine 0 - 4.0 U/L No No March 24 kinase.MB informati informati 2016 9:50 /Creatine on in on in AM source source kinase.to data data joel [Ratio] in Serum or Plasma Creatine 0.0 - 3.6 ng/mL No March 24 kinase.MB informati informati 2016 9:50 on in on in AM [Mass/vol source source ume] in data data Serum or Plasma Creatine 26 - 192 U/L Normal No March 24 kinase informati 2016 9:50 [Enzymati on in AM c source activity/ data volume] in Serum or Plasma Troponin 0.00 - ng/mL Normal No March 24 I.cardiac 0.06 informati 2016 9:50 on in AM [Mass/vol source ume] in data Serum or Plasma Comprehensive metabolic 2000 panel in Serum or Plasma Observa Value Referen Units Interpr Notes Date tion ce etation Range Albumin/G 1.1 - 1.8 No Low No March 24 lobulin informati informati 2016 9:50 [Mass on in on in AM ratio] in source source Serum or data data Plasma Albumin 3.4 - 5.0 gm/dL Normal No March 24 [Mass/vol informati 2016 9:50 ume] in on in AM Serum or source Plasma data Alkaline 46 - 116 U/L High No March 24 phosphata informati 2016 9:50 se on in AM [Enzymati source c data activity/ volume] in Serum or Plasma Bilirubin 0.2 - 1.0 mg/dL Normal No March 24 .total informati 2016 9:50 [Mass/vol on in AM ume] in source Serum or data Plasma Urea 7 - 18 mg/dL Normal No March 24 nitrogen informati 2016 9:50 [Mass/vol on in AM ume] in source Serum or data Plasma Calcium 8.5 - mg/dL Normal No March 24 [Mass/vol 10.1 informati 2016 9:50 ume] in on in AM Serum or source Plasma data Chloride 98 - 107 mmoL/L Normal No March 24 [Moles/vo informati 2016 9:50 lume] in on in AM Serum or source Plasma data Carbon 21.0 - mmoL/L Normal No March 24 dioxide, 32.0 informati 2016 9:50 total on in AM [Moles/vo source lume] in data Serum or Plasma Creatinin 0.55 - mg/dL Normal No March 24 e 1.02 informati 2016 9:50 [Mass/vol on in AM ume] in source Serum or data Plasma Creatinin 50 - 200 ML/MIN High No March 24 e renal informati 2016 9:50 clearance on in AM source predicted data by Cockcroft -Gault formula Estimated 59- ML/MIN No REFERENCE March 24 informati RANGE: 2017 9:50 glomerula on in >60 AM r source ML/MIN/1. filtratio data 73 SQUARE n rate METERSIf (GF this patient is -A merican, then multiply theresult by 1.210. Globulin 1.3 - 3.2 gm/dL High No March 24 [Mass/vol informati 2016 9:50 ume] in on in AM Serum source data Glucose 74 - 106 mg/dL High No March 24 [Mass/vol informati 2016 9:50 ume] in on in AM Serum or source Plasma data Potassium 3.5 - 5.1 mmoL/L Normal No March 24 informati 2016 9:50 [Moles/vo on in AM lume] in source Serum or data Plasma Sodium 136 - 145 mmoL/L Normal No March 24 [Moles/vo informati 2016 9:50 lume] in on in AM Serum or source Plasma data Aspartate 15 - 37 U/L Normal No March 24 informati 2016 9:50 aminotran on in AM sferase source [Enzymati data c activity/ volume] in Serum or Plasma Alanine 12 - 78 U/L Normal No March 24 aminotran informati 2016 9:50 sferase on in AM [Enzymati source c data activity/ volume] in Serum or Plasma Protein 6.4 - 8.2 gm/dL Normal No March 24 [Mass/vol informati 2016 9:50 ume] in on in AM Serum or source Plasma data CBC W Auto Differential panel in Blood Observa Value Referen Units Interpr Notes Date tion ce etation Range Basophils 0 - 0.2 K/MM3 Normal No March 24 informati 2016 9:50 [#/volume on in AM ] in source Blood by data Automated count Basophils 0.1 - 2.0 % Normal No March 24 / informati 2016 9:50 leukocyte on in AM s in source Blood by data Automated count Eosinophi 0.0 - 0.4 K/mm3 Normal No March 24 ls informati 2016 9:50 [#/volume on in AM ] in source Blood by data Automated count Eosinophi 0.1 - % Normal No March 24 ls/100 12.0 informati 2016 9:50 leukocyte on in AM s in source Blood by data Automated count Granulocy 1.8 - 7.8 K/mm3 Normal No March 24 anna informati 2016 9:50 [#/volume on in AM ] in source Blood by data Automated count Granulocy 37.0 - % Normal No March 24 anna/100 80.0 informati 2016 9:50 leukocyte on in AM s in source Blood by data Automated count Hematocri 37.0 - % Normal No March 24 t [Volume 47.0 informati 2016 9:50 on in AM Fraction] source of Blood data Hemoglobi 12.2 - g/dL Normal No March 24 n 16.2 informati 2016 9:50 [Mass/vol on in AM ume] in source Blood data Lymphocyt 0.7 - 4.5 K/mm3 Normal No March 24 es informati 2016 9:50 [#/volume on in AM ] in source Unspecifi data ed specimen by Automated count Lymphocyt 10 - 50.0 % Normal March 24 es informati 2016 9:50 [#/volume on in AM ] in source Unspecifi data ed specimen by Automated count Erythrocy 27 - 31.2 pg Normal No March 24 te mean informati 2016 9:50 corpuscul on in AM ar source hemoglobi data n [Entitic mass] Erythrocy 31.8 - g/dl Low No March 24 te mean 35.4 informati 2016 9:50 corpuscul on in AM ar source hemoglobi data n concentra tion [Mass/vol ume] by Automated count Erythrocy 82.2 - fl Normal No March 24 te mean 97.8 informati 2016 9:50 corpuscul on in AM ar volume source [Entitic data volume] by Automated count Monocytes 0.1 - 1.0 K/mm3 Normal No March 242016 9:50 [#/volume on in AM ] in source Blood by data Automated count Monocytes 1.7 - 9.3 % Normal No March 24 informati 2016 9:50 leukocyte on in AM s in source Blood by data Automated count Platelet 7.4 - fl Low No March 24 mean 10.4 informati 2016 9:50 volume on in AM [Entitic source volume] data in Blood by Automated count Platelets 142 - 424 K/mm3 Normal No March 242016 9:50 [#/volume on in AM ] in source Blood data Erythrocy 4.2 - 5.4 M/mm3 Normal No March 24 anna informati 2016 9:50 [#/volume on in AM ] in source Amniotic data fluid Erythrocy 11.5 - % Normal No March 24 te 17.5 informati 2016 9:50 distribut on in AM ion width source [Entitic data volume] by Automated count Leukocyte 4.8 - K/MM3 Normal No March 24 s 10.8 informati 2016 9:50 [#/volume on in AM ] in source Blood data Natriutietic peptide B [Mass/volume] in Serum or Plasma Observa Value Referen Units Interpr Notes Date tion ce etation Range Natriutie 0 - 100 pg/mL Normal No March 19 informati 2016 4:10 peptide B on in PM source [Mass/vol data ume] in Serum or Plasma CBC W Auto Differential panel in Blood Observa Value Referen Units Interpr Notes Date tion ce etation Range Basophils 0 - 0.2 K/MM3 Normal No March 192016 4:10 [#/volume on in PM ] in source Blood by data Automated count Basophils 0.1 - 2.0 % Normal No March 19 informati 2016 4:10 leukocyte on in PM s in source Blood by data Automated count Eosinophi 0.0 - 0.4 K/mm3 Normal No March 19 informati 2016 4:10 [#/volume on in PM ] in source Blood by data Automated count Eosinophi 0.1 - % Normal No March 19 ls/100 12.0 informati 2016 4:10 leukocyte on in PM s in source Blood by data Automated count Granulocy 1.8 - 7.8 K/mm3 Normal No March 19 anna informati 2016 4:10 [#/volume on in PM ] in source Blood by data Automated count Granulocy 37.0 - % Normal No March 19 anna/100 80.0 informati 2016 4:10 leukocyte on in PM s in source Blood by data Automated count Hematocri 37.0 - % Normal No March 19 t [Volume 47.0 informati 2016 4:10 on in PM Fraction] source of Blood data Hemoglobi 12.2 - g/dL No No March 19 n 16.2 informati informati 2016 4:10 [Mass/vol on in on in PM ume] in source source Blood data data Lymphocyt 0.7 - 4.5 K/mm3 Normal No March 19 es informati 2016 4:10 [#/volume on in PM ] in source Unspecifi data ed specimen by Automated count Lymphocyt 10 - 50.0 % Normal No March 19 es informati 2016 4:10 [#/volume on in PM ] in source Unspecifi data ed specimen by Automated count Erythrocy 27 - 31.2 pg Normal No March 19 te mean informati 2016 4:10 corpuscul on in PM ar source hemoglobi data n [Entitic mass] Erythrocy 31.8 - g/dl Normal No March 19 te mean 35.4 informati 2016 4:10 corpuscul on in PM ar source hemoglobi data n concentra tion [Mass/vol ume] by Automated count Erythrocy 82.2 - fl Normal No March 19 te mean 97.8 informati 2016 4:10 corpuscul on in PM ar volume source [Entitic data volume] by Automated count Monocytes 0.1 - 1.0 K/mm3 Normal No March 19 informati 2016 4:10 [#/volume on in PM ] in source Blood by data Automated count Monocytes 1.7 - 9.3 % Normal No March 19 / informati 2016 4:10 leukocyte on in PM s in source Blood by data Automated count Platelet 7.4 - fl Low No March 19 mean 10.4 informati 2017 4:10 volume on in PM [Entitic source volume] data in Blood by Automated count Platelets 142 - 424 K/mm3 Normal No March 19 informati 2016 4:10 [#/volume on in PM ] in source Blood data Erythrocy 4.2 - 5.4 M/mm3 Normal No March 19 anna informati 2016 4:10 [#/volume on in PM ] in source Amniotic data fluid Erythrocy 11.5 - % Normal No March 19 te 17.5 informati 2016 4:10 distribut on in PM ion width source [Entitic data volume] by Automated count Leukocyte 4.8 - K/MM3 Normal No March 19 s 10.8 informati 2017 4:10 [#/volume on in PM ] in source Blood data CBC W NO DIFF Observa Value Referen Units Interpr Notes Date tion ce etation Range Leukocy 8.0 4.8 - No No No Jan 22 anna 10.8 informa informa informa 2016 [#/volu tion in tion in tion in 7:30 AM me] in source source source Blood data data data by Automat ed count Erythro 2.95 4.20 - No Low No Jan 22 cytes 5.40 informa informa 2016 [#/volu tion in tion in 7:30 AM me] in source source Blood data data by Automat ed count Hemoglo 8.2 12.0 - g/dL Low No Jan 22 bin 16.0 informa 2016 [Mass/v tion in 7:30 AM olume] source in data Blood Hematoc 28.1 37.0 - % Low No Jan 22 rit 47.0 informa 2016 [Volume tion in 7:30 AM source Fractio data n] of Blood by Automat ed count Erythro 95.3 81 - 99 fL No No Jan 22 cyte informa informa 2016 mean tion in tion in 7:30 AM corpusc source source ular data data volume [Entiti c volume] in Cord blood by Automat ed count Erythro 27.8 27 - 31 pg No No Jan 22 cyte informa informa 2016 mean tion in tion in 7:30 AM corpusc source source ular data data hemoglo bin [Entiti c mass] by Automat ed count Erythro 29.2 32 - 36 g/dL Low No Jan 22 cyte informa 2016 mean tion in 7:30 AM corpusc source ular data hemoglo bin concent ration [Mass/v olume] by Automat ed count Erythro 14.5 11.5 - % No No Jan 22 cyte 14.5 informa informa 2016 distrib tion in tion in 7:30 AM ution source source width data data [Ratio] by Automat ed count Platele 446 130 - No High No Jan 22 ts 400 informa informa 2016 [#/volu tion in tion in 7:30 AM me] in source source Blood data data by Automat ed count Platele 9.6 6.0 - fL No No Jan 22 t mean 10.0 informa informa 2016 volume tion in tion in 7:30 AM [Entiti source source c data data volume] in Blood by [employer] ker ESR Observa Value Referen Units Interpr Notes Date tion ce etation Range Erythro 50 0 - 20 No High No Jan 22 cyte informa informa 2016 sedimen tion in tion in 7:30 AM tation source source rate by data data [place] vinod method RETICULOCYTE Observa Value Referen Units Interpr Notes Date tion ce etation Range Reticul 3.7 0.5 - % High No Jan 22 ocytes/ 1.5 informa 2016 100 tion in 7:30 AM erythro source cytes data in Blood by Automat ed count CORRECT 2.2 No % No No Jan 22 ED informa informa informa 2016 RETIC tion in tion in tion in 7:30 AM source source source data data data IMMATUR 33.0 2.6 - % High No Jan 22 E 12.8 informa 2016 RETICUL tion in 7:30 AM OCYTE source FRACTIO data N Hemoglo 30.7 No pg No No Jan 22 bin informa informa informa 2016 [Entiti tion in tion in tion in 7:30 AM c mass] source source source in data data data Reticul ocytes COMPREHENSIVE METABOLIC PANEL Observa Value Referen Units Interpr Notes Date tion ce etation Range Sodium 141 136 - mmol/L No No Jan 22 [Moles/ 145 informa informa 2016 volume] tion in tion in 7:30 AM in source source Serum data data or Plasma Potassi 5.3 3.5 - mmol/L High No Jan 22 um 5.1 informa 2016 [Moles/ tion in 7:30 AM volume] source in data Serum or Plasma Chlorid 100.8 98 - mmol/L No No Jan 22 e 107 informa informa 2016 [Moles/ tion in tion in 7:30 AM volume] source source in data data Serum or Plasma Carbon 31 22 - 29 mmol/L High No Jan 22 dioxide informa 2016 , total tion in 7:30 AM source [Moles/ data volume] in Serum or Plasma Anion 9 8 - 16 No No No Jan 22 gap in informa informa informa 2016 Serum tion in tion in tion in 7:30 AM or source source source Plasma data data data Urea 17.5 6 - 20 mg/dL No No Jan 22 nitroge informa informa 2016 n tion in tion in 7:30 AM [Mass/v source source olume] data data in Serum or Plasma Creatin 1.0 0.5 - mg/dL High No Jan 22 ine 0.9 informa 2016 [Mass/v tion in 7:30 AM olume] source in data Serum or Plasma Glomeru > 59 No No No An eGFR Jan 22 lar informa informa informa of <60 2016 filtrat tion in tion in tion in 7:30 AM ion source source source mL/min/ rate/1. data data data 1.73 m2 73 sq for M.predi three cted by months or more Creatin ine-bas isindic ed ative formula of (MDRD) chronic kidney disease . Patient s with eGFRval ues > or = 60 mL/min/ 1.73 m2 may have chronic kidneyd isease if evidenc e of persist ent protein uria is present .Refere nce: [email or web address] [email or web address]* Units are mL/min/ 1.73m2 Urea 17.5 7.0 - No No No Jan 22 nitroge 25.0 informa informa informa 2016 n/Creat tion in tion in tion in 7:30 AM inine source source source [Mass data data data ratio] in Serum or Plasma Glucose 99 70 - mg/dL No No Jan 22 100 informa informa 2016 [Mass/v tion in tion in 7:30 AM olume] source source in data data Serum or Plasma Osmolal 282 275 - mosm/L No No Jan 22 ity of 295 informa informa 2016 Serum tion in tion in 7:30 AM or source source Plasma data data by calcula tion Calcium 8.7 8.4 - mg/dL No No Jan 22 10.2 informa informa 2015 [Mass/v tion in tion in 7:30 AM olume] source source in data data Serum or Plasma Bilirub 0.2 0.0 - mg/dL No No Jan 22 in.tota 1.2 informa informa 2016 l tion in tion in 7:30 AM [Mass/v source source olume] data data in Serum or Plasma Asparta 16 0 - 32 No No No Jan 22 te informa informa informa 2016 aminotr tion in tion in tion in 7:30 AM ansfera source source source se data data data [Enzyma tic activit y/volum e] in Serum or Plasma Alanine 14 0 - 33 No No No Jan 22 informa informa informa 2016 aminotr tion in tion in tion in 7:30 AM ansfera source source source se data data data [Enzyma tic activit y/volum e] in Serum or Plasma Protein 6.0 6.4 - g/dL Low No Jan 22 8.3 informa 2015 [Mass/v tion in 7:30 AM olume] source in data Serum or Plasma Albumin 3.4 3.5 - g/dL Low No Jan 22 5.2 informa 2015 [Mass/v tion in 7:30 AM olume] source in data Serum or Plasma Globuli 2.6 1.5 - No No No Jan 22 n 3.8 informa informa informa 2015 [Mass/v tion in tion in tion in 7:30 AM olume] source source source in data data data Serum by calcula tion Albumin 1.3 1.1 - No No No Jan 22 /Globul 1.8 informa informa informa 2016 in tion in tion in tion in 7:30 AM [Mass source source source ratio] data data data in Serum or Plasma Alkalin 95 35 - No No No Jan 22 e 105 informa informa informa 2016 phospha tion in tion in tion in 7:30 AM tase source source source [Enzyma data data data tic activit y/volum e] in Serum or Plasma IRON TIBC Observa Value Referen Units Interpr Notes Date tion ce etation Range Iron 33.03 37 - ug/dL Low No Jan 22 [Mass/v 145 informa 2015 olume] tion in 7:30 AM in source Serum data or Plasma Iron 288.8 112.0 - ug/dL No No Jan 22 binding 356.0 informa informa 2016 tion in tion in 7:30 AM capacit source source y data data [Mass/v olume] in Serum or Plasma Iron 11 No No No No Jan 22 binding informa informa informa informa 2016 tion in tion in tion in tion in 7:30 AM capacit source source source source y data data data data [Mass/v olume] in Serum or Plasma FERRITIN Observa Value Referen Units Interpr Notes Date ti ce etation Range Ferriti 75 13.0 - ng/mL No No Jan 22 n 150.0 informa informa 2015 [Mass/v tion in tion in 7:30 AM olume] source source in data data Serum or Plasma VITAMIN B12 Observa Value Referen Units Interpr Notes Date ti ce etation Range Cobalam 432 211 - pg/mL No No Jan 22 in 946 informa informa 2015 (Vitami tion in tion in 7:30 AM n B12) source source [Mass/v data data olume] in Serum FOLATE Observa Value Referen Units Interpr Notes Date ti ce etation Range Folate 15.2 4.6 - ng/mL No No Jan 22 [Mass/v 34.8 informa informa 2015 olume] tion in tion in 7:30 AM in source source Serum data data or Plasma CBC WITH MANUAL DIFF Observa Value Referen Units Interpr Notes Date tion ce etation Range Leukocy 8.5 4.8 - No No No Jan 19 anna 10.8 informa informa informa 2016 [#/volu tion in tion in tion in 6:25 AM me] in source source source Blood data data data by Automat ed count Erythro 3.01 4.20 - No Low No Jan 19 cytes 5.40 informa informa 2016 [#/volu tion in tion in 6:25 AM me] in source source Blood data data by Automat ed count Hemoglo 8.5 12.0 - g/dL Low No Jan 19 bin 16.0 informa 2016 [Mass/v tion in 6:25 AM olume] source in data Blood Hematoc 28.8 37.0 - % Low No Jan 19 rit 47.0 informa 2016 [Volume tion in 6:25 AM source Fractio data n] of Blood by Automat ed count Erythro 95.7 81 - 99 fL No No Jan 19 cyte informa informa 2016 mean tion in tion in 6:25 AM corpusc source source ular data data volume [Entiti c volume] in Cord blood by Automat ed count Erythro 28.2 27 - 31 pg No No Jan 19 cyte informa informa 2016 mean tion in tion in 6:25 AM corpusc source source ular data data hemoglo bin [Entiti c mass] by Automat ed count Erythro 29.5 32 - 36 g/dL Low No Jan 19 cyte informa 2016 mean tion in 6:25 AM corpusc source ular data hemoglo bin concent ration [Mass/v olume] by Automat ed count Erythro 14.3 11.5 - % No No Jan 19 cyte 14.5 informa informa 2016 distrib tion in tion in 6:25 AM ution source source width data data [Ratio] by Automat ed count Platele 452 130 - No High No Jan 19 ts 400 informa informa 2016 [#/volu tion in tion in 6:25 AM me] in source source Blood data data by Automat ed count Platele 9.3 6.0 - fL No No Jan 19 t mean 10.0 informa informa 2016 volume tion in tion in 6:25 AM [Entiti source source c data data volume] in Blood by [employer] TOTAL 100 No No No No Jan 19 CELLS informa informa informa informa 2016 COUNTED tion in tion in tion in tion in 6:25 AM source source source source data data data data Neutrop 60 43 - 75 % No No Jan 19 hils.se informa informa 2016 gmented tion in tion in 6:25 AM /100 source source leukocy data data anna in Blood by Manual count LYMPHOC 26 18 - 41 % No No Jan 19 YTES % informa informa 2016 (MANUAL tion in tion in 6:25 AM ) source source data data MONOCYT 6 4 - 11 % No No Jan 19 ES % informa informa 2016 (MANUAL tion in tion in 6:25 AM ) source source data data EOSINOP 8 0 - 6 % High No Jan 19 HILS % informa 2015 (MANUAL tion in 6:25 AM ) source data PLATELE INCREAS No No No No Jan 19 T E informa informa informa informa 2016 ESTIMAT tion in tion in tion in tion in 6:25 AM E source source source source data data data data COMPREHENSIVE METABOLIC PANEL Observa Value Referen Units Interpr Notes Date tion ce etation Range Sodium 142 136 - mmol/L No No Jan 19 [Moles/ 145 informa informa 2016 volume] tion in tion in 6:25 AM in source source Serum data data or Plasma Potassi 5.2 3.5 - mmol/L High No Jan 19 um 5.1 informa 2015 [Moles/ tion in 6:25 AM volume] source in data Serum or Plasma Chlorid 99.0 98 - mmol/L No No Jan 19 e 107 informa informa 2016 [Moles/ tion in tion in 6:25 AM volume] source source in data data Serum or Plasma Carbon 33 22 - 29 mmol/L High No Jan 19 dioxide informa 2016 , total tion in 6:25 AM source [Moles/ data volume] in Serum or Plasma Anion 10 8 - 16 No No No Jan 19 gap in informa informa informa 2016 Serum tion in tion in tion in 6:25 AM or source source source Plasma data data data Urea 14.9 6 - 20 mg/dL No No Jan 19 nitroge informa informa 2016 n tion in tion in 6:25 AM [Mass/v source source olume] data data in Serum or Plasma Creatin 0.9 0.5 - mg/dL No No Jan 19 ine 0.9 informa informa 2016 [Mass/v tion in tion in 6:25 AM olume] source source in data data Serum or Plasma Glomeru > 59 No No No An eGFR Mar 25 lar informa informa informa of <60 2016 filtrat tion in tion in tion in 6:25 AM ion source source source mL/min/ rate/1. data data data 1.73 m2 73 sq for M.predi three cted by months or more Creatin ine-bas isindic ed ative formula of (MDRD) chronic kidney disease . Patient s with eGFRval ues > or = 60 mL/min/ 1.73 m2 may have chronic kidneyd isease if evidenc e of persist ent protein uria is present .Refere nce: [email or web address] [email or web address]* Units are mL/min/ 1.73m2 Urea 16.6 7.0 - No No No Jan 19 nitroge 25.0 informa informa informa 2016 n/Creat tion in tion in tion in 6:25 AM inine source source source [Mass data data data ratio] in Serum or Plasma Glucose 90 70 - mg/dL No No Jan 19 100 informa informa 2016 [Mass/v tion in tion in 6:25 AM olume] source source in data data Serum or Plasma Osmolal 283 275 - mosm/L No No Jan 19 ity of 295 informa informa 2016 Serum tion in tion in 6:25 AM or source source Plasma data data by calcula tion Calcium 8.7 8.4 - mg/dL No No Jan 19 10.2 informa informa 2016 [Mass/v tion in tion in 6:25 AM olume] source source in data data Serum or Plasma Bilirub 0.2 0.0 - mg/dL No No Jan 19 in.tota 1.2 informa informa 2016 l tion in tion in 6:25 AM [Mass/v source source olume] data data in Serum or Plasma Asparta 12 0 - 32 No No No Jan 19 te informa informa informa 2016 aminotr tion in tion in tion in 6:25 AM ansfera source source source se data data data [Enzyma tic activit y/volum e] in Serum or Plasma Alanine 12 0 - 33 No No No Jan 19 informa informa informa 2016 aminotr tion in tion in tion in 6:25 AM ansfera source source source se data data data [Enzyma tic activit y/volum e] in Serum or Plasma Protein 6.0 6.4 - g/dL Low No Jan 19 8.3 informa 2015 [Mass/v tion in 6:25 AM olume] source in data Serum or Plasma Albumin 3.2 3.5 - g/dL Low No Jan 19 5.2 informa 2015 [Mass/v tion in 6:25 AM olume] source in data Serum or Plasma Globuli 2.8 1.5 - No No Jan 19 n 3.8 informa informa informa 2015 [Mass/v tion in tion in tion in 6:25 AM olume] source source source in data data data Serum by calcula tion Albumin 1.1 1.1 - No No Jan 19 /Globul 1.8 informa informa informa 2016 in tion in tion in tion in 6:25 AM [Mass source source source ratio] data data data in Serum or Plasma Alkalin 86 35 - No No Jan 19 e 105 informa informa informa 2016 phospha tion in tion in tion in 6:25 AM tase source source source [Enzyma data data data tic activit y/volum e] in Serum or Plasma CBC W NO DIFF Observa Value Referen Units Interpr Notes Date tion ce etation Range Leukocy 9.3 4.8 - No No Jan 17 anna 10.8 informa informa informa 2015 [#/volu tion in tion in tion in 6:30 AM me] in source source source Blood data data data by Automat ed count Erythro 2.85 4.20 - No Low No Jan 17 cytes 5.40 informa informa 2016 [#/volu tion in tion in 6:30 AM me] in source source Blood data data by Automat ed count Hemoglo 8.0 12.0 - g/dL Low Jan 17 bin 16.0 informa 2015 [Mass/v tion in 6:30 AM olume] source in data Blood Hematoc 27.2 37.0 - % Low No Jan 17 rit 47.0 informa 2016 [Volume tion in 6:30 AM source Fractio data n] of Blood by Automat ed count Erythro 95.4 81 - 99 fL No Jan 17 cyte informa informa 2016 mean tion in tion in 6:30 AM corpusc source source ular data data volume [Entiti c volume] in Cord blood by Automat ed count Erythro 28.1 27 - 31 pg No Jan 17 cyte informa informa 2016 mean tion in tion in 6:30 AM corpusc source source ular data data hemoglo bin [Entiti c mass] by Automat ed count Erythro 29.4 32 - 36 g/dL Low No Jan 17 cyte informa 2016 mean tion in 6:30 AM corpusc source ular data hemoglo bin concent ration [Mass/v olume] by Automat ed count Erythro 14.1 11.5 - % No Jan 17 cyte 14.5 informa informa 2016 distrib tion in tion in 6:30 AM ution source source width data data [Ratio] by Automat ed count Platele 408 130 - No High No Jan 17 ts 400 informa informa 2016 [#/volu tion in tion in 6:30 AM me] in source source Blood data data by Automat [employer] count Platele 9.4 6.0 - fL No No Jan 17 t mean 10.0 informa informa 2016 volume tion in tion in 6:30 AM [Entiti source source c data data volume] in Blood by [employer] ker ROUTINE CULTURE Observa Value Referen Units Interpr Notes Date tion ce etation Range TEXT ------- . . Normal No Oct 14 DIAGNOS ------- inform2013 IS ------- tion in 2:51 PM BATTERY ------- source ------- data ------- ------- ------- ------- ------- ------- ------- ------- -RUN DATE: 4 [employer] LIVE* * PAGE 1RUN TIME: 1018 Specime n Inquiry ------- ------- ------- ------- ------- ------- ------- ------- ------- ------- ------- ------- ------- -ALMA Mcmahon: SCOTT MENDEZ ACCT: [id number] LOC: [facility] U: [id number] AGE/SX: 44/F ROOM: RE 4REG DR: CELIA SCOTT : 969 BED: DIS: STATUS: ELMIRA RUIZ TLOC:-- ------- ------- ------- ------- ------- ------- ------- ------- ------- ------- ------- ------- ------S PEC #: [id number] [place]: STATUS: KRISTEN REQ #: [id number] RECD: SUBM DR: CELIA FAIRCHILD OURCE: KNEE ENTR: -[phone]: JACY ESC: LEFTORD ERED: ROUTC-- ------- ------- ------- ------- ------- ------- ------- ------- ------- ------- ------- ------- ------ Procedu re Result- ------- ------- ------- ------- ------- ------- ------- ------- ------- ------- ------- ------- ------- ROUTINE CULTURE Final Organis m 1 STAPHYL OCOCCUS AUREUS GROWTH AMOUNT MODERAT E GROWTH SENSITI VITY TO FOLLOW 1. STAPHYL OCOCCUS AUREUS Target Route Dose RX AB Cost M.I.C. IQ ------ ----- ------- ------- ---- ------ -- ------ ------- -- ------ AMOX/CL AV S <=4/2 AMP/SUL S <=8/4 CEFAZOL IN S <=4 DAPTOMY JOEL S 1 CIPROFL OXACIN S <=1 CLINDAM YCIN R >4 ERYTHRO MYCIN R >4 GENTAMI JOEL S <=4 * LEVOFLO XACIN S <=1 LINEZOL ID S 2 MOXIFLO XACIN S <=0.5 OXACILL IN S <=0.25 PENICIL CELENA S <=0.03 RIFAMPI N S <=1 TETRACY CAPPS S <=4 TRIMET/ SULFA S <=0.5/9 .5 * SYNERCI D S <=1 VANCOMY JOEL S 2 * NONFORM ULARY ANTIBIO TICS--- ------- ------- ------- ------- ------- ------- ------- ------- ------- ------- ------- ------- ----- END OF REPORT ANAEROBIC CULTURE Observa Value Referen Units Interpr Notes Date tion ce etation Range TEXT ------- . . Normal No Sep 18 DIAGNOS ------- informa 2013 IS ------- tion in 2:50 PM BATTERY ------- source ------- data ------- ------- ------- ------- ------- ------- ------- ------- -RUN DATE: 4 [employer] LIVE* * PAGE 1RUN TIME: 0676 Specime n Inquiry ------- ------- ------- ------- ------- ------- ------- ------- ------- ------- ------- ------- ------- -ALMA T: VANESSASCOTT BANERJEE ACCT: [id number] LOC: [facility] U: [id number] AGE/SX: 44/F ROOM: RE 4REG DR: CELIA SCOTT : 969 BED: DIS: STATUS: DEP SDC TLOC:-- ------- ------- ------- ------- ------- ------- ------- ------- ------- ------- ------- ------- ------S PEC #: [id number] [place]: STATUS: COMP REQ #: [id number] RECD: [address]: CELIA FAIRCHILD OURCE: KNEE ENTR: [phone]: JACY ESC: ABSCESS ORDERED : ANAER-- ------- ------- ------- ------- ------- ------- ------- ------- ------- ------- ------- ------- ------ Procedu re Result- ------- ------- ------- ------- ------- ------- ------- ------- ------- ------- ------- ------- ------- ANAEROB IC CULTURE Final <No reporta ble results for this procedu re>---- ------- ------- ------- ------- ------- ------- ------- ------- ------- ------- ------- ------- ---- END OF REPORT UPREG Observa Value Referen Units Interpr Notes Date tion ce etation Range UPREG NEGATIV . No Normal No Oct 14 E informa 2013 tion in tion in 11:10 source source AM data data CBC (HEMOGRAM) Observa Value Referen Units Interpr Notes Date tion ce etation Range WBC 16.2 4.8 - THOUS High No Oct 14 10.8 2013 tion in 11: source AM data RBC 4.71 4.20 - m/uL Normal No Oct 14 5.40 inform2013 tion in : source AM data HGB 14.1 12.0 - g/dL Normal No Oct 14 16.0 2013 tion in 11: source AM data HCT 43 37 - 47 % Normal No Oct 142013 tion in 11: source AM data MEAN 90.5 81.0 - fL Normal Oct 14 CORPUSC 99.0 2013 ULAR tion in 11:02 VOLUME source AM data MEAN 30.0 27.0 - uug Normal No Oct 14 CORPUSC 31.0 2013 ULAR tion in 11: HEMOGLO source AM BIN data MEAN 33.1 30.0 - g/dL Normal No Oct 14 CORPUSC 37.0 inform2013 ULAR tion in 11:02 HGB source AM CONC data RED 14.2 11.5 - % Normal Oct 14 CELL 14.5 2013 DISTRIB tion in 11: UTION source AM WIDTH data PLATELE 428 130 - THOUS High No Oct 14 T COUNT 400 2013 tion in 11:02 source AM data CXR Observa Value Referen Units Interpr Notes Date tion ce etation Range TEXT LATTER-DAY No No No No Oct 14 [facility] informa informa informa informa 2013 IS tion in tion in tion in tion in 10:40 BATTERY [place] source source source source AM D\.br\8 data data data data [address]\ .br\[place] [address]\. br\591- [phone] 1\.br\\ .br\[facility]\ .br\[id number]\ .br\\.b r\Quyen d\.br\\ .br\PAT IENT NAME: SCOTT MENDEZ 933\.br \: [id number]\. br\ATTE NDING: CELIA SCOTT MD DATE OF EXAM: 4\.br\P RIMARY CARE: NONE LOCATIO N:\.br\ \.br\OR DERING PHYSICI AN: SONIA PETERSEN, CELIA \.br\AK OCEDURE (s): CHEST PA LAT\.br \ORDER NUMBER( s): [id number] 70\.br\ \.br\CC :\.br\\ .br\\.b r\\.br\ \.br\EX AM: TWO VIEW CHEST\. br\\.br \CLINIC AL INFO: Hyperte nsion.\ .br\\.b r\KAMERON RISON: None.\. br\\.br \FINDIN GS: PA and lateral views of the chest were obtaine d. The lungs are well\.b r\expan ded. There is a 2.7 cm, ovoid, mass-li ke density adjacen t to the right\. br\pulm onary hilum lateral ly. It may just reflect overlap ping vascula r structu res,\.b r\but mass/ad enopath y cannot be exclude d. Initial recomme ndation would be to\.br\ obtain any prior outside studies in an attempt to documen t stabili ty. If prior\. br\stud ies cannot be made availab le or do not exist, then contras t chest CT is\.br\ recomme nded for further evaluat ion, to exclude mass/ad enopath y.\.br\ \.br\Th ere is no active airspac e disease process . There is no edema or pleural fluid.\ .br\Nor mal heart size.\. br\\.br \Writte n prelimi nary interpr etation was provide d for the referri ng physici an at\.br\ 10:44 a.m.\.b r\\.br\ IMPRESS ION:\.b r\1. There is no active airspac e disease process .\.br\2 . 2.7 cm, ovoid, mass-li ke density in the right perihil ar region, with followu p\.br\r ecommen dations and diagnos tic conside rations noted above.\ .br\\.b r\\.br\ \.br\Re viewed and signed by: ERIC FLYNN M.D., 014 09:01:1 5\.br\T his documen t has been electro nically signed and is conside red final.\ .br\\.b r\\.br\ [id number] 842\.br \ \ .br\\.b r\DICTA KAMILAH BY: ERIC FLYNN MD\.br\ DICTATE D DATE/TI ME: 4 1040\.b r\TRANS CRIBED DATE/TI ME: 4 1241\.b r\\.br\ CC:\.br \
--- OUTSIDE RECORDS SUMMARY | 2017-03-26 03:25 | External Medical Summary Rpt ---
Author Author MARITZA Hooker, [employer] Organization [employer] Address Unknown Phone Unavailable [...] ------- ------- ------- ------- -RUN DATE: 4 [employer] LIVE* * PAGE 1RUN TIME: 1018 Specime n Inquiry ------- ------- ------- ------- ------- ------- ------- ------- ------- ------- ------- ------- ------- -ALMA Mcmahon: SCOTT MENDEZ ACCT: [id number] LOC: [facility] U: [id number] AGE/SX: 44/F ROOM: RE 4REG DR: CELIA SCOTT : 969 BED: DIS: STATUS: ELMIRA RUIZ TLOC:-- ------- ------- ------- ------- ------- ------- ------- ------- ------- ------- ------- ------- ------S PEC #: [id number] [place]: STATUS: KRISTEN REQ #: [id number] RECD: SUBM DR: CELIA FAIRCHILD OURCE: [...] ------- ------- ------- ------- -RUN DATE: 4 [employer] LIVE* * PAGE 1RUN TIME: 0619 Specime n Inquiry ------- ------- ------- ------- ------- ------- ------- ------- ------- ------- ------- ------- ------- -ALMA T: VANESSASCOTT BANERJEE ACCT: [id number] LOC: [facility] U: [id number] 933 AGE/SX: 44/F ROOM: RE 4REG DR: CELIA SCOTT : 969 BED: DIS: STATUS: DEP SDC TLOC:-- ------- ------- ------- ------- ------- ------- ------- ------- ------- ------- ------- ------- ------S PEC #: [id number] [place]: STATUS: COMP REQ #: [id number] RECD: [address]: CELIA FAIRCHILD [...] Notes Date tion ce etation Range TEXT GNOSTICIST No No No No Oct 14 [facility] informa informa informa informa 2013 IS tion in tion in tion in tion in 10:40 [facility] source source source source AM D\.br\8 data data data data [address]\ .[place] [address]\. br\330- [phone] 1\.br\\ .br\[facility]\ .br\121 [id number]\ .br\\.b r\Quyen d\.br\\ .br\PAT IENT NAME: SCOTT MENDEZ 933\.br \: [id number]\. br\ATTE NDING: CELIA SCOTT MD DATE OF EXAM: 4\.br\P RIMARY CARE: NONE LOCATIO N:\.br\ \.br\OR DERING PHYSICI AN: SONIA PETERSEN, CELIA \.br\[place] OCEDURE (s): CHEST PA LAT\.br \ORDER NUMBER( s): [id number] 70\.br\ \.br\CC :\.br\\ .br\\.b r\\.br\ \.br\EX AM: [...]
== END 2017-03-19 17:21 | disposition home or self-care (01) ==
LOC: ER 15:22
PROVIDERS: Emergency Medicine
DX: G89.4 Chronic pain syndrome (principal); R06.02 Shortness of breath; R60.1 Generalized edema; I10 Essential (primary) hypertension